=== PATIENT | female | born 1930 | race African-American/Black ===

== ENCOUNTER 2017-11-24 10:17 | Inpatient (IN) | payer MEDICARE, BC ==
[~2017-11-24] VITALS: Ht 152.4 cm; Wt 59.9 kg
[2017-11-24 10:20] VITALS: BP 150/75
[2017-11-24] MEDS ORDERED: HUMALOG 75/255 UNIT1 SUBQ (10:24)
[2017-11-24] MEDS ORDERED: AMLODIPINE BESY10 MG GT (10:24)
[2017-11-24] MEDS ORDERED: ELIQUIS2.5 MG PO (10:24)
[2017-11-24] MEDS ORDERED: ACETAMINOP160 MG/5 M GT (10:24)
[2017-11-24] MEDS ORDERED: METOPROLOL TART50 M1 ORAL (10:27)
[2017-11-24] MEDS ORDERED: POTASSIUM CHLO10 MEQ GT (10:27)
[2017-11-24] MEDS ORDERED: ISOSORBIDE DINI30 MG GT (10:27)
[2017-11-24] MEDS ORDERED: MULTIVITAMINS1 EAC8 GT (10:27)
[2017-11-24] MEDS ORDERED: A & D OINT1 APPLI1 (10:27)
[2017-11-24] MEDS ORDERED: VITAMIN C500 M1 GT (10:27)
[2017-11-24] MEDS ORDERED: VENELEX OINTMEN60 GM TP (10:28)
[2017-11-24] MEDS ORDERED: Ipratropium 0.02% Inh Soln 2.5ml UD HHN ONE (10:30)
[2017-11-24] MEDS ORDERED: Albuterol ud Inhalation HHN ONE (10:30)
[2017-11-24] MEDS ORDERED: Solu-MEDROL 125mg Inj IVP ONE (10:30)
--- NOTE | 2017-11-24 10:45 | Emergency Room Report ---
History of Present Illness General Chief Complaint: Dyspnea/Respdistress Source: Medical Record, EMS Present Illness HPI Patient sent in for dyspnea and hypoxia. Initial oxygen saturation was 75% for paramedics. They put her on mask and oxygen went up to 94%. They did not hear wheezing. They state the patient has a history of congestive heart failure. The patient is noncommunicative due to CVA. The patient has sustained a stroke in the past and has left-sided weakness. She does not communicate aside from grunting. According to records with the patient she has type 2 diabetes without complications, encephalopathy, gastrostomy tube, aphasia, heart failure, sepsis in the past, peripheral vascular disease, essential hypertension and she status post stroke. Review of labs presented with her on November 09 revealed hypernatremia (154) and hemoglobin of 8.4. POLST - full code Allergies: Coded Allergies: ATORVASTATIN (Verified Allergy, Unknown, 11/24/17) CLONIDINE (Verified Allergy, Unknown, 11/24/17) LABETALOL (Verified Allergy, Unknown, 11/24/17) NIFEDIPINE (Verified Allergy, Unknown, 11/24/17) ROSUVASTATIN (Verified Allergy, Unknown, 11/24/17) Uncoded Allergies: IVELISSE INHIBITOR (Allergy, Unknown, 11/24/17) Patient History Limited by: medical condition Past Medical History: see triage record, old chart reviewed Past Surgical History: other - PEG tube Social History Narrative [facility] Reviewed Nursing Documentation: PMH: Agreed; PSxH: Agreed Nursing Documentation-PMH Hx Cardiac Problems: Yes - heart failure, PVD Hx Hypertension: Yes Hx Diabetes: Yes Hx Cerebrovascular Accident: Yes Review of Systems All Other Systems: limited Physical Exam Vital Signs Date Time Temp Pulse Resp B/P (MAP) Pulse Ox O2 Delivery O2 Flow Rate FiO2 11/24/17 10:17 97.1 68 20 198/87 94 Non-Rebreather 12.0 97.2 Sp02 EP Interpretation: reviewed, abnormal - interpreted as low by me General Appearance: mild distress, Chronically Ill Head: normocephalic Eyes: bilateral eye normal inspection, bilateral eye PERRL ENT: moist mucus membranes Respiratory: respiratory distress - mild, wheezing, expiration Cardiovascular #1: normal peripheral pulses Cardiovascular #2: 2+ radial (R) Gastrointestinal: soft, other - PEG, decreased bowel sounds Genitourinary: no CVA tenderness Musculoskeletal: other - contractures L Neurologic: motor weakness - L sided Psychiatric: other - minimal responses Skin: other - bilateral heel decubiti - sallo Procedures Critical Care Time Critical Care Time Total Critical Care Time: 30 min bedside evaluation and treatment excludes procedures (EKG). Reason for critical care: resp distress, determination level of care, BIPAP Possible complications: hypotension, hypertension, NM, shock, arrhythmias, metabolic acidosis, end organ damage, respiratory failure. Interventions: beta agents, oxygen, BIPAP, lasix, repeat examinations Course: Patient with resp distress. Cardiac asthma treated with beta agents. No evidence of infection. Review of POLST. Focus on tx CHF. Still resp distress and hypoxia. BIPAP begun. Repeat eval with improvement and breathing more comfortably. Eval by admitting MD. Consultations: nursing staff, EMS, radiology, RT, admitting MD Performed by: Dr. Franklin Tolerated well condition = serious Medical Decision Making Diagnostic Impression: Primary Impression: Respiratory distress Additional Impressions: Hypoxia Pulmonary edema Qualified Codes: J81.0 - Acute pulmonary edema History of CVA (cerebrovascular accident) ER Course Patient with history of CHF presents with hypoxia and mild respiratory distress. Differential includes acute myocardial infarction, congestive heart failure, bronchospasm, pneumonia amongst others. Based on recent labs she's probably hyponatremic and anemic at this time also. Evaluation will be with EKG , chest x-ray and labs. Been and what the x-ray shows we may need to give her fluid hydration. Also antibiotics may be indicated. EKG without acute injury. CXR bilat infiltrates. Patient still with increased work of breathing and requiring 100% nonrebreather. Placed on BiPAP. Patient improved on BiPAP. White count is 8000, lactate is negative and BNP is extremely elevated. The clinical picture is against pneumonia. Dr. Perez and examine the patient here. We're electing not to start antibiotics at this time as the clinical picture is purely congestive heart failure. Patient admitted to the stepdown unit because of BiPAP. Laboratory Tests Test 11/24/17 10:30 11/24/17 10:40 White Blood Count 8.1 K/UL (4.8-10.8) Red Blood Count 3.44 M/UL (4.20-5.40) L Hemoglobin 9.8 G/DL (12.0-16.0) L Hematocrit 32.8 % (37.0-47.0) L Mean Corpuscular Volume 95 FL (80-99) Mean Corpuscular Hemoglobin 28.3 PG (27.0-31.0) Mean Corpuscular Hemoglobin Concent 29.8 G/DL (32.0-36.0) L Red Cell Distribution Width 17.9 % (11.6-14.8) H Platelet Count 329 K/UL (150-450) Mean Platelet Volume 9.4 FL (6.5-10.1) Neutrophils (%) (Auto) 84.3 % (45.0-75.0) H Lymphocytes (%) (Auto) 10.9 % (20.0-45.0) L Monocytes (%) (Auto) 3.2 % (1.0-10.0) Eosinophils (%) (Auto) 0.6 % (0.0-3.0) Basophils (%) (Auto) 1.1 % (0.0-2.0) Prothrombin Time 11.2 SEC (9.30-11.50) Prothrombin Time INR 1.1 (0.9-1.1) PTT 26 SEC (23-33) Sodium Level 146 MMOL/L (136-145) H Potassium Level 4.0 MMOL/L (3.5-5.1) Chloride Level 106 MMOL/L (98-107) Carbon Dioxide Level 35 MMOL/L (21-32) H Anion Gap 6 mmol/L (5-15) Blood Urea Nitrogen 36 mg/dL (7-18) H Creatinine 0.6 MG/DL (0.55-1.30) Estimate Glomerular Filtration Rate mL/min (>60) Glucose Level 187 MG/DL (74-106) H Lactic Acid Level 0.50 mmol/L (0.4-2.0) Calcium Level 10.0 MG/DL (8.5-10.1) Total Bilirubin 0.3 MG/DL (0.2-1.0) Aspartate Amino Transferase (AST) 58 U/L (15-37) H Alanine Aminotransferase (ALT) 93 U/L (12-78) H Alkaline Phosphatase 84 U/L (46-116) Total Creatine Kinase 53 U/L (26-308) Troponin I 0.026 ng/mL (0.000-0.056) Pro-B-Type Natriuretic Peptide 63611 pg/mL (0-125) H Total Protein 7.7 G/DL (6.4-8.2) Albumin 3.0 G/DL (3.4-5.0) L Globulin 4.7 g/dL Albumin/Globulin Ratio 0.6 (1.0-2.7) L Urine Color Pale yellow Urine Appearance Clear Urine pH 6 (4.5-8.0) Urine Specific [place] 1.010 (1.005-1.035) Urine Protein 3+ (NEGATIVE) H Urine Glucose (UA) Negative (NEGATIVE) Urine Ketones Negative (NEGATIVE) Urine Blood 1+ (NEGATIVE) H Urine Nitrite Negative (NEGATIVE) Urine Bilirubin Negative (NEGATIVE) Urine Urobilinogen Normal MG/DL (0.0-1.0) Urine Leukocyte Esterase Negative (NEGATIVE) Urine RBC 0-2 /HPF (0 - 2) Urine WBC 0-2 /HPF (0 - 2) Urine Squamous Epithelial Cells Occasional /LPF Urine Bacteria Occasional /HPF (NONE) EKG Diagnostic Results Rate: normal Rhythm: NSR ST Segments: no acute changes - LAE Rhythm Strip Diag. Results Rhythm: NSR, no PVC's, no ectopy Chest X-Ray Diagnostic Results Chest X-Ray Diagnostic Results : Chest X-Ray Ordered: Yes # of Views/Limited/Complete: 1 View Indication: Shortness of Breath EP Interpretation: Yes Interpretation: no effusion, no pneumothorax, other - bilat infiltrated c/w CHF or pneumonia Impression: Other Electronically Signed by: Jori Franklin MD Last Vital Signs Date Time Temp Pulse Resp B/P (MAP) Pulse Ox O2 Delivery O2 Flow Rate FiO2 11/24/17 11:54 92 25 96 Facial 70 11/24/17 11:14 15.0 11/24/17 10:20 98.0 150/75 98.0 Status: improved Disposition: ADMITTED INPATIENT Condition: Serious Jori Franklin M.D. Nov 24, 2017 10:45
[2017-11-24 10:55] LABS: BASOPHILS % (AUTO) 1.1 % (0.0-2.0); EOSINOPHILS % (AUTO) 0.6 % (0.0-3.0); HEMATOCRIT 32.8 % (37.0-47.0); HEMOGLOBIN 9.8 G/DL (12.0-16.0); LYMPHOCYTES % (AUTO) 10.9 % (20.0-45.0); MEAN CORPUSCULAR VOLUME 95 FL (80-99); MONOCYTES % (AUTO) 3.2 % (1.0-10.0); NEUTROPHILS % (AUTO) 84.3 % (45.0-75.0); PLATELET COUNT 329 K/UL (150-450); RED BLOOD COUNT 3.44 M/UL (4.20-5.40); RED CELL DISTRIBUTION WIDTH 17.9 % (11.6-14.8); WHITE BLOOD COUNT 8.1 K/UL (4.8-10.8)
[2017-11-24 10:58] LABS: INR 1.1 (0.9-1.1)
[2017-11-24 11:00] LABS: ANION GAP 6 mmol/L (5-15); BLOOD UREA NITROGEN 36 mg/dL (7-18); CARBON DIOXIDE 35 MMOL/L (21-32); CHLORIDE 106 MMOL/L (98-107); CREATININE 0.6 MG/DL (0.55-1.30); SODIUM 146 MMOL/L (136-145)
[2017-11-24 11:11] LABS: ALANINE AMINOTRANSFERASE 93 U/L (12-78); ALBUMIN/GLOBULIN RATIO 0.6 (1.0-2.7); ALKALINE PHOSPHATASE 84 U/L (46-116); ASPARTATE AMINO TRANSFERASE 58 U/L (15-37); BILIRUBIN,TOTAL 0.3 MG/DL (0.2-1.0); CREATINE KINASE 53 U/L (26-308)
[2017-11-24 11:13] LABS: APPEARANCE,URINE CLEAR; BILIRUBIN, URINE NEGATIVE (NEGATIVE); COLOR,URINE PALE YELLOW; GLUCOSE, URINE (UA) NEGATIVE (NEGATIVE); KETONES,URINE NEGATIVE (NEGATIVE); LEUKOCYTE ESTERASE ,URINE NEGATIVE (NEGATIVE); NITRITE,URINE NEGATIVE (NEGATIVE); PH,URINE 6 (4.5-8.0); PROTEIN,URINE 3+ (NEGATIVE); UROBILINOGEN,URINE NORMAL MG/DL (0.0-1.0)
[2017-11-24 12:00] VITALS: BP 156/72
--- NOTE | 2017-11-24 12:30 | History & Physical ---
History and Physical History & Physicial HPI Patient sent in for dyspnea and hypoxia. Initial oxygen saturation was 95% for paramedics. They put her on mask and oxygen went up to 94%. They did not hear wheezing. They state the patient has a history of congestive heart failure. The patient is noncommunicative Courtney. The patient has sustained a stroke in the past and has left-sided weakness. She does not communicate aside from grunting. According to records with the patient she has type 2 diabetes without complications, encephalopathy, gastrostomy tube, aphasia, heart failure, sepsis in the past, peripheral vascular disease, essential hypertension and she status post stroke. Review of labs presented with her on November 09 revealed hyper knee tree [place] (154 ) hemoglobin of 8.4. POLST - full code Allergies: Coded Allergies: ATORVASTATIN (Verified Allergy, Unknown, 11/24/17) CLONIDINE (Verified Allergy, Unknown, 11/24/17) LABETALOL (Verified Allergy, Unknown, 11/24/17) NIFEDIPINE (Verified Allergy, Unknown, 11/24/17) ROSUVASTATIN (Verified Allergy, Unknown, 11/24/17) Uncoded Allergies: IVELISSE INHIBITOR (Allergy, Unknown, 11/24/17) Limited by: medical condition Past Medical History: see triage record, old chart reviewed Past Surgical History: other - PEG tube Social History Narrative resident of [facility] Hx Cardiac Problems: Yes - heart failure, PVD Hx Hypertension: Yes Hx Diabetes: Yes Hx Cerebrovascular Accident: Yes seen in ER Examined On BIPAP Non Verbal Acute respiratory distress / Failure- CHF Decomp HTN 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
--- NOTE | 2017-11-24 12:42 | Diagnostic Imaging Report ---
Indication: Dyspnea Technique: One view of the chest Comparison: none Findings: There is bilateral pleural effusions. There is bilateral interstitial edema. The heart is probably enlarged. Impression: Cardiomegaly with evidence of congestive heart failure
[2017-11-24] MEDS ORDERED: LORazepam Inj 2mg/ml 1ml IV PRN (13:45)
[2017-11-24] MEDS ORDERED: Albuterol/Ipratropium 3ml neb HHN PRN (13:45)
--- NOTE | 2017-11-24 13:47 | Consultation ---
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 Pt was found in respiratory failure and was started on BIPAP. Her CXR showed cardiomegaly and bilateral edema and effusion. Allergies: Coded Allergies: ATORVASTATIN (Verified Allergy, Unknown, 11/24/17) CLONIDINE (Verified Allergy, Unknown, 11/24/17) LABETALOL (Verified Allergy, Unknown, 11/24/17) NIFEDIPINE (Verified Allergy, Unknown, 11/24/17) ROSUVASTATIN (Verified Allergy, Unknown, 11/24/17) Uncoded Allergies: IVELISSE INHIBITOR (Allergy, Unknown, 11/24/17) Medication History Scheduled Amlodipine Besylate* (Amlodipine Besylate*), 10 MG GT DAILY, (Reported) Apixaban (Eliquis), 2.5 MG PO BID, (Reported) Ascorbic Acid* (Vitamin C*), 500 MG GT TWICE A DAY, (Reported) Balsam [place] Oil (Venelex Ointment), 1 APPLIC TP DAILY, (Reported) Isosorbide Dinitrate* (Isordil*), 30 MG GT TWICE A DAY, (Reported) Metoprolol Tartrate* (Metoprolol Tartrate*), 50 MG ORAL EVERY 12 HOURS, ( Reported) Multivitamin With Minerals (Multivitamins With Minerals*), 1 TAB GT DAILY, ( Reported) Potassium Chloride* (K-Dur*), 20 MEQ GT DAILY, (Reported) Scheduled PRN Acetaminophen 160MG/5ML* (Acetaminophen*), 20 ML GT EVERY 6 HOURS PRN for Fever/ Headache/Mild Pain, (Reported) Miscellaneous Medications Insulin Human Lispro (Humalog), Unknown Dose SUBQ, (Reported) Vitamin A & D (Vitamin A & D Ointment), (Reported) Patient History Healthcare decision maker Resuscitation status Advanced Directive on File Past Medical/Surgical History Past Medical/Surgical History: (1) Pulmonary edema (2) Diabetes mellitus (3) History of CVA (cerebrovascular accident) Review of Systems All Other Systems: negative except mentioned in HPI Physical Exam General Appearance: WD/WN Lines, tubes and drains: peripheral HEENT: normocephalic, atraumatic Neck: non-tender, normal alignment Respiratory/Chest: chest wall non-tender, lungs clear, rhonchi - left, rhonchi - right Cardiovascular/Chest: normal peripheral pulses, normal rate Abdomen: non tender Genitourinary/Rectal: normal genital exam Extremities: normal range of motion, moderate edema Last 24 Hour Vital Signs Date Time Temp Pulse Resp B/P (MAP) Pulse Ox O2 Delivery O2 Flow Rate FiO2 11/24/17 12:00 98.1 90 23 156/72 98 Bi-pap 15.0 70 98.1 11/24/17 12:00 15.0 70 11/24/17 11:54 92 25 96 Facial 70 11/24/17 11:14 92 25 99 Non-Rebreather 15.0 100 11/24/17 10:35 75 24 Non-Rebreather 15.0 100 11/24/17 10:30 75 24 99 Non-Rebreather 15.0 100 11/24/17 10:20 98.0 75 23 150/75 98 Simple Mask 12.0 98.0 11/24/17 10:20 75 23 Simple Mask 12.0 11/24/17 10:17 97.1 68 20 198/87 94 Non-Rebreather 12.0 97.2 Laboratory Tests Test 11/24/17 10:30 11/24/17 10:40 White Blood Count 8.1 K/UL (4.8-10.8) Red Blood Count 3.44 M/UL (4.20-5.40) L Hemoglobin 9.8 G/DL (12.0-16.0) L Hematocrit 32.8 % (37.0-47.0) L Mean Corpuscular Volume 95 FL (80-99) Mean Corpuscular Hemoglobin 28.3 PG (27.0-31.0) Mean Corpuscular Hemoglobin Concent 29.8 G/DL (32.0-36.0) L Red Cell Distribution Width 17.9 % (11.6-14.8) H Platelet Count 329 K/UL (150-450) Mean Platelet Volume 9.4 FL (6.5-10.1) Neutrophils (%) (Auto) 84.3 % (45.0-75.0) H Lymphocytes (%) (Auto) 10.9 % (20.0-45.0) L Monocytes (%) (Auto) 3.2 % (1.0-10.0) Eosinophils (%) (Auto) 0.6 % (0.0-3.0) Basophils (%) (Auto) 1.1 % (0.0-2.0) Prothrombin Time 11.2 SEC (9.30-11.50) Prothromb Time International Ratio 1.1 (0.9-1.1) Activated Partial Thromboplast Time 26 SEC (23-33) Sodium Level 146 MMOL/L (136-145) H Potassium Level 4.0 MMOL/L (3.5-5.1) Chloride Level 106 MMOL/L (98-107) Carbon Dioxide Level 35 MMOL/L (21-32) H Anion Gap 6 mmol/L (5-15) Blood Urea Nitrogen 36 mg/dL (7-18) H Creatinine 0.6 MG/DL (0.55-1.30) Estimat Glomerular Filtration Rate mL/min (>60) Glucose Level 187 MG/DL (74-106) H Lactic Acid Level 0.50 mmol/L (0.4-2.0) Calcium Level 10.0 MG/DL (8.5-10.1) Total Bilirubin 0.3 MG/DL (0.2-1.0) Aspartate Amino Transf (AST/SGOT) 58 U/L (15-37) H Alanine Aminotransferase (ALT/SGPT) 93 U/L (12-78) H Alkaline Phosphatase 84 U/L (46-116) Total Creatine Kinase 53 U/L (26-308) Troponin I 0.026 ng/mL (0.000-0.056) Pro-B-Type Natriuretic Peptide 93653 pg/mL (0-125) H Total Protein 7.7 G/DL (6.4-8.2) Albumin 3.0 G/DL (3.4-5.0) L Globulin 4.7 g/dL Albumin/Globulin Ratio 0.6 (1.0-2.7) L Urine Color Pale yellow Urine Appearance Clear Urine pH 6 (4.5-8.0) Urine Specific [place] 1.010 (1.005-1.035) Urine Protein 3+ (NEGATIVE) H Urine Glucose (UA) Negative (NEGATIVE) Urine Ketones Negative (NEGATIVE) Urine Blood 1+ (NEGATIVE) H Urine Nitrite Negative (NEGATIVE) Urine Bilirubin Negative (NEGATIVE) Urine Urobilinogen Normal MG/DL (0.0-1.0) Urine Leukocyte Esterase Negative (NEGATIVE) Urine RBC 0-2 /HPF (0 - 2) Urine WBC 0-2 /HPF (0 - 2) Urine Squamous Epithelial Cells Occasional /LPF Urine Bacteria Occasional /HPF (NONE) Height (Feet): 5 Weight (Pounds): 140 Medications Current Medications Medications (Trade) Dose Ordered Sig/Cirilo Route PRN Reason Start Time Stop Time Status Last Admin Dose Admin Acetaminophen (Tylenol Peds) 650 mg EVERY 6 HOURS PRN ORAL Fever/Headache/Mild Pain 11/24/17 12:45 12/24/17 12:44 UNV Albuterol Sulfate (Proventil) 2.5 mg Q4HR HHN 11/24/17 13:00 11/29/17 12:59 UNV Amlodipine Besylate (Norvasc) 10 mg DAILY GT 11/24/17 12:45 12/24/17 12:44 UNV Apixaban (Eliquis) 2.5 mg BID GT 11/24/17 12:45 12/24/17 12:44 UNV Dextrose (Dextrose 50%) STAT PRN IV Hypoglycemia 11/24/17 13:45 12/24/17 13:44 UNV Docusate Sodium (Colace) 100 mg TID NG 11/24/17 13:00 12/24/17 12:59 UNV Famotidine (Pepcid) 20 mg BID GT 11/24/17 18:00 12/24/17 17:59 UNV Furosemide (Lasix) 20 mg Q12HR IV 11/24/17 21:00 12/24/17 20:59 UNV Hydralazine HCl (Apresoline) 10 mg Q6HR GT 11/24/17 18:00 12/24/17 17:59 UNV Insulin Aspart (NovoLOG) BEFORE MEALS AND HS SUBQ 11/24/17 16:30 12/24/17 16:29 UNV Nitroglycerin (Ntg) 1 patch Q24H TDERMAL 11/24/17 12:45 12/24/17 12:44 UNV Sodium Chloride 1,000 ml @ 50 mls/hr Q20H IV 11/24/17 12:45 12/24/17 12:44 UNV Assessment/Plan Problem List: (1) Acute respiratory failure ICD Codes: J96.00 - Acute respiratory failure, unspecified whether with hypoxia or hypercapnia SNOMED: 14212728 (2) Pulmonary edema ICD Codes: J81.1 - Chronic pulmonary edema SNOMED: 62992623 (3) History of CVA (cerebrovascular accident) ICD Codes: Z86.73 - Personal history of transient ischemic attack (TIA), and cerebral infarction without residual deficits SNOMED: 450269851 (4) Advanced dementia ICD Codes: F03.90 - Unspecified dementia without behavioral disturbance SNOMED: 21331357 (5) Diabetes mellitus ICD Codes: E11.9 - Type 2 diabetes mellitus without complications SNOMED: 20133327 Assessment/Plan titrate bipap f/u BNP and CXR in am on Laix 20 BID ( might need more lasix) f/u intake and output dvt prophylaxis stress ulcer prophylaxis Henry Gomez MD Nov 24, 2017 13:47
[2017-11-24] MEDS: Albuterol ud Inhalation HHN SCH ×3 (15:00→22:46)
--- NOTE | 2017-11-24 15:12 | Cardiology Report ---
APPROVED REPORT EXAM: Two-dimensional and M-mode echocardiogram with Doppler and color Doppler. INDICATION Congestive Heart Failure M-Mode DIMENSIONS IVSd1.0 (0.7-1.1cm)Left Atrium (MM)3.6 (1.6-4.0cm) LVDd3.9 (3.5-5.6cm)Aortic Root2.4 (2.0-3.7cm) PWd1.1 (0.7-1.1cm)Aortic Cusp Exc.1.5 (1.5-2.0cm) IVSs1.6 cm LVDs2.4 (2.5-4.0cm) PWs1.1 cm Technically difficult study due to pts position . Normal left ventricular chamber size, systolic function and wall motion as well visualized Left ventricular ejection fraction estimated to be 65-70%. Mild left ventricular hypertrophy by 2-D. Small posterior pericardial effusion. likely a larger pleural effusion All other cardiac chamber sizes are within normal limits. Focal aortic valve sclerosis with adequate cusp excursion. Moderately Thickened mitral valve leaflets with normal excursion. Significat Mitral annulus calcifiaction with likely reverberation artifact being seen in the left atrium , Aortic root calcification. Pulmonic valve not well visualized. Normal tricuspid valve structure. Echogentic material noted on posterior leaflet of mitral valve. IVC dilated at 2.6cm size with physiologic collapse . A color flow and spectral Doppler study was performed and revealed: Trace aortic regurgitation. Mild mitral regurgitation. Normal left ventricular diastolic function . Mild to moderate tricuspid regurgitation. Tricuspid systolic velocities suggests peak right ventricular systolic pressure of 66 mmHg,consistent with severe pulmonary hypertension .
[2017-11-24] MEDS: Nitroglycerin Patch 0.4mg TDERMAL SCH (15:39)
[2017-11-24] MEDS: Docusate 100mg/10ml Liq NG SCH ×2 (15:39→17:16)
[2017-11-24 16:00] VITALS: BP 152/75
[2017-11-24] MEDS: NovoLOG Insulin Flexpen SUBQ SCH ×2 (16:26→21:33)
[2017-11-24] MEDS: HydrALAZINE 10mg Tab GT SCH (17:16)
[2017-11-24 20:00] VITALS: BP 152/75
[2017-11-24] MEDS: Eliquis 2.5mg tablet GT SCH (21:30)
[2017-11-25] VITALS: BP 132/50
--- NOTE | 2017-11-25 00:15 | Consultation ---
DATE OF CONSULTATION: 11/24/2017 CARDIOLOGY CONSULTATION CONSULTING PHYSICIAN: Jori Andujar M.D. REQUESTING PHYSICIAN: Rafael Hurt M.D. REASON FOR CONSULTATION: Acute congestive heart failure. HISTORY OF PRESENT ILLNESS: This is an 87-year-old female, who resides at a group home facility and debilitated due to a prior stroke. She has had progressive shortness of breath and was transported to the emergency room where she was noted to be tachypneic and hypoxic. She was placed on BiPAP support and diagnostic workup undertaken prior to admission. I have been asked to assist with further cardiovascular care. The patient is unable to give any historical data and records are reviewed for the remainder of this dictation. PAST MEDICAL HISTORY: Includes hypertension, cerebrovascular disease, left hemiparesis, type 2 diabetes mellitus, hypertensive heart disease, paroxysmal atrial fibrillation, dysphagia with G-tube, hyperlipidemia, and peripheral artery disease. MEDICATIONS: Prior to admission, reviewed and reconciled. ALLERGIES: Include statin drugs, nifedipine, labetalol, clonidine, and IVELISSE inhibitors. FAMILY HISTORY: Noncontributory. SOCIAL HISTORY: No record of smoking or alcohol use in available records. REVIEW OF SYSTEMS: Otherwise, not obtainable. PHYSICAL EXAM: GENERAL: Nonverbal at this time, on BiPAP support, in mild respiratory distress. VITAL SIGNS: Blood pressure 154/71, pulse 89, respirations 20. On BiPAP support. HEENT: Temporal wasting. Moist mucous membranes. Jugular venous pressure difficult to assess. LUNGS: With bilateral rales. CARDIAC: Regular rhythm and rate. Normal S1, S2. There is no appreciable murmur, but exam is obscured by respiratory sounds. ABDOMEN: Soft and nontender. EXTREMITIES: Trace edema. LABORATORY AND DIAGNOSTIC DATA: Chest x-ray reveals cardiomegaly and pulmonary venous congestion. Echocardiogram reveals normal ejection fraction, mild mitral and tricuspid regurgitation, and elevated pulmonary artery systolic pressure of 66 mmHg. Sodium 146, potassium 4, bicarb 35, BUN 36, creatinine 0.6, and glucose 187. Pro-natriuretic peptide 10,000. Troponin negative. Albumin 3.0. EKG reveals sinus rhythm, left atrial enlargement, and nonspecific ST-T wave changes. Lactate level is normal. IMPRESSION: 1. Acute on chronic diastolic congestive heart failure. 2. Severe pulmonary hypertension. 3. Hypoxia. 4. Acute respiratory insufficiency. 5. Acute myocardial ischemia. 6. Hypernatremia. 7. Prerenal azotemia. 8. Paroxysmal atrial fibrillation in the setting of conduction system disease. 9. Multiple drug allergies. PLAN: 1. BiPAP support. 2. Oxygen support. 3. Diuresis. 4. Titrate current cardiovascular regimen that includes hydralazine, nitrates, and nifedipine. 5. Nutrition by feeding tube. 6. Agree with hypotonic IV fluids to correct free water deficit. 7. Continue full anticoagulation for cardioembolic prophylaxis. 8. Cardiac monitoring. Jori Andujar M.D. DR: MAE JOB#: [id number] CC: MARTIN
[2017-11-25] MEDS: Albuterol ud Inhalation HHN SCH ×6 (02:29→23:22)
[2017-11-25 04:00] VITALS: BP 134/84
[2017-11-25] MEDS: HydrALAZINE 10mg Tab GT SCH ×5 (06:00→23:13)
[2017-11-25] MEDS: NovoLOG Insulin Flexpen SUBQ SCH ×4 (06:30→23:13)
[2017-11-25 07:21] LABS: BASOPHILS % (AUTO) 0.3 % (0.0-2.0); HEMATOCRIT 28.6 % (37.0-47.0); HEMOGLOBIN 8.7 G/DL (12.0-16.0); MEAN CORPUSCULAR VOLUME 96 FL (80-99); MONOCYTES % (AUTO) 7.9 % (1.0-10.0); NEUTROPHILS % (AUTO) 82.8 % (45.0-75.0); PLATELET COUNT 288 K/UL (150-450); RED BLOOD COUNT 2.99 M/UL (4.20-5.40); RED CELL DISTRIBUTION WIDTH 18.5 % (11.6-14.8); WHITE BLOOD COUNT 6.8 K/UL (4.8-10.8)
[2017-11-25 07:37] LABS: ALANINE AMINOTRANSFERASE 81 U/L (12-78); ALBUMIN 2.8 G/DL (3.4-5.0); ALBUMIN/GLOBULIN RATIO 0.7 (1.0-2.7); ALKALINE PHOSPHATASE 70 U/L (46-116); ANION GAP 4 mmol/L (5-15); ASPARTATE AMINO TRANSFERASE 42 U/L (15-37); BILIRUBIN,TOTAL 0.3 MG/DL (0.2-1.0); BLOOD UREA NITROGEN 41 mg/dL (7-18); CALCIUM 9.5 MG/DL (8.5-10.1); CARBON DIOXIDE 33 MMOL/L (21-32); CHLORIDE 109 MMOL/L (98-107); CHOLESTEROL 141 MG/DL (< 200); CREATINE KINASE 31 U/L (26-308); CREATININE 0.7 MG/DL (0.55-1.30); FERRITIN 76 NG/ML (8-388); GAMMA GLUTAMYL TRANSPEPTIDASE 93 U/L (5-85); HDL CHOLESTEROL 45 MG/DL (40-60); PHOSPHORUS 3.6 MG/DL (2.5-4.9); POTASSIUM 3.9 MMOL/L (3.5-5.1); SODIUM 146 MMOL/L (136-145); TRIGLYCERIDES 57 MG/DL (30-150)
[2017-11-25 08:00] VITALS: BP 133/72
[2017-11-25 08:16] LABS: % IRON SATURATION 10 % (15-50); IRON 28 ug/dL (50-175); TOTAL IRON BINDING CAPACITY 292 ug/dL (250-450)
[2017-11-25] MEDS: Eliquis 2.5mg tablet GT SCH ×2 (08:24→20:56)
[2017-11-25] MEDS: Docusate 100mg/10ml Liq NG SCH ×3 (08:24→17:32)
--- NOTE | 2017-11-25 08:53 | General Progress Note ---
Assessment/Plan Problem List: (1) Acute respiratory failure ICD Codes: J96.00 - Acute respiratory failure, unspecified whether with hypoxia or hypercapnia SNOMED: 75996112 (2) History of CVA (cerebrovascular accident) ICD Codes: Z86.73 - Personal history of transient ischemic attack (TIA), and cerebral infarction without residual deficits SNOMED: 322632014 (3) Pulmonary edema ICD Codes: J81.1 - Chronic pulmonary edema SNOMED: 53312235 Qualifiers: Qualified Codes: J81.0 - Acute pulmonary edema (4) Diabetic nephropathy ICD Codes: E11.21 - Type 2 diabetes mellitus with diabetic nephropathy SNOMED: 40669036, 162748790 Status: unchanged Status Narrative Acute respiratory distress / Failure- CHF Decomp Acute on chronic diastolic congestive heart failure. Left ventricular ejection fraction estimated to be 65-70%. HTN systemic and Severe pulmonary hypertension. DM 4+ Proteinuria Prerenal azotemia. Dementia PEG PVD Hypernatremia. Multiple drug allergies. Assessment/Plan up dose lasix- GT feeding Keep BP and BS in check optimize cardiac and pulm status check ABG IV Iron Subjective ROS Limited/Unobtainable: Yes HEENT: Reports: other - on bipap Allergies: Coded Allergies: ATORVASTATIN (Verified Allergy, Unknown, 11/24/17) CLONIDINE (Verified Allergy, Unknown, 11/24/17) LABETALOL (Verified Allergy, Unknown, 11/24/17) NIFEDIPINE (Verified Allergy, Unknown, 11/24/17) ROSUVASTATIN (Verified Allergy, Unknown, 11/24/17) Uncoded Allergies: IVELISSE INHIBITOR (Allergy, Unknown, 11/24/17) Objective Last 24 Hour Vital Signs Date Time Temp Pulse Resp B/P (MAP) Pulse Ox O2 Delivery O2 Flow Rate FiO2 11/25/17 08:24 72 133/72 11/25/17 08:00 97.7 72 20 133/72 (92) 100 97.7 11/25/17 07:08 65 21 100 Bi-pap 70 11/25/17 06:58 61 20 100 Facial 70 11/25/17 06:57 74 20 100 Bi-pap 70 11/25/17 06:00 134/84 11/25/17 04:51 64 19 100 Facial 70 11/25/17 04:00 Bi-pap 15.0 11/25/17 04:00 90 11/25/17 04:00 97.3 70 19 134/84 (101) 99 97.3 11/25/17 04:00 15.0 70 11/25/17 03:00 71 24 100 Bi-pap 70 11/25/17 02:31 68 21 100 Facial 70 11/25/17 02:29 68 24 99 Bi-pap 70 11/25/17 01:12 68 24 100 Facial 70 11/25/17 00:00 97.7 35 26 132/50 (77) 100 97.7 11/25/17 00:00 79 11/25/17 00:00 132/50 11/25/17 00:00 Bi-pap 15.0 11/24/17 23:19 81 24 99 Bi-pap 70 11/24/17 22:48 64 24 100 Bi-pap 70 11/24/17 22:47 64 24 100 Facial 70 11/24/17 21:05 89 29 99 Facial 70 11/24/17 20:00 108 11/24/17 20:00 97.9 93 25 152/75 (100) 100 97.9 11/24/17 20:00 15.0 70 11/24/17 20:00 Bi-pap 15.0 11/24/17 19:33 81 24 100 Bi-pap 70 11/24/17 18:59 89 24 100 Bi-pap 70 11/24/17 18:59 88 24 99 Facial 70 11/24/17 17:16 152/75 11/24/17 17:03 63 28 96 Facial 70 11/24/17 16:00 97.8 91 18 152/75 (100) 94 97.8 11/24/17 16:00 15.0 70 11/24/17 16:00 Bi-pap 15.0 11/24/17 16:00 93 11/24/17 15:39 154/71 11/24/17 15:39 89 154/71 11/24/17 15:14 Bi-pap 15.0 Bi-pap 15.0 11/24/17 15:00 Bi-pap 11/24/17 15:00 Bi-pap 11/24/17 14:31 98.0 89 23 154/71 98 Bi-pap 15.0 70 98.1 11/24/17 14:30 88 22 99 Facial 70 11/24/17 13:25 90 24 95 Facial 70 11/24/17 12:00 98.1 90 23 156/72 98 Bi-pap 15.0 70 98.1 11/24/17 12:00 15.0 70 11/24/17 11:54 92 25 96 Facial 70 11/24/17 11:14 92 25 99 Non-Rebreather 15.0 100 11/24/17 10:35 75 24 Non-Rebreather 15.0 100 11/24/17 10:30 75 24 99 Non-Rebreather 15.0 100 11/24/17 10:20 98.0 75 23 150/75 98 Simple Mask 12.0 98.0 11/24/17 10:20 75 23 Simple Mask 12.0 11/24/17 10:17 97.1 68 20 198/87 94 Non-Rebreather 12.0 97.2 Intake and Output 11/24/17 11/25/17 19:00 07:00 Intake Total 425 ml 850 ml Output Total 1100 ml 300 ml Balance -675 ml 550 ml Intake Free Water 250 ml 200 ml IV Total 175 ml 650 ml Output Urine Total 1100 ml 300 ml # Bowel Movements 2 Laboratory Tests 11/24/17 10:30: White Blood Count 8.1, Red Blood Count 3.44L, Hemoglobin 9.8L, Hematocrit 32.8L , Mean Corpuscular Volume 95, Mean Corpuscular Hemoglobin 28.3, Mean Corpuscular Hemoglobin Concent 29.8L, Red Cell Distribution Width 17.9H, Platelet Count 329, Mean Platelet Volume 9.4, Neutrophils (%) (Auto) 84.3H, Lymphocytes (%) (Auto) 10.9L, Monocytes (%) (Auto) 3.2, Eosinophils (%) (Auto) 0.6, Basophils (%) (Auto) 1.1, Prothrombin Time 11.2, Prothromb Time International Ratio 1.1, Activated Partial Thromboplast Time 26, Sodium Level 146H, Potassium Level 4.0, Chloride Level 106, Carbon Dioxide Level 35H, Anion Gap 6, Blood Urea Nitrogen 36H, Creatinine 0.6, Estimat Glomerular Filtration Rate , Glucose Level 187H, Lactic Acid Level 0.50, Calcium Level 10.0, Total Bilirubin 0.3, Aspartate Amino Transf (AST/SGOT) 58H, Alanine Aminotransferase ( ALT/SGPT) 93H, Alkaline Phosphatase 84, Total Creatine Kinase 53, Troponin I 0.026, Pro-B-Type Natriuretic Peptide 20423O, Total Protein 7.7, Albumin 3.0L, Globulin 4.7, Albumin/Globulin Ratio 0.6L 11/24/17 10:40: Urine Color Pale yellow, Urine Appearance Clear, Urine pH 6, Urine Specific Josephine 1.010, Urine Protein 3+H, Urine Glucose (UA) Negative, Urine Ketones Negative, Urine Blood 1+H, Urine Nitrite Negative, Urine Bilirubin Negative, Urine Urobilinogen Normal, Urine Leukocyte Esterase Negative, Urine RBC 0-2, Urine WBC 0-2, Urine Squamous Epithelial Cells Occasional, Urine Bacteria Occasional 11/25/17 06:26: White Blood Count 6.8, Red Blood Count 2.99L, Hemoglobin 8.7L, Hematocrit 28.6L , Mean Corpuscular Volume 96, Mean Corpuscular Hemoglobin 29.2, Mean Corpuscular Hemoglobin Concent 30.6L, Red Cell Distribution Width 18.5H, Platelet Count 288, Mean Platelet Volume 9.6, Neutrophils (%) (Auto) 82.8H, Lymphocytes (%) (Auto) 9.0L, Monocytes (%) (Auto) 7.9, Eosinophils (%) (Auto) 0.0, Basophils (%) (Auto) 0.3, Sodium Level 146H, Potassium Level 3.9, Chloride Level 109H, Carbon Dioxide Level 33H, Anion Gap 4L, Blood Urea Nitrogen 41H, Creatinine 0.7, Estimat Glomerular Filtration Rate , Glucose Level 133H, Calcium Level 9.5, Total Bilirubin 0.3, Aspartate Amino Transf (AST/SGOT) 42H, Alanine Aminotransferase (ALT/SGPT) 81H, Alkaline Phosphatase 70, Total Creatine Kinase 31, Troponin I 0.035, Pro-B-Type Natriuretic Peptide 88074L, Total Protein 6.9, Albumin 2.8L, Globulin 4.1, Albumin/Globulin Ratio 0.7L, Hemoglobin A1c 7.5H, Uric Acid 8.1H, Phosphorus Level 3.6, Magnesium Level 2.6H , Iron Level 28L, Total Iron Binding Capacity 292, Percent Iron Saturation 10L, Unsaturated Iron Binding 264, Ferritin 76, Gamma Glutamyl Transpeptidase 93H, Triglycerides Level 57, Cholesterol Level 141, LDL Cholesterol 94, HDL Cholesterol 45, Cholesterol/HDL Ratio 3.1L, Vitamin B12 Level 1972H, Folate 26.1 , Thyroid Stimulating Hormone (TSH) 0.919 Height (Feet): 5 Height (Inches): 0.00 Weight (Pounds): 135 General Appearance: mild distress EENT: other - on bipap Cardiovascular: normal rate Respiratory/Chest: decreased breath sounds, rhonchi - bilaterally Abdomen: soft, other - GT Neurologic: other - non verbal Objective no change Rafael Hurt MD Nov 25, 2017 08:53
[2017-11-25] MEDS ORDERED: Iron Sucrose 200 MG in NS 110 ML IV ONE (11:00)
[2017-11-25] MEDS ORDERED: Iron Sucrose 100 MG in NS 55 ML IVPB ONE (11:00)
--- NOTE | 2017-11-25 11:01 | Pulmonology Progress Note ---
Assessment/Plan Problems: (1) Acute respiratory failure (2) Pulmonary edema (3) History of CVA (cerebrovascular accident) (4) Advanced dementia (5) Diabetes mellitus (6) Feeding by G-tube Assessment/Plan cxr is unchaged BNP higher Lasix was increased to 40 BID heart rate and BP controlled consider dc'ing metoprolol, because of negative inotropic effect anticoagulation. sliding scale f/u cxr and BNP in am iron deficiency, Venofer started. Subjective ROS Limited/Unobtainable: Yes Interval Events: still needs BIPAP Allergies: Coded Allergies: ATORVASTATIN (Verified Allergy, Unknown, 11/24/17) CLONIDINE (Verified Allergy, Unknown, 11/24/17) LABETALOL (Verified Allergy, Unknown, 11/24/17) NIFEDIPINE (Verified Allergy, Unknown, 11/24/17) ROSUVASTATIN (Verified Allergy, Unknown, 11/24/17) Uncoded Allergies: IVELISSE INHIBITOR (Allergy, Unknown, 11/24/17) Objective Last 24 Hour Vital Signs Date Time Temp Pulse Resp B/P (MAP) Pulse Ox O2 Delivery O2 Flow Rate FiO2 11/25/17 09:10 61 28 99 Facial 70 11/25/17 08:24 72 133/72 11/25/17 08:00 97.7 72 20 133/72 (92) 100 97.7 11/25/17 08:00 15.0 70 11/25/17 08:00 77 11/25/17 08:00 Bi-pap 15.0 11/25/17 07:08 65 21 100 Bi-pap 70 11/25/17 06:58 61 20 100 Facial 70 11/25/17 06:57 74 20 100 Bi-pap 70 11/25/17 06:00 134/84 11/25/17 04:51 64 19 100 Facial 70 11/25/17 04:00 Bi-pap 15.0 11/25/17 04:00 90 11/25/17 04:00 97.3 70 19 134/84 (101) 99 97.3 11/25/17 04:00 15.0 70 11/25/17 03:00 71 24 100 Bi-pap 70 11/25/17 02:31 68 21 100 Facial 70 11/25/17 02:29 68 24 99 Bi-pap 70 11/25/17 01:12 68 24 100 Facial 70 11/25/17 00:00 97.7 35 26 132/50 (77) 100 97.7 11/25/17 00:00 79 11/25/17 00:00 132/50 11/25/17 00:00 Bi-pap 15.0 11/24/17 23:19 81 24 99 Bi-pap 70 11/24/17 22:48 64 24 100 Bi-pap 70 11/24/17 22:47 64 24 100 Facial 70 11/24/17 21:05 89 29 99 Facial 70 11/24/17 20:00 108 11/24/17 20:00 97.9 93 25 152/75 (100) 100 97.9 11/24/17 20:00 15.0 70 11/24/17 20:00 Bi-pap 15.0 11/24/17 19:33 81 24 100 Bi-pap 70 11/24/17 18:59 89 24 100 Bi-pap 70 11/24/17 18:59 88 24 99 Facial 70 11/24/17 17:16 152/75 11/24/17 17:03 63 28 96 Facial 70 11/24/17 16:00 97.8 91 18 152/75 (100) 94 97.8 11/24/17 16:00 15.0 70 11/24/17 16:00 Bi-pap 15.0 11/24/17 16:00 93 11/24/17 15:39 154/71 11/24/17 15:39 89 154/71 11/24/17 15:14 Bi-pap 15.0 Bi-pap 15.0 11/24/17 15:00 Bi-pap 11/24/17 15:00 Bi-pap 11/24/17 14:31 98.0 89 23 154/71 98 Bi-pap 15.0 70 98.1 11/24/17 14:30 88 22 99 Facial 70 11/24/17 13:25 90 24 95 Facial 70 11/24/17 12:00 98.1 90 23 156/72 98 Bi-pap 15.0 70 98.1 11/24/17 12:00 15.0 70 11/24/17 11:54 92 25 96 Facial 70 11/24/17 11:14 92 25 99 Non-Rebreather 15.0 100 Intake and Output 11/24/17 11/25/17 19:00 07:00 Intake Total 425 ml 850 ml Output Total 1100 ml 300 ml Balance -675 ml 550 ml Intake Free Water 250 ml 200 ml IV Total 175 ml 650 ml Output Urine Total 1100 ml 300 ml # Bowel Movements 2 General Appearance: WD/WN HEENT: normocephalic Respiratory/Chest: chest wall non-tender, crackles/rales Cardiovascular: normal peripheral pulses, normal rate, regular rhythm Abdomen: normal bowel sounds, soft, non tender Genitourinary: normal external genitalia Skin: no lesions 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 Lymphatic: no neck adenopathy Microbiology Date/Time Source Procedure Growth Status 11/24/17 10:40 Indwelling Cath Urine Culture - Preliminary NO GROWTH Resulted 11/24/17 10:40 Rectum - Preliminary Resulted Laboratory Tests 11/25/17 06:26: White Blood Count 6.8, Red Blood Count 2.99L, Hemoglobin 8.7L, Hematocrit 28.6L , Mean Corpuscular Volume 96, Mean Corpuscular Hemoglobin 29.2, Mean Corpuscular Hemoglobin Concent 30.6L, Red Cell Distribution Width 18.5H, Platelet Count 288, Mean Platelet Volume 9.6, Neutrophils (%) (Auto) 82.8H, Lymphocytes (%) (Auto) 9.0L, Monocytes (%) (Auto) 7.9, Eosinophils (%) (Auto) 0.0, Basophils (%) (Auto) 0.3, Sodium Level 146H, Potassium Level 3.9, Chloride Level 109H, Carbon Dioxide Level 33H, Anion Gap 4L, Blood Urea Nitrogen 41H, Creatinine 0.7, Estimat Glomerular Filtration Rate , Glucose Level 133H, Hemoglobin A1c 7.5H, Uric Acid 8.1H, Calcium Level 9.5, Phosphorus Level 3.6, Magnesium Level 2.6H, Iron Level 28L, Total Iron Binding Capacity 292, Percent Iron Saturation 10L, Unsaturated Iron Binding 264, Ferritin 76, Total Bilirubin 0.3, Gamma Glutamyl Transpeptidase 93H, Aspartate Amino Transf (AST/SGOT) 42H, Alanine Aminotransferase (ALT/SGPT) 81H, Alkaline Phosphatase 70, Total Creatine Kinase 31, Troponin I 0.035, Pro-B-Type Natriuretic Peptide 91405K, Total Protein 6.9, Albumin 2.8L, Globulin 4.1, Albumin/Globulin Ratio 0.7L, Triglycerides Level 57, Cholesterol Level 141, LDL Cholesterol 94, HDL Cholesterol 45, Cholesterol/HDL Ratio 3.1L, Vitamin B12 Level 1972H, Folate 26.1 , Thyroid Stimulating Hormone (TSH) 0.919 11/25/17 08:47: Arterial Blood pH 7.380, Arterial Blood Partial Pressure CO2 52.4H, Arterial Blood Partial Pressure O2 88.4, Arterial Blood HCO3 30.7H, Arterial Blood Oxygen Saturation 96.0, Arterial Blood Base Excess 4.9, Mandeep Test Positive Current Medications Medications (Trade) Dose Ordered Sig/Cirilo Route PRN Reason Start Time Stop Time Status Last Admin Dose Admin Acetaminophen (Tylenol) 650 mg Q6H PRN ORAL Fever/Headache/Mild Pain 11/24/17 12:45 12/24/17 12:44 Albuterol Sulfate (Proventil) 2.5 mg Q4HRT HHN 11/24/17 15:00 11/29/17 14:59 11/25/17 06:57 Albuterol/ Ipratropium (Albuterol/ Ipratropium) 3 ml Q4H PRN HHN Shortness of Breath 11/24/17 13:45 11/29/17 13:44 Amlodipine Besylate (Norvasc) 10 mg DAILY GT 11/24/17 13:42 12/24/17 13:41 11/25/17 08:24 Apixaban (Eliquis) 2.5 mg Q12HR GT 11/24/17 21:00 12/24/17 20:59 11/25/17 08:24 Dextrose (Dextrose 50%) 25 ml PRN IV Hypoglycemia 11/24/17 14:00 12/24/17 13:59 Dextrose (Dextrose 50%) 50 ml PRN IV hypoglycemia 11/24/17 14:00 12/24/17 13:59 Docusate Sodium (Colace) 100 mg TID NG 11/24/17 13:43 12/24/17 13:42 11/25/17 08:24 Famotidine (Pepcid) 20 mg BID GT 11/24/17 18:00 12/24/17 17:59 11/25/17 08:24 Furosemide (Lasix) 40 mg Q12HR IV 11/25/17 21:00 12/25/17 20:59 Hydralazine HCl (Apresoline) 10 mg Q6HR GT 11/24/17 18:00 12/24/17 17:59 11/24/17 17:16 Insulin Aspart (NovoLOG) BEFORE MEALS AND HS SUBQ 11/24/17 16:30 12/24/17 16:29 11/24/17 21:33 Iron Sucrose 200 mg/Sodium Chloride 120 ml @ 240 mls/hr ONCE ONCE IV 11/25/17 11:00 11/25/17 11:29 Lorazepam (Ativan 2mg/ml 1ml) 0.5 mg Q6H PRN IV agitation 11/24/17 13:45 12/01/17 13:44 Metoclopramide HCl (Reglan) 5 mg EVERY 6 HOURS GT 11/25/17 12:00 12/25/17 11:59 Nitroglycerin (Ntg) 1 patch Q24H TDERMAL 11/24/17 14:00 12/24/17 13:59 11/24/17 15:39 Henry Gomez MD Nov 25, 2017 11:01
[2017-11-25] MEDS: Metoclopramide 10mg/10ml Liq GT SCH ×3 (11:55→23:12)
[2017-11-25 12:00] VITALS: BP 132/70
--- NOTE | 2017-11-25 12:20 | Diagnostic Imaging Report ---
Indication: Dyspnea Comparison: 11/24/2017 A single view chest radiograph was obtained. Findings: Interstitial edema demonstrated. Hazy basilar opacities likely representing pleural effusions. IMPRESSION: Pulmonary edema slightly improved since the last occasion
[2017-11-25] MEDS: Nitroglycerin Patch 0.4mg TDERMAL SCH (13:17)
[2017-11-25 16:00] VITALS: BP 116/62
--- NOTE | 2017-11-25 17:00 | Cardiology Report ---
APPROVED REPORT EKG Measurement Heart [id number] SC [id number] [id number] Normal sinus rhythm Possible Left atrial enlargement Left axis deviation Incomplete right bundle branch block Nonspecific T wave abnormality Abnormal ECG
[2017-11-25 20:00] VITALS: BP 142/71
[2017-11-26] VITALS: BP 128/65
--- NOTE | 2017-11-26 01:45 | Progress Note ---
DATE: 11/25/2017 CARDIOLOGY PROGRESS NOTE SUBJECTIVE: The patient converted to atrial fibrillation last evening. She had episodes of slow rate overnight. Her blood pressure remained stable. She is on anticoagulation for cardioembolic prophylaxis and has been prior to admission. The patient is on BiPAP and desaturates without it still. OBJECTIVE: VITAL SIGNS: Blood pressure 116/62, pulse 78, respirations 19, and afebrile. Lethargic. BiPAP mask in place. LUNGS: Diminished breath sounds. Scattered rales. HEART: Irregularly irregular rhythm. Normal S1, S2. No murmur appreciated. ABDOMEN: Soft. EXTREMITIES: With 1+ dependent edema. LABORATORY DATA: White count 8.8 and hemoglobin 8.7. Sodium 146, potassium 3.9, bicarbonate 33, BUN 41, and creatinine 0.7. Pro-natriuretic peptide 22,000. Magnesium is 2.6. B12, folate, and thyroid function are within normal limits. Troponin is 0.035. IMPRESSION: 1. Acute on chronic diastolic congestive heart failure. 2. Paroxysmal atrial fibrillation. 3. Underlying conduction system disease with slow ventricular rate. 4. Severe pulmonary hypertension. 5. Hypertensive heart disease. 6. Type 2 diabetes mellitus. 7. Dysphagia with G-tube. 8. Dehydration and hypernatremia. PLAN: 1. Continue diuresis. 2. Free water replacement. 3. Cardiac monitoring. 4. Cardioembolic prophylaxis. 5. Monitor ABG and acid base parameters. 6. Consider acetazolamide to help stimulate respiratory drive depending on results of ABG. Jori Andujar M.D. DR: MAE JOB#: [id number] CC:
[2017-11-26] MEDS: Albuterol ud Inhalation HHN SCH ×6 (03:37→23:08)
[2017-11-26 04:00] VITALS: BP 152/69
[2017-11-26] MEDS: NovoLOG Insulin Flexpen SUBQ SCH ×3 (05:01→17:48)
[2017-11-26] MEDS: Metoclopramide 10mg/10ml Liq GT SCH ×3 (05:02→17:46)
[2017-11-26] MEDS: HydrALAZINE 10mg Tab GT SCH ×3 (05:02→17:46)
[2017-11-26 06:52] LABS: BASOPHILS % (AUTO) 0.9 % (0.0-2.0); EOSINOPHILS % (AUTO) 0.2 % (0.0-3.0); HEMATOCRIT 28.9 % (37.0-47.0); HEMOGLOBIN 8.7 G/DL (12.0-16.0); LYMPHOCYTES % (AUTO) 15.4 % (20.0-45.0); MEAN CORPUSCULAR VOLUME 96 FL (80-99); MONOCYTES % (AUTO) 5.3 % (1.0-10.0); NEUTROPHILS % (AUTO) 78.2 % (45.0-75.0); PLATELET COUNT 283 K/UL (150-450); RED BLOOD COUNT 3.02 M/UL (4.20-5.40); RED CELL DISTRIBUTION WIDTH 18.5 % (11.6-14.8); WHITE BLOOD COUNT 9.3 K/UL (4.8-10.8)
[2017-11-26 07:30] LABS: ALANINE AMINOTRANSFERASE 77 U/L (12-78); ALBUMIN 2.8 G/DL (3.4-5.0); ALBUMIN/GLOBULIN RATIO 0.7 (1.0-2.7); ALKALINE PHOSPHATASE 70 U/L (46-116); ANION GAP 5 mmol/L (5-15); ASPARTATE AMINO TRANSFERASE 38 U/L (15-37); BILIRUBIN,TOTAL 0.3 MG/DL (0.2-1.0); BLOOD UREA NITROGEN 38 mg/dL (7-18); CALCIUM 9.4 MG/DL (8.5-10.1); CARBON DIOXIDE 35 MMOL/L (21-32); CHLORIDE 109 MMOL/L (98-107); CREATININE 0.8 MG/DL (0.55-1.30); POTASSIUM 3.6 MMOL/L (3.5-5.1); SODIUM 149 MMOL/L (136-145)
[2017-11-26 08:00] VITALS: BP 140/63
[2017-11-26] MEDS: Eliquis 2.5mg tablet GT SCH (08:40)
[2017-11-26] MEDS: Docusate 100mg/10ml Liq NG SCH ×3 (08:40→17:46)
--- NOTE | 2017-11-26 09:09 | Diagnostic Imaging Report ---
Indication: Dyspnea Technique: One view of the chest Comparison: 11/25/2017 Findings: Large bilateral pleural effusions and right basilar atelectatic changes are again demonstrated. Bilateral interstitial congestion persists, stable Impression: Unchanged, over one day, findings as above.
[2017-11-26 11:18] LABS: INR 1.2 (0.9-1.1)
[2017-11-26 12:00] VITALS: BP 117/58
[2017-11-26] MEDS: Nitroglycerin Patch 0.4mg TDERMAL SCH (13:37)
--- NOTE | 2017-11-26 13:58 | Diagnostic Imaging Report ---
APPROVED REPORT CPT Code: 32328 Present Symptoms Shortness of breath BILATERAL: Imaging reveals a patent deep venous system bilaterally. There is no evidence of thrombus within the femoral, popliteal or tibial segments. The greater saphenous veins are also within normal limits. Doppler indicates normal spontaneous flow within these segments.
[2017-11-26 16:00] VITALS: BP 142/63
--- NOTE | 2017-11-26 16:48 | General Progress Note ---
Assessment/Plan Problem List: (1) Acute respiratory failure ICD Codes: J96.00 - Acute respiratory failure, unspecified whether with hypoxia or hypercapnia SNOMED: 61152311 (2) History of CVA (cerebrovascular accident) ICD Codes: Z86.73 - Personal history of transient ischemic attack (TIA), and cerebral infarction without residual deficits SNOMED: 451572668 (3) Pulmonary edema ICD Codes: J81.1 - Chronic pulmonary edema SNOMED: 76196777 Qualifiers: Qualified Codes: J81.0 - Acute pulmonary edema (4) Diabetic nephropathy ICD Codes: E11.21 - Type 2 diabetes mellitus with diabetic nephropathy SNOMED: 04447126, 282799877 (5) Pleural effusion, bilateral ICD Codes: J90 - Pleural effusion, not elsewhere classified SNOMED: 295477956 Status: unchanged Assessment/Plan Stop Anticoag for thorecenthesis lasix- GT feeding Keep BP and BS in check optimize cardiac and pulm status check ABG IV Iron PER Cardio and pulm Subjective ROS Limited/Unobtainable: Yes Constitutional: Reports: malaise Allergies: Coded Allergies: ATORVASTATIN (Verified Allergy, Unknown, 11/24/17) CLONIDINE (Verified Allergy, Unknown, 11/24/17) LABETALOL (Verified Allergy, Unknown, 11/24/17) NIFEDIPINE (Verified Allergy, Unknown, 11/24/17) ROSUVASTATIN (Verified Allergy, Unknown, 11/24/17) Uncoded Allergies: IVELISSE INHIBITOR (Allergy, Unknown, 11/24/17) Objective Last 24 Hour Vital Signs Date Time Temp Pulse Resp B/P (MAP) Pulse Ox O2 Delivery O2 Flow Rate FiO2 11/26/17 16:44 83 24 98 Facial 40 11/26/17 16:00 98.2 67 26 142/63 (89) 98 98.2 11/26/17 16:00 50 11/26/17 16:00 82 11/26/17 16:00 Bi-pap 11/26/17 15:03 51 22 100 Bi-pap 50 11/26/17 14:53 50 21 100 Bi-pap 50 11/26/17 14:52 58 21 98 Full Face 50 11/26/17 13:37 130/61 11/26/17 12:58 54 31 98 Full Face 50 11/26/17 12:00 98.1 64 22 117/58 (77) 91 98.1 11/26/17 12:00 95 11/26/17 12:00 30 11/26/17 12:00 Bi-pap 11/26/17 11:59 56 26 100 Bi-pap 50 11/26/17 11:56 117/58 11/26/17 11:49 54 22 98 Bi-pap 50 11/26/17 10:52 55 20 100 Full Face 50 11/26/17 09:14 77 11/26/17 08:41 76 21 100 Full Face 70 11/26/17 08:40 87 140/63 11/26/17 08:00 Bi-pap 11/26/17 08:00 70 11/26/17 08:00 98.1 87 18 140/63 (88) 100 98.1 11/26/17 07:30 86 22 100 Bi-pap 70 11/26/17 07:20 56 24 100 Bi-pap 70 11/26/17 07:19 56 24 100 Full Face 70 11/26/17 05:25 58 24 98 Full Face 70 11/26/17 05:02 152/69 11/26/17 04:00 105 11/26/17 04:00 15.0 70 11/26/17 04:00 97.9 90 21 152/69 (96) 99 97.9 11/26/17 04:00 Bi-pap 15.0 11/26/17 03:39 70 24 98 Bi-pap 70 11/26/17 03:38 62 24 92 Bi-pap 70 11/26/17 03:30 73 24 92 Full Face 70 11/26/17 01:08 61 32 99 Facial 70 11/26/17 00:00 86 11/26/17 00:00 Bi-pap 15.0 11/26/17 00:00 97.3 60 18 128/65 (86) 100 97.3 11/26/17 00:00 15.0 70 11/25/17 23:27 64 27 96 Bi-pap 70 11/25/17 23:26 56 24 97 Bi-pap 70 11/25/17 23:22 52 34 97 Facial 70 11/25/17 23:13 107/64 11/25/17 21:13 62 27 95 Full Face 70 11/25/17 20:00 98.2 62 22 142/71 (94) 96 98.2 11/25/17 20:00 15.0 70 11/25/17 20:00 89 11/25/17 20:00 Bi-pap 15.0 11/25/17 19:37 68 28 95 Bi-pap 70 11/25/17 19:36 60 29 93 Bi-pap 70 11/25/17 19:30 60 29 93 Full Face 70 11/25/17 17:32 116/62 11/25/17 17:01 79 18 98 Full Face 70 Intake and Output 11/25/17 11/26/17 18:59 06:59 Intake Total 630 ml 550 ml Output Total 550 ml 900 ml Balance 80 ml -350 ml Intake Free Water 260 ml 100 ml IV Total 100 ml Tube Feeding 270 ml 390 ml Other 60 ml Output Urine Total 550 ml 900 ml Laboratory Tests 11/26/17 05:05: White Blood Count 9.3, Red Blood Count 3.02L, Hemoglobin 8.7L, Hematocrit 28.9L , Mean Corpuscular Volume 96, Mean Corpuscular Hemoglobin 29.0, Mean Corpuscular Hemoglobin Concent 30.3L, Red Cell Distribution Width 18.5H, Platelet Count 283, Mean Platelet Volume 9.1, Neutrophils (%) (Auto) 78.2H, Lymphocytes (%) (Auto) 15.4L, Monocytes (%) (Auto) 5.3, Eosinophils (%) (Auto) 0.2, Basophils (%) (Auto) 0.9, Sodium Level 149H, Potassium Level 3.6, Chloride Level 109H, Carbon Dioxide Level 35H, Anion Gap 5, Blood Urea Nitrogen 38H, Creatinine 0.8, Estimat Glomerular Filtration Rate , Glucose Level 93, Calcium Level 9.4, Total Bilirubin 0.3, Aspartate Amino Transf (AST/SGOT) 38H, Alanine Aminotransferase (ALT/SGPT) 77, Alkaline Phosphatase 70, Pro-B-Type Natriuretic Peptide 42791S, Total Protein 7.0, Albumin 2.8L, Globulin 4.2, Albumin/Globulin Ratio 0.7L 11/26/17 10:50: Prothrombin Time 12.7H, Prothromb Time International Ratio 1.2H, Activated Partial Thromboplast Time 34H Height (Feet): 5 Height (Inches): 0.00 Weight (Pounds): 132 General Appearance: mild distress EENT: other - BIPAP Respiratory/Chest: decreased breath sounds Abdomen: soft, other - GT Objective no change Rafael Hurt MD Nov 26, 2017 16:48
[2017-11-26 20:38] VITALS: BP 151/94
[2017-11-27] VITALS: BP 158/112
[2017-11-27] MEDS: HydrALAZINE 10mg Tab GT SCH ×4 (00:29→17:07)
[2017-11-27] MEDS: Metoclopramide 10mg/10ml Liq GT SCH ×4 (00:29→17:05)
[2017-11-27] MEDS: Acetaminophen 650mg/20.3ml ORAL PRN (00:29)
[2017-11-27] MEDS: NovoLOG Insulin Flexpen SUBQ SCH ×4 (00:42→17:06)
[2017-11-27] MEDS: Albuterol ud Inhalation HHN SCH ×3 (03:00→11:04)
[2017-11-27 04:00] VITALS: BP 162/93
--- NOTE | 2017-11-27 05:15 | Progress Note ---
DATE: 11/26/2017 CARDIOLOGY PROGRESS NOTE SUBJECTIVE: The patient remains with congestion, shortness of breath, and requiring BiPAP support. Respiratory parameters are . OBJECTIVE: VITAL SIGNS: She is afebrile, blood pressure 142/83, pulse 67, and respirations 26. Monitor atrial fibrillation with ventricular ectopics. LUNGS: Diminished breath sounds. Scattered rales. HEART: Irregularly irregular rhythm. Normal S1 and S2. ABDOMEN: Soft. EXTREMITIES: A 1+ dependent edema. LABORATORY AND DIAGNOSTIC DATA: Chest x-ray reveals pleural effusions bilaterally and pulmonary venous congestion. White count 9.3 and hemoglobin 8.7. Sodium 149, potassium 3.6, bicarbonate , BUN 38, and creatinine 0.8. Pro-natriuretic peptide down to 10,000. Albumin 2.8. IMPRESSION: 1. Acute respiratory insufficiency. 2. Hypoxia. 3. Pleural effusions. 4. Acute on chronic diastolic congestive heart failure. 5. Moderate protein-calorie malnutrition. 6. Dehydration. 7. Hypernatremia. 8. Prerenal azotemia. 9. Cerebrovascular disease with dementia. 10. Paroxysmal atrial fibrillation. 11. Conduction system disease. PLAN: 1. Consider thoracentesis. 2. BiPAP support as needed. 3. Diuresis with caution. 4. Free water replacement. 5. May need to hold diuresis until free water replacement is corrected. 6. Protein supplement. 7. DVT prophylaxis. 8. Cardioembolic prophylaxis without change. Jori Andujar M.D. DR: MAXX JOB#: [id number] CC:
[2017-11-27 08:00] VITALS: BP 148/75
[2017-11-27] MEDS: Docusate 100mg/10ml Liq NG SCH ×3 (09:26→17:05)
--- NOTE | 2017-11-27 10:10 | Pulmonolgy Critical Care Note ---
Critical Care - Asmt/Plan Problems: (1) Acute respiratory failure (2) Pulmonary edema (3) Pleural effusion, bilateral (4) Atrial fibrillation (5) Diabetes mellitus (6) Advanced dementia (7) History of CVA (cerebrovascular accident) (8) Feeding by G-tube Respiratory: monitor respiratory rate, adjust FIO2, CXR, other - thoracenteis today, if not weaining from BIPAP, needs oral intubation Cardiac: continue to monitor HR/BP Renal: F/U I&O, keep IV fluid Infectious Disease: check cultures Gastrointestinal: continue feedings/current rate Endocrine: monitor blood sugar Hematologic: transfuse if hgb<8.5 Neurologic: PRN Ativan, keep patient comfortable Affect: PRN ativan Prophylaxis: Protonix Notes Reviewed: cream cheese maker, cardio, renal Discussed with: nurses, consultants, manager of caseregional sales manager - Objective Last 24 Hour Vital Signs Date Time Temp Pulse Resp B/P (MAP) Pulse Ox O2 Delivery O2 Flow Rate FiO2 11/27/17 09:26 101 148/75 11/27/17 08:51 101 29 94 Facial 35 11/27/17 08:00 104 11/27/17 08:00 98.3 62 28 148/75 (99) 93 98.3 11/27/17 07:33 63 28 99 Bi-pap 35 11/27/17 07:30 64 29 96 Bi-pap 35 11/27/17 07:27 64 29 96 Facial 35 11/27/17 05:42 162/93 11/27/17 05:16 89 25 94 Facial 40 11/27/17 04:00 90 11/27/17 04:00 40 11/27/17 04:00 98.4 93 27 162/93 (116) 96 98.4 11/27/17 04:00 Bi-pap 11/27/17 03:10 110 28 99 Bi-pap 40 11/27/17 03:00 108 28 95 Bi-pap 40 11/27/17 03:00 108 28 95 Facial 40 11/27/17 01:16 98 26 94 Facial 40 11/27/17 00:59 99.8 11/27/17 00:29 158/112 11/27/17 00:29 100.5 11/27/17 00:00 Bi-pap 11/27/17 00:00 143 11/27/17 00:00 100.5 106 24 158/112 (127) 93 100.5 11/27/17 00:00 40 11/26/17 23:18 106 30 97 Bi-pap 40 11/26/17 23:08 101 30 94 Facial 40 11/26/17 23:08 101 30 94 Bi-pap 40 11/26/17 21:20 52 28 94 Facial 40 11/26/17 20:38 99.7 89 23 151/94 (113) 93 99.7 11/26/17 20:00 95 11/26/17 20:00 40 11/26/17 20:00 Bi-pap 11/26/17 19:02 56 26 98 Bi-pap 40 11/26/17 18:52 61 28 95 Bi-pap 40 11/26/17 18:51 61 28 95 Facial 40 11/26/17 17:46 151/79 11/26/17 16:44 83 24 98 Facial 40 11/26/17 16:00 98.2 67 26 142/63 (89) 98 98.2 11/26/17 16:00 50 11/26/17 16:00 82 11/26/17 16:00 Bi-pap 11/26/17 15:03 51 22 100 Bi-pap 50 11/26/17 14:53 50 21 100 Bi-pap 50 11/26/17 14:52 58 21 98 Full Face 50 11/26/17 13:37 130/61 11/26/17 12:58 54 31 98 Full Face 50 11/26/17 12:00 98.1 64 22 117/58 (77) 91 98.1 11/26/17 12:00 95 11/26/17 12:00 30 11/26/17 12:00 Bi-pap 11/26/17 11:59 56 26 100 Bi-pap 50 11/26/17 11:56 117/58 11/26/17 11:49 54 22 98 Bi-pap 50 11/26/17 10:52 55 20 100 Full Face 50 Status: sedated Condition: critical HEENT: atraumatic Neck: full ROM Heart: HR/BP stable Abdomen: soft, non-tender, feeding tube Extremities: edema Micro: Microbiology Date/Time Source Procedure Growth Status 11/24/17 10:40 Blood Blood Culture - Preliminary NO GROWTH AFTER 48 HOURS Resulted 11/24/17 10:30 Blood Blood Culture - Preliminary NO GROWTH AFTER 48 HOURS Resulted 11/24/17 10:40 Nasal Nares MRSA Culture - Final NO METHICILLIN RESISTANT STAPH AUREUS... Complete 11/24/17 10:40 Indwelling Cath Urine Culture - Final Mixed Gram Positive Organism Complete 11/24/17 10:40 Rectum VRE Culture - Final Enterococcus Faecalis - Vre Complete 11/24/17 10:40 Rectum - Final NO CARBAPENEM-RESISTANT ENTEROBACTERI... Complete Accucheck: 118 Critical Care - Subjective ROS Limited/Unobtainable: Yes Condition: critical EKG Rhythm: Sinus Rhythm FI02: 35 Vent Support Breath Rate: 14 Vent Support Mode: BiLevel Sputum Amount: None Tube Feeding Amount: 30 I&O: Intake and Output 11/26/17 11/27/17 19:00 07:00 Intake Total 560 ml 530 ml Output Total 1300 ml 1250 ml Balance -740 ml -720 ml Intake Free Water 150 ml Tube Feeding 360 ml 330 ml Other 200 ml 50 ml Output Urine Total 1300 ml 1250 ml # Voids 1 CXR: pulmonary edema Labs: Laboratory Tests Test 11/26/17 10:50 Prothrombin Time 12.7 SEC (9.30-11.50) H Prothromb Time International Ratio 1.2 (0.9-1.1) H Activated Partial Thromboplast Time 34 SEC (23-33) H Henry Gomez MD Nov 27, 2017 10:10
--- NOTE | 2017-11-27 11:48 | General Progress Note ---
Assessment/Plan Problem List: (1) Acute respiratory failure ICD Codes: J96.00 - Acute respiratory failure, unspecified whether with hypoxia or hypercapnia SNOMED: 16820466 (2) History of CVA (cerebrovascular accident) ICD Codes: Z86.73 - Personal history of transient ischemic attack (TIA), and cerebral infarction without residual deficits SNOMED: 519772068 (3) Pulmonary edema ICD Codes: J81.1 - Chronic pulmonary edema SNOMED: 10987880 Qualifiers: Qualified Codes: J81.0 - Acute pulmonary edema (4) Diabetic nephropathy ICD Codes: E11.21 - Type 2 diabetes mellitus with diabetic nephropathy SNOMED: 24672868, 260984864 (5) Pleural effusion, bilateral ICD Codes: J90 - Pleural effusion, not elsewhere classified SNOMED: 643389322 Status: unchanged Assessment/Plan Stop Anticoag for thorecenthesis lasix- GT feeding Keep BP and BS in check optimize cardiac and pulm status- BIPAP check ABG IV Iron PER Cardio and pulm . Subjective ROS Limited/Unobtainable: Yes Allergies: Coded Allergies: ATORVASTATIN (Verified Allergy, Unknown, 11/24/17) CLONIDINE (Verified Allergy, Unknown, 11/24/17) LABETALOL (Verified Allergy, Unknown, 11/24/17) NIFEDIPINE (Verified Allergy, Unknown, 11/24/17) ROSUVASTATIN (Verified Allergy, Unknown, 11/24/17) Uncoded Allergies: IVELISSE INHIBITOR (Allergy, Unknown, 11/24/17) Objective Last 24 Hour Vital Signs Date Time Temp Pulse Resp B/P (MAP) Pulse Ox O2 Delivery O2 Flow Rate FiO2 11/27/17 11:10 131 28 96 Non-Rebreather 8.0 40 11/27/17 11:05 114 26 97 Venturi Mask 8.0 40 11/27/17 10:57 28 97 11/27/17 09:26 101 148/75 11/27/17 08:51 101 29 94 Facial 35 11/27/17 08:00 Bi-pap 11/27/17 08:00 104 11/27/17 08:00 98.3 62 28 148/75 (99) 93 98.3 11/27/17 08:00 35 11/27/17 07:33 63 28 99 Bi-pap 35 11/27/17 07:30 64 29 96 Bi-pap 35 11/27/17 07:27 64 29 96 Facial 35 11/27/17 05:42 162/93 11/27/17 05:16 89 25 94 Facial 40 11/27/17 04:00 90 11/27/17 04:00 40 11/27/17 04:00 98.4 93 27 162/93 (116) 96 98.4 11/27/17 04:00 Bi-pap 11/27/17 03:10 110 28 99 Bi-pap 40 11/27/17 03:00 108 28 95 Bi-pap 40 11/27/17 03:00 108 28 95 Facial 40 11/27/17 01:16 98 26 94 Facial 40 11/27/17 00:59 99.8 11/27/17 00:29 158/112 11/27/17 00:29 100.5 11/27/17 00:00 Bi-pap 11/27/17 00:00 143 11/27/17 00:00 100.5 106 24 158/112 (127) 93 100.5 11/27/17 00:00 40 11/26/17 23:18 106 30 97 Bi-pap 40 11/26/17 23:08 101 30 94 Facial 40 11/26/17 23:08 101 30 94 Bi-pap 40 11/26/17 21:20 52 28 94 Facial 40 11/26/17 20:38 99.7 89 23 151/94 (113) 93 99.7 11/26/17 20:00 95 11/26/17 20:00 40 11/26/17 20:00 Bi-pap 11/26/17 19:02 56 26 98 Bi-pap 40 11/26/17 18:52 61 28 95 Bi-pap 40 11/26/17 18:51 61 28 95 Facial 40 11/26/17 17:46 151/79 11/26/17 16:44 83 24 98 Facial 40 11/26/17 16:00 98.2 67 26 142/63 (89) 98 98.2 11/26/17 16:00 50 11/26/17 16:00 82 11/26/17 16:00 Bi-pap 11/26/17 15:03 51 22 100 Bi-pap 50 11/26/17 14:53 50 21 100 Bi-pap 50 11/26/17 14:52 58 21 98 Full Face 50 11/26/17 13:37 130/61 11/26/17 12:58 54 31 98 Full Face 50 11/26/17 12:00 98.1 64 22 117/58 (77) 91 98.1 11/26/17 12:00 95 11/26/17 12:00 30 11/26/17 12:00 Bi-pap 11/26/17 11:59 56 26 100 Bi-pap 50 11/26/17 11:56 117/58 11/26/17 11:49 54 22 98 Bi-pap 50 Intake and Output 11/26/17 11/27/17 19:00 07:00 Intake Total 560 ml 530 ml Output Total 1300 ml 1250 ml Balance -740 ml -720 ml Intake Free Water 150 ml Tube Feeding 360 ml 330 ml Other 200 ml 50 ml Output Urine Total 1300 ml 1250 ml # Voids 1 Laboratory Tests 11/27/17 10:35: Body Fluid Glucose [Pending], Body Fluid Total Protein [Pending] Height (Feet): 5 Height (Inches): 0.00 Weight (Pounds): 127 General Appearance: no apparent distress, lethargic Cardiovascular: tachycardia Respiratory/Chest: decreased breath sounds Abdomen: distended Objective no change Rafael Hurt MD Nov 27, 2017 11:48
--- NOTE | 2017-11-27 11:58 | Diagnostic Imaging Report ---
Indication: Status post thoracentesis Comparison: 11/26/2017 A single view chest radiograph was obtained. Findings: Thoracentesis was performed on the right. There is no pneumothorax. The pleural effusion appears resolved. The right costophrenic angle is sharp. Left pleural effusion also noted. IMPRESSION: No pneumothorax
[2017-11-27 12:00] VITALS: BP 110/84
[2017-11-27] MEDS: HYDROmorphone 1mg/ml Carpuject IVP PRN (12:12)
--- NOTE | 2017-11-27 12:49 | Diagnostic Imaging Report ---
Indications: Pleural effusion Technique: Ultrasound used to localize optimal puncture site. Sterile prepping and draping of the right lower chest performed. Local anesthesia with 1% lidocaine. Dermatotomy made. Puncture of the pleural space using thoracentesis needle. Stylet removed. Catheter placed to vacuum bottle suction. Fluid was aspirated. Patient tolerated procedure well, without immediate complication. Findings: Followup sonography demonstrates complete resolution of pleural fluid. Followup chest x-ray is pending. Impression: Successful ultrasound-guided right thoracentesis, yielding 0.9 liters of fluid
[2017-11-27] MEDS: Levalbuterol Inh UD 1.25mg/0.5ml HHN SCH ×3 (15:05→23:35)
[2017-11-27] MEDS: Nitroglycerin Patch 0.4mg TDERMAL SCH (15:30)
[2017-11-27 16:00] VITALS: BP 130/66
[2017-11-27 20:00] VITALS: BP 142/57
[2017-11-28] VITALS: BP 136/71
[2017-11-28] MEDS: Metoclopramide 10mg/10ml Liq GT SCH ×4 (00:02→20:57)
[2017-11-28] MEDS: HydrALAZINE 10mg Tab GT SCH ×4 (00:03→17:13)
[2017-11-28] MEDS: NovoLOG Insulin Flexpen SUBQ SCH ×4 (00:06→17:17)
[2017-11-28] MEDS: Levalbuterol Inh UD 1.25mg/0.5ml HHN SCH ×6 (03:41→22:41)
[2017-11-28 04:00] VITALS: BP 137/80
--- NOTE | 2017-11-28 04:00 | Progress Note ---
DATE: 11/27/2017 Cardiology Progress Note SUBJECTIVE: The patient is status post thoracentesis on the right with 900 cubic centimeters of fluid removed. Her heart rate remains irregular. Monitor reveals atrial fibrillation now with increased ventricular response. OBJECTIVE: VITAL SIGNS: Blood pressure 148/75, pulse 101, respiratory rate 29, and afebrile. GENERAL: Remains on Venturi mask. LUNGS: Breath sounds are improved. HEART: Rhythm is Irregularly irregular. ABDOMEN: Soft. EXTREMITIES: With trace edema. LABORATORY DATA: . Chest x-ray reveals resolved pleural effusion on the right, persistent left pleural effusion. IMPRESSION: 1. Acute on chronic diastolic congestive heart failure. 2. Paroxysmal atrial fibrillation. 3. Conduction system disease of the heart with variable heart rate. 4. Pleural effusions bilaterally, now status post right thoracentesis. 5. Cerebrovascular disease with dementia. 6. Acute respiratory failure. PLAN: 1. Taper oxygen as able. 2. Continue respiratory hygiene. 3. Consider thoracentesis of the left side. 4. Repeat chemistry panel and reassess volume replacement by IV route. 5. Adjust diuretic dosing accordingly. 6. May need to add rate control agent if ventricular rate continues to remain elevated, although concern for secondary bradyarrhythmia is present. Jori Andujar M.D. DR: JILL JOB#: [id number] CC:
[2017-11-28 04:38] LABS: HEMATOCRIT 34.3 % (37.0-47.0); HEMOGLOBIN 10.4 G/DL (12.0-16.0); MEAN CORPUSCULAR VOLUME 96 FL (80-99); PLATELET COUNT 268 K/UL (150-450); RED BLOOD COUNT 3.58 M/UL (4.20-5.40); RED CELL DISTRIBUTION WIDTH 18.7 % (11.6-14.8); WHITE BLOOD COUNT 16.6 K/UL (4.8-10.8)
[2017-11-28 04:56] LABS: PHOSPHORUS 2.7 MG/DL (2.5-4.9)
[2017-11-28 05:02] LABS: ALANINE AMINOTRANSFERASE 50 U/L (12-78); ALBUMIN 2.7 G/DL (3.4-5.0); ALBUMIN/GLOBULIN RATIO 0.7 (1.0-2.7); ALKALINE PHOSPHATASE 71 U/L (46-116); ANION GAP 2 mmol/L (5-15); ASPARTATE AMINO TRANSFERASE 25 U/L (15-37); BILIRUBIN,TOTAL 0.5 MG/DL (0.2-1.0); BLOOD UREA NITROGEN 34 mg/dL (7-18); CALCIUM 9.8 MG/DL (8.5-10.1); CARBON DIOXIDE 42 MMOL/L (21-32); CHLORIDE 111 MMOL/L (98-107); CREATININE 0.8 MG/DL (0.55-1.30); POTASSIUM 3.8 MMOL/L (3.5-5.1); SODIUM 155 MMOL/L (136-145)
--- NOTE | 2017-11-28 07:20 | Pulmonology Progress Note ---
Assessment/Plan Assessment/Plan ASSESSMENT Acute respiratory failure requiring BiPAP Aspiration PNA Acute on chronic diastolic congestive heart failure Bilateral pleural effusion s/p thoracentesis Paroxysmal atrial fibrillation Dehydration Diabetic nephropathy Hypernatremia Diabetes mellitus Cerebrovascular disease with dementia Dysphagia ,G-tube Moderate protein calorie malnutrition Iron deficiency anemia Severe pulmonary hypertension PLAN OF CARE PAZ status on VM titrate to keep pusle ox above 90% pulmonary toilet CXR today worse s/p thoracentesis -0.9 L pleural fluid cx prel negative fup with CXR restart anticoagulation for cardio-embolic prophylaxis gentle diuresis , monitor cardio-renal parameters and volumes , creat at plateau correct lytes prn ECHO with pEF 65% and RVSP of 66 c/w severe pulmonary hypertension proBNP trending down lipid panel stable venous duplex BLE - no acute DVT BP management with hydralazine and CCB blood cx negative , urine culture mixed GPO strict aspiration precautions, G-tube feeding, monitor tolerance monitor HH with goal to keep Hgb above 7 anemia workup consistent with anemia of MARIPOSA continue IV iron BS management with SSI prn, HgA1c -7.5 bowel regimen pain management prn supportive care protein supplements DVT , GI prophylaxis case discussed and evaluated by supervising physician Subjective Allergies: Coded Allergies: ATORVASTATIN (Verified Allergy, Unknown, 11/24/17) CLONIDINE (Verified Allergy, Unknown, 11/24/17) LABETALOL (Verified Allergy, Unknown, 11/24/17) NIFEDIPINE (Verified Allergy, Unknown, 11/24/17) ROSUVASTATIN (Verified Allergy, Unknown, 11/24/17) Uncoded Allergies: IVELISSE INHIBITOR (Allergy, Unknown, 11/24/17) Subjective leukocytosis and fever today CXR worse Objective Last 24 Hour Vital Signs Date Time Temp Pulse Resp B/P (MAP) Pulse Ox O2 Delivery O2 Flow Rate FiO2 11/28/17 07:10 89 20 98 Venturi Mask 8.0 40 11/28/17 07:04 60 20 95 Venturi Mask 8.0 40 11/28/17 07:04 95 Venturi Mask 8.0 40 11/28/17 07:04 Venturi Mask 8.0 40 11/28/17 05:46 137/80 11/28/17 04:00 101 11/28/17 04:00 Venturi Mask 8.0 11/28/17 04:00 99.4 74 24 137/80 (99) 98 99.4 11/28/17 03:50 109 20 98 Venturi Mask 8.0 40 11/28/17 03:40 109 20 97 Venturi Mask 8.0 40 11/28/17 00:03 136/71 11/28/17 00:00 Venturi Mask 8.0 11/28/17 00:00 120 11/28/17 00:00 98.4 70 26 136/71 (92) 96 98.4 11/27/17 23:45 111 20 99 Venturi Mask 8.0 40 11/27/17 23:35 110 20 96 Venturi Mask 8.0 40 11/27/17 20:00 91 11/27/17 20:00 Venturi Mask 8.0 11/27/17 20:00 98.6 47 22 142/57 (85) 95 98.6 11/27/17 19:54 101 22 98 Venturi Mask 8.0 40 11/27/17 19:44 94 Venturi Mask 8.0 40 11/27/17 19:44 95 22 94 Venturi Mask 8.0 40 11/27/17 19:44 Venturi Mask 8.0 40 11/27/17 17:07 130/66 11/27/17 16:00 98.8 63 26 130/66 (87) 94 98.8 11/27/17 16:00 Venturi Mask 8.0 11/27/17 16:00 88 11/27/17 15:30 134/67 11/27/17 15:15 114 26 96 Venturi Mask 8.0 40 11/27/17 15:09 Venturi Mask 8.0 40 11/27/17 15:09 96 Venturi Mask 8.0 40 11/27/17 15:07 107 26 96 Venturi Mask 8.0 40 11/27/17 13:06 102 26 96 11/27/17 12:00 98.8 57 22 110/84 (93) 93 98.8 11/27/17 12:00 131 11/27/17 12:00 8.0 11/27/17 12:00 110/84 11/27/17 12:00 Venturi Mask 8.0 11/27/17 11:10 131 28 96 Venturi Mask 8.0 40 11/27/17 11:05 114 26 97 Venturi Mask 8.0 40 11/27/17 10:57 28 97 8/31/18 09:26 101 148/75 11/27/17 08:51 101 29 94 Facial 35 11/27/17 08:00 Bi-pap 11/27/17 08:00 104 11/27/17 08:00 98.3 62 28 148/75 (99) 93 98.3 11/27/17 08:00 35 11/27/17 07:33 63 28 99 Bi-pap 35 11/27/17 07:30 64 29 96 Bi-pap 35 11/27/17 07:27 64 29 96 Facial 35 Intake and Output 11/27/17 11/28/17 19:00 07:00 Intake Total 460 ml 290 ml Output Total 950 ml Balance -490 ml 290 ml Intake Free Water 100 ml Tube Feeding 360 ml 240 ml Other 50 ml Output Urine Total 950 ml # Bowel Movements 1 General Appearance: no acute distress, other - bedbound awake female HEENT: normocephalic, atraumatic, other - VM 40% Respiratory/Chest: rhonchi - few scattered Cardiovascular: irregularly irregular - HR 103 Abdomen: normal bowel sounds, soft, non tender Extremities: no edema Neurologic/Psychiatric: abnormal gait, alert Musculoskeletal: atrophy - BLE Microbiology Date/Time Source Procedure Growth Status 11/27/17 10:35 Ascities Fluid Gram Stain - Final Resulted 11/27/17 10:35 Ascities Fluid Body Fluid Culture Pending Resulted Laboratory Tests 11/27/17 10:35: Body Fluid Source Pleural fluid, Body Fluid Volume 24 ml, Body Fluid Appearance Yellow/sl cloudy, Body Fluid RBC 937, Body Fluid Total Nucleated Cells 237, Body Fluid Polynuclear WBCs (%) 7, Body Fluid Mononuclear WBCs (%) 84, Body Fluid Mesothelial Cells (%) 9, Body Fluid Glucose [Pending], Body Fluid Total Protein [Pending], Body Fluid Albumin [Pending] 11/28/17 04:20: White Blood Count 16.6H, Red Blood Count 3.58L, Hemoglobin 10.4L, Hematocrit 34.3L, Mean Corpuscular Volume 96, Mean Corpuscular Hemoglobin 29.1, Mean Corpuscular Hemoglobin Concent 30.4L, Red Cell Distribution Width 18.7H, Platelet Count 268, Mean Platelet Volume 8.7, Neutrophils (%) (Auto) , Lymphocytes (%) (Auto) , Monocytes (%) (Auto) , Eosinophils (%) (Auto) , Basophils (%) (Auto) , Neutrophils % (Manual) [Pending], Lymphocytes % (Manual) [Pending], Platelet Estimate [Pending], Platelet Morphology [Pending], Sodium Level 155H, Potassium Level 3.8, Chloride Level 111H, Carbon Dioxide Level 42*H , Anion Gap 2L, Blood Urea Nitrogen 34H, Creatinine 0.8, Estimat Glomerular Filtration Rate , Glucose Level 146H, Uric Acid 8.7H, Calcium Level 9.8, Phosphorus Level 2.7, Magnesium Level 2.3, Total Bilirubin 0.5, Aspartate Amino Transf (AST/SGOT) 25, Alanine Aminotransferase (ALT/SGPT) 50, Alkaline Phosphatase 71, Troponin I 0.049, C-Reactive Protein, Quantitative 10.1H, Pro-B- Type Natriuretic Peptide 7870H, Total Protein 6.6, Albumin 2.7L, Globulin 3.9, Albumin/Globulin Ratio 0.7L 11/28/17 05:21: Arterial Blood pH 7.470H, Arterial Blood Partial Pressure CO2 53.6H, Arterial Blood Partial Pressure O2 77.8, Arterial Blood HCO3 38.1H, Arterial Blood Oxygen Saturation 95.2, Arterial Blood Base Excess 12.7, Mandeep Test Positive Current Medications Medications (Trade) Dose Ordered Sig/Cirilo Route PRN Reason Start Time Stop Time Status Last Admin Dose Admin Acetaminophen (Tylenol) 650 mg Q6H PRN ORAL Fever/Headache/Mild Pain 11/24/17 12:45 12/24/17 12:44 11/27/17 00:29 Acetazolamide (Diamox 500mg Inj) 250 mg ONCE IVP 11/28/17 07:30 11/28/17 08:29 Albuterol/ Ipratropium (Albuterol/ Ipratropium) 3 ml Q4H PRN HHN Shortness of Breath 11/24/17 13:45 11/29/17 13:44 Amlodipine Besylate (Norvasc) 10 mg DAILY GT 11/24/17 13:42 12/24/17 13:41 11/27/17 09:26 Dextrose (Dextrose 50%) 25 ml PRN IV Hypoglycemia 11/24/17 14:00 12/24/17 13:59 Dextrose (Dextrose 50%) 50 ml PRN IV hypoglycemia 11/24/17 14:00 12/24/17 13:59 Docusate Sodium (Colace) 100 mg TID NG 11/24/17 13:43 12/24/17 13:42 11/27/17 17:05 Famotidine (Pepcid) 20 mg BID GT 11/24/17 18:00 12/24/17 17:59 11/27/17 17:07 Furosemide (Lasix) 40 mg Q12HR IV 11/25/17 21:00 12/25/17 20:59 11/27/17 20:02 Hydralazine HCl (Apresoline) 10 mg Q6HR GT 11/24/17 18:00 12/24/17 17:59 11/28/17 05:46 Hydromorphone HCl (Dilaudid) 1 mg Q6H PRN IVP Severe Pain (Pain Scale 7-10) 11/27/17 07:00 12/04/17 06:59 11/27/17 12:12 Insulin Aspart (NovoLOG) EVERY 6 HOURS SUBQ 11/25/17 18:00 12/25/17 17:59 11/28/17 05:40 Levalbuterol HCl (Xopenex) 1.25 mg Q4HRT HHN 11/27/17 15:00 12/02/17 14:59 11/28/17 07:04 Lorazepam (Ativan 2mg/ml 1ml) 0.5 mg Q6H PRN IV agitation 11/24/17 13:45 12/01/17 13:44 Metoclopramide HCl (Reglan) 5 mg EVERY 6 HOURS GT 11/25/17 12:00 12/25/17 11:59 11/28/17 05:45 Nitroglycerin (Ntg) 1 patch Q24H TDERMAL 11/24/17 14:00 12/24/17 13:59 11/27/17 15:30 Ignacia Macias NP Nov 28, 2017 07:20
[2017-11-28] MEDS ORDERED: acetaZOLAMIDE 500mg Inj IVP SCH (07:30)
[2017-11-28] MEDS: Acetaminophen 650mg/20.3ml ORAL PRN ×2 (07:57→20:56)
[2017-11-28 08:00] VITALS: BP 161/89
[2017-11-28] MEDS: Docusate 100mg/10ml Liq NG SCH ×3 (08:33→17:01)
--- NOTE | 2017-11-28 08:37 | Diagnostic Imaging Report ---
EXAM: XR Chest, 1 View CLINICAL HISTORY: DYSPNEA TECHNIQUE: Frontal view of the chest. COMPARISON: Chest x-ray dated 11/27/17 FINDINGS: Lungs: Mild pulmonary vascular congestion. Interval development of subtle patchy airspace opacities in the right lung base. Persistent subcentimeter atelectasis versus infiltrate in the left lung base. Pleural space: Persistent small layering left pleural effusion. No pneumothorax. Heart: Unremarkable. No cardiomegaly. Mediastinum: Unremarkable. Bones/joints: Unremarkable. Vasculature: Atherosclerotic calcifications are noted within the aortic arch. Tubes, lines and devices: EKG leads overlie the thorax. IMPRESSION: 1. Interval increased pulmonary vascular congestion. 2. Interval development of patchy airspace opacities in the right lung base, concerning for pneumonia versus pulmonary edema. 3. Persistent subcentimeter atelectasis versus infiltrate in the left lung base. 4. Persistent small layering left pleural effusion.
--- NOTE | 2017-11-28 08:55 | General Progress Note ---
Assessment/Plan Problem List: (1) Acute respiratory failure ICD Codes: J96.00 - Acute respiratory failure, unspecified whether with hypoxia or hypercapnia SNOMED: 38087572 (2) History of CVA (cerebrovascular accident) ICD Codes: Z86.73 - Personal history of transient ischemic attack (TIA), and cerebral infarction without residual deficits SNOMED: 916440245 (3) Pulmonary edema ICD Codes: J81.1 - Chronic pulmonary edema SNOMED: 44983230 Qualifiers: Qualified Codes: J81.0 - Acute pulmonary edema (4) Diabetic nephropathy ICD Codes: E11.21 - Type 2 diabetes mellitus with diabetic nephropathy SNOMED: 18099505, 634575321 (5) Pleural effusion, bilateral ICD Codes: J90 - Pleural effusion, not elsewhere classified SNOMED: 214849715 Status: stable, other - now has leukocytosis and fever Assessment/Plan [facility] eval Stop Anticoag for thorecenthesis DC lasix- GT feeding Keep BP and BS in check optimize cardiac and pulm status- BIPAP IV Iron PER Cardio and pulm . Subjective ROS Limited/Unobtainable: No Constitutional: Reports: weakness Allergies: Coded Allergies: ATORVASTATIN (Verified Allergy, Unknown, 11/24/17) CLONIDINE (Verified Allergy, Unknown, 11/24/17) LABETALOL (Verified Allergy, Unknown, 11/24/17) NIFEDIPINE (Verified Allergy, Unknown, 11/24/17) ROSUVASTATIN (Verified Allergy, Unknown, 11/24/17) Uncoded Allergies: IVELISSE INHIBITOR (Allergy, Unknown, 11/24/17) Objective Last 24 Hour Vital Signs Date Time Temp Pulse Resp B/P (MAP) Pulse Ox O2 Delivery O2 Flow Rate FiO2 11/28/17 08:32 108 161/89 11/28/17 08:00 100.8 108 23 161/89 (113) 96 100.8 11/28/17 07:57 100.8 11/28/17 07:10 89 20 98 Venturi Mask 8.0 40 11/28/17 07:04 60 20 95 Venturi Mask 8.0 40 11/28/17 07:04 95 Venturi Mask 8.0 40 11/28/17 07:04 Venturi Mask 8.0 40 11/28/17 05:46 137/80 11/28/17 04:00 101 11/28/17 04:00 Venturi Mask 8.0 11/28/17 04:00 99.4 74 24 137/80 (99) 98 99.4 11/28/17 03:50 109 20 98 Venturi Mask 8.0 40 11/28/17 03:40 109 20 97 Venturi Mask 8.0 40 11/28/17 00:03 136/71 11/28/17 00:00 Venturi Mask 8.0 11/28/17 00:00 120 11/28/17 00:00 98.4 70 26 136/71 (92) 96 98.4 11/27/17 23:45 111 20 99 Venturi Mask 8.0 40 11/27/17 23:35 110 20 96 Venturi Mask 8.0 40 11/27/17 20:00 91 11/27/17 20:00 Venturi Mask 8.0 11/27/17 20:00 98.6 47 22 142/57 (85) 95 98.6 11/27/17 19:54 101 22 98 Venturi Mask 8.0 40 11/27/17 19:44 94 Venturi Mask 8.0 40 11/27/17 19:44 95 22 94 Venturi Mask 8.0 40 11/27/17 19:44 Venturi Mask 8.0 40 11/27/17 17:07 130/66 11/27/17 16:00 98.8 63 26 130/66 (87) 94 98.8 11/27/17 16:00 Venturi Mask 8.0 11/27/17 16:00 88 11/27/17 15:30 134/67 11/27/17 15:15 114 26 96 Venturi Mask 8.0 40 11/27/17 15:09 Venturi Mask 8.0 40 11/27/17 15:09 96 Venturi Mask 8.0 40 11/27/17 15:07 107 26 96 Venturi Mask 8.0 40 11/27/17 13:06 102 26 96 11/27/17 12:00 98.8 57 22 110/84 (93) 93 98.8 11/27/17 12:00 131 11/27/17 12:00 8.0 11/27/17 12:00 110/84 11/27/17 12:00 Venturi Mask 8.0 11/27/17 11:10 131 28 96 Venturi Mask 8.0 40 11/27/17 11:05 114 26 97 Venturi Mask 8.0 40 11/27/17 10:57 28 97 11/27/17 09:26 101 148/75 Intake and Output 11/27/17 11/28/17 19:00 07:00 Intake Total 460 ml 290 ml Output Total 950 ml Balance -490 ml 290 ml Intake Free Water 100 ml Tube Feeding 360 ml 240 ml Other 50 ml Output Urine Total 950 ml # Bowel Movements 1 Laboratory Tests 11/27/17 10:35: Body Fluid Source Pleural fluid, Body Fluid Volume 24 ml, Body Fluid Appearance Yellow/sl cloudy, Body Fluid RBC 937, Body Fluid Total Nucleated Cells 237, Body Fluid Polynuclear WBCs (%) 7, Body Fluid Mononuclear WBCs (%) 84, Body Fluid Mesothelial Cells (%) 9, Body Fluid Glucose [Pending], Body Fluid Total Protein [Pending], Body Fluid Albumin [Pending] 11/28/17 04:20: White Blood Count 16.6H, Red Blood Count 3.58L, Hemoglobin 10.4L, Hematocrit 34.3L, Mean Corpuscular Volume 96, Mean Corpuscular Hemoglobin 29.1, Mean Corpuscular Hemoglobin Concent 30.4L, Red Cell Distribution Width 18.7H, Platelet Count 268, Mean Platelet Volume 8.7, Neutrophils (%) (Auto) , Lymphocytes (%) (Auto) , Monocytes (%) (Auto) , Eosinophils (%) (Auto) , Basophils (%) (Auto) , Differential Total Cells Counted 100, Neutrophils % ( Manual) 90H, Lymphocytes % (Manual) 4L, Monocytes % (Manual) 5, Eosinophils % ( Manual) 1, Basophils % (Manual) 0, Band Neutrophils 0, Nucleated Red Blood Cells 1, Platelet Estimate Adequate, Platelet Morphology Normal, Hypochromasia 1 +, Anisocytosis 2+, Sodium Level 155H, Potassium Level 3.8, Chloride Level 111H , Carbon Dioxide Level 42*H, Anion Gap 2L, Blood Urea Nitrogen 34H, Creatinine 0.8, Estimat Glomerular Filtration Rate , Glucose Level 146H, Uric Acid 8.7H, Calcium Level 9.8, Phosphorus Level 2.7, Magnesium Level 2.3, Total Bilirubin 0.5, Aspartate Amino Transf (AST/SGOT) 25, Alanine Aminotransferase (ALT/SGPT) 50, Alkaline Phosphatase 71, Troponin I 0.049, C-Reactive Protein, Quantitative 10.1H, Pro-B-Type Natriuretic Peptide 7870H, Total Protein 6.6, Albumin 2.7L, Globulin 3.9, Albumin/Globulin Ratio 0.7L 11/28/17 05:21: Arterial Blood pH 7.470H, Arterial Blood Partial Pressure CO2 53.6H, Arterial Blood Partial Pressure O2 77.8, Arterial Blood HCO3 38.1H, Arterial Blood Oxygen Saturation 95.2, Arterial Blood Base Excess 12.7, Mandeep Test Positive Height (Feet): 5 Height (Inches): 0.00 Weight (Pounds): 123 General Appearance: mild distress Cardiovascular: tachycardia Respiratory/Chest: decreased breath sounds Abdomen: distended Objective no change Rafael Hurt MD Nov 28, 2017 08:55
--- NOTE | 2017-11-28 09:17 | Infectious Diseases Prog Note ---
Assessment/Plan Problems: (1) Aspiration pneumonia Assessment & Plan: with new basal infiltrates, continue zosyn and vancomycin, will send sputum culture, monitor CXR , monitor vitals (2) Pleural effusion, bilateral Assessment & Plan: S/P thoracentesis , exudative most likely due to pneumonia, will order adenosine deaminase on pleural fluids, fungal and cytology. await bacterial culture (3) Acute respiratory failure Assessment & Plan: due to the above, on BIPAP, monitor ABG, and CXR , pulmonary is following (4) Pulmonary edema Assessment & Plan: continue diuresis monitor CXR (5) Sepsis Assessment & Plan: due to the above, will continue vancomycin and zosyn for now pending cultures results , will switch to meropenem if no improvement on zosyn (6) Pressure ulcer, heel, right, unstageable Assessment & Plan: with an eschar, continue off loading and local wound care as per hospital protocol Subjective Allergies: Coded Allergies: ATORVASTATIN (Verified Allergy, Unknown, 11/24/17) CLONIDINE (Verified Allergy, Unknown, 11/24/17) LABETALOL (Verified Allergy, Unknown, 11/24/17) NIFEDIPINE (Verified Allergy, Unknown, 11/24/17) ROSUVASTATIN (Verified Allergy, Unknown, 11/24/17) Uncoded Allergies: IVELISSE INHIBITOR (Allergy, Unknown, 11/24/17) Objective Vital Signs Last 24 Hour Vital Signs Date Time Temp Pulse Resp B/P (MAP) Pulse Ox O2 Delivery O2 Flow Rate FiO2 11/28/17 08:32 108 161/89 11/28/17 08:00 100.8 108 23 161/89 (113) 96 100.8 11/28/17 07:57 100.8 11/28/17 07:10 89 20 98 Venturi Mask 8.0 40 11/28/17 07:04 60 20 95 Venturi Mask 8.0 40 11/28/17 07:04 95 Venturi Mask 8.0 40 11/28/17 07:04 Venturi Mask 8.0 40 11/28/17 05:46 137/80 11/28/17 04:00 101 11/28/17 04:00 Venturi Mask 8.0 11/28/17 04:00 99.4 74 24 137/80 (99) 98 99.4 11/28/17 03:50 109 20 98 Venturi Mask 8.0 40 11/28/17 03:40 109 20 97 Venturi Mask 8.0 40 11/28/17 00:03 136/71 11/28/17 00:00 Venturi Mask 8.0 11/28/17 00:00 120 11/28/17 00:00 98.4 70 26 136/71 (92) 96 98.4 11/27/17 23:45 111 20 99 Venturi Mask 8.0 40 11/27/17 23:35 110 20 96 Venturi Mask 8.0 40 11/27/17 20:00 91 11/27/17 20:00 Venturi Mask 8.0 11/27/17 20:00 98.6 47 22 142/57 (85) 95 98.6 11/27/17 19:54 101 22 98 Venturi Mask 8.0 40 11/27/17 19:44 94 Venturi Mask 8.0 40 11/27/17 19:44 95 22 94 Venturi Mask 8.0 40 11/27/17 19:44 Venturi Mask 8.0 40 11/27/17 17:07 130/66 11/27/17 16:00 98.8 63 26 130/66 (87) 94 98.8 11/27/17 16:00 Venturi Mask 8.0 11/27/17 16:00 88 11/27/17 15:30 134/67 11/27/17 15:15 114 26 96 Venturi Mask 8.0 40 11/27/17 15:09 Venturi Mask 8.0 40 11/27/17 15:09 96 Venturi Mask 8.0 40 11/27/17 15:07 107 26 96 Venturi Mask 8.0 40 11/27/17 13:06 102 26 96 11/27/17 12:00 98.8 57 22 110/84 (93) 93 98.8 11/27/17 12:00 131 11/27/17 12:00 8.0 11/27/17 12:00 110/84 11/27/17 12:00 Venturi Mask 8.0 11/27/17 11:10 131 28 96 Venturi Mask 8.0 40 11/27/17 11:05 114 26 97 Venturi Mask 8.0 40 11/27/17 10:57 28 97 11/27/17 09:26 101 148/75 Height (Feet): 5 Height (Inches): 0.00 Weight (Pounds): 123 Microbiology Date/Time Source Procedure Growth Status 11/27/17 10:35 Ascities Fluid Gram Stain - Final Resulted 11/27/17 10:35 Ascities Fluid Body Fluid Culture Pending Resulted Laboratory Tests Test 11/27/17 10:35 11/28/17 04:20 11/28/17 05:21 Body Fluid Source Pleural fluid Body Fluid Volume 24 ml mL Body Fluid Appearance Yellow/sl cloudy (Clear) Body Fluid RBC 937 /CUMM Body Fluid Total Nucleated Cells 237 /CUMM Body Fluid Polynuclear WBCs (%) 7 % Body Fluid Mononuclear WBCs (%) 84 % Body Fluid Mesothelial Cells (%) 9 % Body Fluid Glucose Pending Body Fluid Total Protein Pending Body Fluid Albumin Pending White Blood Count 16.6 K/UL (4.8-10.8) H Red Blood Count 3.58 M/UL (4.20-5.40) L Hemoglobin 10.4 G/DL (12.0-16.0) L Hematocrit 34.3 % (37.0-47.0) L Mean Corpuscular Volume 96 FL (80-99) Mean Corpuscular Hemoglobin 29.1 PG (27.0-31.0) Mean Corpuscular Hemoglobin Concent 30.4 G/DL (32.0-36.0) L Red Cell Distribution Width 18.7 % (11.6-14.8) H Platelet Count 268 K/UL (150-450) Mean Platelet Volume 8.7 FL (6.5-10.1) Neutrophils (%) (Auto) % (45.0-75.0) Lymphocytes (%) (Auto) % (20.0-45.0) Monocytes (%) (Auto) % (1.0-10.0) Eosinophils (%) (Auto) % (0.0-3.0) Basophils (%) (Auto) % (0.0-2.0) Differential Total Cells Counted 100 Neutrophils % (Manual) 90 % (45-75) H Lymphocytes % (Manual) 4 % (20-45) L Monocytes % (Manual) 5 % (1-10) Eosinophils % (Manual) 1 % (0-3) Basophils % (Manual) 0 % (0-2) Band Neutrophils 0 % (0-8) Nucleated Red Blood Cells 1 /100 WBC Platelet Estimate Adequate Platelet Morphology Normal Hypochromasia 1+ Anisocytosis 2+ Sodium Level 155 MMOL/L (136-145) H Potassium Level 3.8 MMOL/L (3.5-5.1) Chloride Level 111 MMOL/L (98-107) H Carbon Dioxide Level 42 MMOL/L (21-32) *H Anion Gap 2 mmol/L (5-15) L Blood Urea Nitrogen 34 mg/dL (7-18) H Creatinine 0.8 MG/DL (0.55-1.30) Estimat Glomerular Filtration Rate mL/min (>60) Glucose Level 146 MG/DL (74-106) H Uric Acid 8.7 MG/DL (2.6-7.2) H Calcium Level 9.8 MG/DL (8.5-10.1) Phosphorus Level 2.7 MG/DL (2.5-4.9) Magnesium Level 2.3 MG/DL (1.8-2.4) Total Bilirubin 0.5 MG/DL (0.2-1.0) Aspartate Amino Transf (AST/SGOT) 25 U/L (15-37) Alanine Aminotransferase (ALT/SGPT) 50 U/L (12-78) Alkaline Phosphatase 71 U/L (46-116) Troponin I 0.049 ng/mL (0.000-0.056) C-Reactive Protein, Quantitative 10.1 mg/dL (0.00-0.90) H Pro-B-Type Natriuretic Peptide 7870 pg/mL (0-125) H Total Protein 6.6 G/DL (6.4-8.2) Albumin 2.7 G/DL (3.4-5.0) L Globulin 3.9 g/dL Albumin/Globulin Ratio 0.7 (1.0-2.7) L Arterial Blood pH 7.470 (7.350-7.450) Arterial Blood Partial Pressure CO2 53.6 mmHg (35.0-45.0) H Arterial Blood Partial Pressure O2 77.8 mmHg (75.0-100.0) Arterial Blood HCO3 38.1 mmol/L (22.0-26.0) H Arterial Blood Oxygen Saturation 95.2 % (92.0-98.0) Arterial Blood Base Excess 12.7 Mandeep Test Positive Current Medications Medications (Trade) Dose Ordered Sig/Cirilo Route PRN Reason Start Time Stop Time Status Last Admin Dose Admin Acetaminophen (Tylenol) 650 mg Q6H PRN ORAL Fever/Headache/Mild Pain 11/24/17 12:45 12/24/17 12:44 11/28/17 07:57 Albuterol/ Ipratropium (Albuterol/ Ipratropium) 3 ml Q4H PRN HHN Shortness of Breath 11/24/17 13:45 11/29/17 13:44 Amlodipine Besylate (Norvasc) 10 mg DAILY GT 11/24/17 13:42 12/24/17 13:41 11/28/17 08:32 Apixaban (Eliquis) 2.5 mg BID GT 11/28/17 09:00 12/28/17 08:59 Dextrose 500 ml @ 500 mls/hr ONCE ONCE IV 11/28/17 09:00 11/28/17 09:59 Dextrose (Dextrose 50%) 25 ml PRN IV Hypoglycemia 11/24/17 14:00 12/24/17 13:59 Dextrose (Dextrose 50%) 50 ml PRN IV hypoglycemia 11/24/17 14:00 12/24/17 13:59 Docusate Sodium (Colace) 100 mg TID NG 11/24/17 13:43 12/24/17 13:42 11/28/17 08:33 Famotidine (Pepcid) 20 mg BID GT 11/24/17 18:00 12/24/17 17:59 11/28/17 08:32 Hydralazine HCl (Apresoline) 10 mg Q6HR GT 11/24/17 18:00 12/24/17 17:59 11/28/17 05:46 Hydromorphone HCl (Dilaudid) 1 mg Q6H PRN IVP Severe Pain (Pain Scale 7-10) 11/27/17 07:00 12/04/17 06:59 11/27/17 12:12 Insulin Aspart (NovoLOG) EVERY 6 HOURS SUBQ 11/25/17 18:00 12/25/17 17:59 11/28/17 05:40 Levalbuterol HCl (Xopenex) 1.25 mg Q4HRT HHN 11/27/17 15:00 12/02/17 14:59 11/28/17 07:04 Lorazepam (Ativan 2mg/ml 1ml) 0.5 mg Q6H PRN IV agitation 11/24/17 13:45 12/01/17 13:44 Metoclopramide HCl (Reglan) 5 mg EVERY 8 HOURS GT 11/28/17 14:00 12/25/17 11:59 Metoprolol Tartrate (Lopressor) 12.5 mg Q12HR GT 11/28/17 09:00 12/28/17 08:59 Nitroglycerin (Ntg) 1 patch Q24H TDERMAL 11/24/17 14:00 12/24/17 13:59 11/27/17 15:30 Piperacillin Sod/ Tazobactam Sod 3.375 gm/Dextrose 110 ml @ 27.5 mls/hr EVERY 8 HOURS IVPB 11/28/17 10:30 12/03/17 10:29 Vancomycin HCl 1 gm/Dextrose 275 ml @ 183.708 mls/hr ONCE ONCE IVPB 11/28/17 09:30 11/28/17 10:59 Cole Rasmussen M.D. Nov 28, 2017 09:17
[2017-11-28] MEDS: Metoprolol Tartrate 12.5mg TAB GT SCH ×2 (09:24→20:56)
[2017-11-28] MEDS: Eliquis 2.5mg tablet GT SCH ×2 (09:25→17:13)
[2017-11-28] MEDS ORDERED: Vancomycin 1 GM in D5W 275 ML IVPB ONE (09:30)
[2017-11-28] MEDS: Piperacillin/Tazobactam 3.375 GM in D5W 110 ML IVPB SCH ×2 (10:28→20:57)
[2017-11-28] MEDS ORDERED: Albuterol/Ipratropium 3ml neb HHN PRN (11:15)
[2017-11-28 11:42] VITALS: BP 120/63
[2017-11-28] MEDS: Nitroglycerin Patch 0.4mg TDERMAL SCH (14:04)
[2017-11-28 16:00] VITALS: BP 156/58
[2017-11-28] MEDS ORDERED: 1/2 NS 1000ml IV ONE (16:36)
[2017-11-28] MEDS ORDERED: Tubing IV Secondary IV ONE (16:36)
[2017-11-28] MEDS ORDERED: NS 275ml ONE (16:36)
[2017-11-28] MEDS ORDERED: D5W 275ml ONE (16:36)
[2017-11-28 20:00] VITALS: BP 127/54
[2017-11-29] VITALS (7 sets, daily range): BP systolic 109–124; BP diastolic 42–68
[2017-11-29] MEDS: NovoLOG Insulin Flexpen SUBQ SCH ×4 (00:07→17:03)
--- NOTE | 2017-11-29 02:45 | Progress Note ---
DATE: 11/28/2017 CARDIOLOGY PROGRESS NOTE SUBJECTIVE: The patient remains with congestion, shortness of breath. Fevers up to 100.8. She is status post thoracentesis yesterday on the right side. OBJECTIVE: LUNGS: Diminished breath sounds, left greater than right. HEART: Irregularly irregular rhythm. Normal S1, S2. ABDOMEN: Soft. EXTREMITIES: Trace edema. LABORATORY AND DIAGNOSTIC DATA: Chest x-ray today reveals increasing congestive heart failure, patchy airspace disease on the right, atelectasis, and infiltrate on the left with small effusion. White count 16, hemoglobin 10.4. Sodium 155, BUN 34, creatinine 0.8. Pro-natriuretic peptide 7870. IMPRESSION: 1. Worsening dehydration, hypernatremia and free water deficit. 2. Acute on chronic diastolic congestive heart failure. 3. Pneumonia with aspiration, hypoxia. 4. Condition remains serious with guarded prognosis. 5. Paroxysmal atrial fibrillation. PLAN: 1. Cannot diurese at this time with significant free water deficit. 2. Continue anticoagulation for cardioembolic prophylaxis. 3. Hold diuresis for now. Jori Andujar M.D. DR: TOOTIE JOB#: [id number] CC:
[2017-11-29] MEDS: Levalbuterol Inh UD 1.25mg/0.5ml HHN SCH ×6 (03:02→22:42)
[2017-11-29] MEDS: HydrALAZINE 10mg Tab GT SCH ×5 (06:00→21:23)
[2017-11-29] MEDS: Metoclopramide 10mg/10ml Liq GT SCH ×3 (06:10→21:22)
[2017-11-29] MEDS: Piperacillin/Tazobactam 3.375 GM in D5W 110 ML IVPB SCH (06:10)
[2017-11-29 08:12] LABS: HEMATOCRIT 34.5 % (37.0-47.0); HEMOGLOBIN 10.6 G/DL (12.0-16.0); MEAN CORPUSCULAR VOLUME 96 FL (80-99); PLATELET COUNT 214 K/UL (150-450); RED BLOOD COUNT 3.59 M/UL (4.20-5.40); RED CELL DISTRIBUTION WIDTH 18.4 % (11.6-14.8); WHITE BLOOD COUNT 20.6 K/UL (4.8-10.8)
[2017-11-29] MEDS: Eliquis 2.5mg tablet GT SCH ×2 (08:18→17:02)
[2017-11-29] MEDS: Metoprolol Tartrate 12.5mg TAB GT SCH ×2 (08:18→21:23)
[2017-11-29] MEDS: Docusate 100mg/10ml Liq NG SCH ×3 (08:19→17:02)
[2017-11-29 08:24] LABS: ALANINE AMINOTRANSFERASE 33 U/L (12-78); ALBUMIN 2.4 G/DL (3.4-5.0); ALBUMIN/GLOBULIN RATIO 0.5 (1.0-2.7); ALKALINE PHOSPHATASE 69 U/L (46-116); ANION GAP 6 mmol/L (5-15); ASPARTATE AMINO TRANSFERASE 21 U/L (15-37); BILIRUBIN,TOTAL 0.8 MG/DL (0.2-1.0); BLOOD UREA NITROGEN 44 mg/dL (7-18); CALCIUM 9.6 MG/DL (8.5-10.1); CARBON DIOXIDE 36 MMOL/L (21-32); CHLORIDE 105 MMOL/L (98-107); CREATININE 1.2 MG/DL (0.55-1.30); PHOSPHORUS 2.7 MG/DL (2.5-4.9); SODIUM 147 MMOL/L (136-145)
--- NOTE | 2017-11-29 09:26 | Diagnostic Imaging Report ---
EXAM: XR Chest, 1 View CLINICAL HISTORY: Shortness of breath TECHNIQUE: Frontal view of the chest. COMPARISON: Chest x-ray dated 11/28/17 FINDINGS: Lungs: Mild improvement of the bilateral increased interstitial markings and of the patchy opacities in the right lower lung. Persistent bibasilar subsegmental atelectasis versus infiltrates. Linear marking at the periphery of the left upper lung most likely represents overlying skin fold, as lung markings are seen beyond this region. Pleural space: Unremarkable. The costophrenic angles are sharp. No visible pneumothorax. Heart: Unchanged mild cardiomegaly. Mediastinum: Unremarkable. Bones/joints: Unremarkable. Vasculature: Atherosclerotic calcifications are noted within the aortic arch. IMPRESSION: 1. Mild improvement of the bilateral increased interstitial markings and of the patchy opacities in the right lower lung. 2. Persistent bibasilar subsegmental atelectasis versus infiltrates.
--- NOTE | 2017-11-29 10:28 | Pulmonology Progress Note ---
Assessment/Plan Assessment/Plan ASSESSMENT Acute respiratory failure requiring BiPAP Aspiration PNA Acute on chronic diastolic congestive heart failure Bilateral pleural effusion s/p thoracentesis Paroxysmal atrial fibrillation Dehydration ZELDA/likely ATN with creat rise in 0.4 in 24 hrs Diabetic nephropathy Hypernatremia Hypokalemia Diabetes mellitus Cerebrovascular disease with dementia Dysphagia ,G-tube Moderate protein calorie malnutrition Iron deficiency anemia Severe pulmonary hypertension PLAN OF CARE PAZ status on VM titrate to keep pusle ox above 90% pulmonary toilet s/p thoracentesis -0.9 L pleural fluid cx prel negative fup CXR with mild improvement of the bilateral increased interstitial markings and of the patchy opacities in the right lower lung. Persistent bibasilar subsegmental atelectasis versus infiltrates. cardio follows continue anticoagulation for cardio-embolic prophylaxis hold diuresis due to ATN , monitor cardio-renal parameters and volumes , creat at plateau correct lytes prn ECHO with pEF 65% and RVSP of 66 c/w severe pulmonary hypertension proBNP trending down lipid panel stable venous duplex BLE - no acute DVT BP management with hydralazine and CCB blood cx negative , urine culture mixed GPO strict aspiration precautions, G-tube feeding, monitor tolerance monitor HH with goal to keep Hgb above 7 anemia workup consistent with anemia of MARIPOSA continue IV iron BS management with SSI prn, HgA1c -7.5 bowel regimen pain management prn supportive care protein supplements DVT , GI prophylaxis case discussed and evaluated by supervising physician Subjective Allergies: Coded Allergies: ATORVASTATIN (Verified Allergy, Unknown, 11/24/17) CLONIDINE (Verified Allergy, Unknown, 11/24/17) LABETALOL (Verified Allergy, Unknown, 11/24/17) NIFEDIPINE (Verified Allergy, Unknown, 11/24/17) ROSUVASTATIN (Verified Allergy, Unknown, 11/24/17) Uncoded Allergies: IVELISSE INHIBITOR (Allergy, Unknown, 11/24/17) Subjective leukocytosis trending uo febrile CXR without significant changes remains on VM , down titrated from 40 to 35% K-3.0 creat up to 1.2 Objective Last 24 Hour Vital Signs Date Time Temp Pulse Resp B/P (MAP) Pulse Ox O2 Delivery O2 Flow Rate FiO2 11/29/17 08:18 71 109/48 11/29/17 08:18 71 109/48 11/29/17 08:00 112 11/29/17 08:00 99.1 71 21 109/48 (68) 96 99.1 11/29/17 08:00 Venturi Mask 6.0 11/29/17 08:00 6.0 35 11/29/17 07:32 85 22 97 Venturi Mask 6.0 35 11/29/17 07:22 61 22 98 Venturi Mask 6.0 35 11/29/17 07:21 Venturi Mask 6.0 35 11/29/17 07:20 98 Venturi Mask 6.0 35 11/29/17 06:00 115/50 11/29/17 04:00 104 11/29/17 04:00 Venturi Mask 4.0 11/29/17 04:00 4.0 30 11/29/17 04:00 98.3 68 20 115/50 (71) 96 98.3 11/29/17 03:07 56 24 95 Venturi Mask 6.0 35 11/29/17 03:03 54 20 96 Venturi Mask 6.0 35 11/29/17 00:00 4.0 30 11/29/17 00:00 109/42 11/29/17 00:00 88 11/29/17 00:00 100.0 84 22 109/42 (64) 95 100.0 11/29/17 00:00 Venturi Mask 4.0 11/28/17 23:50 88 11/28/17 22:47 46 24 96 Venturi Mask 6.0 35 11/28/17 22:39 43 24 93 Venturi Mask 6.0 35 11/28/17 21:26 102.0 11/28/17 20:56 104 127/54 11/28/17 20:56 102.2 11/28/17 20:00 Venturi Mask 4.0 11/28/17 20:00 4.0 30 11/28/17 20:00 103.0 104 28 127/54 (78) 95 103.0 11/28/17 19:41 108 11/28/17 18:42 99 24 98 Venturi Mask 6.0 35 11/28/17 18:36 98 24 95 Venturi Mask 6.0 35 11/28/17 18:34 Venturi Mask 6.0 35 11/28/17 18:33 95 Venturi Mask 6.0 35 11/28/17 17:13 156/58 11/28/17 16:00 Venturi Mask 8.0 11/28/17 16:00 98.8 93 22 156/58 (90) 94 98.8 11/28/17 16:00 4.0 30 11/28/17 15:51 98 11/28/17 15:49 46 20 94 Venturi Mask 6.0 35 11/28/17 14:04 120/63 11/28/17 12:00 Venturi Mask 8.0 11/28/17 12:00 105 11/28/17 12:00 4.0 30 11/28/17 11:58 120/63 11/28/17 11:48 62 20 99 Venturi Mask 4.0 30 11/28/17 11:42 97.9 91 22 120/63 (82) 91 97.9 11/28/17 11:37 55 20 91 Venturi Mask 4.0 30 Intake and Output 11/28/17 11/29/17 19:00 07:00 Intake Total 1170.000 ml 1170.0 ml Output Total 600 ml 400 ml Balance 570.000 ml 770.0 ml Intake Free Water 260 ml 180 ml IV Total 385.000 ml 450.0 ml Tube Feeding 525 ml 540 ml Output Urine Total 600 ml 400 ml # Bowel Movements 3 2 Objective General Appearance: no acute distress, bedbound elderly female HEENT: normocephalic, atraumatic, VM 35% Respiratory/Chest: few scattered rhonchi Cardiovascular: irregularly irregular - HR 105 Abdomen: normal bowel sounds, soft, non tender Extremities: no edema Neurologic/Psychiatric: bedridden Musculoskeletal: atrophy - BLE Microbiology Date/Time Source Procedure Growth Status 11/27/17 10:35 Ascities Fluid Gram Stain - Final Resulted 11/27/17 10:35 Ascities Fluid Body Fluid Culture - Preliminary Resulted 11/28/17 10:29 Sputum Expectorated Gram Stain - Final Resulted 11/28/17 10:29 Sputum Culture - Preliminary Gram Negative Bacillus 1 Resulted 11/28/17 16:30 Stool Clostridium difficile Toxin Assay - Final Complete 11/28/17 10:29 Indwelling Cath Urine Culture - Preliminary Gram Negative [facility] Resulted Laboratory Tests 11/29/17 07:50: White Blood Count 20.6H, Red Blood Count 3.59L, Hemoglobin 10.6L, Hematocrit 34.5L, Mean Corpuscular Volume 96, Mean Corpuscular Hemoglobin 29.5, Mean Corpuscular Hemoglobin Concent 30.8L, Red Cell Distribution Width 18.4H, Platelet Count 214, Mean Platelet Volume 8.9, Neutrophils (%) (Auto) , Lymphocytes (%) (Auto) , Monocytes (%) (Auto) , Eosinophils (%) (Auto) , Basophils (%) (Auto) , Differential Total Cells Counted 100, Neutrophils % ( Manual) 79H, Lymphocytes % (Manual) 8L, Monocytes % (Manual) 6, Eosinophils % ( Manual) 0, Basophils % (Manual) 0, Band Neutrophils 7, Platelet Estimate Adequate, Platelet Morphology Normal, Hypochromasia 1+, Anisocytosis 1+, Sodium Level 147H, Potassium Level 3.0L, Chloride Level 105, Carbon Dioxide Level 36H, Anion Gap 6, Blood Urea Nitrogen 44H, Creatinine 1.2, Estimat Glomerular Filtration Rate , Glucose Level 233H, Uric Acid 7.7H, Calcium Level 9.6, Phosphorus Level 2.7, Magnesium Level 2.7H, Total Bilirubin 0.8, Aspartate Amino Transf (AST/SGOT) 21, Alanine Aminotransferase (ALT/SGPT) 33, Alkaline Phosphatase 69, Total Protein 7.2, Albumin 2.4L, Globulin 4.8, Albumin/Globulin Ratio 0.5L, Adenosine Deaminase [Pending] Current Medications Medications (Trade) Dose Ordered Sig/Cirilo Route PRN Reason Start Time Stop Time Status Last Admin Dose Admin Acetaminophen (Tylenol) 650 mg Q6H PRN ORAL Fever/Headache/Mild Pain 11/24/17 12:45 12/24/17 12:44 11/28/17 20:56 Albuterol/ Ipratropium (Albuterol/ Ipratropium) 3 ml Q4H PRN HHN Shortness of Breath 11/28/17 11:15 12/03/17 11:14 Amlodipine Besylate (Norvasc) 10 mg DAILY GT 11/24/17 13:42 12/24/17 13:41 11/29/17 08:18 Apixaban (Eliquis) 2.5 mg BID GT 11/28/17 09:00 12/28/17 08:59 11/29/17 08:18 Dextrose 1,000 ml @ 100 mls/hr Q10H IV 11/29/17 02:00 12/29/17 01:59 11/29/17 02:36 Dextrose (Dextrose 50%) 25 ml PRN IV Hypoglycemia 11/24/17 14:00 12/24/17 13:59 Dextrose (Dextrose 50%) 50 ml PRN IV hypoglycemia 11/24/17 14:00 12/24/17 13:59 Docusate Sodium (Colace) 100 mg TID NG 11/24/17 13:43 12/24/17 13:42 11/28/17 08:33 Famotidine (Pepcid) 20 mg BID GT 11/24/17 18:00 12/24/17 17:59 11/29/17 08:18 Hydralazine HCl (Apresoline) 10 mg Q6HR GT 11/24/17 18:00 12/24/17 17:59 11/28/17 17:13 Hydromorphone HCl (Dilaudid) 1 mg Q6H PRN IVP Severe Pain (Pain Scale 7-10) 11/27/17 07:00 12/04/17 06:59 11/27/17 12:12 Insulin Aspart (NovoLOG) EVERY 6 HOURS SUBQ 11/25/17 18:00 12/25/17 17:59 11/29/17 06:11 Levalbuterol HCl (Xopenex) 1.25 mg Q4HRT HHN 11/27/17 15:00 12/02/17 14:59 11/29/17 07:22 Lorazepam (Ativan 2mg/ml 1ml) 0.5 mg Q6H PRN IV agitation 11/24/17 13:45 12/01/17 13:44 Meropenem 1 gm/ Sodium Chloride 55 ml @ 110 mls/hr Q8HR IVPB 11/29/17 10:30 12/04/17 10:29 Metoclopramide HCl (Reglan) 5 mg EVERY 8 HOURS GT 11/28/17 14:00 12/25/17 11:59 11/29/17 06:10 Metoprolol Tartrate (Lopressor) 12.5 mg Q12HR GT 11/28/17 09:00 12/28/17 08:59 11/29/17 08:18 Nitroglycerin (Ntg) 1 patch Q24H TDERMAL 11/24/17 14:00 12/24/17 13:59 11/28/17 14:04 Ignacia Macias NP Nov 29, 2017 10:28
[2017-11-29] MEDS: Meropenem 1 GM in NS 55 ML IVPB SCH ×2 (10:43→22:00)
--- NOTE | 2017-11-29 12:50 | General Progress Note ---
Assessment/Plan Problem List: (1) Acute respiratory failure ICD Codes: J96.00 - Acute respiratory failure, unspecified whether with hypoxia or hypercapnia SNOMED: 73950817 (2) History of CVA (cerebrovascular accident) ICD Codes: Z86.73 - Personal history of transient ischemic attack (TIA), and cerebral infarction without residual deficits SNOMED: 148532906 (3) Pulmonary edema ICD Codes: J81.1 - Chronic pulmonary edema SNOMED: 39953430 Qualifiers: Qualified Codes: J81.0 - Acute pulmonary edema (4) Diabetic nephropathy ICD Codes: E11.21 - Type 2 diabetes mellitus with diabetic nephropathy SNOMED: 23914920, 898045558 (5) Pleural effusion, bilateral ICD Codes: J90 - Pleural effusion, not elsewhere classified SNOMED: 855992360 Status: stable Assessment/Plan one dose vanco Zosyn ordered 11/28 ID eval, Now on meropenem resume eliquis DC lasix- GT feeding Keep BP and BS in check optimize cardiac and pulm status- IV Iron PER Cardio and pulm . Subjective ROS Limited/Unobtainable: No Constitutional: Reports: other - non verbal Allergies: Coded Allergies: ATORVASTATIN (Verified Allergy, Unknown, 11/24/17) CLONIDINE (Verified Allergy, Unknown, 11/24/17) LABETALOL (Verified Allergy, Unknown, 11/24/17) NIFEDIPINE (Verified Allergy, Unknown, 11/24/17) ROSUVASTATIN (Verified Allergy, Unknown, 11/24/17) Uncoded Allergies: IVELISSE INHIBITOR (Allergy, Unknown, 11/24/17) Objective Last 24 Hour Vital Signs Date Time Temp Pulse Resp B/P (MAP) Pulse Ox O2 Delivery O2 Flow Rate FiO2 11/29/17 12:00 Venturi Mask 6.0 11/29/17 12:00 2.0 11/29/17 11:57 111/51 11/29/17 11:47 99.2 67 21 111/51 (71) 97 99.2 11/29/17 11:04 64 20 96 Nasal Cannula 2.0 11/29/17 10:54 65 20 97 Venturi Mask 6.0 35 11/29/17 10:43 65 20 Venturi Mask 6.0 35 11/29/17 08:18 71 109/48 11/29/17 08:18 71 109/48 11/29/17 08:00 112 11/29/17 08:00 99.1 71 21 109/48 (68) 96 99.1 11/29/17 08:00 Venturi Mask 6.0 11/29/17 08:00 6.0 35 11/29/17 07:32 85 22 97 Venturi Mask 6.0 35 11/29/17 07:22 61 22 98 Venturi Mask 6.0 35 11/29/17 07:21 Venturi Mask 6.0 35 11/29/17 07:20 98 Venturi Mask 6.0 35 11/29/17 06:00 115/50 11/29/17 04:00 104 11/29/17 04:00 Venturi Mask 4.0 11/29/17 04:00 4.0 30 11/29/17 04:00 98.3 68 20 115/50 (71) 96 98.3 11/29/17 03:07 56 24 95 Venturi Mask 6.0 35 11/29/17 03:03 54 20 96 Venturi Mask 6.0 35 11/29/17 00:00 4.0 30 11/29/17 00:00 109/42 11/29/17 00:00 88 11/29/17 00:00 100.0 84 22 109/42 (64) 95 100.0 11/29/17 00:00 Venturi Mask 4.0 11/28/17 23:50 88 11/28/17 22:47 46 24 96 Venturi Mask 6.0 35 11/28/17 22:39 43 24 93 Venturi Mask 6.0 35 11/28/17 21:26 102.0 11/28/17 20:56 104 127/54 11/28/17 20:56 102.2 11/28/17 20:00 Venturi Mask 4.0 11/28/17 20:00 4.0 30 11/28/17 20:00 103.0 104 28 127/54 (78) 95 103.0 11/28/17 19:41 108 11/28/17 18:42 99 24 98 Venturi Mask 6.0 35 11/28/17 18:36 98 24 95 Venturi Mask 6.0 35 11/28/17 18:34 Venturi Mask 6.0 35 11/28/17 18:33 95 Venturi Mask 6.0 35 11/28/17 17:13 156/58 11/28/17 16:00 Venturi Mask 8.0 11/28/17 16:00 98.8 93 22 156/58 (90) 94 98.8 11/28/17 16:00 4.0 30 11/28/17 15:51 98 11/28/17 15:49 46 20 94 Venturi Mask 6.0 35 11/28/17 14:04 120/63 Intake and Output 11/28/17 11/29/17 19:00 07:00 Intake Total 1170.000 ml 1170.0 ml Output Total 600 ml 400 ml Balance 570.000 ml 770.0 ml Intake Free Water 260 ml 180 ml IV Total 385.000 ml 450.0 ml Tube Feeding 525 ml 540 ml Output Urine Total 600 ml 400 ml # Bowel Movements 3 2 Laboratory Tests 11/29/17 07:50: White Blood Count 20.6H, Red Blood Count 3.59L, Hemoglobin 10.6L, Hematocrit 34.5L, Mean Corpuscular Volume 96, Mean Corpuscular Hemoglobin 29.5, Mean Corpuscular Hemoglobin Concent 30.8L, Red Cell Distribution Width 18.4H, Platelet Count 214, Mean Platelet Volume 8.9, Neutrophils (%) (Auto) , Lymphocytes (%) (Auto) , Monocytes (%) (Auto) , Eosinophils (%) (Auto) , Basophils (%) (Auto) , Differential Total Cells Counted 100, Neutrophils % ( Manual) 79H, Lymphocytes % (Manual) 8L, Monocytes % (Manual) 6, Eosinophils % ( Manual) 0, Basophils % (Manual) 0, Band Neutrophils 7, Platelet Estimate Adequate, Platelet Morphology Normal, Hypochromasia 1+, Anisocytosis 1+, Sodium Level 147H, Potassium Level 3.0L, Chloride Level 105, Carbon Dioxide Level 36H, Anion Gap 6, Blood Urea Nitrogen 44H, Creatinine 1.2, Estimat Glomerular Filtration Rate , Glucose Level 233H, Uric Acid 7.7H, Calcium Level 9.6, Phosphorus Level 2.7, Magnesium Level 2.7H, Total Bilirubin 0.8, Aspartate Amino Transf (AST/SGOT) 21, Alanine Aminotransferase (ALT/SGPT) 33, Alkaline Phosphatase 69, Total Protein 7.2, Albumin 2.4L, Globulin 4.8, Albumin/Globulin Ratio 0.5L, Adenosine Deaminase [Pending] Height (Feet): 5 Height (Inches): 0.00 Weight (Pounds): 119 General Appearance: no apparent distress, lethargic EENT: other - on cannula Cardiovascular: normal rate Respiratory/Chest: decreased breath sounds Abdomen: soft, other - PEG Objective no change Rafael Hurt MD Nov 29, 2017 12:49
[2017-11-29] MEDS: Nitroglycerin Patch 0.4mg TDERMAL SCH (13:47)
--- NOTE | 2017-11-29 14:56 | Infectious Diseases Prog Note ---
Assessment/Plan Problems: (1) Aspiration pneumonia Assessment & Plan: with new right basal infiltrates, due to gram negative rods , switched to meropenem pending final sputum culture, monitor CXR , monitor vitals. aspiration precaution , keep HOB > 30 degree (2) Pleural effusion, bilateral Assessment & Plan: S/P thoracentesis , exudative most likely due to pneumonia, adenosine deaminase on pleural fluids, fungal and cytology are pending . await bacterial culture (3) Acute respiratory failure Assessment & Plan: due to the above, off BIPAP, now on nasal canula , monitor ABG, and CXR , pulmonary is following (4) Sepsis Assessment & Plan: due to the above, will continue meropenem for now pending cultures results , keep off vancomycin for now (5) Pressure ulcer, heel, right, unstageable Assessment & Plan: with an eschar, continue off loading and local wound care as per hospital protocol Subjective ROS Limited/Unobtainable: Yes Allergies: Coded Allergies: ATORVASTATIN (Verified Allergy, Unknown, 11/24/17) CLONIDINE (Verified Allergy, Unknown, 11/24/17) LABETALOL (Verified Allergy, Unknown, 11/24/17) NIFEDIPINE (Verified Allergy, Unknown, 11/24/17) ROSUVASTATIN (Verified Allergy, Unknown, 11/24/17) Uncoded Allergies: IVELISSE INHIBITOR (Allergy, Unknown, 11/24/17) Subjective she was lying in bed, afebrile, not responsive, on nasal canula Objective Vital Signs Last 24 Hour Vital Signs Date Time Temp Pulse Resp B/P (MAP) Pulse Ox O2 Delivery O2 Flow Rate FiO2 11/29/17 13:47 109/71 11/29/17 13:43 109/71 11/29/17 12:00 Venturi Mask 6.0 11/29/17 12:00 2.0 11/29/17 11:57 111/51 11/29/17 11:47 99.2 67 21 111/51 (71) 97 99.2 11/29/17 11:04 64 20 96 Nasal Cannula 2.0 11/29/17 10:54 65 20 97 Venturi Mask 6.0 35 11/29/17 10:43 65 20 Venturi Mask 6.0 35 11/29/17 08:18 71 109/48 11/29/17 08:18 71 109/48 11/29/17 08:00 112 11/29/17 08:00 99.1 71 21 109/48 (68) 96 99.1 11/29/17 08:00 Venturi Mask 6.0 11/29/17 08:00 6.0 35 11/29/17 07:32 85 22 97 Venturi Mask 6.0 35 11/29/17 07:22 61 22 98 Venturi Mask 6.0 35 11/29/17 07:21 Venturi Mask 6.0 35 11/29/17 07:20 98 Venturi Mask 6.0 35 11/29/17 06:00 115/50 11/29/17 04:00 104 11/29/17 04:00 Venturi Mask 4.0 11/29/17 04:00 4.0 30 11/29/17 04:00 98.3 68 20 115/50 (71) 96 98.3 11/29/17 03:07 56 24 95 Venturi Mask 6.0 35 11/29/17 03:03 54 20 96 Venturi Mask 6.0 35 11/29/17 00:00 4.0 30 11/29/17 00:00 109/42 11/29/17 00:00 88 11/29/17 00:00 100.0 84 22 109/42 (64) 95 100.0 11/29/17 00:00 Venturi Mask 4.0 11/28/17 23:50 88 11/28/17 22:47 46 24 96 Venturi Mask 6.0 35 11/28/17 22:39 43 24 93 Venturi Mask 6.0 35 11/28/17 21:26 102.0 11/28/17 20:56 104 127/54 11/28/17 20:56 102.2 11/28/17 20:00 Venturi Mask 4.0 11/28/17 20:00 4.0 30 11/28/17 20:00 103.0 104 28 127/54 (78) 95 103.0 11/28/17 19:41 108 11/28/17 18:42 99 24 98 Venturi Mask 6.0 35 11/28/17 18:36 98 24 95 Venturi Mask 6.0 35 11/28/17 18:34 Venturi Mask 6.0 35 11/28/17 18:33 95 Venturi Mask 6.0 35 11/28/17 17:13 156/58 11/28/17 16:00 Venturi Mask 8.0 11/28/17 16:00 98.8 93 22 156/58 (90) 94 98.8 11/28/17 16:00 4.0 30 11/28/17 15:51 98 11/28/17 15:49 46 20 94 Venturi Mask 6.0 35 Height (Feet): 5 Height (Inches): 0.00 Weight (Pounds): 119 General Appearance: WD/WN, no acute distress, other - altered , unresponsive HEENT: normocephalic, atraumatic, anicteric, supple, no JVD, other - pupils are pinpoint Respiratory/Chest: chest wall non-tender, no respiratory distress, no accessory muscle use, decreased breath sounds Cardiovascular: normal peripheral pulses, normal rate, regular rhythm, no gallop/murmur, no JVD Abdomen: normal bowel sounds, soft, non tender, no organomegaly, no mass, no scars, distended, other - PEG tube site is ok, no drainage Extremities: no cyanosis, no clubbing, other - right heel pressure wound with an eschar Skin: no rash, no lesions, ulcers - of the right heel Neurologic/Psychiatric: unresponsiveness Microbiology Date/Time Source Procedure Growth Status 11/28/17 10:25 Blood Blood Culture - Preliminary NO GROWTH AFTER 24 HOURS Resulted 11/28/17 10:15 Blood Blood Culture - Preliminary NO GROWTH AFTER 24 HOURS Resulted 11/27/17 10:35 Ascities Fluid Gram Stain - Final Resulted 11/27/17 10:35 Ascities Fluid Body Fluid Culture - Preliminary NO GROWTH AFTER 24 HOURS Resulted 11/28/17 10:29 Sputum Expectorated Gram Stain - Final Resulted 11/28/17 10:29 Sputum Culture - Preliminary Gram Negative Bacillus 1 Resulted 11/28/17 16:30 Stool Clostridium difficile Toxin Assay - Final Complete 11/28/17 10:29 Indwelling Cath Urine Culture - Preliminary Gram Negative [facility] Resulted Laboratory Tests Test 11/29/17 07:50 White Blood Count 20.6 K/UL (4.8-10.8) H Red Blood Count 3.59 M/UL (4.20-5.40) L Hemoglobin 10.6 G/DL (12.0-16.0) L Hematocrit 34.5 % (37.0-47.0) L Mean Corpuscular Volume 96 FL (80-99) Mean Corpuscular Hemoglobin 29.5 PG (27.0-31.0) Mean Corpuscular Hemoglobin Concent 30.8 G/DL (32.0-36.0) L Red Cell Distribution Width 18.4 % (11.6-14.8) H Platelet Count 214 K/UL (150-450) Mean Platelet Volume 8.9 FL (6.5-10.1) Neutrophils (%) (Auto) % (45.0-75.0) Lymphocytes (%) (Auto) % (20.0-45.0) Monocytes (%) (Auto) % (1.0-10.0) Eosinophils (%) (Auto) % (0.0-3.0) Basophils (%) (Auto) % (0.0-2.0) Differential Total Cells Counted 100 Neutrophils % (Manual) 79 % (45-75) H Lymphocytes % (Manual) 8 % (20-45) L Monocytes % (Manual) 6 % (1-10) Eosinophils % (Manual) 0 % (0-3) Basophils % (Manual) 0 % (0-2) Band Neutrophils 7 % (0-8) Platelet Estimate Adequate Platelet Morphology Normal Hypochromasia 1+ Anisocytosis 1+ Sodium Level 147 MMOL/L (136-145) H Potassium Level 3.0 MMOL/L (3.5-5.1) L Chloride Level 105 MMOL/L (98-107) Carbon Dioxide Level 36 MMOL/L (21-32) H Anion Gap 6 mmol/L (5-15) Blood Urea Nitrogen 44 mg/dL (7-18) H Creatinine 1.2 MG/DL (0.55-1.30) Estimat Glomerular Filtration Rate mL/min (>60) Glucose Level 233 MG/DL (74-106) H Uric Acid 7.7 MG/DL (2.6-7.2) H Calcium Level 9.6 MG/DL (8.5-10.1) Phosphorus Level 2.7 MG/DL (2.5-4.9) Magnesium Level 2.7 MG/DL (1.8-2.4) H Total Bilirubin 0.8 MG/DL (0.2-1.0) Aspartate Amino Transf (AST/SGOT) 21 U/L (15-37) Alanine Aminotransferase (ALT/SGPT) 33 U/L (12-78) Alkaline Phosphatase 69 U/L (46-116) Total Protein 7.2 G/DL (6.4-8.2) Albumin 2.4 G/DL (3.4-5.0) L Globulin 4.8 g/dL Albumin/Globulin Ratio 0.5 (1.0-2.7) L Adenosine Deaminase Pending Current Medications Medications (Trade) Dose Ordered Sig/Cirilo Route PRN Reason Start Time Stop Time Status Last Admin Dose Admin Acetaminophen (Tylenol) 650 mg Q6H PRN ORAL Fever/Headache/Mild Pain 11/24/17 12:45 12/24/17 12:44 11/28/17 20:56 Albuterol/ Ipratropium (Albuterol/ Ipratropium) 3 ml Q4H PRN HHN Shortness of Breath 11/28/17 11:15 12/03/17 11:14 Amlodipine Besylate (Norvasc) 5 mg DAILY GT 11/30/17 09:00 12/24/17 13:41 Apixaban (Eliquis) 2.5 mg BID GT 11/28/17 09:00 12/28/17 08:59 11/29/17 08:18 Dextrose (Dextrose 50%) 25 ml PRN IV Hypoglycemia 11/24/17 14:00 12/24/17 13:59 Dextrose (Dextrose 50%) 50 ml PRN IV hypoglycemia 11/24/17 14:00 12/24/17 13:59 Docusate Sodium (Colace) 100 mg TID NG 11/24/17 13:43 12/24/17 13:42 11/28/17 08:33 Famotidine (Pepcid) 20 mg BID GT 11/24/17 18:00 12/24/17 17:59 11/29/17 08:18 Hydralazine HCl (Apresoline) 10 mg Q8HR GT 11/29/17 14:00 12/24/17 17:59 Hydromorphone HCl (Dilaudid) 1 mg Q6H PRN IVP Severe Pain (Pain Scale 7-10) 11/27/17 07:00 12/04/17 06:59 11/27/17 12:12 Insulin Aspart (NovoLOG) EVERY 6 HOURS SUBQ 11/25/17 18:00 12/25/17 17:59 11/29/17 11:58 Levalbuterol HCl (Xopenex) 1.25 mg Q4HRT HHN 11/27/17 15:00 12/02/17 14:59 11/29/17 10:54 Lorazepam (Ativan 2mg/ml 1ml) 0.5 mg Q6H PRN IV agitation 11/24/17 13:45 12/01/17 13:44 Meropenem 1 gm/ Sodium Chloride 55 ml @ 110 mls/hr Q8HR IVPB 11/29/17 10:30 12/04/17 10:29 11/29/17 10:43 Metoclopramide HCl (Reglan) 5 mg EVERY 8 HOURS GT 11/28/17 14:00 12/25/17 11:59 11/29/17 13:46 Metoprolol Tartrate (Lopressor) 12.5 mg Q12HR GT 11/28/17 09:00 12/28/17 08:59 11/29/17 08:18 Nitroglycerin (Ntg) 1 patch Q24H TDERMAL 11/24/17 14:00 12/24/17 13:59 11/29/17 13:47 Cole Rasmussen M.D. Nov 29, 2017 14:56
--- NOTE | 2017-11-29 18:15 | Consultation ---
DATE OF CONSULTATION: 11/28/2017 INFECTIOUS DISEASES CONSULTATION CONSULTING PHYSICIAN: Cole Rasmussen M.D. REQUESTING PHYSICIAN: Rafael Hurt M.D. REASON FOR CONSULTATION: Aspiration pneumonia, sepsis with leukocytosis. Recommendation for antibiotics treatment. HISTORY OF PRESENT ILLNESS: The patient is an 87-year-old female with past medical history of congestive heart failure, peripheral vascular disease, hypertension, diabetes, CVA, was sent to [facility] emergency room for dyspnea and hypoxemia. The patient was found to be hypoxemic at 75% via paramedics. Her oxygenation improved to 94% when she was placed on oxygen. The patient is well known to have congestive heart failure history but she is a poor historian, could not provide good history at the time when the paramedics arrived. The patient was admitted to the hospital for further workup and evaluation. She was found to have bilateral pleural effusion, so she underwent right thoracentesis, fluid was sent for analysis and bacteria culture. The patient spiked temperature after she underwent thoracentesis. Her WBC went up to 16,000 so she was started on vancomycin and Zosyn. Empiric coverage by the primary physician. An Infectious Diseases consultation was requested for further evaluation and management. As of note, the patient is poor historian, cannot provide good history. History was mainly obtained from the medical record. REVIEW OF SYSTEMS: Unable to obtain. The patient is obtunded, cannot provide any history. PAST MEDICAL HISTORY: Significant for congestive heart failure, peripheral vascular disease, hypertension, diabetes, CVA. PAST SURGICAL HISTORY: She had PEG tube placement due to dysphagia. ALLERGIES: She is allergic to atorvastatin, clonidine, labetalol, nifedipine, rosuvastatin. MEDICATIONS: Currently she is on vancomycin and Zosyn. For the rest of her medications, please refer to MAR. FAMILY HISTORY: Unable to obtain. SOCIAL HISTORY: The patient lives at [facility]. No recent drugs, tobacco, or alcohol. PHYSICAL EXAMINATION: VITAL SIGNS: Temperature 100.8, pulse 84, respirations 22, blood pressure 109/42, saturation 95% on Venturi mask with FiO2 of 30%. GENERAL: Elderly female, obtunded, lying in bed, on a Venturi mask, not in acute distress, not responsive. HEENT: Normocephalic and atraumatic. Pupils both pinpoint not reactive to light. Unable to assess oral mucosa due to Venturi mask. NECK: Supple. No lymphadenopathy. CARDIOVASCULAR: Regular rate and rhythm. No murmur or gallop. LUNGS: She had diminished breathing sounds at the bases with crackles. No wheezing or rhonchi. Normal breathing effort. ABDOMEN: Soft, nontender, distended. PEG tube site looks intact. Hypoactive bowel sounds. EXTREMITIES: No edema or cyanosis. She has right heel pressure wounds, unstageable with black eschar. LABORATORY DATA: Labs showed white count of 16.6, hemoglobin of 10.4, hematocrit of 34.3, platelet count of 268. BUN of 34 and creatinine of 0.8. BNP of 7870. Urinalysis did not show any evidence of infection. Pleural fluid showed yellow cloudy appearance with red blood cell of 937 and total nucleated cells of 237. Monos 84. Glucose of 167 and total protein of 2.4 with fluid albumin of 1.4. Microbiology, the patient had blood culture x2 on November 24, 2017 both were negative. Her urine culture showed mixed gram-positive organism most likely contaminant. Her screening for MRSA and VRE were negative but she screened positive for VRE in the rectum. IMAGING: Chest x-ray showed increased pulmonary vascular congestion, interval development of patchy airspace opacity in the right lung base concerning for pneumonia versus pulmonary edema, persistent subcentimeter atelectasis versus infiltrate in the left lung base. Venous Doppler on November 24, 2017 showed patent deep venous system bilaterally with no evidence of thrombus within the femoral, popliteal, or tibial segments. ASSESSMENT AND RECOMMENDATION: 1. Aspiration pneumonia with new right basal infiltrates. We will continue Zosyn and vancomycin for now. Empiric coverage. We will send sputum culture. Monitor chest x-ray. Monitor vitals with aspiration precaution and keep head of bed more than 30 degrees. 2. Pleural effusion, bilateral status post thoracentesis, most likely exudative due to pneumonia. We will order adenosine deaminase on the pleural fluid, fungal and cytology workup, and we will await bacterial culture which was already ordered in the fluid. 3. Acute respiratory failure due to the above on a Venturi mask. Monitor ABG and chest x-ray. Pulmonary team is following. 4. Pulmonary edema. Continue diuresis. Monitor chest x-ray. 5. Sepsis due to the above. We will continue vancomycin and Zosyn for now, pending culture. We will switch to meropenem if no improvement on Zosyn within the next 24 hours, pending culture. 6. Pressure ulcer of the right heel unstageable with an eschar. Continue offloading and local wound care as per hospital protocol. Thank you for the consult. ID will continue to follow. Cole Rasmussen M.D. DR: Elza JOB#: [id number] CC: MARTIN
[2017-11-29] MEDS ORDERED: Tubing IV Secondary IV ONE (19:40)
[2017-11-29] MEDS: Acetaminophen 650mg/20.3ml ORAL PRN (21:22)
--- NOTE | 2017-11-29 23:15 | Progress Note ---
DATE: 11/29/2017 CARDIOLOGY PROGRESS NOTE SUBJECTIVE: The patient is doing poorly. She has remained dehydrated and is on hypotonic IV fluids. She is status post thoracentesis and anticoagulation has been resumed. Diuretics on hold. She is pancultured and started on new antibiotics. OBJECTIVE: VITAL SIGNS: T-max temperature 99.2, blood pressure 111/51, heart rate 67, and respiratory rate 21. Monitor paroxysmal atrial fibrillation. LUNGS: Diminished breath sounds with scattered rales. HEART: Irregularly irregular rhythm. Normal S1 and S2. ABDOMEN: Soft. EXTREMITIES: Trace edema. LABORATORY DATA: White count up to 20 and hemoglobin 10.6. Sodium 147, potassium 3, bicarbonate 36, BUN 44, and creatinine 1.2. Albumin 2.4. IMPRESSION: 1. Dehydration. 2. Hypernatremia. 3. Hypokalemia. 4. Prerenal azotemia. 5. Sepsis. 6. Leukocytosis. 7. Diabetes mellitus with uncontrolled glucose. 8. Severe protein-calorie malnutrition. 9. Acute on chronic diastolic congestive heart failure, clinically compensated. 10. Anemia with macrocytosis. 11. Aspiration pneumonia. PLAN: 1. Respiratory hygiene. 2. Antimicrobial. 3. Hypotonic IV fluids. 4. Potassium replacement. 5. Hold diuretics for now. 6. Full anticoagulation for cardioembolic prophylaxis. 7. Follow up fluid studies from thoracentesis. 8. Oxygen supplementation. 9. Remains at high risk with serious condition and guarded prognosis. Jori Adnujar M.D. DR: RUFINA JOB#: [id number] CC:
[2017-11-30] VITALS: BP 108/55
[2017-11-30] MEDS: NovoLOG Insulin Flexpen SUBQ SCH ×4 (00:34→17:35)
[2017-11-30] MEDS: Levalbuterol Inh UD 1.25mg/0.5ml HHN SCH ×6 (02:36→23:41)
[2017-11-30 04:00] VITALS: BP 119/55
[2017-11-30 05:21] LABS: HEMATOCRIT 28.9 % (37.0-47.0); HEMOGLOBIN 9.1 G/DL (12.0-16.0); MEAN CORPUSCULAR VOLUME 95 FL (80-99); PLATELET COUNT 190 K/UL (150-450); RED BLOOD COUNT 3.05 M/UL (4.20-5.40); RED CELL DISTRIBUTION WIDTH 17.9 % (11.6-14.8); WHITE BLOOD COUNT 16.3 K/UL (4.8-10.8)
[2017-11-30 05:24] LABS: ANION GAP 4 mmol/L (5-15); BLOOD UREA NITROGEN 60 mg/dL (7-18); CALCIUM 9.4 MG/DL (8.5-10.1); CARBON DIOXIDE 37 MMOL/L (21-32); CHLORIDE 107 MMOL/L (98-107); CREATININE 1.6 MG/DL (0.55-1.30); POTASSIUM 2.8 MMOL/L (3.5-5.1); SODIUM 148 MMOL/L (136-145)
[2017-11-30 05:29] LABS: ALANINE AMINOTRANSFERASE 27 U/L (12-78); ALBUMIN 2.1 G/DL (3.4-5.0); ALKALINE PHOSPHATASE 74 U/L (46-116); ASPARTATE AMINO TRANSFERASE 15 U/L (15-37); BILIRUBIN,DIRECT 0.2 MG/DL (0.0-0.3); BILIRUBIN,TOTAL 0.6 MG/DL (0.2-1.0); PHOSPHORUS 3.1 MG/DL (2.5-4.9)
[2017-11-30] MEDS: Meropenem 1 GM in NS 55 ML IVPB SCH (06:51)
[2017-11-30] MEDS: Metoclopramide 10mg/10ml Liq GT SCH ×3 (06:51→21:58)
[2017-11-30] MEDS: HydrALAZINE 10mg Tab GT SCH ×2 (06:52→13:33)
[2017-11-30 08:00] VITALS: BP 105/57
--- NOTE | 2017-11-30 08:37 | Pulmonology Progress Note ---
Assessment/Plan Assessment/Plan ASSESSMENT Acute respiratory failure requiring BiPAP-resolving Aspiration PNA Acute on chronic diastolic congestive heart failure Bilateral pleural effusion s/p thoracentesis Paroxysmal atrial fibrillation Dehydration ZELDA/likely ATN with another creat rise in 0.4 in 24 hrs Diabetic nephropathy Hypernatremia Hypokalemia Diabetes mellitus Cerebrovascular disease with dementia Dysphagia ,G-tube Moderate protein calorie malnutrition Iron deficiency anemia Severe pulmonary hypertension PLAN OF CARE PAZ status on O2 via NC<, pulse ox stable pulmonary toilet CXR for today pending s/p thoracentesis -0.9 L pleural fluid cx negative cardio follows continue anticoagulation for cardio-embolic prophylaxis hold diuresis due to ATN , monitor cardio-renal parameters and volumes , creat rising nephro follows correct lytes ( today correct K) ECHO with pEF 65% and RVSP of 66 c/w severe pulmonary hypertension proBNP trending down lipid panel stable venous duplex BLE - no acute DVT BP management with hydralazine and CCB blood cx negative , urine culture mixed GPO strict aspiration precautions, G-tube feeding, monitor tolerance monitor HH with goal to keep Hgb above 7 anemia workup consistent with anemia of MARIPOSA continue IV iron BS management with SSI prn, HgA1c -7.5 bowel regimen pain management prn supportive care protein supplements DVT , GI prophylaxis case discussed and evaluated by supervising physician Subjective Allergies: Coded Allergies: ATORVASTATIN (Verified Allergy, Unknown, 11/24/17) CLONIDINE (Verified Allergy, Unknown, 11/24/17) LABETALOL (Verified Allergy, Unknown, 11/24/17) NIFEDIPINE (Verified Allergy, Unknown, 11/24/17) ROSUVASTATIN (Verified Allergy, Unknown, 11/24/17) Uncoded Allergies: IVELISSE INHIBITOR (Allergy, Unknown, 11/24/17) Subjective leukocytosis trending down, fever last night, this am afebrile so far CXR without significant changes weaned to o2 via NC, sat stable K-2.8 creat up to 1.6 Objective Last 24 Hour Vital Signs Date Time Temp Pulse Resp B/P (MAP) Pulse Ox O2 Delivery O2 Flow Rate FiO2 11/30/17 08:00 98.2 91 24 105/57 (73) 99 98.2 11/30/17 08:00 2.0 11/30/17 06:52 135/82 11/30/17 04:00 Venturi Mask 6.0 11/30/17 04:00 105 11/30/17 04:00 98.8 91 20 119/55 (76) 99 98.8 11/30/17 04:00 2.0 11/30/17 02:37 55 18 91 Nasal Cannula 2.0 28 11/30/17 02:30 54 16 88 Nasal Cannula 2.0 28 11/30/17 00:30 Venturi Mask 6.0 11/30/17 00:00 98.4 88 20 108/55 (72) 99 98.4 11/30/17 00:00 2.0 11/30/17 00:00 112 11/30/17 00:00 Venturi Mask 6.0 11/29/17 22:41 61 20 92 Nasal Cannula 2.0 28 11/29/17 22:36 55 18 89 Nasal Cannula 2.0 28 11/29/17 21:52 99.7 11/29/17 21:23 124/68 11/29/17 21:23 92 124/68 11/29/17 21:22 101.0 11/29/17 21:21 101.0 92 20 124/68 (86) 99 101.0 11/29/17 20:00 100.0 95 20 122/68 (86) 98 100.0 11/29/17 20:00 Venturi Mask 6.0 11/29/17 20:00 95 11/29/17 20:00 2.0 11/29/17 18:50 98 Nasal Cannula 2.0 28 11/29/17 18:50 Nasal Cannula 2.0 28 11/29/17 18:49 46 18 100 Nasal Cannula 2.0 28 11/29/17 18:43 46 16 97 Nasal Cannula 2.0 28 11/29/17 16:00 88 11/29/17 16:00 2.0 11/29/17 16:00 98.3 98 20 116/55 (75) 99 98.3 11/29/17 16:00 Venturi Mask 6.0 11/29/17 15:23 45 20 100 Nasal Cannula 2.0 11/29/17 15:13 44 18 98 Nasal Cannula 2.0 11/29/17 13:47 109/71 11/29/17 13:43 109/71 11/29/17 12:00 Venturi Mask 6.0 9/2/18 12:00 2.0 11/29/17 12:00 100 11/29/17 11:57 111/51 11/29/17 11:47 99.2 67 21 111/51 (71) 97 99.2 11/29/17 11:04 64 20 96 Nasal Cannula 2.0 11/29/17 10:54 65 20 97 Venturi Mask 6.0 35 11/29/17 10:43 65 20 Venturi Mask 6.0 35 Intake and Output 11/29/17 11/30/17 19:00 07:00 Intake Total 1430.0 ml 970 ml Output Total 350 ml 300 ml Balance 1080.0 ml 670 ml Intake Free Water 220 ml 250 ml IV Total 565.0 ml Tube Feeding 645 ml 660 ml Other 60 ml Output Urine Total 350 ml 300 ml # Bowel Movements 3 Objective General Appearance: no acute distress, bedbound elderly female HEENT: normocephalic, atraumatic, VM 35% Respiratory/Chest: few scattered rhonchi Cardiovascular: irregularly irregular - HR 105 Abdomen: normal bowel sounds, soft, non tender, G tube Extremities: no edema Neurologic/Psychiatric: bedridden Musculoskeletal: atrophy - BLE Microbiology Date/Time Source Procedure Growth Status 11/28/17 10:25 Blood Blood Culture - Preliminary NO GROWTH AFTER 24 HOURS Resulted 11/28/17 10:15 Blood Blood Culture - Preliminary NO GROWTH AFTER 24 HOURS Resulted 11/27/17 10:35 Ascities Fluid Gram Stain - Final Resulted 11/27/17 10:35 Ascities Fluid Body Fluid Culture - Preliminary NO GROWTH AFTER 24 HOURS Resulted 11/28/17 10:29 Sputum Expectorated Gram Stain - Final Complete 11/28/17 10:29 Sputum Culture - Final Pseudomonas Aeruginosa Usual Respiratory Stephenie Complete 11/28/17 16:30 Stool Clostridium difficile Toxin Assay - Final Complete 11/28/17 10:29 Indwelling Cath Urine Culture - Final Proteus Mirabilis Complete Laboratory Tests 11/30/17 04:15: White Blood Count 16.3H, Red Blood Count 3.05L, Hemoglobin 9.1L, Hematocrit 28.9L, Mean Corpuscular Volume 95, Mean Corpuscular Hemoglobin 29.9, Mean Corpuscular Hemoglobin Concent 31.5L, Red Cell Distribution Width 17.9H, Platelet Count 190, Mean Platelet Volume 10.0, Neutrophils (%) (Auto) , Lymphocytes (%) (Auto) , Monocytes (%) (Auto) , Eosinophils (%) (Auto) , Basophils (%) (Auto) , Differential Total Cells Counted 100, Neutrophils % ( Manual) 82H, Lymphocytes % (Manual) 7L, Monocytes % (Manual) 11H, Eosinophils % (Manual) 0, Basophils % (Manual) 0, Band Neutrophils 0, Platelet Estimate Adequate, Platelet Morphology Normal, Hypochromasia 2+, Anisocytosis 1+, Sodium Level 148H, Potassium Level 2.8L, Chloride Level 107, Carbon Dioxide Level 37H, Anion Gap 4L, Blood Urea Nitrogen 60H, Creatinine 1.6H, Estimat Glomerular Filtration Rate , Glucose Level 176H, Uric Acid 8.3H, Calcium Level 9.4, Phosphorus Level 3.1, Magnesium Level 3.1H, Total Bilirubin 0.6, Direct Bilirubin 0.2, Aspartate Amino Transf (AST/SGOT) 15, Alanine Aminotransferase ( ALT/SGPT) 27, Alkaline Phosphatase 74, Total Protein 6.9, Albumin 2.1L Current Medications Medications (Trade) Dose Ordered Sig/Cirilo Route PRN Reason Start Time Stop Time Status Last Admin Dose Admin Acetaminophen (Tylenol) 650 mg Q6H PRN ORAL Fever/Headache/Mild Pain 11/24/17 12:45 12/24/17 12:44 11/29/17 21:22 Albuterol/ Ipratropium (Albuterol/ Ipratropium) 3 ml Q4H PRN HHN Shortness of Breath 11/28/17 11:15 12/03/17 11:14 Amlodipine Besylate (Norvasc) 5 mg DAILY GT 11/30/17 09:00 12/24/17 13:41 Apixaban (Eliquis) 2.5 mg BID GT 11/28/17 09:00 12/28/17 08:59 11/29/17 17:02 Dextrose (Dextrose 50%) 25 ml PRN IV Hypoglycemia 11/24/17 14:00 12/24/17 13:59 Dextrose (Dextrose 50%) 50 ml PRN IV hypoglycemia 11/24/17 14:00 12/24/17 13:59 Docusate Sodium (Colace) 100 mg TID NG 11/24/17 13:43 12/24/17 13:42 11/28/17 08:33 Famotidine (Pepcid) 20 mg BID GT 11/24/17 18:00 12/24/17 17:59 11/29/17 17:02 Hydralazine HCl (Apresoline) 10 mg Q8HR GT 11/29/17 14:00 12/24/17 17:59 11/30/17 06:52 Hydromorphone HCl (Dilaudid) 1 mg Q6H PRN IVP Severe Pain (Pain Scale 7-10) 11/27/17 07:00 12/04/17 06:59 11/27/17 12:12 Insulin Aspart (NovoLOG) EVERY 6 HOURS SUBQ 11/25/17 18:00 12/25/17 17:59 11/30/17 06:53 Levalbuterol HCl (Xopenex) 1.25 mg Q4HRT HHN 11/27/17 15:00 12/02/17 14:59 11/30/17 08:24 Lorazepam (Ativan 2mg/ml 1ml) 0.5 mg Q6H PRN IV agitation 11/24/17 13:45 12/01/17 13:44 Meropenem 1 gm/ Sodium Chloride 55 ml @ 110 mls/hr Q8HR IVPB 11/29/17 10:30 12/04/17 10:29 11/30/17 06:51 Metoclopramide HCl (Reglan) 5 mg EVERY 8 HOURS GT 11/28/17 14:00 12/25/17 11:59 11/30/17 06:51 Metoprolol Tartrate (Lopressor) 12.5 mg Q12HR GT 11/28/17 09:00 12/28/17 08:59 11/29/17 21:23 Nitroglycerin (Ntg) 1 patch Q24H TDERMAL 11/24/17 14:00 12/24/17 13:59 11/29/17 13:47 Ignacia Macias SENIOR COMMUNICATIONS SPECIALIST Nov 30, 2017 08:37
[2017-11-30] MEDS ORDERED: LORazepam Inj 2mg/ml 1ml IV PRN (08:41)
[2017-11-30] MEDS: Docusate 100mg/10ml Liq NG SCH (09:00)
[2017-11-30] MEDS: Eliquis 2.5mg tablet GT SCH ×2 (09:09→17:33)
--- NOTE | 2017-11-30 10:45 | General Progress Note ---
Assessment/Plan Problem List: (1) Acute respiratory failure ICD Codes: J96.00 - Acute respiratory failure, unspecified whether with hypoxia or hypercapnia SNOMED: 12793441 (2) History of CVA (cerebrovascular accident) ICD Codes: Z86.73 - Personal history of transient ischemic attack (TIA), and cerebral infarction without residual deficits SNOMED: 104397543 (3) Pulmonary edema ICD Codes: J81.1 - Chronic pulmonary edema SNOMED: 55837234 Qualifiers: Qualified Codes: J81.0 - Acute pulmonary edema (4) Diabetic nephropathy ICD Codes: E11.21 - Type 2 diabetes mellitus with diabetic nephropathy SNOMED: 30884155, 212954368 (5) Pleural effusion, bilateral ICD Codes: J90 - Pleural effusion, not elsewhere classified SNOMED: 302908681 Status: doing well Assessment/Plan one dose vanco Zosyn ordered 11/28 ID eval, Now on meropenem stop colace- loose BM resume eliquis DC lasix- GT feeding Keep BP and BS in check optimize cardiac and pulm status- IV Iron PER Cardio and pulm . Subjective ROS Limited/Unobtainable: Yes Gastrointestinal/Abdominal: Reports: diarrhea Allergies: Coded Allergies: ATORVASTATIN (Verified Allergy, Unknown, 11/24/17) CLONIDINE (Verified Allergy, Unknown, 11/24/17) LABETALOL (Verified Allergy, Unknown, 11/24/17) NIFEDIPINE (Verified Allergy, Unknown, 11/24/17) ROSUVASTATIN (Verified Allergy, Unknown, 11/24/17) Uncoded Allergies: IVELISSE INHIBITOR (Allergy, Unknown, 11/24/17) Objective Last 24 Hour Vital Signs Date Time Temp Pulse Resp B/P (MAP) Pulse Ox O2 Delivery O2 Flow Rate FiO2 11/30/17 10:42 65 20 95 Nasal Cannula 3.0 32 11/30/17 09:00 108 105/57 11/30/17 08:25 57 20 99 Nasal Cannula 3.0 28 11/30/17 08:15 Nasal Cannula 2.0 28 11/30/17 08:15 97 Nasal Cannula 2.0 28 11/30/17 08:15 54 20 97 Nasal Cannula 3.0 32 11/30/17 08:00 98.2 91 24 105/57 (73) 99 98.2 11/30/17 08:00 Venturi Mask 6.0 11/30/17 08:00 94 11/30/17 08:00 2.0 11/30/17 06:52 135/82 11/30/17 04:00 Venturi Mask 6.0 11/30/17 04:00 105 11/30/17 04:00 98.8 91 20 119/55 (76) 99 98.8 11/30/17 04:00 2.0 11/30/17 02:37 55 18 91 Nasal Cannula 2.0 28 11/30/17 02:30 54 16 88 Nasal Cannula 2.0 28 11/30/17 00:30 Venturi Mask 6.0 11/30/17 00:00 98.4 88 20 108/55 (72) 99 98.4 11/30/17 00:00 2.0 11/30/17 00:00 112 11/30/17 00:00 Venturi Mask 6.0 11/29/17 22:41 61 20 92 Nasal Cannula 2.0 28 11/29/17 22:36 55 18 89 Nasal Cannula 2.0 28 11/29/17 21:52 99.7 11/29/17 21:23 124/68 11/29/17 21:23 92 124/68 11/29/17 21:22 101.0 11/29/17 21:21 101.0 92 20 124/68 (86) 99 101.0 11/29/17 20:00 100.0 95 20 122/68 (86) 98 100.0 11/29/17 20:00 Venturi Mask 6.0 11/29/17 20:00 95 11/29/17 20:00 2.0 11/29/17 18:50 98 Nasal Cannula 2.0 28 11/29/17 18:50 Nasal Cannula 2.0 28 11/29/17 18:49 46 18 100 Nasal Cannula 2.0 28 11/29/17 18:43 46 16 97 Nasal Cannula 2.0 28 11/29/17 16:00 88 11/29/17 16:00 2.0 11/29/17 16:00 98.3 98 20 116/55 (75) 99 98.3 11/29/17 16:00 Venturi Mask 6.0 11/29/17 15:23 45 20 100 Nasal Cannula 2.0 11/29/17 15:13 44 18 98 Nasal Cannula 2.0 11/29/17 13:47 109/71 11/29/17 13:43 109/71 11/29/17 12:00 Venturi Mask 6.0 11/29/17 12:00 2.0 11/29/17 12:00 100 11/29/17 11:57 111/51 11/29/17 11:47 99.2 67 21 111/51 (71) 97 99.2 11/29/17 11:04 64 20 96 Nasal Cannula 2.0 11/29/17 10:54 65 20 97 Venturi Mask 6.0 35 Intake and Output 11/29/17 11/30/17 19:00 07:00 Intake Total 1430.0 ml 970 ml Output Total 350 ml 300 ml Balance 1080.0 ml 670 ml Intake Free Water 220 ml 250 ml IV Total 565.0 ml Tube Feeding 645 ml 660 ml Other 60 ml Output Urine Total 350 ml 300 ml # Bowel Movements 3 Laboratory Tests 11/30/17 04:15: White Blood Count 16.3H, Red Blood Count 3.05L, Hemoglobin 9.1L, Hematocrit 28.9L, Mean Corpuscular Volume 95, Mean Corpuscular Hemoglobin 29.9, Mean Corpuscular Hemoglobin Concent 31.5L, Red Cell Distribution Width 17.9H, Platelet Count 190, Mean Platelet Volume 10.0, Neutrophils (%) (Auto) , Lymphocytes (%) (Auto) , Monocytes (%) (Auto) , Eosinophils (%) (Auto) , Basophils (%) (Auto) , Differential Total Cells Counted 100, Neutrophils % ( Manual) 82H, Lymphocytes % (Manual) 7L, Monocytes % (Manual) 11H, Eosinophils % (Manual) 0, Basophils % (Manual) 0, Band Neutrophils 0, Platelet Estimate Adequate, Platelet Morphology Normal, Hypochromasia 2+, Anisocytosis 1+, Sodium Level 148H, Potassium Level 2.8L, Chloride Level 107, Carbon Dioxide Level 37H, Anion Gap 4L, Blood Urea Nitrogen 60H, Creatinine 1.6H, Estimat Glomerular Filtration Rate , Glucose Level 176H, Uric Acid 8.3H, Calcium Level 9.4, Phosphorus Level 3.1, Magnesium Level 3.1H, Total Bilirubin 0.6, Direct Bilirubin 0.2, Aspartate Amino Transf (AST/SGOT) 15, Alanine Aminotransferase ( ALT/SGPT) 27, Alkaline Phosphatase 74, Total Protein 6.9, Albumin 2.1L Height (Feet): 5 Height (Inches): 0.00 Weight (Pounds): 130 Cardiovascular: bradycardia Respiratory/Chest: decreased breath sounds Abdomen: distended Objective no change Rafael Hurt MD Nov 30, 2017 10:45
[2017-11-30 12:00] VITALS: BP 123/56
[2017-11-30] MEDS: Acetaminophen 650mg/20.3ml ORAL PRN (12:10)
[2017-11-30] MEDS: Nitroglycerin Patch 0.4mg TDERMAL SCH (13:35)
[2017-11-30] MEDS ORDERED: NS 275ml ONE (15:23)
[2017-11-30] MEDS ORDERED: Tubing Ominiflow Primary IV ONE (15:23)
[2017-11-30 16:00] VITALS: BP 124/89
[2017-11-30] MEDS ORDERED: HydrALAZINE 10mg Tab GT PRN (16:45)
[2017-11-30] MEDS ORDERED: Meropenem 1gm in NS 55ml IVPB SCH (18:00)
--- NOTE | 2017-11-30 18:45 | Progress Note ---
DATE: 11/30/2017 CARDIOLOGY PROGRESS NOTE SUBJECTIVE: The patient remains with diarrhea. Laboratory values are notably abnormal. Feeding via G-tube. Monitor remains with atrial fibrillation. OBJECTIVE: VITAL SIGNS: Blood pressure range 105/57 to 135/82, heart rate 54 to 108, respiratory rate 20 to 24, and afebrile. LUNGS: Diminished breath sounds. HEART: Irregularly irregular rhythm. ABDOMEN: Soft. G-tube intact. EXTREMITIES: No edema. LABORATORY DATA: Sodium 148, potassium 2.8, bicarb 37, BUN 60, and creatinine 1.6. Magnesium 3.1. Albumin 2.1. White count is 16.3 and hemoglobin 9.1. IMPRESSION: 1. Paroxysmal atrial fibrillation with labile ventricular response. 2. Hypertensive heart disease, now with low range blood pressure. 3. Urinary tract infection. 4. Sepsis. 5. Pseudomonas pneumonia. 6. Hypokalemia. 7. Dehydration. 8. Hypernatremia. 9. Acute on chronic kidney injury. PLAN: 1. Maintain adequate free water replacement. 2. IV potassium replacement. 3. Antimicrobials with amlodipine. 4. Give hydralazine p.r.n. only at this time. 5. Reassess for beta-blockade if additional rate control is needed. 6. Remains tenuous and high risk and requires multidisciplinary acute care. Jori Andujar M.D. DR: MAE JOB#: [id number] CC:
[2017-11-30 20:00] VITALS: BP 127/51
--- NOTE | 2017-11-30 21:09 | Infectious Diseases Prog Note ---
Assessment/Plan Problems: (1) Aspiration pneumonia Assessment & Plan: with B/L basal infiltrates, due to pseudomonas pneumonia , on meropenem , will switch to cefepime and treat for three weeks . monitor CXR . aspiration precaution , keep HOB > 30 degree (2) Pleural effusion, bilateral Assessment & Plan: S/P thoracentesis , exudative most likely due to pneumonia, adenosine deaminase on pleural fluids, fungal and cytology are pending . bacterial culture is negative so far (3) Acute respiratory failure Assessment & Plan: due to the above, off BIPAP, now sating well on nasal canula , monitor CXR , pulmonary is following (4) Sepsis Assessment & Plan: due to the above, already on meropenem with negative blood culture results so far , will switch to cefepime to treat her pneumonia and UTI for total of three week (5) Pressure ulcer, heel, right, unstageable Assessment & Plan: with an eschar, continue off loading and local wound care as per hospital protocol (6) Fever Assessment & Plan: due to the above, improving, will continue to monitor clinically and may scan her chest if continues to spike fever Subjective ROS Limited/Unobtainable: Yes Allergies: Coded Allergies: ATORVASTATIN (Verified Allergy, Unknown, 11/24/17) CLONIDINE (Verified Allergy, Unknown, 11/24/17) LABETALOL (Verified Allergy, Unknown, 11/24/17) NIFEDIPINE (Verified Allergy, Unknown, 11/24/17) ROSUVASTATIN (Verified Allergy, Unknown, 11/24/17) Uncoded Allergies: IVELISSE INHIBITOR (Allergy, Unknown, 11/24/17) Subjective she was lying in bed, spiked fever earlier , not responsive, on nasal canula sating well, has diarrhea Objective Vital Signs Last 24 Hour Vital Signs Date Time Temp Pulse Resp B/P (MAP) Pulse Ox O2 Delivery O2 Flow Rate FiO2 11/30/17 20:32 95 Nasal Cannula 3.0 32 11/30/17 20:32 Nasal Cannula 3.0 32 11/30/17 20:32 82 20 95 Nasal Cannula 3.0 32 11/30/17 20:00 87 11/30/17 20:00 98.1 88 20 127/51 (76) 98 98.1 11/30/17 16:22 64 20 100 Nasal Cannula 3.0 28 11/30/17 16:13 59 20 95 Nasal Cannula 3.0 32 11/30/17 16:00 108 11/30/17 16:00 Nasal Cannula 2.0 11/30/17 16:00 2.0 11/30/17 16:00 97.1 102 20 124/89 (101) 95 97.1 11/30/17 13:35 107/59 11/30/17 13:33 107/59 11/30/17 12:40 98.8 11/30/17 12:10 101.7 11/30/17 12:00 101.7 83 20 123/56 (78) 91 101.7 11/30/17 12:00 2.0 11/30/17 12:00 Nasal Cannula 2.0 11/30/17 12:00 107 11/30/17 10:59 74 20 95 Nasal Cannula 3.0 28 11/30/17 10:42 65 20 95 Nasal Cannula 3.0 32 11/30/17 09:00 108 105/57 11/30/17 08:25 57 20 99 Nasal Cannula 3.0 28 11/30/17 08:15 Nasal Cannula 2.0 28 11/30/17 08:15 97 Nasal Cannula 2.0 28 11/30/17 08:15 54 20 97 Nasal Cannula 3.0 32 11/30/17 08:00 98.2 91 24 105/57 (73) 99 98.2 11/30/17 08:00 Nasal Cannula 2.0 11/30/17 08:00 94 11/30/17 08:00 2.0 11/30/17 06:52 135/82 11/30/17 04:00 Venturi Mask 6.0 11/30/17 04:00 105 11/30/17 04:00 98.8 91 20 119/55 (76) 99 98.8 11/30/17 04:00 2.0 11/30/17 02:37 55 18 91 Nasal Cannula 2.0 28 11/30/17 02:30 54 16 88 Nasal Cannula 2.0 28 11/30/17 00:30 Venturi Mask 6.0 11/30/17 00:00 98.4 88 20 108/55 (72) 99 98.4 11/30/17 00:00 2.0 11/30/17 00:00 112 11/30/17 00:00 Venturi Mask 6.0 11/29/17 22:41 61 20 92 Nasal Cannula 2.0 28 11/29/17 22:36 55 18 89 Nasal Cannula 2.0 28 11/29/17 21:23 124/68 11/29/17 21:23 92 124/68 11/29/17 21:22 101.0 11/29/17 21:21 101.0 92 20 124/68 (86) 99 101.0 Height (Feet): 5 Height (Inches): 0.00 Weight (Pounds): 130 General Appearance: WD/WN, no acute distress HEENT: normocephalic, atraumatic, anicteric, mucous membranes moist, supple, no JVD Respiratory/Chest: chest wall non-tender, no respiratory distress, no accessory muscle use, decreased breath sounds Cardiovascular: normal peripheral pulses, normal rate, regularly irregular, no gallop/murmur, no JVD Abdomen: normal bowel sounds, soft, non tender, no organomegaly, no mass, no scars, distended, other - Gtube site looks ok Extremities: no cyanosis, no clubbing Skin: no rash, ulcers - right heel pressure wound with an eschar Neurologic/Psychiatric: unresponsiveness Lymphatic: no neck adenopathy Musculoskeletal: normal muscle bulk, no effusion Microbiology Date/Time Source Procedure Growth Status 11/28/17 10:25 Blood Blood Culture - Preliminary NO GROWTH AFTER 24 HOURS Resulted 11/28/17 10:15 Blood Blood Culture - Preliminary NO GROWTH AFTER 24 HOURS Resulted 11/28/17 10:29 Sputum Expectorated Gram Stain - Final Complete 11/28/17 10:29 Sputum Culture - Final Pseudomonas Aeruginosa Usual Respiratory Stephenie Complete 11/28/17 16:30 Stool Clostridium difficile Toxin Assay - Final Complete 11/28/17 10:29 Indwelling Cath Urine Culture - Final Proteus Mirabilis Complete Laboratory Tests Test 11/30/17 04:15 White Blood Count 16.3 K/UL (4.8-10.8) H Red Blood Count 3.05 M/UL (4.20-5.40) L Hemoglobin 9.1 G/DL (12.0-16.0) L Hematocrit 28.9 % (37.0-47.0) L Mean Corpuscular Volume 95 FL (80-99) Mean Corpuscular Hemoglobin 29.9 PG (27.0-31.0) Mean Corpuscular Hemoglobin Concent 31.5 G/DL (32.0-36.0) L Red Cell Distribution Width 17.9 % (11.6-14.8) H Platelet Count 190 K/UL (150-450) Mean Platelet Volume 10.0 FL (6.5-10.1) Neutrophils (%) (Auto) % (45.0-75.0) Lymphocytes (%) (Auto) % (20.0-45.0) Monocytes (%) (Auto) % (1.0-10.0) Eosinophils (%) (Auto) % (0.0-3.0) Basophils (%) (Auto) % (0.0-2.0) Differential Total Cells Counted 100 Neutrophils % (Manual) 82 % (45-75) H Lymphocytes % (Manual) 7 % (20-45) L Monocytes % (Manual) 11 % (1-10) H Eosinophils % (Manual) 0 % (0-3) Basophils % (Manual) 0 % (0-2) Band Neutrophils 0 % (0-8) Platelet Estimate Adequate Platelet Morphology Normal Hypochromasia 2+ Anisocytosis 1+ Sodium Level 148 MMOL/L (136-145) H Potassium Level 2.8 MMOL/L (3.5-5.1) L Chloride Level 107 MMOL/L (98-107) Carbon Dioxide Level 37 MMOL/L (21-32) H Anion Gap 4 mmol/L (5-15) L Blood Urea Nitrogen 60 mg/dL (7-18) H Creatinine 1.6 MG/DL (0.55-1.30) H Estimat Glomerular Filtration Rate mL/min (>60) Glucose Level 176 MG/DL (74-106) H Uric Acid 8.3 MG/DL (2.6-7.2) H Calcium Level 9.4 MG/DL (8.5-10.1) Phosphorus Level 3.1 MG/DL (2.5-4.9) Magnesium Level 3.1 MG/DL (1.8-2.4) H Total Bilirubin 0.6 MG/DL (0.2-1.0) Direct Bilirubin 0.2 MG/DL (0.0-0.3) Aspartate Amino Transf (AST/SGOT) 15 U/L (15-37) Alanine Aminotransferase (ALT/SGPT) 27 U/L (12-78) Alkaline Phosphatase 74 U/L (46-116) C-Reactive Protein, Quantitative > 12.0 mg/dL (0.00-0.90) H Total Protein 6.9 G/DL (6.4-8.2) Albumin 2.1 G/DL (3.4-5.0) L Current Medications Medications (Trade) Dose Ordered Sig/Cirilo Route PRN Reason Start Time Stop Time Status Last Admin Dose Admin Acetaminophen (Tylenol) 650 mg Q6H PRN ORAL Fever/Headache/Mild Pain 11/24/17 12:45 12/24/17 12:44 11/30/17 12:10 Albuterol/ Ipratropium (Albuterol/ Ipratropium) 3 ml Q4H PRN HHN Shortness of Breath 11/28/17 11:15 12/03/17 11:14 Apixaban (Eliquis) 2.5 mg BID GT 11/28/17 09:00 12/28/17 08:59 11/30/17 17:33 Dextrose (Dextrose 50%) 25 ml PRN IV Hypoglycemia 11/24/17 14:00 12/24/17 13:59 Dextrose (Dextrose 50%) 50 ml PRN IV hypoglycemia 11/24/17 14:00 12/24/17 13:59 Famotidine (Pepcid) 20 mg BID GT 11/24/17 18:00 12/24/17 17:59 11/30/17 17:32 Hydralazine HCl (Apresoline) 10 mg Q6H PRN GT SBP above 140mmHg 11/30/17 16:45 12/30/17 16:44 Hydromorphone HCl (Dilaudid) 1 mg Q6H PRN IVP Severe Pain (Pain Scale 7-10) 11/27/17 07:00 12/04/17 06:59 11/27/17 12:12 Insulin Aspart (NovoLOG) EVERY 6 HOURS SUBQ 11/25/17 18:00 12/25/17 17:59 11/30/17 17:35 Levalbuterol HCl (Xopenex) 1.25 mg Q4HRT HHN 11/30/17 11:00 12/05/17 10:59 11/30/17 20:32 Lorazepam (Ativan 2mg/ml 1ml) 0.5 mg Q6H PRN IV agitation 11/30/17 08:41 12/07/17 08:40 Meropenem 1 gm/ Sodium Chloride 55 ml @ 110 mls/hr Q12HR@0600,1800 IVPB 11/30/17 18:00 12/05/17 17:59 11/30/17 17:33 Metoclopramide HCl (Reglan) 5 mg EVERY 8 HOURS GT 11/28/17 14:00 12/25/17 11:59 11/30/17 13:33 Nitroglycerin (Ntg) 1 patch Q24H TDERMAL 11/24/17 14:00 12/24/17 13:59 11/29/17 13:47 Cole Rasmussen M.D. Nov 30, 2017 21:09
[2017-12-01] VITALS: BP 101/55
[2017-12-01] MEDS: NovoLOG Insulin Flexpen SUBQ SCH ×4 (00:10→17:03)
[2017-12-01] MEDS: Levalbuterol Inh UD 1.25mg/0.5ml HHN SCH ×6 (03:27→22:35)
[2017-12-01 04:00] VITALS: BP 120/54
[2017-12-01 06:03] LABS: ALANINE AMINOTRANSFERASE 44 U/L (12-78); ALBUMIN 2.2 G/DL (3.4-5.0); ALBUMIN/GLOBULIN RATIO 0.5 (1.0-2.7); ALKALINE PHOSPHATASE 96 U/L (46-116); ANION GAP 5 mmol/L (5-15); ASPARTATE AMINO TRANSFERASE 40 U/L (15-37); BILIRUBIN,TOTAL 0.4 MG/DL (0.2-1.0); BLOOD UREA NITROGEN 66 mg/dL (7-18); CALCIUM 9.4 MG/DL (8.5-10.1); CARBON DIOXIDE 34 MMOL/L (21-32); CHLORIDE 109 MMOL/L (98-107); CREATININE 1.4 MG/DL (0.55-1.30); POTASSIUM 3.2 MMOL/L (3.5-5.1); SODIUM 148 MMOL/L (136-145)
[2017-12-01 06:05] LABS: BASOPHILS % (AUTO) 0.3 % (0.0-2.0); EOSINOPHILS % (AUTO) 4.3 % (0.0-3.0); HEMATOCRIT 28.6 % (37.0-47.0); HEMOGLOBIN 8.7 G/DL (12.0-16.0); LYMPHOCYTES % (AUTO) 7.7 % (20.0-45.0); MEAN CORPUSCULAR VOLUME 96 FL (80-99); MONOCYTES % (AUTO) 4.6 % (1.0-10.0); NEUTROPHILS % (AUTO) 83.2 % (45.0-75.0); PLATELET COUNT 179 K/UL (150-450); RED CELL DISTRIBUTION WIDTH 17.7 % (11.6-14.8); WHITE BLOOD COUNT 10.9 K/UL (4.8-10.8)
[2017-12-01 06:14] LABS: PHOSPHORUS 2.7 MG/DL (2.5-4.9)
[2017-12-01] MEDS: Metoclopramide 10mg/10ml Liq GT SCH ×3 (06:15→21:50)
[2017-12-01 08:00] VITALS: BP 138/61
[2017-12-01] MEDS: Cefepime HCl 2 GM in D5W 55 ML IVPB SCH (09:09)
[2017-12-01] MEDS: Eliquis 2.5mg tablet GT SCH ×2 (09:10→16:57)
--- NOTE | 2017-12-01 09:52 | Diagnostic Imaging Report ---
Indication: Shortness of breath Technique: One view of the chest Comparison: 11/29/2017 Findings: Bilateral basilar atelectatic changes and left-sided pleural effusion are again demonstrated. Diffuse bilateral interstitial edema is unchanged. The heart remains borderline enlarged. Impression: Unchanged, over one day, findings as above.
--- NOTE | 2017-12-01 10:04 | Pulmonology Progress Note ---
Assessment/Plan Problems: (1) Acute respiratory failure (2) Pulmonary edema (3) History of CVA (cerebrovascular accident) (4) Advanced dementia (5) Diabetes mellitus (6) Feeding by G-tube Assessment/Plan cxr is unchaged on Cefepime now, afebrile for one day, wbc decreasing heart rate and BP controlled off Iv fluids and Laxis anticoagulation. sliding scale overall improving slowly, still very tenuous. Subjective Interval Events: on Nasal cannula, comfortable Allergies: Coded Allergies: ATORVASTATIN (Verified Allergy, Unknown, 11/24/17) CLONIDINE (Verified Allergy, Unknown, 11/24/17) LABETALOL (Verified Allergy, Unknown, 11/24/17) NIFEDIPINE (Verified Allergy, Unknown, 11/24/17) ROSUVASTATIN (Verified Allergy, Unknown, 11/24/17) Uncoded Allergies: IVELISSE INHIBITOR (Allergy, Unknown, 11/24/17) Objective Last 24 Hour Vital Signs Date Time Temp Pulse Resp B/P (MAP) Pulse Ox O2 Delivery O2 Flow Rate FiO2 12/01/17 08:00 97.9 68 19 138/61 (86) 99 97.9 12/01/17 07:23 61 20 99 Nasal Cannula 3.0 32 12/01/17 07:15 98 Nasal Cannula 3.0 32 12/01/17 07:15 59 18 98 Nasal Cannula 3.0 32 12/01/17 07:15 Nasal Cannula 3.0 32 12/01/17 04:00 100 12/01/17 04:00 Nasal Cannula 2.0 12/01/17 04:00 98.4 110 20 120/54 (76) 97 98.4 12/01/17 03:40 76 20 100 Nasal Cannula 2.0 12/01/17 03:34 82 16 97 Nasal Cannula 2.0 28 12/01/17 00:00 Nasal Cannula 2.0 12/01/17 00:00 98.4 106 20 101/55 (70) 98 98.4 11/30/17 23:59 58 20 100 Nasal Cannula 2.0 28 11/30/17 23:44 88 20 100 Nasal Cannula 2.0 28 11/30/17 23:26 100 11/30/17 21:00 2.0 11/30/17 20:42 66 20 100 Nasal Cannula 3.0 28 11/30/17 20:32 95 Nasal Cannula 3.0 32 11/30/17 20:32 Nasal Cannula 3.0 32 11/30/17 20:32 82 20 95 Nasal Cannula 3.0 32 11/30/17 20:00 Nasal Cannula 2.0 11/30/17 20:00 87 11/30/17 20:00 98.1 88 20 127/51 (76) 98 98.1 11/30/17 16:22 64 20 100 Nasal Cannula 3.0 28 11/30/17 16:13 59 20 95 Nasal Cannula 3.0 32 11/30/17 16:00 108 11/30/17 16:00 Nasal Cannula 2.0 11/30/17 16:00 2.0 11/30/17 16:00 97.1 102 20 124/89 (101) 95 97.1 11/30/17 13:35 107/59 11/30/17 13:33 107/59 11/30/17 12:40 98.8 11/30/17 12:10 101.7 11/30/17 12:00 101.7 83 20 123/56 (78) 91 101.7 11/30/17 12:00 2.0 11/30/17 12:00 Nasal Cannula 2.0 11/30/17 12:00 107 11/30/17 10:59 74 20 95 Nasal Cannula 3.0 28 11/30/17 10:42 65 20 95 Nasal Cannula 3.0 32 Intake and Output 11/30/17 12/01/17 19:00 07:00 Intake Total 1830 ml 660 ml Output Total 300 ml 450 ml Balance 1530 ml 210 ml IV Total 960 ml Tube Feeding 720 ml 660 ml Other 150 ml Output Urine Total 300 ml 450 ml # Bowel Movements 5 50 Objective BM 6 times yesterday, Cdiff negative General Appearance: WD/WN HEENT: normocephalic, atraumatic Respiratory/Chest: crackles/rales Cardiovascular: normal peripheral pulses, normal rate Abdomen: normal bowel sounds, no organomegaly Genitourinary: normal external genitalia Extremities: no cyanosis Neurologic/Psychiatric: engagement specialist II-XII grossly normal, no motor/sensory deficits Lymphatic: no neck adenopathy Musculoskeletal: normal muscle bulk Microbiology Date/Time Source Procedure Growth Status 11/28/17 10:25 Blood Blood Culture - Preliminary NO GROWTH AFTER 48 HOURS Resulted 11/28/17 10:15 Blood Blood Culture - Preliminary NO GROWTH AFTER 48 HOURS Resulted 11/28/17 10:29 Sputum Expectorated Gram Stain - Final Complete 11/28/17 10:29 Sputum Culture - Final Pseudomonas Aeruginosa Usual Respiratory Stephenie Complete 11/28/17 16:30 Stool Clostridium difficile Toxin Assay - Final Complete 11/28/17 10:29 Indwelling Cath Urine Culture - Final Proteus Mirabilis Complete Laboratory Tests 12/01/17 05:07: White Blood Count 10.9H, Red Blood Count 3.00L, Hemoglobin 8.7L, Hematocrit 28.6L, Mean Corpuscular Volume 96, Mean Corpuscular Hemoglobin 29.1, Mean Corpuscular Hemoglobin Concent 30.5L, Red Cell Distribution Width 17.7H, Platelet Count 179, Mean Platelet Volume 10.5H, Neutrophils (%) (Auto) 83.2H, Lymphocytes (%) (Auto) 7.7L, Monocytes (%) (Auto) 4.6, Eosinophils (%) (Auto) 4.3H, Basophils (%) (Auto) 0.3, Sodium Level 148H, Potassium Level 3.2L, Chloride Level 109H, Carbon Dioxide Level 34H, Anion Gap 5, Blood Urea Nitrogen 66H, Creatinine 1.4H, Estimat Glomerular Filtration Rate , Glucose Level 257H, Uric Acid 8.2H, Calcium Level 9.4, Phosphorus Level 2.7, Magnesium Level 3.3H, Total Bilirubin 0.4, Aspartate Amino Transf (AST/SGOT) 40H, Alanine Aminotransferase (ALT/SGPT) 44, Alkaline Phosphatase 96, Pro-B-Type Natriuretic Peptide 41116A, Total Protein 6.9, Albumin 2.2L, Globulin 4.7, Albumin/Globulin Ratio 0.5L Current Medications Medications (Trade) Dose Ordered Sig/Cirilo Route PRN Reason Start Time Stop Time Status Last Admin Dose Admin Acetaminophen (Tylenol) 650 mg Q6H PRN ORAL Fever/Headache/Mild Pain 11/24/17 12:45 12/24/17 12:44 11/30/17 12:10 Albuterol/ Ipratropium (Albuterol/ Ipratropium) 3 ml Q4H PRN HHN Shortness of Breath 11/28/17 11:15 12/03/17 11:14 Apixaban (Eliquis) 2.5 mg BID GT 11/28/17 09:00 12/28/17 08:59 12/01/17 09:10 Cefepime HCl 2 gm/ Dextrose 55 ml @ 110 mls/hr Q24H IVPB 12/01/17 09:00 12/08/17 08:59 12/01/17 09:09 Dextrose (Dextrose 50%) 25 ml PRN IV Hypoglycemia 11/24/17 14:00 12/24/17 13:59 Dextrose (Dextrose 50%) 50 ml PRN IV hypoglycemia 11/24/17 14:00 12/24/17 13:59 Famotidine (Pepcid) 20 mg BID GT 11/24/17 18:00 12/24/17 17:59 12/01/17 09:10 Hydralazine HCl (Apresoline) 10 mg Q6H PRN GT SBP above 140mmHg 11/30/17 16:45 12/30/17 16:44 Hydromorphone HCl (Dilaudid) 1 mg Q6H PRN IVP Severe Pain (Pain Scale 7-10) 11/27/17 07:00 12/04/17 06:59 11/27/17 12:12 Insulin Aspart (NovoLOG) EVERY 6 HOURS SUBQ 11/25/17 18:00 12/25/17 17:59 12/01/17 06:16 Levalbuterol HCl (Xopenex) 1.25 mg Q4HRT HHN 11/30/17 11:00 12/05/17 10:59 12/01/17 07:15 Lorazepam (Ativan 2mg/ml 1ml) 0.5 mg Q6H PRN IV agitation 11/30/17 08:41 12/07/17 08:40 Metoclopramide HCl (Reglan) 5 mg EVERY 8 HOURS GT 11/28/17 14:00 12/25/17 11:59 12/01/17 06:15 Nitroglycerin (Ntg) 1 patch Q24H TDERMAL 11/24/17 14:00 12/24/17 13:59 11/29/17 13:47 Potassium Chloride (K-Dur) 40 meq ONCE ONCE GT 12/01/17 10:00 12/01/17 10:01 Henry Sarabia MD Dec 01, 2017 10:04
[2017-12-01 12:03] VITALS: BP 141/56
--- NOTE | 2017-12-01 13:43 | General Progress Note ---
Assessment/Plan Problem List: (1) Acute respiratory failure ICD Codes: J96.00 - Acute respiratory failure, unspecified whether with hypoxia or hypercapnia SNOMED: 69255170 (2) History of CVA (cerebrovascular accident) ICD Codes: Z86.73 - Personal history of transient ischemic attack (TIA), and cerebral infarction without residual deficits SNOMED: 117576932 (3) Pulmonary edema ICD Codes: J81.1 - Chronic pulmonary edema SNOMED: 46618693 Qualifiers: Qualified Codes: J81.0 - Acute pulmonary edema (4) Diabetic nephropathy ICD Codes: E11.21 - Type 2 diabetes mellitus with diabetic nephropathy SNOMED: 23474320, 095919505 (5) Pleural effusion, bilateral ICD Codes: J90 - Pleural effusion, not elsewhere classified SNOMED: 144637631 Status: stable Status Narrative Proteus UTI Pseudomonas sputum Assessment/Plan Currently on Cefepime stop colace- loose BM resume eliquis DC lasix- GT feeding Keep BP and BS in check optimize cardiac and pulm status- IV Iron PER Cardio and pulm Will discuss DC on PO /GT antibiotics . Subjective ROS Limited/Unobtainable: No Constitutional: Reports: other Allergies: Coded Allergies: ATORVASTATIN (Verified Allergy, Unknown, 11/24/17) CLONIDINE (Verified Allergy, Unknown, 11/24/17) LABETALOL (Verified Allergy, Unknown, 11/24/17) NIFEDIPINE (Verified Allergy, Unknown, 11/24/17) ROSUVASTATIN (Verified Allergy, Unknown, 11/24/17) Uncoded Allergies: IVELISSE INHIBITOR (Allergy, Unknown, 11/24/17) Objective Last 24 Hour Vital Signs Date Time Temp Pulse Resp B/P (MAP) Pulse Ox O2 Delivery O2 Flow Rate FiO2 12/01/17 12:03 97.3 68 18 141/56 (84) 91 97.3 12/01/17 11:23 64 20 99 Nasal Cannula 2.0 28 12/01/17 11:15 66 18 99 Nasal Cannula 2.0 28 12/01/17 08:00 113 12/01/17 08:00 97.9 68 19 138/61 (86) 99 97.9 12/01/17 08:00 Nasal Cannula 2.0 12/01/17 07:23 61 20 99 Nasal Cannula 3.0 32 12/01/17 07:15 98 Nasal Cannula 3.0 32 12/01/17 07:15 59 18 98 Nasal Cannula 3.0 32 12/01/17 07:15 Nasal Cannula 3.0 32 12/01/17 04:00 100 12/01/17 04:00 Nasal Cannula 2.0 12/01/17 04:00 98.4 110 20 120/54 (76) 97 98.4 12/01/17 03:40 76 20 100 Nasal Cannula 2.0 28 12/01/17 03:34 82 16 97 Nasal Cannula 2.0 28 12/01/17 00:00 Nasal Cannula 2.0 12/01/17 00:00 98.4 106 20 101/55 (70) 98 98.4 11/30/17 23:59 58 20 100 Nasal Cannula 2.0 28 11/30/17 23:44 88 20 100 Nasal Cannula 2.0 28 11/30/17 23:26 100 11/30/17 21:00 2.0 11/30/17 20:42 66 20 100 Nasal Cannula 3.0 28 11/30/17 20:32 95 Nasal Cannula 3.0 32 11/30/17 20:32 Nasal Cannula 3.0 32 11/30/17 20:32 82 20 95 Nasal Cannula 3.0 32 11/30/17 20:00 Nasal Cannula 2.0 11/30/17 20:00 87 11/30/17 20:00 98.1 88 20 127/51 (76) 98 98.1 11/30/17 16:22 64 20 100 Nasal Cannula 3.0 28 11/30/17 16:13 59 20 95 Nasal Cannula 3.0 32 11/30/17 16:00 108 11/30/17 16:00 Nasal Cannula 2.0 11/30/17 16:00 2.0 11/30/17 16:00 97.1 102 20 124/89 (101) 95 97.1 Intake and Output 11/30/17 12/01/17 19:00 07:00 Intake Total 1830 ml 660 ml Output Total 300 ml 450 ml Balance 1530 ml 210 ml IV Total 960 ml Tube Feeding 720 ml 660 ml Other 150 ml Output Urine Total 300 ml 450 ml # Bowel Movements 5 50 Current Medications Medications (Trade) Dose Ordered Sig/Cirilo Route PRN Reason Start Time Stop Time Status Last Admin Dose Admin Acetaminophen (Tylenol) 650 mg Q6H PRN ORAL Fever/Headache/Mild Pain 11/24/17 12:45 12/24/17 12:44 11/30/17 12:10 Albuterol/ Ipratropium (Albuterol/ Ipratropium) 3 ml Q4H PRN HHN Shortness of Breath 11/28/17 11:15 12/03/17 11:14 Apixaban (Eliquis) 2.5 mg BID GT 11/28/17 09:00 12/28/17 08:59 12/01/17 09:10 Cefepime HCl 2 gm/ Dextrose 55 ml @ 110 mls/hr Q24H IVPB 12/01/17 09:00 12/08/17 08:59 12/01/17 09:09 Dextrose (Dextrose 50%) 25 ml PRN IV Hypoglycemia 11/24/17 14:00 12/24/17 13:59 Dextrose (Dextrose 50%) 50 ml PRN IV hypoglycemia 11/24/17 14:00 12/24/17 13:59 Famotidine (Pepcid) 20 mg BID GT 11/24/17 18:00 12/24/17 17:59 12/01/17 09:10 Hydralazine HCl (Apresoline) 10 mg Q6H PRN GT SBP above 140mmHg 11/30/17 16:45 12/30/17 16:44 Hydromorphone HCl (Dilaudid) 1 mg Q6H PRN IVP Severe Pain (Pain Scale 7-10) 11/27/17 07:00 12/04/17 06:59 11/27/17 12:12 Insulin Aspart (NovoLOG) EVERY 6 HOURS SUBQ 11/25/17 18:00 12/25/17 17:59 12/01/17 12:07 Levalbuterol HCl (Xopenex) 1.25 mg Q4HRT HHN 11/30/17 11:00 12/05/17 10:59 12/01/17 11:15 Lorazepam (Ativan 2mg/ml 1ml) 0.5 mg Q6H PRN IV agitation 11/30/17 08:41 12/07/17 08:40 Metoclopramide HCl (Reglan) 5 mg EVERY 8 HOURS GT 11/28/17 14:00 12/25/17 11:59 12/01/17 06:15 Nitroglycerin (Ntg) 1 patch Q24H TDERMAL 11/24/17 14:00 12/24/17 13:59 11/29/17 13:47 Potassium Chloride 100 ml @ 100 mls/hr Q1H IVPB 12/01/17 12:00 12/01/17 14:59 12/01/17 12:14 Laboratory Tests 12/01/17 05:07: White Blood Count 10.9H, Red Blood Count 3.00L, Hemoglobin 8.7L, Hematocrit 28.6L, Mean Corpuscular Volume 96, Mean Corpuscular Hemoglobin 29.1, Mean Corpuscular Hemoglobin Concent 30.5L, Red Cell Distribution Width 17.7H, Platelet Count 179, Mean Platelet Volume 10.5H, Neutrophils (%) (Auto) 83.2H, Lymphocytes (%) (Auto) 7.7L, Monocytes (%) (Auto) 4.6, Eosinophils (%) (Auto) 4.3H, Basophils (%) (Auto) 0.3, Sodium Level 148H, Potassium Level 3.2L, Chloride Level 109H, Carbon Dioxide Level 34H, Anion Gap 5, Blood Urea Nitrogen 66H, Creatinine 1.4H, Estimat Glomerular Filtration Rate , Glucose Level 257H, Uric Acid 8.2H, Calcium Level 9.4, Phosphorus Level 2.7, Magnesium Level 3.3H, Total Bilirubin 0.4, Aspartate Amino Transf (AST/SGOT) 40H, Alanine Aminotransferase (ALT/SGPT) 44, Alkaline Phosphatase 96, Pro-B-Type Natriuretic Peptide 25303S, Total Protein 6.9, Albumin 2.2L, Globulin 4.7, Albumin/Globulin Ratio 0.5L Height (Feet): 5 Height (Inches): 0.00 Weight (Pounds): 127 General Appearance: no apparent distress, lethargic, other - more responsive EENT: other - on O2 cannula Cardiovascular: normal rate Respiratory/Chest: decreased breath sounds Abdomen: distended Objective no change Rafael Hurt MD Dec 01, 2017 13:43
[2017-12-01] MEDS: Nitroglycerin Patch 0.4mg TDERMAL SCH (14:36)
--- NOTE | 2017-12-01 14:41 | Infectious Diseases Prog Note ---
Assessment/Plan Problems: (1) Aspiration pneumonia Assessment & Plan: with B/L basal infiltrates, due to pseudomonas pneumonia , on cefepime to finish total of three weeks course of treatment . monitor CXR . aspiration precaution , keep HOB > 30 degree . EOT 12/18/17 (2) Pleural effusion, bilateral Assessment & Plan: S/P thoracentesis , exudative most likely due to pneumonia, adenosine deaminase on pleural fluids, fungal and cytology are pending . bacterial culture is negative so far (3) Acute respiratory failure Assessment & Plan: due to the above, off BIPAP, now improving on nasal canula , monitor CXR , pulmonary is following (4) Sepsis Assessment & Plan: due to the above, with negative blood culture results so far , on cefepime to treat her pneumonia and UTI for total of three weeks. EOT 12/18/17 (5) Pressure ulcer, heel, right, unstageable Assessment & Plan: with an eschar, continue off loading and local wound care as per hospital protocol (6) Fever Assessment & Plan: due to the above, improving, will continue to monitor clinically Subjective ROS Limited/Unobtainable: Yes Allergies: Coded Allergies: ATORVASTATIN (Verified Allergy, Unknown, 11/24/17) CLONIDINE (Verified Allergy, Unknown, 11/24/17) LABETALOL (Verified Allergy, Unknown, 11/24/17) NIFEDIPINE (Verified Allergy, Unknown, 11/24/17) ROSUVASTATIN (Verified Allergy, Unknown, 11/24/17) Uncoded Allergies: IVELISSE INHIBITOR (Allergy, Unknown, 11/24/17) Subjective she was lying in bed, more awake and open eyes spontaneously, not responsive to verbal commands , no fever today , on nasal canula sating well, still has diarrhea Objective Vital Signs Last 24 Hour Vital Signs Date Time Temp Pulse Resp B/P (MAP) Pulse Ox O2 Delivery O2 Flow Rate FiO2 12/01/17 12:03 97.3 68 18 141/56 (84) 91 97.3 12/01/17 12:00 Nasal Cannula 2.0 12/01/17 11:23 64 20 99 Nasal Cannula 2.0 28 12/01/17 11:15 66 18 99 Nasal Cannula 2.0 28 12/01/17 08:00 113 12/01/17 08:00 97.9 68 19 138/61 (86) 99 97.9 12/01/17 08:00 Nasal Cannula 2.0 12/01/17 07:23 61 20 99 Nasal Cannula 3.0 32 12/01/17 07:15 98 Nasal Cannula 3.0 32 12/01/17 07:15 59 18 98 Nasal Cannula 3.0 32 12/01/17 07:15 Nasal Cannula 3.0 32 12/01/17 04:00 100 12/01/17 04:00 Nasal Cannula 2.0 12/01/17 04:00 98.4 110 20 120/54 (76) 97 98.4 12/01/17 03:40 76 20 100 Nasal Cannula 2.0 28 12/01/17 03:34 82 16 97 Nasal Cannula 2.0 28 12/01/17 00:00 Nasal Cannula 2.0 12/01/17 00:00 98.4 106 20 101/55 (70) 98 98.4 11/30/17 23:59 58 20 100 Nasal Cannula 2.0 28 11/30/17 23:44 88 20 100 Nasal Cannula 2.0 28 11/30/17 23:26 100 11/30/17 21:00 2.0 11/30/17 20:42 66 20 100 Nasal Cannula 3.0 28 11/30/17 20:32 95 Nasal Cannula 3.0 32 11/30/17 20:32 Nasal Cannula 3.0 32 11/30/17 20:32 82 20 95 Nasal Cannula 3.0 32 11/30/17 20:00 Nasal Cannula 2.0 11/30/17 20:00 87 11/30/17 20:00 98.1 88 20 127/51 (76) 98 98.1 11/30/17 16:22 64 20 100 Nasal Cannula 3.0 28 11/30/17 16:13 59 20 95 Nasal Cannula 3.0 32 11/30/17 16:00 108 11/30/17 16:00 Nasal Cannula 2.0 11/30/17 16:00 2.0 11/30/17 16:00 97.1 102 20 124/89 (101) 95 97.1 Height (Feet): 5 Height (Inches): 0.00 Weight (Pounds): 127 General Appearance: WD/WN, no acute distress HEENT: normocephalic, atraumatic, anicteric, mucous membranes moist Respiratory/Chest: chest wall non-tender, lungs clear, normal breath sounds, no respiratory distress, no accessory muscle use Cardiovascular: normal peripheral pulses, normal rate, regular rhythm, no gallop/murmur, no JVD Abdomen: normal bowel sounds, soft, non tender, no organomegaly, non distended , no mass, no scars Extremities: no cyanosis, no clubbing Skin: no rash, no lesions, ulcers - right heel pressure wound un stagable Neurologic/Psychiatric: alert, unresponsiveness Lymphatic: no neck adenopathy, no groin adenopathy Microbiology Date/Time Source Procedure Growth Status 11/28/17 16:30 Stool Clostridium difficile Toxin Assay - Final Complete Laboratory Tests Test 12/01/17 05:07 White Blood Count 10.9 K/UL (4.8-10.8) H Red Blood Count 3.00 M/UL (4.20-5.40) L Hemoglobin 8.7 G/DL (12.0-16.0) L Hematocrit 28.6 % (37.0-47.0) L Mean Corpuscular Volume 96 FL (80-99) Mean Corpuscular Hemoglobin 29.1 PG (27.0-31.0) Mean Corpuscular Hemoglobin Concent 30.5 G/DL (32.0-36.0) L Red Cell Distribution Width 17.7 % (11.6-14.8) H Platelet Count 179 K/UL (150-450) Mean Platelet Volume 10.5 FL (6.5-10.1) H Neutrophils (%) (Auto) 83.2 % (45.0-75.0) H Lymphocytes (%) (Auto) 7.7 % (20.0-45.0) L Monocytes (%) (Auto) 4.6 % (1.0-10.0) Eosinophils (%) (Auto) 4.3 % (0.0-3.0) H Basophils (%) (Auto) 0.3 % (0.0-2.0) Sodium Level 148 MMOL/L (136-145) H Potassium Level 3.2 MMOL/L (3.5-5.1) L Chloride Level 109 MMOL/L (98-107) H Carbon Dioxide Level 34 MMOL/L (21-32) H Anion Gap 5 mmol/L (5-15) Blood Urea Nitrogen 66 mg/dL (7-18) H Creatinine 1.4 MG/DL (0.55-1.30) H Estimat Glomerular Filtration Rate mL/min (>60) Glucose Level 257 MG/DL (74-106) H Uric Acid 8.2 MG/DL (2.6-7.2) H Calcium Level 9.4 MG/DL (8.5-10.1) Phosphorus Level 2.7 MG/DL (2.5-4.9) Magnesium Level 3.3 MG/DL (1.8-2.4) H Total Bilirubin 0.4 MG/DL (0.2-1.0) Aspartate Amino Transf (AST/SGOT) 40 U/L (15-37) H Alanine Aminotransferase (ALT/SGPT) 44 U/L (12-78) Alkaline Phosphatase 96 U/L (46-116) Pro-B-Type Natriuretic Peptide 21709 pg/mL (0-125) H Total Protein 6.9 G/DL (6.4-8.2) Albumin 2.2 G/DL (3.4-5.0) L Globulin 4.7 g/dL Albumin/Globulin Ratio 0.5 (1.0-2.7) L Current Medications Medications (Trade) Dose Ordered Sig/Cirilo Route PRN Reason Start Time Stop Time Status Last Admin Dose Admin Acetaminophen (Tylenol) 650 mg Q6H PRN ORAL Fever/Headache/Mild Pain 11/24/17 12:45 12/24/17 12:44 11/30/17 12:10 Albuterol/ Ipratropium (Albuterol/ Ipratropium) 3 ml Q4H PRN HHN Shortness of Breath 11/28/17 11:15 12/03/17 11:14 Apixaban (Eliquis) 2.5 mg BID GT 11/28/17 09:00 12/28/17 08:59 12/01/17 09:10 Cefepime HCl 2 gm/ Dextrose 55 ml @ 110 mls/hr Q24H IVPB 12/01/17 09:00 12/20/17 12:00 12/01/17 09:09 Dextrose (Dextrose 50%) 25 ml PRN IV Hypoglycemia 11/24/17 14:00 12/24/17 13:59 Dextrose (Dextrose 50%) 50 ml PRN IV hypoglycemia 11/24/17 14:00 12/24/17 13:59 Famotidine (Pepcid) 20 mg BID GT 11/24/17 18:00 12/24/17 17:59 12/01/17 09:10 Hydralazine HCl (Apresoline) 10 mg Q6H PRN GT SBP above 140mmHg 11/30/17 16:45 12/30/17 16:44 Hydromorphone HCl (Dilaudid) 1 mg Q6H PRN IVP Severe Pain (Pain Scale 7-10) 11/27/17 07:00 12/04/17 06:59 11/27/17 12:12 Insulin Aspart (NovoLOG) EVERY 6 HOURS SUBQ 11/25/17 18:00 12/25/17 17:59 12/01/17 12:07 Levalbuterol HCl (Xopenex) 1.25 mg Q4HRT HHN 11/30/17 11:00 12/05/17 10:59 12/01/17 11:15 Lorazepam (Ativan 2mg/ml 1ml) 0.5 mg Q6H PRN IV agitation 11/30/17 08:41 12/07/17 08:40 Metoclopramide HCl (Reglan) 5 mg EVERY 8 HOURS GT 11/28/17 14:00 12/25/17 11:59 12/01/17 06:15 Nitroglycerin (Ntg) 1 patch Q24H TDERMAL 11/24/17 14:00 12/24/17 13:59 11/29/17 13:47 Potassium Chloride 100 ml @ 100 mls/hr Q1H IVPB 12/01/17 12:00 12/01/17 14:59 12/01/17 13:41 Cole Rasmussen M.D. Dec 01, 2017 14:41
[2017-12-01] MEDS: HYDROmorphone 1mg/ml Carpuject IVP PRN (15:45)
[2017-12-01 16:00] VITALS: BP 110/52
[2017-12-01 20:00] VITALS: BP 125/74
[2017-12-02] VITALS (13 sets, daily range): BP systolic 111–156; BP diastolic 39–85
[2017-12-02] MEDS: Acetaminophen 650mg/20.3ml ORAL PRN (00:37)
[2017-12-02] MEDS: NovoLOG Insulin Flexpen SUBQ SCH ×4 (00:37→18:52)
--- NOTE | 2017-12-02 02:00 | Progress Note ---
DATE: 12/01/2017 CARDIOLOGY PROGRESS NOTE SUBJECTIVE: The patient's condition remains tenuous and fragile. She continued to have congestion and respiratory distress. Vitals, blood pressure 141/56, pulse 68, and respiratory rate 18. She is having loose stools. She remains on anticoagulation for DVT and paroxysmal atrial fibrillation. OBJECTIVE: VITAL SIGNS: Blood pressure 141/56, pulse 68, and respiratory rate 18. LUNGS: Coarse breath sounds. Scattered rhonchi. HEART: Irregularly irregular rhythm. Normal S1 and S2. ABDOMEN: Soft. EXTREMITIES: Trace edema. G-tube intact. LABORATORY AND DIAGNOSTIC DATA: White count 10.9 and hemoglobin 8.7. Sodium 148, potassium 3.3, bicarbonate 34, BUN 66, and creatinine 1.4. Magnesium 3.3. Pro-natriuretic peptide is increased to 16,000. X-ray of the chest today reveals atelectasis, left pleural effusion, and interstitial edema. IMPRESSION: 1. Respiratory failure. 2. Pneumonia. 3. Sepsis. 4. Acute and chronic diastolic congestive heart failure. 5. Hypokalemia. 6. Dehydration. 7. Hyponatremia. 8. Acute kidney injury. 9. Severe protein-calorie malnutrition. 10. Anemia. 11. Paroxysmal atrial fibrillation. PLAN: 1. Replace potassium. 2. Free water replacement. 3. Antimicrobials per Infectious Disease actuarial consultant. 4. Hold diuresis for now. 5. Full anticoagulation with apixaban. 6. Iron replacement. 7. Not stable for discharge to a lower level of care at this time. 8. Reassess for diuresis once metabolic parameters are stabilized. 9. Consider thoracentesis of left pleural effusion. Jori Andujar M.D. DR: MARCO JOB#: [id number] CC:
[2017-12-02] MEDS: Levalbuterol Inh UD 1.25mg/0.5ml HHN SCH ×6 (03:37→23:15)
[2017-12-02 05:11] LABS: HEMATOCRIT 25.9 % (37.0-47.0); HEMOGLOBIN 7.7 G/DL (12.0-16.0); MEAN CORPUSCULAR VOLUME 96 FL (80-99); PLATELET COUNT 160 K/UL (150-450); RED CELL DISTRIBUTION WIDTH 17.7 % (11.6-14.8); WHITE BLOOD COUNT 10.4 K/UL (4.8-10.8)
[2017-12-02 05:37] LABS: ALANINE AMINOTRANSFERASE 39 U/L (12-78); ALBUMIN 2.1 G/DL (3.4-5.0); ALBUMIN/GLOBULIN RATIO 0.5 (1.0-2.7); ALKALINE PHOSPHATASE 91 U/L (46-116); ANION GAP 3 mmol/L (5-15); ASPARTATE AMINO TRANSFERASE 27 U/L (15-37); BILIRUBIN,TOTAL 0.3 MG/DL (0.2-1.0); BLOOD UREA NITROGEN 67 mg/dL (7-18); CALCIUM 9.2 MG/DL (8.5-10.1); CARBON DIOXIDE 34 MMOL/L (21-32); CHLORIDE 114 MMOL/L (98-107); CREATININE 1.2 MG/DL (0.55-1.30); POTASSIUM 4.8 MMOL/L (3.5-5.1); SODIUM 151 MMOL/L (136-145)
[2017-12-02] MEDS: Metoclopramide 10mg/10ml Liq GT SCH ×3 (06:05→21:44)
[2017-12-02] MEDS: Cefepime HCl 2 GM in D5W 55 ML IVPB SCH (08:31)
[2017-12-02] MEDS: Eliquis 2.5mg tablet GT SCH (08:31)
[2017-12-02] MEDS ORDERED: NS 275ml ONE (10:18)
[2017-12-02] MEDS ORDERED: Sterile Water Irrig 1000ml IRRIG ONE (10:18)
--- NOTE | 2017-12-02 10:42 | Pulmonolgy Critical Care Note ---
Critical Care - Asmt/Plan Problems: (1) Acute respiratory failure (2) Pulmonary edema (3) Pleural effusion, bilateral Assessment & Plan: s/p thoracentesis (4) Atrial fibrillation (5) Diabetes mellitus (6) Advanced dementia (7) History of CVA (cerebrovascular accident) (8) Feeding by G-tube Respiratory: monitor respiratory rate, adjust FIO2, CXR Cardiac: continue to monitor HR/BP Renal: F/U I&O, keep IV fluid Infectious Disease: check cultures, continue antibiotics Gastrointestinal: continue feedings/current rate Endocrine: monitor blood sugar Hematologic: monitor H/H Neurologic: PRN Ativan Affect: PRN ativan Prophylaxis: Protonix Discussed with: nurses, consultants, outpatient case managersecurity shift manager - Objective Last 24 Hour Vital Signs Date Time Temp Pulse Resp B/P (MAP) Pulse Ox O2 Delivery O2 Flow Rate FiO2 12/02/17 08:00 Bi-pap 12/02/17 08:00 83 12/02/17 08:00 98.1 82 20 128/68 (88) 96 98.1 12/02/17 07:25 100 36 99 Bi-pap 35 12/02/17 07:25 Bi-pap 12/02/17 07:16 55 26 99 Facial 35 12/02/17 07:10 55 26 99 Bi-pap 35 12/02/17 07:10 98 Bi-pap 35 12/02/17 05:18 81 27 96 Facial 35 12/02/17 04:00 97.9 78 20 128/55 (79) 96 97.9 12/02/17 04:00 Bi-pap 12/02/17 03:54 77 12/02/17 03:49 75 20 99 Nasal Cannula 2.0 28 12/02/17 03:39 75 29 97 Facial 35 12/02/17 03:37 61 18 97 Nasal Cannula 3.0 32 12/02/17 01:57 60 28 95 Facial 35 12/02/17 01:07 99.9 12/02/17 00:37 102.2 12/02/17 00:00 Bi-pap 12/02/17 00:00 102.2 102 22 156/85 (108) 94 102.2 12/01/17 23:32 125 12/01/17 22:44 59 30 99 Facial 35 12/01/17 22:43 52 20 99 Nasal Cannula 2.0 28 12/01/17 22:35 49 18 95 Nasal Cannula 3.0 32 12/01/17 21:07 103 26 96 Facial 35 12/01/17 20:00 97.7 103 18 125/74 (91) 96 97.7 12/01/17 20:00 Nasal Cannula 3.0 12/01/17 20:00 106 12/01/17 19:39 48 20 99 Nasal Cannula 2.0 28 12/01/17 19:13 61 18 97 Nasal Cannula 3.0 32 12/01/17 19:13 97 Nasal Cannula 3.0 32 12/01/17 19:13 Nasal Cannula 3.0 32 12/01/17 16:00 106 12/01/17 16:00 Nasal Cannula 2.0 12/01/17 16:00 98.4 68 18 110/52 (71) 96 98.4 12/01/17 14:46 59 20 99 Nasal Cannula 2.0 28 12/01/17 14:39 52 18 98 Nasal Cannula 2.0 28 12/01/17 14:36 153/47 12/01/17 12:03 97.3 68 18 141/56 (84) 91 97.3 12/01/17 12:00 Nasal Cannula 2.0 12/01/17 12:00 93 12/01/17 11:23 64 20 99 Nasal Cannula 2.0 28 12/01/17 11:15 66 18 99 Nasal Cannula 2.0 28 Status: awake Condition: critical HEENT: atraumatic Lungs: rales, rhonchi Abdomen: soft, non-tender Extremities: no C/C/E, edema Accucheck: 259 Critical Care - Subjective ROS Limited/Unobtainable: No Condition: critical EKG Rhythm: Sinus Rhythm FI02: 35 Vent Support Breath Rate: 14 Vent Support Mode: BiLevel Sputum Amount: Moderate Tube Feeding Amount: 50 I&O: Intake and Output 12/01/17 12/02/17 19:00 07:00 Intake Total 1105 ml 750 ml Output Total 400 ml 700 ml Balance 705 ml 50 ml Intake Free Water 100 ml 150 ml IV Total 355 ml Tube Feeding 650 ml 600 ml Output Urine Total 350 ml 600 ml Stool Total 50 ml 100 ml CXR: no major changes Labs: Laboratory Tests Test 12/02/17 04:00 White Blood Count 10.4 K/UL (4.8-10.8) Red Blood Count 2.70 M/UL (4.20-5.40) L Hemoglobin 7.7 G/DL (12.0-16.0) L Hematocrit 25.9 % (37.0-47.0) L Mean Corpuscular Volume 96 FL (80-99) Mean Corpuscular Hemoglobin 28.6 PG (27.0-31.0) Mean Corpuscular Hemoglobin Concent 29.8 G/DL (32.0-36.0) L Red Cell Distribution Width 17.7 % (11.6-14.8) H Platelet Count 160 K/UL (150-450) Mean Platelet Volume 10.7 FL (6.5-10.1) H Neutrophils (%) (Auto) % (45.0-75.0) Lymphocytes (%) (Auto) % (20.0-45.0) Monocytes (%) (Auto) % (1.0-10.0) Eosinophils (%) (Auto) % (0.0-3.0) Basophils (%) (Auto) % (0.0-2.0) Differential Total Cells Counted 100 Neutrophils % (Manual) 79 % (45-75) H Lymphocytes % (Manual) 11 % (20-45) L Monocytes % (Manual) 8 % (1-10) Eosinophils % (Manual) 2 % (0-3) Basophils % (Manual) 0 % (0-2) Band Neutrophils 0 % (0-8) Platelet Estimate Adequate Platelet Morphology Normal Hypochromasia 3+ Anisocytosis 1+ Sodium Level 151 MMOL/L (136-145) H Potassium Level 4.8 MMOL/L (3.5-5.1) Chloride Level 114 MMOL/L (98-107) H Carbon Dioxide Level 34 MMOL/L (21-32) H Anion Gap 3 mmol/L (5-15) L Blood Urea Nitrogen 67 mg/dL (7-18) H Creatinine 1.2 MG/DL (0.55-1.30) Estimat Glomerular Filtration Rate mL/min (>60) Glucose Level 261 MG/DL (74-106) H Calcium Level 9.2 MG/DL (8.5-10.1) Total Bilirubin 0.3 MG/DL (0.2-1.0) Aspartate Amino Transf (AST/SGOT) 27 U/L (15-37) Alanine Aminotransferase (ALT/SGPT) 39 U/L (12-78) Alkaline Phosphatase 91 U/L (46-116) Pro-B-Type Natriuretic Peptide 31274 pg/mL (0-125) H Total Protein 6.5 G/DL (6.4-8.2) Albumin 2.1 G/DL (3.4-5.0) L Globulin 4.4 g/dL Albumin/Globulin Ratio 0.5 (1.0-2.7) L Henry Gomez MD Dec 02, 2017 10:42
--- NOTE | 2017-12-02 10:46 | General Progress Note ---
Assessment/Plan Problem List: (1) Acute respiratory failure ICD Codes: J96.00 - Acute respiratory failure, unspecified whether with hypoxia or hypercapnia SNOMED: 65895095 Qualifiers: Qualified Codes: J96.01 - Acute respiratory failure with hypoxia (2) History of CVA (cerebrovascular accident) ICD Codes: Z86.73 - Personal history of transient ischemic attack (TIA), and cerebral infarction without residual deficits SNOMED: 168539223 (3) Pulmonary edema ICD Codes: J81.1 - Chronic pulmonary edema SNOMED: 76319244 Qualifiers: Qualified Codes: J81.0 - Acute pulmonary edema (4) Diabetic nephropathy ICD Codes: E11.21 - Type 2 diabetes mellitus with diabetic nephropathy SNOMED: 70736678, 774738641 (5) Pleural effusion, bilateral ICD Codes: J90 - Pleural effusion, not elsewhere classified SNOMED: 270508071 Status: stable Assessment/Plan Currently on Cefepime will change to cipro and DC after transfusion stop colace- loose BM resume eliquis DC lasix- GT feeding Keep BP and BS in check optimize cardiac and pulm status- IV Iron PER Cardio and pulm Will discuss DC on PO /GT antibiotics addendum: On discussion with Dr james, based on boarderline pulmonary status and the need for bipap, and patient being full code, tracheostomy will be entertained after discussion with DPOA . Subjective ROS Limited/Unobtainable: No Constitutional: Reports: malaise Allergies: Coded Allergies: ATORVASTATIN (Verified Allergy, Unknown, 11/24/17) CLONIDINE (Verified Allergy, Unknown, 11/24/17) LABETALOL (Verified Allergy, Unknown, 11/24/17) NIFEDIPINE (Verified Allergy, Unknown, 11/24/17) ROSUVASTATIN (Verified Allergy, Unknown, 11/24/17) Uncoded Allergies: IVELISSE INHIBITOR (Allergy, Unknown, 11/24/17) Objective Last 24 Hour Vital Signs Date Time Temp Pulse Resp B/P (MAP) Pulse Ox O2 Delivery O2 Flow Rate FiO2 12/02/17 08:00 Bi-pap 12/02/17 08:00 83 12/02/17 08:00 98.1 82 20 128/68 (88) 96 98.1 12/02/17 07:25 100 36 99 Bi-pap 35 12/02/17 07:25 Bi-pap 12/02/17 07:16 55 26 99 Facial 35 12/02/17 07:10 55 26 99 Bi-pap 35 12/02/17 07:10 98 Bi-pap 35 12/02/17 05:18 81 27 96 Facial 35 12/02/17 04:00 97.9 78 20 128/55 (79) 96 97.9 12/02/17 04:00 Bi-pap 12/02/17 03:54 77 12/02/17 03:49 75 20 99 Nasal Cannula 2.0 28 12/02/17 03:39 75 29 97 Facial 35 12/02/17 03:37 61 18 97 Nasal Cannula 3.0 32 12/02/17 01:57 60 28 95 Facial 35 12/02/17 01:07 99.9 12/02/17 00:37 102.2 12/02/17 00:00 Bi-pap 12/02/17 00:00 102.2 102 22 156/85 (108) 94 102.2 12/01/17 23:32 125 12/01/17 22:44 59 30 99 Facial 35 12/01/17 22:43 52 20 99 Nasal Cannula 2.0 28 12/01/17 22:35 49 18 95 Nasal Cannula 3.0 32 12/01/17 21:07 103 26 96 Facial 35 12/01/17 20:00 97.7 103 18 125/74 (91) 96 97.7 12/01/17 20:00 Nasal Cannula 3.0 12/01/17 20:00 106 12/01/17 19:39 48 20 99 Nasal Cannula 2.0 28 12/01/17 19:13 61 18 97 Nasal Cannula 3.0 32 12/01/17 19:13 97 Nasal Cannula 3.0 32 12/01/17 19:13 Nasal Cannula 3.0 32 12/01/17 16:00 106 12/01/17 16:00 Nasal Cannula 2.0 12/01/17 16:00 98.4 68 18 110/52 (71) 96 98.4 12/01/17 14:46 59 20 99 Nasal Cannula 2.0 28 12/01/17 14:39 52 18 98 Nasal Cannula 2.0 28 12/01/17 14:36 153/47 12/01/17 12:03 97.3 68 18 141/56 (84) 91 97.3 12/01/17 12:00 Nasal Cannula 2.0 12/01/17 12:00 93 12/01/17 11:23 64 20 99 Nasal Cannula 2.0 28 12/01/17 11:15 66 18 99 Nasal Cannula 2.0 28 Current Medications Medications (Trade) Dose Ordered Sig/Cirilo Route PRN Reason Start Time Stop Time Status Last Admin Dose Admin Acetaminophen (Tylenol) 650 mg Q6H PRN ORAL Fever/Headache/Mild Pain 11/24/17 12:45 12/24/17 12:44 12/02/17 00:37 Albuterol/ Ipratropium (Albuterol/ Ipratropium) 3 ml Q4H PRN HHN Shortness of Breath 11/28/17 11:15 12/03/17 11:14 Apixaban (Eliquis) 2.5 mg BID GT 11/28/17 09:00 12/28/17 08:59 12/02/17 08:31 Cefepime HCl 2 gm/ Dextrose 55 ml @ 110 mls/hr Q24H IVPB 12/01/17 09:00 12/20/17 12:00 12/02/17 08:31 Dextrose (Dextrose 50%) 25 ml PRN IV Hypoglycemia 11/24/17 14:00 12/24/17 13:59 Dextrose (Dextrose 50%) 50 ml PRN IV hypoglycemia 11/24/17 14:00 12/24/17 13:59 Famotidine (Pepcid) 20 mg BID GT 11/24/17 18:00 12/24/17 17:59 12/02/17 08:31 Hydralazine HCl (Apresoline) 10 mg Q6H PRN GT SBP above 140mmHg 11/30/17 16:45 12/30/17 16:44 Hydromorphone HCl (Dilaudid) 1 mg Q6H PRN IVP Severe Pain (Pain Scale 7-10) 11/27/17 07:00 12/04/17 06:59 12/01/17 15:45 Insulin Aspart (NovoLOG) EVERY 6 HOURS SUBQ 11/25/17 18:00 12/25/17 17:59 12/02/17 06:07 Levalbuterol HCl (Xopenex) 1.25 mg Q4HRT HHN 11/30/17 11:00 12/05/17 10:59 12/02/17 07:10 Lorazepam (Ativan 2mg/ml 1ml) 0.5 mg Q6H PRN IV agitation 11/30/17 08:41 12/07/17 08:40 Metoclopramide HCl (Reglan) 5 mg EVERY 8 HOURS GT 11/28/17 14:00 12/25/17 11:59 12/02/17 06:05 Nitroglycerin (Ntg) 1 patch Q24H TDERMAL 11/24/17 14:00 12/24/17 13:59 12/01/17 14:36 Intake and Output 12/01/17 12/02/17 19:00 07:00 Intake Total 1105 ml 750 ml Output Total 400 ml 700 ml Balance 705 ml 50 ml Intake Free Water 100 ml 150 ml IV Total 355 ml Tube Feeding 650 ml 600 ml Output Urine Total 350 ml 600 ml Stool Total 50 ml 100 ml Laboratory Tests 12/02/17 04:00: White Blood Count 10.4, Red Blood Count 2.70L, Hemoglobin 7.7L, Hematocrit 25.9L , Mean Corpuscular Volume 96, Mean Corpuscular Hemoglobin 28.6, Mean Corpuscular Hemoglobin Concent 29.8L, Red Cell Distribution Width 17.7H, Platelet Count 160, Mean Platelet Volume 10.7H, Neutrophils (%) (Auto) , Lymphocytes (%) (Auto) , Monocytes (%) (Auto) , Eosinophils (%) (Auto) , Basophils (%) (Auto) , Differential Total Cells Counted 100, Neutrophils % ( Manual) 79H, Lymphocytes % (Manual) 11L, Monocytes % (Manual) 8, Eosinophils % ( Manual) 2, Basophils % (Manual) 0, Band Neutrophils 0, Platelet Estimate Adequate, Platelet Morphology Normal, Hypochromasia 3+, Anisocytosis 1+, Sodium Level 151H, Potassium Level 4.8, Chloride Level 114H, Carbon Dioxide Level 34H, Anion Gap 3L, Blood Urea Nitrogen 67H, Creatinine 1.2, Estimat Glomerular Filtration Rate , Glucose Level 261H, Calcium Level 9.2, Total Bilirubin 0.3, Aspartate Amino Transf (AST/SGOT) 27, Alanine Aminotransferase (ALT/SGPT) 39, Alkaline Phosphatase 91, Pro-B-Type Natriuretic Peptide [id number], Total Protein 6.5, Albumin 2.1L, Globulin 4.4, Albumin/Globulin Ratio 0.5L Height (Feet): 5 Height (Inches): 0.00 Weight (Pounds): 128 General Appearance: no apparent distress Cardiovascular: regular rhythm Respiratory/Chest: decreased breath sounds Abdomen: soft Objective no change Rafael Hurt MD Dec 02, 2017 10:46
[2017-12-02] MEDS ORDERED: DUONEB 0.5-3(2.53 ML HHN (10:50)
[2017-12-02] MEDS ORDERED: ELIQUIS2.5 MG GT (10:50)
[2017-12-02] MEDS ORDERED: FAMOTIDINE20 MG GT (10:50)
[2017-12-02] MEDS ORDERED: METOCLOPRAM5 MG/5 M1 GT (10:50)
[2017-12-02] MEDS ORDERED: CIPROFLOXACIN500 M2 ORAL (10:50)
--- NOTE | 2017-12-02 10:51 | Discharge Instructions ---
Discharge Instructions Discharge Instructions Follow up with: with PMD at [facility] Diet: other - GT feeding Glucerna Special Instructions continue Cipro til Dec 18 Breathing treatment Aspiration Percautions Routin skin care For Congestive Heart Failure Reminder Report to your physician any weight gain of 5 pounds or more in one week. Rafael Hurt MD Dec 02, 2017 10:51
[2017-12-02] MEDS ORDERED: Albuterol/Ipratropium 3ml neb HHN PRN ×2 (13:47→18:15)
[2017-12-02] MEDS ORDERED: HydrALAZINE 10mg Tab GT PRN (13:48)
[2017-12-02] MEDS ORDERED: HYDROmorphone 1mg/ml Carpuject IVP PRN (13:50)
[2017-12-02] MEDS ORDERED: LORazepam Inj 2mg/ml 1ml IV PRN (14:45)
[2017-12-02] MEDS: Nitroglycerin Patch 0.4mg TDERMAL SCH (16:35)
--- NOTE | 2017-12-02 16:55 | Infectious Diseases Prog Note ---
Assessment/Plan Problems: (1) Aspiration pneumonia Assessment & Plan: with B/L basal infiltrates, due to pseudomonas pneumonia , continue cefepime to finish total of three weeks course of treatment . monitor CXR . aspiration precaution , keep HOB > 30 degree . EOT 12/18/17 (2) Pleural effusion, bilateral Assessment & Plan: S/P thoracentesis , exudative most likely due to pneumonia, adenosine deaminase on pleural fluids, fungal and cytology are pending . bacterial culture is negative so far (3) Acute respiratory failure Assessment & Plan: due to the above, off BIPAP, now sating ok on nasal canula , monitor CXR , pulmonary is following (4) Sepsis Assessment & Plan: due to the above, with negative blood culture results so far , on cefepime to treat her pneumonia and UTI for total of three weeks. EOT 12/18/17 (5) Pressure ulcer, heel, right, unstageable Assessment & Plan: with an eschar, continue off loading and local wound care as per hospital protocol (6) Fever Assessment & Plan: due to the above, resolved . continue to monitor clinically Subjective ROS Limited/Unobtainable: Yes Allergies: Coded Allergies: ATORVASTATIN (Verified Allergy, Unknown, 11/24/17) CLONIDINE (Verified Allergy, Unknown, 11/24/17) LABETALOL (Verified Allergy, Unknown, 11/24/17) NIFEDIPINE (Verified Allergy, Unknown, 11/24/17) ROSUVASTATIN (Verified Allergy, Unknown, 11/24/17) Uncoded Allergies: IVELISSE INHIBITOR (Allergy, Unknown, 11/24/17) Subjective she was transfered to ICU due to respiratory distress and hypoxemia , she was up in bed, awake and open eyes spontaneously, not responsive to verbal commands , no fever today , on nasal canula sating 94%, still has diarrhea Objective Vital Signs Last 24 Hour Vital Signs Date Time Temp Pulse Resp B/P (MAP) Pulse Ox O2 Delivery O2 Flow Rate FiO2 12/02/17 16:35 128/52 12/02/17 15:55 87 25 100 Nasal Cannula 3.0 32 12/02/17 15:40 79 28 98 Nasal Cannula 3.0 32 12/02/17 15:00 78 24 121/48 (72) 98 12/02/17 14:10 99.0 77 16 134/39 (70) 99 99.0 9/5/18 12:00 87 12/02/17 12:00 Bi-pap 12/02/17 12:00 98.2 83 20 137/64 (88) 99 98.2 12/02/17 11:46 83 23 100 Nasal Cannula 3.0 32 12/02/17 11:41 Nasal Cannula 3.0 32 12/02/17 11:30 80 24 97 Nasal Cannula 3.0 32 12/02/17 08:00 Bi-pap 12/02/17 08:00 83 12/02/17 08:00 98.1 82 20 128/68 (88) 96 98.1 12/02/17 07:25 100 36 99 Bi-pap 35 12/02/17 07:25 Bi-pap 12/02/17 07:16 55 26 99 Facial 35 12/02/17 07:10 55 26 99 Bi-pap 35 12/02/17 07:10 98 Bi-pap 35 12/02/17 05:18 81 27 96 Facial 35 12/02/17 04:00 97.9 78 20 128/55 (79) 96 97.9 12/02/17 04:00 Bi-pap 12/02/17 03:54 77 12/02/17 03:49 75 20 99 Nasal Cannula 2.0 28 12/02/17 03:39 75 29 97 Facial 35 12/02/17 03:37 61 18 97 Nasal Cannula 3.0 32 12/02/17 01:57 60 28 95 Facial 35 12/02/17 01:07 99.9 12/02/17 00:37 102.2 12/02/17 00:00 Bi-pap 12/02/17 00:00 102.2 102 22 156/85 (108) 94 102.2 12/01/17 23:32 125 12/01/17 22:44 59 30 99 Facial 35 12/01/17 22:43 52 20 99 Nasal Cannula 2.0 28 12/01/17 22:35 49 18 95 Nasal Cannula 3.0 32 12/01/17 21:07 103 26 96 Facial 35 12/01/17 20:00 97.7 103 18 125/74 (91) 96 97.7 12/01/17 20:00 Nasal Cannula 3.0 12/01/17 20:00 106 12/01/17 19:39 48 20 99 Nasal Cannula 2.0 28 12/01/17 19:13 61 18 97 Nasal Cannula 3.0 32 12/01/17 19:13 97 Nasal Cannula 3.0 32 12/01/17 19:13 Nasal Cannula 3.0 32 Height (Feet): 5 Height (Inches): 0.00 Weight (Pounds): 128 General Appearance: WD/WN, no acute distress HEENT: normocephalic, atraumatic, anicteric, mucous membranes moist, PERRL, EOMI, pharynx normal, supple, no JVD Respiratory/Chest: chest wall non-tender, no respiratory distress, no accessory muscle use, decreased breath sounds, crackles/rales Cardiovascular: normal peripheral pulses, normal rate, regular rhythm, no gallop/murmur, no JVD Abdomen: normal bowel sounds, soft, non tender, no organomegaly, non distended , no mass, no scars Extremities: no cyanosis, no clubbing Skin: no rash, no lesions Neurologic/Psychiatric: alert, unresponsiveness Lymphatic: no neck adenopathy, no groin adenopathy Musculoskeletal: normal muscle bulk Laboratory Tests Test 12/02/17 04:00 White Blood Count 10.4 K/UL (4.8-10.8) Red Blood Count 2.70 M/UL (4.20-5.40) L Hemoglobin 7.7 G/DL (12.0-16.0) L Hematocrit 25.9 % (37.0-47.0) L Mean Corpuscular Volume 96 FL (80-99) Mean Corpuscular Hemoglobin 28.6 PG (27.0-31.0) Mean Corpuscular Hemoglobin Concent 29.8 G/DL (32.0-36.0) L Red Cell Distribution Width 17.7 % (11.6-14.8) H Platelet Count 160 K/UL (150-450) Mean Platelet Volume 10.7 FL (6.5-10.1) H Neutrophils (%) (Auto) % (45.0-75.0) Lymphocytes (%) (Auto) % (20.0-45.0) Monocytes (%) (Auto) % (1.0-10.0) Eosinophils (%) (Auto) % (0.0-3.0) Basophils (%) (Auto) % (0.0-2.0) Differential Total Cells Counted 100 Neutrophils % (Manual) 79 % (45-75) H Lymphocytes % (Manual) 11 % (20-45) L Monocytes % (Manual) 8 % (1-10) Eosinophils % (Manual) 2 % (0-3) Basophils % (Manual) 0 % (0-2) Band Neutrophils 0 % (0-8) Platelet Estimate Adequate Platelet Morphology Normal Hypochromasia 3+ Anisocytosis 1+ Sodium Level 151 MMOL/L (136-145) H Potassium Level 4.8 MMOL/L (3.5-5.1) Chloride Level 114 MMOL/L (98-107) H Carbon Dioxide Level 34 MMOL/L (21-32) H Anion Gap 3 mmol/L (5-15) L Blood Urea Nitrogen 67 mg/dL (7-18) H Creatinine 1.2 MG/DL (0.55-1.30) Estimat Glomerular Filtration Rate mL/min (>60) Glucose Level 261 MG/DL (74-106) H Calcium Level 9.2 MG/DL (8.5-10.1) Total Bilirubin 0.3 MG/DL (0.2-1.0) Aspartate Amino Transf (AST/SGOT) 27 U/L (15-37) Alanine Aminotransferase (ALT/SGPT) 39 U/L (12-78) Alkaline Phosphatase 91 U/L (46-116) Pro-B-Type Natriuretic Peptide 00890 pg/mL (0-125) H Total Protein 6.5 G/DL (6.4-8.2) Albumin 2.1 G/DL (3.4-5.0) L Globulin 4.4 g/dL Albumin/Globulin Ratio 0.5 (1.0-2.7) L Current Medications Medications (Trade) Dose Ordered Sig/Cirilo Route PRN Reason Start Time Stop Time Status Last Admin Dose Admin Acetaminophen (Tylenol) 650 mg Q6H PRN ORAL Fever/Headache/Mild Pain 12/02/17 13:47 12/24/17 13:46 Albuterol/ Ipratropium (Albuterol/ Ipratropium) 3 ml Q4H PRN HHN Shortness of Breath 12/02/17 13:47 12/03/17 13:46 Apixaban (Eliquis) 2.5 mg Q12HR GT 12/02/17 21:00 01/01/18 20:59 Cefepime HCl 2 gm/ Dextrose 55 ml @ 110 mls/hr Q24H IVPB 12/03/17 09:00 12/20/17 12:00 Ciprofloxacin (Cipro 500mg tab) 500 mg EVERY 12 HOURS ORAL 12/02/17 21:00 12/09/17 20:59 Dextrose (Dextrose 50%) 25 ml PRN IV Hypoglycemia 12/02/17 13:45 12/24/17 13:59 Dextrose (Dextrose 50%) 50 ml PRN IV hypoglycemia 12/02/17 13:45 12/24/17 13:59 Famotidine (Pepcid) 20 mg BID GT 12/02/17 18:00 12/24/17 17:59 Hydralazine HCl (Apresoline) 10 mg Q6H PRN GT SBP above 140mmHg 12/02/17 13:48 12/30/17 13:47 Hydromorphone HCl (Dilaudid) 1 mg Q6H PRN IVP Severe Pain (Pain Scale 7-10) 12/02/17 13:50 12/04/17 13:49 Insulin Aspart (NovoLOG) EVERY 6 HOURS SUBQ 12/02/17 18:00 12/25/17 17:59 Levalbuterol HCl (Xopenex) 1.25 mg Q4HRT HHN 12/02/17 15:00 12/05/17 10:59 12/02/17 15:47 Lorazepam (Ativan 2mg/ml 1ml) 0.5 mg Q6H PRN IV agitation 12/02/17 14:45 12/07/17 08:40 Metoclopramide HCl (Reglan) 5 mg EVERY 8 HOURS GT 12/02/17 14:00 12/25/17 11:59 12/02/17 16:35 Nitroglycerin (Ntg) 1 patch Q24H TDERMAL 12/02/17 14:00 12/24/17 13:59 12/02/17 16:35 Coel Rasmussen M.D. Dec 02, 2017 16:55
[2017-12-02] MEDS ORDERED: fentaNYL 100 mcg/2 mL IV SCH (17:09)
--- NOTE | 2017-12-02 17:53 | Consultation ---
History of Present Illness General Date patient seen: Dec 02, 2017 Chief Complaint: Dyspnea/Respdistress Reason for Consultation: trach / intubation Present Illness HPI 87 year old female with past medical history of HTN, DM, dementia, stroke with left-sided weakness from halfway presented to ER with worsening dyspnea and hypoxia. Patient was found in respiratory failure and was started on BIPAP which she could only minimally tolerate. G tube with feeds and with BIPAP would get abdominal distention/gastric distention with high risk for aspiration. Given history and current status will require intubation and likely tracheostomy. surgery called to evaluate. patient seen, chart reviewed , patient examined. Allergies: Coded Allergies: ATORVASTATIN (Verified Allergy, Unknown, 11/24/17) CLONIDINE (Verified Allergy, Unknown, 11/24/17) LABETALOL (Verified Allergy, Unknown, 11/24/17) NIFEDIPINE (Verified Allergy, Unknown, 11/24/17) ROSUVASTATIN (Verified Allergy, Unknown, 11/24/17) Uncoded Allergies: IVELISSE INHIBITOR (Allergy, Unknown, 11/24/17) Medication History Scheduled Amlodipine Besylate* (Amlodipine Besylate*), 10 MG GT DAILY, (Reported) Apixaban (Eliquis), 2.5 MG PO BID, (Reported) Apixaban (Eliquis), 2.5 MG GT BID Ascorbic Acid* (Vitamin C*), 500 MG GT TWICE A DAY, (Reported) Balsam Casey/Clyde Oil (Venelex Ointment), 1 APPLIC TP DAILY, (Reported) Ciprofloxacin Hcl* (Ciprofloxacin Hcl*), 500 MG ORAL EVERY 12 HOURS Famotidine (Famotidine), 20 MG GT BID Isosorbide Dinitrate* (Isordil*), 30 MG GT TWICE A DAY, (Reported) Metoclopramide HCl (Metoclopramide HCl), 5 MG GT EVERY 8 HOURS Metoprolol Tartrate* (Metoprolol Tartrate*), 50 MG ORAL EVERY 12 HOURS, ( Reported) Multivitamin With Minerals (Multivitamins With Minerals*), 1 TAB GT DAILY, ( Reported) Potassium Chloride* (K-Dur*), 20 MEQ GT DAILY, (Reported) Scheduled PRN Acetaminophen 160MG/5ML* (Acetaminophen*), 20 ML GT EVERY 6 HOURS PRN for Fever/ Headache/Mild Pain, (Reported) Ipratropium/Albuterol Sulfate (DuoNeb 0.5-3(2.5)mg/3ml), 3 ML HHN Q4H PRN Miscellaneous Medications Insulin Human Lispro (Humalog), Unknown Dose SUBQ, (Reported) Vitamin A & D (Vitamin A & D Ointment), (Reported) Patient History Limited by: medical condition History Provided By: Significant Other, Caregiver, PMD Healthcare decision maker Resuscitation status Full Code Advanced Directive on File Past Medical/Surgical History Past Medical/Surgical History: (1) Acute respiratory failure (2) Diabetes mellitus (3) Advanced dementia (4) Respiratory distress (5) Pulmonary edema (6) Hypoxia (7) History of CVA (cerebrovascular accident) (8) Diabetic nephropathy (9) Feeding by G-tube (10) Atrial fibrillation (11) Pleural effusion, bilateral (12) Aspiration pneumonia (13) Sepsis (14) Pressure ulcer, heel, right, unstageable (15) Fever Review of Systems ROS Narrative cannot obtain given medical history Physical Exam General Appearance: mild distress Lines, tubes and drains: peripheral, gtube HEENT: normocephalic, atraumatic Neck: normal inspection Respiratory/Chest: respiratory distress, decreased breath sounds, accessory muscle use Cardiovascular/Chest: tachycardia Abdomen: normal bowel sounds, soft, distended, feeding tube Extremities: other Skin Exam: other Neurologic: unresponsiveness Last 24 Hour Vital Signs Date Time Temp Pulse Resp B/P (MAP) Pulse Ox O2 Delivery O2 Flow Rate FiO2 12/02/17 17:38 100 16 50 12/02/17 17:21 25 128/52 Nasal Cannula 3.0 32 12/02/17 16:35 128/52 12/02/17 15:55 87 25 100 Nasal Cannula 3.0 32 12/02/17 15:40 79 28 98 Nasal Cannula 3.0 32 12/02/17 15:00 78 24 121/48 (72) 98 12/02/17 14:10 99.0 77 16 134/39 (70) 99 99.0 12/02/17 12:00 87 12/02/17 12:00 Bi-pap 12/02/17 12:00 98.2 83 20 137/64 (88) 99 98.2 12/02/17 11:46 83 23 100 Nasal Cannula 3.0 32 12/02/17 11:41 Nasal Cannula 3.0 32 12/02/17 11:30 80 24 97 Nasal Cannula 3.0 32 12/02/17 08:00 Bi-pap 12/02/17 08:00 83 12/02/17 08:00 98.1 82 20 128/68 (88) 96 98.1 12/02/17 07:25 100 36 99 Bi-pap 35 12/02/17 07:25 Bi-pap 12/02/17 07:16 55 26 99 Facial 35 12/02/17 07:10 55 26 99 Bi-pap 35 12/02/17 07:10 98 Bi-pap 35 12/02/17 05:18 81 27 96 Facial 35 12/02/17 04:00 97.9 78 20 128/55 (79) 96 97.9 12/02/17 04:00 Bi-pap 12/02/17 03:54 77 12/02/17 03:49 75 20 99 Nasal Cannula 2.0 28 12/02/17 03:39 75 29 97 Facial 35 12/02/17 03:37 61 18 97 Nasal Cannula 3.0 32 12/02/17 01:57 60 28 95 Facial 35 12/02/17 01:07 99.9 12/02/17 00:37 102.2 12/02/17 00:00 Bi-pap 12/02/17 00:00 102.2 102 22 156/85 (108) 94 102.2 12/01/17 23:32 125 12/01/17 22:44 59 30 99 Facial 35 12/01/17 22:43 52 20 99 Nasal Cannula 2.0 28 12/01/17 22:35 49 18 95 Nasal Cannula 3.0 32 12/01/17 21:07 103 26 96 Facial 35 12/01/17 20:00 97.7 103 18 125/74 (91) 96 97.7 12/01/17 20:00 Nasal Cannula 3.0 12/01/17 20:00 106 12/01/17 19:39 48 20 99 Nasal Cannula 2.0 28 12/01/17 19:13 61 18 97 Nasal Cannula 3.0 32 12/01/17 19:13 97 Nasal Cannula 3.0 32 12/01/17 19:13 Nasal Cannula 3.0 32 Intake and Output 12/01/17 12/02/17 19:00 07:00 Intake Total 1105 ml 750 ml Output Total 400 ml 700 ml Balance 705 ml 50 ml Intake Free Water 100 ml 150 ml IV Total 355 ml Tube Feeding 650 ml 600 ml Output Urine Total 350 ml 600 ml Stool Total 50 ml 100 ml Laboratory Tests Test 12/02/17 04:00 White Blood Count 10.4 K/UL (4.8-10.8) Red Blood Count 2.70 M/UL (4.20-5.40) L Hemoglobin 7.7 G/DL (12.0-16.0) L Hematocrit 25.9 % (37.0-47.0) L Mean Corpuscular Volume 96 FL (80-99) Mean Corpuscular Hemoglobin 28.6 PG (27.0-31.0) Mean Corpuscular Hemoglobin Concent 29.8 G/DL (32.0-36.0) L Red Cell Distribution Width 17.7 % (11.6-14.8) H Platelet Count 160 K/UL (150-450) Mean Platelet Volume 10.7 FL (6.5-10.1) H Neutrophils (%) (Auto) % (45.0-75.0) Lymphocytes (%) (Auto) % (20.0-45.0) Monocytes (%) (Auto) % (1.0-10.0) Eosinophils (%) (Auto) % (0.0-3.0) Basophils (%) (Auto) % (0.0-2.0) Differential Total Cells Counted 100 Neutrophils % (Manual) 79 % (45-75) H Lymphocytes % (Manual) 11 % (20-45) L Monocytes % (Manual) 8 % (1-10) Eosinophils % (Manual) 2 % (0-3) Basophils % (Manual) 0 % (0-2) Band Neutrophils 0 % (0-8) Platelet Estimate Adequate Platelet Morphology Normal Hypochromasia 3+ Anisocytosis 1+ Sodium Level 151 MMOL/L (136-145) H Potassium Level 4.8 MMOL/L (3.5-5.1) Chloride Level 114 MMOL/L (98-107) H Carbon Dioxide Level 34 MMOL/L (21-32) H Anion Gap 3 mmol/L (5-15) L Blood Urea Nitrogen 67 mg/dL (7-18) H Creatinine 1.2 MG/DL (0.55-1.30) Estimat Glomerular Filtration Rate mL/min (>60) Glucose Level 261 MG/DL (74-106) H Calcium Level 9.2 MG/DL (8.5-10.1) Total Bilirubin 0.3 MG/DL (0.2-1.0) Aspartate Amino Transf (AST/SGOT) 27 U/L (15-37) Alanine Aminotransferase (ALT/SGPT) 39 U/L (12-78) Alkaline Phosphatase 91 U/L (46-116) Pro-B-Type Natriuretic Peptide 08418 pg/mL (0-125) H Total Protein 6.5 G/DL (6.4-8.2) Albumin 2.1 G/DL (3.4-5.0) L Globulin 4.4 g/dL Albumin/Globulin Ratio 0.5 (1.0-2.7) L Triglycerides Level 97 MG/DL (30-150) Height (Feet): 5 Height (Inches): 0.00 Weight (Pounds): 128 Medications Current Medications Medications (Trade) Dose Ordered Sig/Cirilo Route PRN Reason Start Time Stop Time Status Last Admin Dose Admin Acetaminophen (Tylenol) 650 mg Q6H PRN ORAL Fever/Headache/Mild Pain 12/02/17 13:47 12/24/17 13:46 Albuterol/ Ipratropium (Albuterol/ Ipratropium) 3 ml Q4H PRN HHN Shortness of Breath 12/02/17 13:47 12/03/17 13:46 Apixaban (Eliquis) 2.5 mg Q12HR GT 12/02/17 21:00 01/01/18 20:59 Cefepime HCl 2 gm/ Dextrose 55 ml @ 110 mls/hr Q24H IVPB 12/03/17 09:00 12/20/17 12:00 Ciprofloxacin (Cipro 500mg tab) 500 mg EVERY 12 HOURS ORAL 12/02/17 21:00 12/09/17 20:59 Dextrose (Dextrose 50%) 25 ml PRN IV Hypoglycemia 12/02/17 13:45 12/24/17 13:59 Dextrose (Dextrose 50%) 50 ml PRN IV hypoglycemia 12/02/17 13:45 12/24/17 13:59 Famotidine (Pepcid) 20 mg BID GT 12/02/17 18:00 12/24/17 17:59 Fentanyl Citrate (Sublimaze 100 mcg/2 mL) 100 mcg ONCE IV 12/02/17 17:09 12/02/17 18:09 12/02/17 17:16 Hydralazine HCl (Apresoline) 10 mg Q6H PRN GT SBP above 140mmHg 12/02/17 13:48 12/30/17 13:47 Hydromorphone HCl (Dilaudid) 1 mg Q6H PRN IVP Severe Pain (Pain Scale 7-10) 12/02/17 13:50 12/04/17 13:49 Insulin Aspart (NovoLOG) EVERY 6 HOURS SUBQ 12/02/17 18:00 12/25/17 17:59 Levalbuterol HCl (Xopenex) 1.25 mg Q4HRT HHN 12/02/17 15:00 12/05/17 10:59 12/02/17 15:47 Lorazepam (Ativan 2mg/ml 1ml) 0.5 mg Q6H PRN IV agitation 12/02/17 14:45 12/07/17 08:40 Metoclopramide HCl (Reglan) 5 mg EVERY 8 HOURS GT 12/02/17 14:00 12/25/17 11:59 12/02/17 16:35 Midazolam HCl (Versed 5mg/5ml vial) 2 mg ONCE IVP 12/02/17 17:09 12/02/17 18:09 12/02/17 17:16 Nitroglycerin (Ntg) 1 patch Q24H TDERMAL 12/02/17 14:00 12/24/17 13:59 12/02/17 16:35 Propofol 100 ml @ 0 mls/hr Q24H IV 12/02/17 17:08 12/04/17 17:07 12/02/17 17:21 Assessment/Plan Problem List: (1) Respiratory distress Assessment & Plan: given history and current status recommend intubation. patient unable to tolerate BIPAP. will need trach which is not indicated emergently. -see procedure report patient transferred to ICU and intubated cont vent plan for trach ICD Codes: R06.03 - Acute respiratory distress SNOMED: 712949072 (2) Acute respiratory failure Assessment & Plan: acute on chronic respiratory insufficiency currently required intubation will likely require residential vent support trach indicated and recommended consent obtained plan for trach tomorrow after intubation today npo p mn iv fluids ICD Codes: J96.00 - Acute respiratory failure, unspecified whether with hypoxia or hypercapnia SNOMED: 00496486 Qualifiers: Qualified Codes: J96.01 - Acute respiratory failure with hypoxia Status: not improved Luke Cuevas Dec 02, 2017 17:53
--- NOTE | 2017-12-02 18:01 | Operative Note - PDOC ---
Operative Note Operative Note Date of Operation/Procedure: Dec 02, 2017 Pre-op Diagnosis: respiratory distress requiring intubation Procedure: endotracheal intubation Post-op Diagnosis: same as pre-op Surgeon: ruthy Anesthesia: general Specimen: none Complications: none Condition: stable Fluids: n/a Estimated Blood Loss: none Drains: none Implant(s) used?: No Indications for Procedure 87F respiratory insufficiency requiring intubation at this time. cannot tolerate BIPAP and significant hypoxia. trach planned but not indicated emergently. currently needs intubation until tracheostomy for protected airway and vent support. Description of Procedure The patient was lying in the supine position in the ICU. Preoxygenation via facemask was provided for a minimum of 3 minutes. The patient had continuous cardiac as well as pulse oximetry monitoring during the procedure. Given history and current medical state muscle relaxation not recommended and planned for intubation with sedation. Patient made comfortable with 10cc propofol, 25mcg fentanyl, and 1 versed. After comfortable a number 3 Barrientos laryngoscope was used to directly visualize the vocal cords. A 7.5 mm endotracheal tube was visualized advancing between the cords to a level of 23 cm at the teeth. The stylette was then removed and discarded. Tube placement was also noted by fogging in the tube, equal and bilateral breath sounds, no sounds over the epigastrium, and end-tidal colorimetric monitoring. The cuff was then inflated with 10ccs of air and the tube secured using a commercially available device. A good pulse oximetry wave form was seen on the monitor throughout the procedure. The patient was then connected to the ventilator at a tidal volume of 550 ; rate of 16; FiO2 of 50%; and PEEP of 5. A portable chest x-ray has been ordered for placement. The patient tolerated the procedure well. Luke Cuevas Dec 02, 2017 18:01
--- NOTE | 2017-12-02 18:04 | Pre-Procedure Note/Attestation ---
Pre-Procedure Note/Attestation Complete Prior to Procedure Planned Procedure: not applicable Procedure Narrative: tracheostomy Indications for Procedure Pre-Operative Diagnosis: respiratory insufficiency requiring prolonged ventilatory support Attestation I attest that I discussed the nature of the procedure; its benefits; risks and complications; and alternatives (and the risks and benefits of such alternatives ), prior to the procedure, with the patient (or the patient's legal technical support representative). I attest that, if there was a reasonable possibility of needing a blood transfusion, the patient (or the patient's legal technical support representative) was given the [facility] standardized written summary, pursuant to the Javier Ephraim Blood Safety Act ([place] Health and Safety Code # 1645, as amended). I attest that I re-evaluated the patient just prior to the surgery and that there has been no change in the patient's H&P, except as documented below: Luke Cuevas Dec 02, 2017 18:04
[2017-12-02] MEDS ORDERED: Albuterol ud Inhalation HHN PRN (18:15)
[2017-12-02] MEDS ORDERED: Ipratropium 0.02% Inh Soln 2.5ml UD HHN PRN (18:15)
[2017-12-02] MEDS ORDERED: Eliquis 2.5mg tablet GT SCH (21:00)
[2017-12-02] MEDS ORDERED: Ciprofloxacin 500mg tab ORAL SCH ×2 (21:00)
[2017-12-03] VITALS (25 sets, daily range): BP systolic 90–155; BP diastolic 42–103
[2017-12-03] MEDS: NovoLOG Insulin Flexpen SUBQ SCH ×4 (00:08→17:49)
--- NOTE | 2017-12-03 01:45 | Progress Note ---
DATE: 12/02/2017 CARDIOLOGY PROGRESS NOTE SUBJECTIVE: The patient's condition is poor. Respiratory distress, on BiPAP with worsening hypoxia and acid-base parameters. The patient has required intubation now with mechanical ventilation. OBJECTIVE: VITAL SIGNS: Blood pressure 129/52, pulse 91, and respirations 16. Afebrile. Monitor, atrial fibrillation. HEENT: Orally intubated. Mechanically ventilated. LUNGS: Bilateral breath sounds. Scattered rhonchi. HEART: Irregularly irregular rhythm. Normal S1, S2. No new murmur. ABDOMEN: Soft. No guarding or rebound. EXTREMITIES: With 1+ dependent edema. LABORATORY DATA: White count 10 and hemoglobin 7.7. Sodium 151, potassium 4.8, bicarb 34, chloride 114, BUN 67, and creatinine 1.2. Pro-natriuretic peptide 26,000. Albumin 2.1. ABG, pH 7.47, pCO2 46, and pO2 159 post intubation. IMPRESSION: 1. Respiratory failure. 2. Hypoxia. 3. Healthcare-acquired and aspiration pneumonia with Pseudomonas aeruginosa. 4. Acute on chronic diastolic congestive heart failure. 5. Acute on chronic renal failure. 6. Dehydration. 7. Hypernatremia. 8. Hypovolemia. 9. Severe protein-calorie malnutrition. 10. Paroxysmal atrial fibrillation. 11. Conduction system disease of the heart. 12. Remains with critical condition and guarded prognosis. PLAN: 1. Ventilator support. 2. Re-culture. 3. Antibiotics per Infectious Disease field technical support consultant. 4. Monitor acid-base parameters. 5. Hold diuresis. 6. Free water replacement. 7. Feeding tube for nutritional support. 8. DVT and stress ulcer prophylaxis. 9. Hold antihypertensives. Jori Andujar M.D. DR: MAE JOB#: [id number] CC:
[2017-12-03] MEDS: Levalbuterol Inh UD 1.25mg/0.5ml HHN SCH ×6 (03:32→22:49)
[2017-12-03] MEDS: Metoclopramide 10mg/10ml Liq GT SCH ×3 (06:13→21:50)
[2017-12-03 06:56] LABS: HEMATOCRIT 30.1 % (37.0-47.0); HEMOGLOBIN 9.4 G/DL (12.0-16.0); MEAN CORPUSCULAR VOLUME 93 FL (80-99); PLATELET COUNT 143 K/UL (150-450); RED BLOOD COUNT 3.23 M/UL (4.20-5.40); RED CELL DISTRIBUTION WIDTH 17.1 % (11.6-14.8); WHITE BLOOD COUNT 10.6 K/UL (4.8-10.8)
[2017-12-03 06:57] LABS: INR 1.1 (0.9-1.1)
[2017-12-03 07:06] LABS: % IRON SATURATION 7 % (15-50); IRON 13 ug/dL (50-175); TOTAL IRON BINDING CAPACITY 200 ug/dL (250-450)
[2017-12-03 07:23] LABS: ALANINE AMINOTRANSFERASE 55 U/L (12-78); ALBUMIN 2.1 G/DL (3.4-5.0); ALBUMIN/GLOBULIN RATIO 0.4 (1.0-2.7); ALKALINE PHOSPHATASE 121 U/L (46-116); ANION GAP 7 mmol/L (5-15); ASPARTATE AMINO TRANSFERASE 49 U/L (15-37); BILIRUBIN,TOTAL 0.5 MG/DL (0.2-1.0); BLOOD UREA NITROGEN 56 mg/dL (7-18); CALCIUM 9.5 MG/DL (8.5-10.1); CARBON DIOXIDE 31 MMOL/L (21-32); CHLORIDE 118 MMOL/L (98-107); POTASSIUM 4.5 MMOL/L (3.5-5.1); SODIUM 156 MMOL/L (136-145)
[2017-12-03 08:23] LABS: LACTATE DEHYDROGENASE 327 U/L (81-234)
[2017-12-03] MEDS: Cefepime HCl 2 GM in D5W 55 ML IVPB SCH ×2 (08:34→21:04)
--- NOTE | 2017-12-03 08:50 | General Progress Note ---
Assessment/Plan Problem List: (1) Acute respiratory failure ICD Codes: J96.00 - Acute respiratory failure, unspecified whether with hypoxia or hypercapnia SNOMED: 65679502 Qualifiers: Qualified Codes: J96.01 - Acute respiratory failure with hypoxia (2) History of CVA (cerebrovascular accident) ICD Codes: Z86.73 - Personal history of transient ischemic attack (TIA), and cerebral infarction without residual deficits SNOMED: 539941797 (3) Pulmonary edema ICD Codes: J81.1 - Chronic pulmonary edema SNOMED: 68081162 Qualifiers: Qualified Codes: J81.0 - Acute pulmonary edema (4) Diabetic nephropathy ICD Codes: E11.21 - Type 2 diabetes mellitus with diabetic nephropathy SNOMED: 87804346, 704816689 (5) Pleural effusion, bilateral ICD Codes: J90 - Pleural effusion, not elsewhere classified SNOMED: 752884547 Status: unchanged Assessment/Plan Due trach today Currently on Cefepime will change to cipro and DC after transfusion stop colace- loose BM resume eliquis DC lasix- GT feeding Keep BP and BS in check optimize cardiac and pulm status- IV Iron PER Cardio and pulm Will discuss DC on PO /GT antibiotics addendum: 12/02/[address] james, based on boarderline pulmonary status and the need for bipap, and patient being full code, tracheostomy will be entertained after discussion with DPOA . Subjective ROS Limited/Unobtainable: Yes Allergies: Coded Allergies: ATORVASTATIN (Verified Allergy, Unknown, 11/24/17) CLONIDINE (Verified Allergy, Unknown, 11/24/17) LABETALOL (Verified Allergy, Unknown, 11/24/17) NIFEDIPINE (Verified Allergy, Unknown, 11/24/17) ROSUVASTATIN (Verified Allergy, Unknown, 11/24/17) Uncoded Allergies: IVELISSE INHIBITOR (Allergy, Unknown, 11/24/17) Objective Last 24 Hour Vital Signs Date Time Temp Pulse Resp B/P (MAP) Pulse Ox O2 Delivery O2 Flow Rate FiO2 12/03/17 08:00 30.0 12/03/17 07:26 97 16 100 Mechanical Ventilator 30 12/03/17 07:14 96 16 99 Mechanical Ventilator 30 12/03/17 07:14 96 16 30 12/03/17 07:00 116 28 134/77 (96) 98 9/6/18 06:10 102 28 135/64 (87) 98 918 06:00 116 28 118/64 (82) 98 18 05:18 88 16 30 12/03/17 05:00 102 28 135/64 (87) 98 18 04:00 Mechanical Ventilator 12/03/17 04:00 97 28 136/83 (100) 98 12/03/17 04:00 95 12/03/17 03:41 94 16 100 Mechanical Ventilator 30 12/03/17 03:31 117 16 98 Mechanical Ventilator 30 12/03/17 03:29 116 16 30 12/03/17 03:00 97.9 95 19 137/103 (114) 97 97.9 12/03/17 02:00 95 28 117/42 (67) 98 12/03/17 01:27 94 16 30 12/03/17 01:00 113 16 135/69 (91) 97 12/03/17 00:00 Mechanical Ventilator 12/03/17 00:00 85 12/03/17 00:00 88 16 126/44 (71) 97 12/02/17 23:22 90 17 100 Mechanical Ventilator 30 12/02/17 23:14 94 16 98 Mechanical Ventilator 30 12/02/17 23:13 94 16 30 12/02/17 23:00 98.3 92 20 143/62 (89) 100 98.3 12/02/17 22:00 96 16 146/48 (80) 96 12/02/17 21:29 80 16 30 12/02/17 21:00 91 16 129/52 (77) 96 12/02/17 20:00 97.8 83 16 124/58 (80) 100 97.8 12/02/17 20:00 91 12/02/17 20:00 Mechanical Ventilator 12/02/17 19:23 98 16 100 Mechanical Ventilator 50 12/02/17 19:09 100 16 100 Mechanical Ventilator 50 12/02/17 19:08 100 16 50 12/02/17 18:00 98.4 99 16 111/61 (78) 96 98.4 18 17:38 100 16 50 18 17:21 25 128/52 Nasal Cannula 3.0 32 12/02/17 17:00 110 29 142/45 (77) 96 12/02/17 16:35 128/52 12/02/17 16:00 76 12/02/17 16:00 98.6 84 24 137/71 (93) 100 98.6 12/02/17 16:00 Nasal Cannula 3.0 12/02/17 15:55 87 25 100 Nasal Cannula 3.0 32 12/02/17 15:40 79 28 98 Nasal Cannula 3.0 32 12/02/17 15:00 78 24 121/48 (72) 98 12/02/17 14:10 99.0 77 16 134/39 (70) 99 99.0 12/02/17 12:00 87 12/02/17 12:00 Bi-pap 12/02/17 12:00 98.2 83 20 137/64 (88) 99 98.2 12/02/17 11:46 83 23 100 Nasal Cannula 3.0 32 12/02/17 11:41 Nasal Cannula 3.0 32 12/02/17 11:30 80 24 97 Nasal Cannula 3.0 32 Intake and Output 12/02/17 12/03/17 19:00 07:00 Intake Total 765 ml 250 ml Output Total 975 ml 1090 ml Balance -210 ml -840 ml Intake Free Water 160 ml IV Total 55 ml Tube Feeding 550 ml 250 ml Output Urine Total 975 ml 1090 ml Laboratory Tests 12/02/17 19:05: Arterial Blood pH 7.471H, Arterial Blood Partial Pressure CO2 46.1H, Arterial Blood Partial Pressure O2 159.7H, Arterial Blood HCO3 32.9H, Arterial Blood Oxygen Saturation 98.9H, Arterial Blood Base Excess 8.4, Mandeep Test Positive 12/03/17 03:30: Stool Occult Blood [Pending] 12/03/17 06:18: White Blood Count 10.6, Red Blood Count 3.23L, Hemoglobin 9.4L, Hematocrit 30.1L , Mean Corpuscular Volume 93, Mean Corpuscular Hemoglobin 29.2, Mean Corpuscular Hemoglobin Concent 31.3L, Red Cell Distribution Width 17.1H, Platelet Count 143L, Mean Platelet Volume 11.1H, Neutrophils (%) (Auto) , Lymphocytes (%) (Auto) , Monocytes (%) (Auto) , Eosinophils (%) (Auto) , Basophils (%) (Auto) , Neutrophils % (Manual) [Pending], Lymphocytes % (Manual) [Pending], Platelet Estimate [Pending], Platelet Morphology [Pending], Erythrocyte Sedimentation Rate [Pending], Reticulocyte Count [Pending], Prothrombin Time 11.2, Prothromb Time International Ratio 1.1, Activated Partial Thromboplast Time 25, Sodium Level 156H, Potassium Level 4.5, Chloride Level 118H, Carbon Dioxide Level 31, Anion Gap 7, Blood Urea Nitrogen 56H, Creatinine 1.0, Estimat Glomerular Filtration Rate , Glucose Level 141#H, Calcium Level 9.5, Iron Level 13L, Total Iron Binding Capacity 200L, Percent Iron Saturation 7L, Unsaturated Iron Binding 187, Total Bilirubin 0.5, Aspartate Amino Transf (AST/SGOT) 49H, Alanine Aminotransferase (ALT/SGPT) 55, Alkaline Phosphatase 121H, Lactate Dehydrogenase 327H, Pro-B-Type Natriuretic Peptide 18577C, Total Protein 7.0, Albumin 2.1L, Globulin 4.9, Albumin/Globulin Ratio 0.4L, Carcinoembryonic Antigen [Pending], Vitamin B12 Level 1268H, Folate 33.0 Height (Feet): 5 Height (Inches): 0.00 Weight (Pounds): 129 General Appearance: no apparent distress EENT: other - intubated on vent Cardiovascular: tachycardia Respiratory/Chest: decreased breath sounds Abdomen: distended Objective no change Rafael Hurt MD Dec 03, 2017 08:50
--- NOTE | 2017-12-03 08:52 | Diagnostic Imaging Report ---
Indication: Endotracheal tube adjustment Comparison: Earlier the same day A single view chest radiograph was obtained. Findings: Endotracheal tube was pulled up slightly and is now about 2 cm above the chandni in good position. No change otherwise. IMPRESSION: Endotracheal tube in good position
[2017-12-03] MEDS ORDERED: Cefepime HCl 2 GM in D5W 55 ML IVPB SCH (09:00)
[2017-12-03] MEDS: Acetaminophen 650mg/20.3ml ORAL PRN (09:02)
--- NOTE | 2017-12-03 09:06 | Diagnostic Imaging Report ---
Indication: Dyspnea Comparison: 12/02/2017 A single view chest radiograph was obtained. Findings: There is no change appreciated. Endotracheal tube is stable. Heart size is stable. Bilateral pleural effusion suspected. Basilar atelectasis suspected. IMPRESSION: No significant change from one day earlier
--- NOTE | 2017-12-03 10:45 | Pulmonolgy Critical Care Note ---
Critical Care - Asmt/Plan Problems: (1) Acute respiratory failure (2) Pulmonary edema (3) Pleural effusion, bilateral Assessment & Plan: s/p thoracentesis (4) Atrial fibrillation (5) Diabetes mellitus (6) Advanced dementia (7) History of CVA (cerebrovascular accident) (8) Feeding by G-tube Respiratory: monitor respiratory rate, adjust FIO2, CXR Cardiac: continue to monitor HR/BP Renal: F/U I&O, keep IV fluid Infectious Disease: check cultures Gastrointestinal: continue feedings/current rate, hold feedings Endocrine: monitor blood sugar, check HgA1C, continue sliding scale insulin Hematologic: monitor H/H, transfuse if hgb<8.5 Neurologic: PRN Ativan, keep patient comfortable Affect: PRN ativan Prophylaxis: Protonix Notes 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, 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 Discussed with: nurses, consultants, 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 - Objective Last 24 Hour Vital Signs Date Time Temp Pulse Resp B/P (MAP) Pulse Ox O2 Delivery O2 Flow Rate FiO2 12/03/17 09:02 101.2 12/03/17 09:00 76 21 118/68 (85) 97 12/03/17 08:00 71 12/03/17 08:00 30.0 12/03/17 08:00 71 21 112/74 (87) 97 12/03/17 07:26 97 16 100 Mechanical Ventilator 30 12/03/17 07:14 96 16 99 Mechanical Ventilator 30 12/03/17 07:14 96 16 30 12/03/17 07:00 116 28 134/77 (96) 98 12/03/17 06:10 102 28 135/64 (87) 98 12/03/17 06:00 116 28 118/64 (82) 98 12/03/17 05:18 88 16 30 12/03/17 05:00 102 28 135/64 (87) 98 12/03/17 04:00 Mechanical Ventilator 12/03/17 04:00 97 28 136/83 (100) 98 12/03/17 04:00 95 12/03/17 03:41 94 16 100 Mechanical Ventilator 30 12/03/17 03:31 117 16 98 Mechanical Ventilator 30 12/03/17 03:29 116 16 30 12/03/17 03:00 97.9 95 19 137/103 (114) 97 97.9 9/6/18 02:00 95 28 117/42 (67) 98 18 01:27 94 16 30 18 01:00 113 16 135/69 (91) 97 /18 00:00 Mechanical Ventilator 12/03/17 00:00 85 18 00:00 88 16 126/44 (71) 97 18 23:22 90 17 100 Mechanical Ventilator 30 12/02/17 23:14 94 16 98 Mechanical Ventilator 30 12/02/17 23:13 94 16 30 12/02/17 23:00 98.3 92 20 143/62 (89) 100 98.3 12/02/17 22:00 96 16 146/48 (80) 96 18 21:29 80 16 30 12/02/17 21:00 91 16 129/52 (77) 96 12/02/17 20:00 97.8 83 16 124/58 (80) 100 97.8 12/02/17 20:00 91 12/02/17 20:00 Mechanical Ventilator 12/02/17 19:23 98 16 100 Mechanical Ventilator 50 12/02/17 19:09 100 16 100 Mechanical Ventilator 50 18 19:08 100 16 50 12/02/18 18:00 98.4 99 16 111/61 (78) 96 98.4 18 17:38 100 16 50 18 17:21 25 128/52 Nasal Cannula 3.0 32 12/02/17 17:00 110 29 142/45 (77) 96 18 16:35 128/52 18 16:00 76 12/02/17 16:00 98.6 84 24 137/71 (93) 100 98.6 12/02/17 16:00 Nasal Cannula 3.0 18 15:55 87 25 100 Nasal Cannula 3.0 32 12/02/18 15:40 79 28 98 Nasal Cannula 3.0 32 18 15:00 78 24 121/48 (72) 98 12/02/18 14:10 99.0 77 16 134/39 (70) 99 99.0 12/02/17 12:00 87 12/02/17 12:00 Bi-pap 12/02/17 12:00 98.2 83 20 137/64 (88) 99 98.2 12/02/17 11:46 83 23 100 Nasal Cannula 3.0 32 12/02/17 11:41 Nasal Cannula 3.0 32 12/02/17 11:30 80 24 97 Nasal Cannula 3.0 32 Status: awake Condition: critical HEENT: atraumatic Neck: full ROM Lungs: clear Heart: HR/BP stable, HR/BP unstable Abdomen: soft, non-tender Extremities: no C/C/E Accucheck: 163 Critical Care - Subjective ROS Limited/Unobtainable: No Condition: critical EKG Rhythm: Sinus Rhythm FI02: 30 Vent Support Breath Rate: 16 Vent Support Mode: AC Vent Tidal Volume: 550 Sputum Amount: Moderate PEEP: 5.0 PIP: 31 I&O: Intake and Output 12/02/17 12/03/17 19:00 07:00 Intake Total 765 ml 250 ml Output Total 975 ml 1090 ml Balance -210 ml -840 ml Intake Free Water 160 ml IV Total 55 ml Tube Feeding 550 ml 250 ml Output Urine Total 975 ml 1090 ml CXR: et in good position, bilateral effusion ET-Tube: 7.5 ET Position: 19 Labs: Laboratory Tests Test 12/02/17 19:05 12/03/17 03:30 12/03/17 06:18 Arterial Blood pH 7.471 (7.350-7.450) Arterial Blood Partial Pressure CO2 46.1 mmHg (35.0-45.0) H Arterial Blood Partial Pressure O2 159.7 mmHg (75.0-100.0) H Arterial Blood HCO3 32.9 mmol/L (22.0-26.0) H Arterial Blood Oxygen Saturation 98.9 % (92.0-98.0) H Arterial Blood Base Excess 8.4 Mandeep Test Positive Stool Occult Blood Pending White Blood Count 10.6 K/UL (4.8-10.8) Red Blood Count 3.23 M/UL (4.20-5.40) L Hemoglobin 9.4 G/DL (12.0-16.0) L Hematocrit 30.1 % (37.0-47.0) L Mean Corpuscular Volume 93 FL (80-99) Mean Corpuscular Hemoglobin 29.2 PG (27.0-31.0) Mean Corpuscular Hemoglobin Concent 31.3 G/DL (32.0-36.0) L Red Cell Distribution Width 17.1 % (11.6-14.8) H Platelet Count 143 K/UL (150-450) L Mean Platelet Volume 11.1 FL (6.5-10.1) H Neutrophils (%) (Auto) % (45.0-75.0) Lymphocytes (%) (Auto) % (20.0-45.0) Monocytes (%) (Auto) % (1.0-10.0) Eosinophils (%) (Auto) % (0.0-3.0) Basophils (%) (Auto) % (0.0-2.0) Differential Total Cells Counted 100 Neutrophils % (Manual) 85 % (45-75) H Lymphocytes % (Manual) 8 % (20-45) L Monocytes % (Manual) 7 % (1-10) Eosinophils % (Manual) 0 % (0-3) Basophils % (Manual) 0 % (0-2) Band Neutrophils 0 % (0-8) Platelet Estimate Decreased L Platelet Morphology Normal Hypochromasia 1+ Anisocytosis 1+ Erythrocyte Sedimentation Rate 112 MM/HR (0-30) H Reticulocyte Count 0.3 % (0.0-2.0) Prothrombin Time 11.2 SEC (9.30-11.50) Prothromb Time International Ratio 1.1 (0.9-1.1) Activated Partial Thromboplast Time 25 SEC (23-33) Sodium Level 156 MMOL/L (136-145) H Potassium Level 4.5 MMOL/L (3.5-5.1) Chloride Level 118 MMOL/L (98-107) H Carbon Dioxide Level 31 MMOL/L (21-32) Anion Gap 7 mmol/L (5-15) Blood Urea Nitrogen 56 mg/dL (7-18) H Creatinine 1.0 MG/DL (0.55-1.30) Estimat Glomerular Filtration Rate mL/min (>60) Glucose Level 141 MG/DL (74-106) #H Calcium Level 9.5 MG/DL (8.5-10.1) Iron Level 13 ug/dL (50-175) L Total Iron Binding Capacity 200 ug/dL (250-450) L Percent Iron Saturation 7 % (15-50) L Unsaturated Iron Binding 187 ug/dL (112-346) Total Bilirubin 0.5 MG/DL (0.2-1.0) Aspartate Amino Transf (AST/SGOT) 49 U/L (15-37) H Alanine Aminotransferase (ALT/SGPT) 55 U/L (12-78) Alkaline Phosphatase 121 U/L (46-116) H Lactate Dehydrogenase 327 U/L (81-234) H Pro-B-Type Natriuretic Peptide 75539 pg/mL (0-125) H Total Protein 7.0 G/DL (6.4-8.2) Albumin 2.1 G/DL (3.4-5.0) L Globulin 4.9 g/dL Albumin/Globulin Ratio 0.4 (1.0-2.7) L Carcinoembryonic Antigen Pending Vitamin B12 Level 1268 PG/ML (193-986) H Folate 33.0 NG/ML (8.6-58.9) Henry Gomez MD Dec 03, 2017 10:45
[2017-12-03] MEDS ORDERED: Iron Sucrose 200 MG in NS 110 ML IV ONE (11:00)
[2017-12-03] MEDS ORDERED: Propofol 200mg/20ml IV ONE (12:34)
[2017-12-03] MEDS ORDERED: fentaNYL 100 mcg/2 mL IV ONE (12:36)
[2017-12-03] MEDS ORDERED: Zemuron 50mg/5ml Inj IV ONE (12:37)
--- NOTE | 2017-12-03 12:52 | Anethesia Preoperative Eval ---
Anesthesia Pre-op PMH/ROS General Date of Evaluation: Dec 03, 2017 Time of Evaluation: 12:42 Anesthesiologist: Tali Troncoso ASA Score: ASA 3 Mallampati Score Class I : Soft palate, uvula, fauces, pillars visible Class II: Soft palate, uvula, fauces visible Class III: Soft palate, base of uvula visible Class IV: Only hard plate visible Mallampati Classification: Class III Surgeon: Mason Diagnosis: Respiratory failure Surgical Procedure: Tracheostomy Anesthesia History: none Family History: no anesthesia problems Allergies: Coded Allergies: ATORVASTATIN (Verified Allergy, Unknown, 11/24/17) CLONIDINE (Verified Allergy, Unknown, 11/24/17) LABETALOL (Verified Allergy, Unknown, 11/24/17) NIFEDIPINE (Verified Allergy, Unknown, 11/24/17) ROSUVASTATIN (Verified Allergy, Unknown, 11/24/17) Uncoded Allergies: IVELISSE INHIBITOR (Allergy, Unknown, 11/24/17) Medications: see eMAR Past Medical History Cardiovascular: Reports: HTN, arrhythmia, other - CHF; PHTN; Denies: CAD, [place], valve dz Pulmonary: Reports: other - Respirtory faiure; Denies: asthma, COPD, MIRI Gastrointestinal/Genitourinary: Denies: GERD, CRI, ESRD, other Neurologic/Psychiatric: Reports: dementia, CVA, other - nonverbal; Denies: depression/anxiety, TIA Endocrine: Reports: DM; Denies: hypothyroidism, steroids, other HEENT: Denies: cataract (L), cataract (R), glaucoma, UPPER [place] (L), UPPER [place]IT (R), other Musculoskeletal/Integumentary: Reports: OA; Denies: RA, DJD, DDD, edema, other PMH Narrative: as above PSxH Narrative: PEG Anesthesia Pre-op Phys. Exam Physician Exam Last Vital Signs Date Time Temp Pulse Resp B/P (MAP) Pulse Ox O2 Delivery O2 Flow Rate FiO2 12/03/17 11:30 108 16 100 Mechanical Ventilator 30 12/03/17 09:32 101.2 12/03/17 09:00 118/68 (85) 12/03/17 08:00 30.0 Constitutional: other - contracted, cachexic Neurologic: other - encephalopathic Cardiovascular: other - atrial fibrillation Respiratory: CTA, other - (B) rales, ETT in situ 7.0 cuffed Gastrointestinal: other - PEG Airway Exam Mallampati Score: Class III MO: full Neck: no limitation TMD: > 3 FB ROM: full Teeth: missing, broken Dentures: no upper, no lower Anesthesia Pre-op A/P Labs Hematology Test 12/03/17 06:18 White Blood Count 10.6 K/UL (4.8-10.8) Red Blood Count 3.23 M/UL (4.20-5.40) L Hemoglobin 9.4 G/DL (12.0-16.0) L Hematocrit 30.1 % (37.0-47.0) L Mean Corpuscular Volume 93 FL (80-99) Mean Corpuscular Hemoglobin 29.2 PG (27.0-31.0) Mean Corpuscular Hemoglobin Concent 31.3 G/DL (32.0-36.0) L Red Cell Distribution Width 17.1 % (11.6-14.8) H Platelet Count 143 K/UL (150-450) L Mean Platelet Volume 11.1 FL (6.5-10.1) H Neutrophils (%) (Auto) % (45.0-75.0) Lymphocytes (%) (Auto) % (20.0-45.0) Monocytes (%) (Auto) % (1.0-10.0) Eosinophils (%) (Auto) % (0.0-3.0) Basophils (%) (Auto) % (0.0-2.0) Differential Total Cells Counted 100 Neutrophils % (Manual) 85 % (45-75) H Lymphocytes % (Manual) 8 % (20-45) L Monocytes % (Manual) 7 % (1-10) Eosinophils % (Manual) 0 % (0-3) Basophils % (Manual) 0 % (0-2) Band Neutrophils 0 % (0-8) Other Cell Type Pathologist comment Platelet Estimate Decreased L Platelet Morphology Normal Hypochromasia 1+ Anisocytosis 1+ Erythrocyte Sedimentation Rate 112 MM/HR (0-30) H Reticulocyte Count 0.3 % (0.0-2.0) Coagulation Test 12/03/17 06:18 Prothrombin Time 11.2 SEC (9.30-11.50) Prothromb Time International Ratio 1.1 (0.9-1.1) Activated Partial Thromboplast Time 25 SEC (23-33) Chemistry Test 12/03/17 06:18 Sodium Level 156 MMOL/L (136-145) H Potassium Level 4.5 MMOL/L (3.5-5.1) Chloride Level 118 MMOL/L (98-107) H Carbon Dioxide Level 31 MMOL/L (21-32) Anion Gap 7 mmol/L (5-15) Blood Urea Nitrogen 56 mg/dL (7-18) H Creatinine 1.0 MG/DL (0.55-1.30) Estimat Glomerular Filtration Rate mL/min (>60) Glucose Level 141 MG/DL (74-106) #H Calcium Level 9.5 MG/DL (8.5-10.1) Iron Level 13 ug/dL (50-175) L Total Iron Binding Capacity 200 ug/dL (250-450) L Percent Iron Saturation 7 % (15-50) L Unsaturated Iron Binding 187 ug/dL (112-346) Total Bilirubin 0.5 MG/DL (0.2-1.0) Aspartate Amino Transf (AST/SGOT) 49 U/L (15-37) H Alanine Aminotransferase (ALT/SGPT) 55 U/L (12-78) Alkaline Phosphatase 121 U/L (46-116) H Lactate Dehydrogenase 327 U/L (81-234) H Pro-B-Type Natriuretic Peptide 33702 pg/mL (0-125) H Total Protein 7.0 G/DL (6.4-8.2) Albumin 2.1 G/DL (3.4-5.0) L Globulin 4.9 g/dL Albumin/Globulin Ratio 0.4 (1.0-2.7) L Carcinoembryonic Antigen Pending Vitamin B12 Level 1268 PG/ML (193-986) H Folate 33.0 NG/ML (8.6-58.9) Studies Pre-op Studies: EKG, CXR, echo Risk Assessment & Plan Assessment: critically ill, respiratory failure patient in need of trach, currently mechanically ventilated by ETT in situ Plan: GA Status Change Before Surgery: No Pre-Antibiotics Given Within 1 Hr of Incision: Tali Simental CRNA Dec 03, 2017 12:52
[2017-12-03] MEDS ORDERED: Lidocaine 1% 10mg/ml/Epi 0.005mg/ml 30ml vial INJ ONE (12:53)
[2017-12-03] MEDS ORDERED: Sterile Water Irrig 1000ml IRRIG ONE (13:00)
[2017-12-03] MEDS ORDERED: LR 1000ml ONE (13:00)
[2017-12-03] MEDS ORDERED: Lidocaine 1% MPF 10mg/ml 5ml ONE (13:00)
[2017-12-03] MEDS ORDERED: NS Irrig 1000ml ONE (13:00)
--- NOTE | 2017-12-03 13:52 | Brief Operative Note ---
Immediate Post Operative Note Operative Note Pre-op Diagnosis: respiratory insufficiency requiring prolonged ventilatory support Procedure: Tracheostomy Post-op Diagnosis: same as pre-op Surgeon: ruthy Anesthesiologist: Radha JAMES Anesthesia: general, local Specimen: none Complications: none Condition: stable Fluids: see records Estimated Blood Loss: minimal Drains: none Implant(s) used?: No Luke Cuevas Dec 03, 2017 13:52
--- NOTE | 2017-12-03 14:12 | Immediate Post-Op Evaluation ---
Immediate Post-Op Evalulation Immediate Post-Op Evalulation Procedure: Tracheostomy Date of Evaluation: Dec 03, 2017 Time of Evaluation: 13:53 IV Fluids: LR 50 ml Estimated Blood Loss: minimal Blood Pressure Systolic: 103 Blood Pressure Diastolic: 47 Pulse Rate: 108 Respiratory Rate: 16 O2 Sat by Pulse Oximetry: 96 Temperature (Fahrenheit): 98.4 Pain Score (1-10): 0 Nausea: No Vomiting: No Complications none Patient Status: reacts, patent, ventilated, none - mechanical vent via trach Hydration Status: adequate Given Within 1 Hr of Incision: Tali Simental CRNA Dec 03, 2017 14:12
[2017-12-03] MEDS: Nitroglycerin Patch 0.4mg TDERMAL SCH (15:29)
--- NOTE | 2017-12-03 20:33 | Infectious Diseases Prog Note ---
Assessment/Plan Problems: (1) Aspiration pneumonia Assessment & Plan: with B/L basal infiltrates, due to pseudomonas pneumonia , continue cefepime to finish total of three weeks course of treatment . monitor CXR . aspiration precaution , keep HOB > 30 degree . EOT 12/18/17 (2) Pleural effusion, bilateral Assessment & Plan: S/P thoracentesis , exudative most likely due to pneumonia, adenosine deaminase on pleural fluids, fungal and cytology are pending . bacterial culture is negative so far (3) Acute respiratory failure Assessment & Plan: due to the above, S/P tracheostomy , monitor CXR , continue local trach care , pulmonary is following (4) Sepsis Assessment & Plan: due to the above, with negative blood culture results so far , on cefepime to treat her pneumonia and UTI for total of three weeks. EOT 12/18/17 (5) Pressure ulcer, heel, right, unstageable Assessment & Plan: with an eschar, continue off loading and local wound care as per hospital protocol (6) Fever Assessment & Plan: suspect post OP, due to the above, continue tylenol and monitor clinically Subjective ROS Limited/Unobtainable: Yes Allergies: Coded Allergies: ATORVASTATIN (Verified Allergy, Unknown, 11/24/17) CLONIDINE (Verified Allergy, Unknown, 11/24/17) LABETALOL (Verified Allergy, Unknown, 11/24/17) NIFEDIPINE (Verified Allergy, Unknown, 11/24/17) ROSUVASTATIN (Verified Allergy, Unknown, 11/24/17) Uncoded Allergies: IVELISSE INHIBITOR (Allergy, Unknown, 11/24/17) Subjective she had tracheostomy today , due to persistent respiratory distress and hypoxemia , she was comfortable, not responsive to verbal commands , no fever today , on nasal canula sating 94%, still has diarrhea Objective Vital Signs Last 24 Hour Vital Signs Date Time Temp Pulse Resp B/P (MAP) Pulse Ox O2 Delivery O2 Flow Rate FiO2 12/03/17 19:05 95 16 100 Mechanical Ventilator 30 12/03/17 19:00 98.7 100 20 102/42 (62) 99 98.7 12/03/17 18:55 92 16 100 Mechanical Ventilator 30 12/03/17 18:54 92 16 30 12/03/17 18:00 98.7 99 20 150/52 (84) 99 98.7 12/03/17 17:12 95 16 30 9/6/18 17:00 96 17 124/57 (79) 98 918 16:00 30.0 18 16:00 97.6 104 16 124/44 (70) 99 97.6 12/03/17 16:00 104 /09/14 16:00 Mechanical Ventilator 12/03/17 15:45 99 16 100 Mechanical Ventilator 30 12/03/17 15:30 100 16 30 18 15:30 100 16 98 Mechanical Ventilator 30 12/03/17 15:29 127/64 12/03/17 15:00 101 21 123/73 (90) 98 12/03/17 14:12 209.1 108 16 96 12/03/17 14:00 107 18 90/48 (62) 96 12/03/17 14:00 105 21 147/51 (83) 98 12/03/17 13:00 98.4 105 19 103/47 (65) 97 98.4 12/03/17 12:58 113 20 30 12/03/17 12:00 90 12/03/17 12:00 99.3 88 16 114/50 (71) 97 99.3 12/03/17 12:00 30.0 12/03/17 12:00 Mechanical Ventilator 12/03/17 11:30 108 16 100 Mechanical Ventilator 30 12/03/17 11:30 106 16 30 12/03/17 11:30 116 16 97 Mechanical Ventilator 30 12/03/17 11:00 99 19 119/50 (73) 97 18 10:00 101.2 92 21 131/57 (81) 97 101.2 12/03/17 09:32 101.2 12/03/17 09:02 101.2 12/03/17 09:00 76 21 118/68 (85) 97 12/03/17 08:00 71 12/03/17 08:00 Mechanical Ventilator 12/03/17 08:00 30.0 12/03/17 08:00 71 21 112/74 (87) 97 12/03/17 07:26 97 16 100 Mechanical Ventilator 30 12/03/17 07:14 96 16 99 Mechanical Ventilator 30 12/03/17 07:14 96 16 30 12/03/17 07:00 116 28 134/77 (96) 98 12/03/17 06:10 102 28 135/64 (87) 98 12/03/17 06:00 116 28 118/64 (82) 98 12/03/17 05:18 88 16 30 12/03/17 05:00 102 28 135/64 (87) 98 12/03/17 04:00 Mechanical Ventilator 12/03/17 04:00 97 28 136/83 (100) 98 12/03/17 04:00 95 12/03/17 03:41 94 16 100 Mechanical Ventilator 30 12/03/17 03:31 117 16 98 Mechanical Ventilator 30 12/03/17 03:29 116 16 30 12/03/17 03:00 97.9 95 19 137/103 (114) 97 97.9 12/03/17 02:00 95 28 117/42 (67) 98 12/03/17 01:27 94 16 30 12/03/17 01:00 113 16 135/69 (91) 97 12/03/17 00:00 Mechanical Ventilator 12/03/17 00:00 85 12/03/17 00:00 88 16 126/44 (71) 97 12/02/17 23:22 90 17 100 Mechanical Ventilator 30 12/02/17 23:14 94 16 98 Mechanical Ventilator 30 12/02/17 23:13 94 16 30 12/02/17 23:00 98.3 92 20 143/62 (89) 100 98.3 12/02/17 22:00 96 16 146/48 (80) 96 12/02/17 21:29 80 16 30 12/02/17 21:00 91 16 129/52 (77) 96 Height (Feet): 5 Height (Inches): 0.00 Weight (Pounds): 129 General Appearance: WD/WN, no acute distress HEENT: normocephalic, atraumatic, anicteric, mucous membranes moist, supple, no JVD, status post trach Respiratory/Chest: chest wall non-tender, normal breath sounds, no respiratory distress, no accessory muscle use, decreased breath sounds, crackles/rales Cardiovascular: normal peripheral pulses, regular rhythm, no gallop/murmur, no JVD Abdomen: normal bowel sounds, soft, non tender, no organomegaly, non distended , no mass, no scars Genitourinary: normal external genitalia Extremities: no cyanosis, no clubbing Skin: no rash, no lesions, ulcers - right heel pressure wound Neurologic/Psychiatric: alert, unresponsiveness Lymphatic: no neck adenopathy, no groin adenopathy Musculoskeletal: normal muscle bulk Laboratory Tests Test 12/03/17 03:30 12/03/17 06:18 Stool Occult Blood Positive (NEGATIVE) White Blood Count 10.6 K/UL (4.8-10.8) Red Blood Count 3.23 M/UL (4.20-5.40) L Hemoglobin 9.4 G/DL (12.0-16.0) L Hematocrit 30.1 % (37.0-47.0) L Mean Corpuscular Volume 93 FL (80-99) Mean Corpuscular Hemoglobin 29.2 PG (27.0-31.0) Mean Corpuscular Hemoglobin Concent 31.3 G/DL (32.0-36.0) L Red Cell Distribution Width 17.1 % (11.6-14.8) H Platelet Count 143 K/UL (150-450) L Mean Platelet Volume 11.1 FL (6.5-10.1) H Neutrophils (%) (Auto) % (45.0-75.0) Lymphocytes (%) (Auto) % (20.0-45.0) Monocytes (%) (Auto) % (1.0-10.0) Eosinophils (%) (Auto) % (0.0-3.0) Basophils (%) (Auto) % (0.0-2.0) Differential Total Cells Counted 100 Neutrophils % (Manual) 85 % (45-75) H Lymphocytes % (Manual) 8 % (20-45) L Monocytes % (Manual) 7 % (1-10) Eosinophils % (Manual) 0 % (0-3) Basophils % (Manual) 0 % (0-2) Band Neutrophils 0 % (0-8) Other Cell Type Pathologist comment Platelet Estimate Decreased L Platelet Morphology Normal Hypochromasia 1+ Anisocytosis 1+ Erythrocyte Sedimentation Rate 112 MM/HR (0-30) H Reticulocyte Count 0.3 % (0.0-2.0) Prothrombin Time 11.2 SEC (9.30-11.50) Prothromb Time International Ratio 1.1 (0.9-1.1) Activated Partial Thromboplast Time 25 SEC (23-33) Sodium Level 156 MMOL/L (136-145) H Potassium Level 4.5 MMOL/L (3.5-5.1) Chloride Level 118 MMOL/L (98-107) H Carbon Dioxide Level 31 MMOL/L (21-32) Anion Gap 7 mmol/L (5-15) Blood Urea Nitrogen 56 mg/dL (7-18) H Creatinine 1.0 MG/DL (0.55-1.30) Estimat Glomerular Filtration Rate mL/min (>60) Glucose Level 141 MG/DL (74-106) #H Calcium Level 9.5 MG/DL (8.5-10.1) Iron Level 13 ug/dL (50-175) L Total Iron Binding Capacity 200 ug/dL (250-450) L Percent Iron Saturation 7 % (15-50) L Unsaturated Iron Binding 187 ug/dL (112-346) Total Bilirubin 0.5 MG/DL (0.2-1.0) Aspartate Amino Transf (AST/SGOT) 49 U/L (15-37) H Alanine Aminotransferase (ALT/SGPT) 55 U/L (12-78) Alkaline Phosphatase 121 U/L (46-116) H Lactate Dehydrogenase 327 U/L (81-234) H Pro-B-Type Natriuretic Peptide 23477 pg/mL (0-125) H Total Protein 7.0 G/DL (6.4-8.2) Albumin 2.1 G/DL (3.4-5.0) L Globulin 4.9 g/dL Albumin/Globulin Ratio 0.4 (1.0-2.7) L Carcinoembryonic Antigen Pending Vitamin B12 Level 1268 PG/ML (193-986) H Folate 33.0 NG/ML (8.6-58.9) Current Medications Medications (Trade) Dose Ordered Sig/Cirilo Route PRN Reason Start Time Stop Time Status Last Admin Dose Admin Acetaminophen (Tylenol) 650 mg Q6H PRN ORAL Fever/Headache/Mild Pain 12/02/17 13:47 12/24/17 13:46 12/03/17 09:02 Albuterol Sulfate (Proventil) 2.5 mg Q6H PRN HHN Shortness of Breath 12/02/17 18:15 12/07/17 18:14 Albuterol/ Ipratropium (Albuterol/ Ipratropium) 3 ml Q6H PRN HHN Shortness of Breath 12/02/17 18:15 12/07/17 18:14 Cefepime HCl 2 gm/ Dextrose 55 ml @ 110 mls/hr Q12H IVPB 12/03/17 09:00 12/10/17 08:59 12/03/17 08:34 Dextrose 1,000 ml @ 100 mls/hr Q10H IV 12/03/17 11:00 01/02/18 10:59 12/03/17 12:52 Dextrose (Dextrose 50%) 25 ml PRN IV Hypoglycemia 12/02/17 13:45 12/24/17 13:59 Dextrose (Dextrose 50%) 50 ml PRN IV hypoglycemia 12/02/17 13:45 12/24/17 13:59 Famotidine (Pepcid) 20 mg BID GT 12/02/17 18:00 12/24/17 17:59 12/03/17 17:42 Hydralazine HCl (Apresoline) 10 mg Q6H PRN GT SBP above 140mmHg 12/02/17 13:48 12/30/17 13:47 Hydromorphone HCl (Dilaudid) 1 mg Q6H PRN IVP Severe Pain (Pain Scale 7-10) 12/02/17 13:50 12/04/17 13:49 Insulin Aspart (NovoLOG) EVERY 6 HOURS SUBQ 12/02/17 18:00 12/25/17 17:59 12/03/17 17:49 Ipratropium [place] (Atrovent) 0.5 mcg Q6H PRN HHN Shortness of Breath 12/02/17 18:15 12/07/17 18:14 Levalbuterol HCl (Xopenex) 1.25 mg Q4HRT HHN 12/02/17 15:00 12/05/17 10:59 12/03/17 18:56 Lorazepam (Ativan 2mg/ml 1ml) 0.5 mg Q6H PRN IV agitation 12/02/17 14:45 12/07/17 08:40 Metoclopramide HCl (Reglan) 5 mg EVERY 8 HOURS GT 12/02/17 14:00 12/25/17 11:59 12/03/17 15:32 Nitroglycerin (Ntg) 1 patch Q24H TDERMAL 12/02/17 14:00 12/24/17 13:59 12/03/17 15:29 Cole Rasmussen M.D. Dec 03, 2017 20:33
--- NOTE | 2017-12-03 22:30 | Operative Note - Dictated ---
DATE OF OPERATION: 12/03/2017 PREOPERATIVE DIAGNOSIS: Respiratory insufficiency requiring intubation and prolonged ventilatory support. PREOPERATIVE DIAGNOSIS: Respiratory insufficiency requiring intubation and prolonged ventilatory support. OPERATION PERFORMED: Tracheostomy. ATTENDING SURGEON: Luke Cuevas M.D. FLOW MACHINE OPERATOR: None. ANESTHESIOLOGIST: Tali JAMES. ANESTHESIA: General. ESTIMATED BLOOD LOSS: Minimal. IV FLUIDS: Please see anesthesia records. COMPLICATIONS: None. SPECIMENS: None. WOUND CLASSIFICATION: Class I. COUNTS: Sponge and needle count correct x2. ANTIBIOTICS: The patient on scheduled antibiotics for acute active inflammatory process. INDICATIONS FOR PROCEDURE: This is an 87-year-old female with multiple medical comorbidities who had respiratory insufficiency on multiple occasions and was recently admitted again for hypoxic respiratory insufficiency. The patient has not been able to tolerate BiPAP well. The patient unfortunately requires ventilatory support and was recently intubated and placed on ventilatory support. In evaluating the patient, she is noted to likely require vent support for a prolonged period of time. Therefore, tracheostomy was indicated and recommended. Risks, benefits, and alternatives were discussed with conservative who expressed understanding, consented to surgery. OPERATIVE NOTE: The patient was taken to the operating room and placed on the bed in the supine position with the neck being protected. A shoulder roll was placed. The neck and anterior chest were then prepped and draped in standard surgical fashion. Preoperative time-out was taken identifying the patient, procedure, operative staff, and surgical staff. The patient was already on preoperative antibiotics and given as scheduled. The patient had a Rosado catheter placed prior to entering the operating room. General anesthesia was induced and the patient had already been intubated and is on a ventilator support. The thyroid and cricoid cartilage were palpated in the skin and subcutaneous tissue and this area was anesthetized 1% lidocaine with epinephrine. This incision was made approximately 1 to 2 fingerbreadths above the sternal notch. Using blunt dissection and electrocautery, we dissected down to the cricoid membrane. Electrocautery was used where necessary to obtain hemostasis. Strap muscles were retracted laterally and the thyroid isthmus was retracted superiorly. The first, second and third tracheal rings were clearly visualized and cleared off. A Constantine flap was made and with the assistance of the anesthesiologist, the endotracheal tube was evaluated and slowly withdrawn to the level of the cords. During this time, a tracheostomy hook was placed and retracted superiorly holding superiorly. A 8-Hungarian Shiley tracheostomy tube was then inserted and advanced through the Constantine flap without complication. The ET tube was removed and the balloon of the tracheostomy was insufflated and the patient was placed onto the ventilator through the tracheostomy and good tidal volumes and end-tidal CO2 were identified. At this time, retractors were removed and good hemostasis was noted. A two-layer closure was performed beginning with a reapproximation of the platysma using 3-0 Vicryl sutures followed by closure of the skin incision using 3-0 Monocryl interrupted sutures. Neck collar and dressings were applied. The patient tolerated the procedure well and was taken directly to the intensive care unit in stable condition. Luke Cuevas M.D. DR: TRINA JOB#: [id number] CC: MARTIN
[2017-12-04] VITALS (15 sets, daily range): BP systolic 104–164; BP diastolic 49–91
[2017-12-04] MEDS: NovoLOG Insulin Flexpen SUBQ SCH ×3 (00:53→17:43)
[2017-12-04] MEDS: Levalbuterol Inh UD 1.25mg/0.5ml HHN SCH ×6 (03:21→23:33)
[2017-12-04] MEDS: Acetaminophen 650mg/20.3ml ORAL PRN ×2 (04:56→20:17)
[2017-12-04] MEDS: Metoclopramide 10mg/10ml Liq GT SCH ×3 (05:58→22:00)
[2017-12-04 07:36] LABS: BASOPHILS % (AUTO) 0.6 % (0.0-2.0); EOSINOPHILS % (AUTO) 2.9 % (0.0-3.0); HEMATOCRIT 29.7 % (37.0-47.0); HEMOGLOBIN 9.1 G/DL (12.0-16.0); LYMPHOCYTES % (AUTO) 13.2 % (20.0-45.0); MEAN CORPUSCULAR VOLUME 93 FL (80-99); MONOCYTES % (AUTO) 5.1 % (1.0-10.0); NEUTROPHILS % (AUTO) 78.1 % (45.0-75.0); PLATELET COUNT 148 K/UL (150-450); RED BLOOD COUNT 3.18 M/UL (4.20-5.40); RED CELL DISTRIBUTION WIDTH 16.7 % (11.6-14.8); WHITE BLOOD COUNT 10.8 K/UL (4.8-10.8)
[2017-12-04 08:10] LABS: ALANINE AMINOTRANSFERASE 45 U/L (12-78); ALBUMIN 1.9 G/DL (3.4-5.0); ALBUMIN/GLOBULIN RATIO 0.4 (1.0-2.7); ALKALINE PHOSPHATASE 104 U/L (46-116); ANION GAP 10 mmol/L (5-15); ASPARTATE AMINO TRANSFERASE 31 U/L (15-37); BILIRUBIN,TOTAL 0.6 MG/DL (0.2-1.0); BLOOD UREA NITROGEN 44 mg/dL (7-18); CALCIUM 8.9 MG/DL (8.5-10.1); CARBON DIOXIDE 28 MMOL/L (21-32); CHLORIDE 114 MMOL/L (98-107); PHOSPHORUS 2.5 MG/DL (2.5-4.9); POTASSIUM 3.5 MMOL/L (3.5-5.1); SODIUM 152 MMOL/L (136-145)
[2017-12-04] MEDS: Cefepime HCl 2 GM in D5W 55 ML IVPB SCH ×2 (09:00→20:17)
--- NOTE | 2017-12-04 09:17 | Pulmonolgy Critical Care Note ---
Critical Care - Asmt/Plan Problems: (1) Acute respiratory failure Assessment & Plan: s/p trach (2) Pulmonary edema (3) Pleural effusion, bilateral Assessment & Plan: s/p thoracentesis (4) Atrial fibrillation (5) Diabetes mellitus (6) Advanced dementia (7) History of CVA (cerebrovascular accident) (8) Feeding by G-tube Respiratory: monitor respiratory rate, adjust FIO2, CXR Cardiac: continue to monitor HR/BP Renal: F/U I&O, check electrolytes Infectious Disease: check cultures Gastrointestinal: continue feedings/current rate Endocrine: monitor blood sugar, check TSH, check HgA1C Hematologic: transfuse if hgb<8.5 Neurologic: PRN Ativan, PRN Morphine, keep patient comfortable Affect: PRN ativan Time Spent (Minutes): 40 Notes Reviewed: secondary teacher Discussed with: nurses, consultants, rehabilitation caseworkermarketing production manager - Objective Last 24 Hour Vital Signs Date Time Temp Pulse Resp B/P (MAP) Pulse Ox O2 Delivery O2 Flow Rate FiO2 12/04/17 08:48 93 24 30 12/04/17 07:00 86 16 114/91 (99) 98 12/04/17 07:00 82 19 100 Mechanical Ventilator 30 12/04/17 06:57 79 25 30 12/04/17 06:53 75 22 98 Mechanical Ventilator 30 12/04/17 06:00 72 16 134/58 (83) 98 12/04/17 05:26 99.6 12/04/17 05:22 102 16 30 12/04/17 05:00 101 16 104/49 (67) 98 12/04/17 04:56 100.0 12/04/17 04:00 99.6 94 19 139/50 (79) 98 99.6 12/04/17 04:00 30.0 12/04/17 04:00 Mechanical Ventilator 12/04/17 04:00 87 12/04/17 03:30 93 17 99 Mechanical Ventilator 30 12/04/17 03:20 78 19 30 12/04/17 03:20 78 19 98 Mechanical Ventilator 30 12/04/17 03:00 94 19 139/50 (79) 98 12/04/17 02:00 97 20 141/75 (97) 98 12/04/17 01:00 102 20 148/84 (105) 98 12/04/17 00:57 107 16 30 9/7/18 00:00 30.0 918 00:00 Mechanical Ventilator 18 00:00 99.8 105 19 135/53 (80) 99 99.8 18 23:00 92 19 155/78 (103) 96 18 22:59 110 16 100 Mechanical Ventilator 30 12/03/17 22:49 82 16 99 Mechanical Ventilator 30 12/03/17 22:49 82 16 30 12/03/17 22:00 92 27 135/56 (82) 98 18 21:00 90 27 134/88 (103) 98 18 20:45 101 18 30 12/03/17 20:00 90 12/03/17 20:00 98.8 90 18 135/58 (83) 98 98.8 12/03/17 20:00 30.0 12/03/17 20:00 Mechanical Ventilator 12/03/17 19:05 95 16 100 Mechanical Ventilator 30 12/03/17 19:00 98.7 100 20 102/42 (62) 99 98.7 12/03/17 18:55 92 16 100 Mechanical Ventilator 30 12/03/17 18:54 92 16 30 18 18:00 98.7 99 20 150/52 (84) 99 98.7 12/03/17 17:12 95 16 30 12/03/17 17:00 96 17 124/57 (79) 98 12/03/17 16:00 30.0 12/03/17 16:00 97.6 104 16 124/44 (70) 99 97.6 12/03/17 16:00 104 12/03/17 16:00 Mechanical Ventilator 12/03/17 15:45 99 16 100 Mechanical Ventilator 30 18 15:30 100 16 30 18 15:30 100 16 98 Mechanical Ventilator 30 18 15:29 127/64 18 15:00 101 21 123/73 (90) 98 18 14:12 209.1 108 16 96 18 14:00 107 18 90/48 (62) 96 18 14:00 105 21 147/51 (83) 98 18 13:00 98.4 105 19 103/47 (65) 97 98.4 12/03/17 12:58 113 20 30 12/03/17 12:00 90 12/03/17 12:00 99.3 88 16 114/50 (71) 97 99.3 12/03/17 12:00 30.0 12/03/17 12:00 Mechanical Ventilator 12/03/17 11:30 108 16 100 Mechanical Ventilator 30 12/03/17 11:30 106 16 30 12/03/17 11:30 116 16 97 Mechanical Ventilator 30 12/03/17 11:00 99 19 119/50 (73) 97 12/03/17 10:00 101.2 92 21 131/57 (81) 97 101.2 Status: awake Condition: grave Neck: full ROM Lungs: clear Heart: HR/BP stable Abdomen: soft, active bowel sounds Extremities: no C/C/E, edema Accucheck: 198 Critical Care - Subjective ROS Limited/Unobtainable: Yes Condition: critical EKG Rhythm: Sinus Rhythm FI02: 30 Vent Support Breath Rate: 16 Vent Support Mode: AC Vent Tidal Volume: 500 Sputum Amount: Moderate PEEP: 5.0 PIP: 27 Tube Feeding Amount: 10 I&O: Intake and Output 12/03/17 12/04/17 19:00 07:00 Intake Total 10 ml 1055 ml Output Total 755 ml 780 ml Balance -745 ml 275 ml IV Total 1055 ml Tube Feeding 10 ml Output Urine Total 755 ml 580 ml Stool Total 200 ml ET-Tube: 8.0 ET Position: 20 Labs: Laboratory Tests Test 12/04/17 05:51 12/04/17 06:58 White Blood Count 10.8 K/UL (4.8-10.8) Red Blood Count 3.18 M/UL (4.20-5.40) L Hemoglobin 9.1 G/DL (12.0-16.0) L Hematocrit 29.7 % (37.0-47.0) L Mean Corpuscular Volume 93 FL (80-99) Mean Corpuscular Hemoglobin 28.5 PG (27.0-31.0) Mean Corpuscular Hemoglobin Concent 30.6 G/DL (32.0-36.0) L Red Cell Distribution Width 16.7 % (11.6-14.8) H Platelet Count 148 K/UL (150-450) L Mean Platelet Volume 10.0 FL (6.5-10.1) Neutrophils (%) (Auto) 78.1 % (45.0-75.0) H Lymphocytes (%) (Auto) 13.2 % (20.0-45.0) L Monocytes (%) (Auto) 5.1 % (1.0-10.0) Eosinophils (%) (Auto) 2.9 % (0.0-3.0) Basophils (%) (Auto) 0.6 % (0.0-2.0) Sodium Level 152 MMOL/L (136-145) H Potassium Level 3.5 MMOL/L (3.5-5.1) Chloride Level 114 MMOL/L (98-107) H Carbon Dioxide Level 28 MMOL/L (21-32) Anion Gap 10 mmol/L (5-15) Blood Urea Nitrogen 44 mg/dL (7-18) H Creatinine 1.0 MG/DL (0.55-1.30) Estimat Glomerular Filtration Rate mL/min (>60) Glucose Level 198 MG/DL (74-106) H Uric Acid 7.5 MG/DL (2.6-7.2) H Calcium Level 8.9 MG/DL (8.5-10.1) Phosphorus Level 2.5 MG/DL (2.5-4.9) Magnesium Level 3.0 MG/DL (1.8-2.4) H Total Bilirubin 0.6 MG/DL (0.2-1.0) Aspartate Amino Transf (AST/SGOT) 31 U/L (15-37) Alanine Aminotransferase (ALT/SGPT) 45 U/L (12-78) Alkaline Phosphatase 104 U/L (46-116) Troponin I 0.040 ng/mL (0.000-0.056) Total Protein 6.7 G/DL (6.4-8.2) Albumin 1.9 G/DL (3.4-5.0) L Globulin 4.8 g/dL Albumin/Globulin Ratio 0.4 (1.0-2.7) L Arterial Blood pH 7.500 (7.350-7.450) Arterial Blood Partial Pressure CO2 32.5 mmHg (35.0-45.0) L Arterial Blood Partial Pressure O2 80.7 mmHg (75.0-100.0) Arterial Blood HCO3 25.1 mmol/L (22.0-26.0) Arterial Blood Oxygen Saturation 95.7 % (92.0-98.0) Arterial Blood Base Excess 2.2 Mandeep Test Positive Henry Gomez MD Dec 04, 2017 09:17
--- NOTE | 2017-12-04 10:44 | Diagnostic Imaging Report ---
Indication: Dyspnea Comparison: 12/03/2017 A single view chest radiograph was obtained. Findings: Interstitial edema suspected mild in degree with cardiomegaly and evidence of bilateral pleural effusions. Lung volumes remain low. Tracheostomy has been placed and appears to be in good position. There is no pneumothorax identified. IMPRESSION: Status post tracheostomy. No pneumothorax. Mild CHF suspected. No change
--- NOTE | 2017-12-04 11:13 | 48 Hour Post Anesthesia Eval ---
Post Anesthesia Evaluation Procedure: Tracheostomy Date of Evaluation: Dec 04, 2017 Time of Evaluation: 08:30 Blood Pressure Systolic: 142 0: 78 Pulse Rate: 97 Respiratory Rate: 16 Temperature (Fahrenheit): 99.5 O2 Sat by Pulse Oximetry: 98 Airway: other - Tracheostomy, mechanically ventilated Nausea: No Vomiting: No Pain Intensity: 0 Hydration Status: adequate Cardiopulmonary Status: remains in A-fib, VSS otherwise Mental Status/LOC: patient returned to baseline Follow-up Care/Observations: none Post-Anesthesia Complications: none Follow-up care needed: N/A Tali Wilson CRNA Dec 04, 2017 11:13
--- NOTE | 2017-12-04 12:44 | General Progress Note ---
Progress Note Progress Note Surgery: doing well. no acute events. more comfortable on vent now. improving. trach clean and functional. vent settings good s/p trach -dressings daily and prn Luke Cuevas Dec 04, 2017 12:44
--- NOTE | 2017-12-04 13:18 | General Progress Note ---
Assessment/Plan Problem List: (1) Acute respiratory failure ICD Codes: J96.00 - Acute respiratory failure, unspecified whether with hypoxia or hypercapnia SNOMED: 64633877 Qualifiers: Qualified Codes: J96.01 - Acute respiratory failure with hypoxia (2) History of CVA (cerebrovascular accident) ICD Codes: Z86.73 - Personal history of transient ischemic attack (TIA), and cerebral infarction without residual deficits SNOMED: 747039446 (3) Pulmonary edema ICD Codes: J81.1 - Chronic pulmonary edema SNOMED: 16098410 Qualifiers: Qualified Codes: J81.0 - Acute pulmonary edema (4) Diabetic nephropathy ICD Codes: E11.21 - Type 2 diabetes mellitus with diabetic nephropathy SNOMED: 07906165, 337634315 (5) Pleural effusion, bilateral ICD Codes: J90 - Pleural effusion, not elsewhere classified SNOMED: 317831526 Status: stable - post Trach Assessment/Plan trach 12/03 post trach care Currently on Cefepime til Dec 18 resume eliquis GT feeding Keep BP and BS in check optimize cardiac and pulm status- IV Iron PER Cardio and pulm addendum: 12/02/[address] james, based on boarderline pulmonary status and the need for bipap, and patient being full code, tracheostomy will be entertained after discussion with DPOA . Subjective ROS Limited/Unobtainable: Yes Allergies: Coded Allergies: ATORVASTATIN (Verified Allergy, Unknown, 11/24/17) CLONIDINE (Verified Allergy, Unknown, 11/24/17) LABETALOL (Verified Allergy, Unknown, 11/24/17) NIFEDIPINE (Verified Allergy, Unknown, 11/24/17) ROSUVASTATIN (Verified Allergy, Unknown, 11/24/17) Uncoded Allergies: IVELISSE INHIBITOR (Allergy, Unknown, 11/24/17) Objective Last 24 Hour Vital Signs Date Time Temp Pulse Resp B/P (MAP) Pulse Ox O2 Delivery O2 Flow Rate FiO2 12/04/17 12:00 99.4 98 16 140/77 (98) 99 99.4 12/04/17 12:00 Mechanical Ventilator 12/04/17 12:00 101 12/04/17 12:00 30.0 12/04/17 11:13 211.1 97 16 98 12/04/17 11:03 88 16 100 Mechanical Ventilator 30 12/04/17 11:00 102 16 135/75 (95) 98 12/04/17 10:58 87 20 30 12/04/17 10:54 94 24 98 Mechanical Ventilator 30 12/04/17 10:54 97 12/04/17 10:54 94 24 Mechanical Ventilator 30 12/04/17 10:00 101 16 122/74 (90) 98 12/04/17 09:00 106 16 164/57 (92) 98 12/04/17 08:48 93 24 30 12/04/17 08:00 Mechanical Ventilator 12/04/17 08:00 30.0 12/04/17 08:00 99.5 97 16 142/78 (99) 98 99.5 12/04/17 08:00 97 12/04/17 07:00 86 16 114/91 (99) 98 12/04/17 07:00 82 19 100 Mechanical Ventilator 30 12/04/17 06:57 79 25 30 12/04/17 06:53 75 22 98 Mechanical Ventilator 30 12/04/17 06:00 72 16 134/58 (83) 98 12/04/17 05:26 99.6 12/04/17 05:22 102 16 30 12/04/17 05:00 101 16 104/49 (67) 98 12/04/17 04:56 100.0 12/04/17 04:00 99.6 94 19 139/50 (79) 98 99.6 12/04/17 04:00 30.0 12/04/17 04:00 Mechanical Ventilator 12/04/17 04:00 87 12/04/17 03:30 93 17 99 Mechanical Ventilator 30 12/04/17 03:20 78 19 30 12/04/17 03:20 78 19 98 Mechanical Ventilator 30 12/04/17 03:00 94 19 139/50 (79) 98 12/04/17 02:00 97 20 141/75 (97) 98 12/04/17 01:00 102 20 148/84 (105) 98 12/04/17 00:57 107 16 30 12/04/17 00:00 30.0 12/04/17 00:00 Mechanical Ventilator 12/04/17 00:00 99.8 105 19 135/53 (80) 99 99.8 12/03/17 23:00 92 19 155/78 (103) 96 12/03/17 22:59 110 16 100 Mechanical Ventilator 30 12/03/17 22:49 82 16 99 Mechanical Ventilator 30 12/03/17 22:49 82 16 30 12/03/17 22:00 92 27 135/56 (82) 98 12/03/17 21:00 90 27 134/88 (103) 98 12/03/17 20:45 101 18 30 12/03/17 20:00 90 12/03/17 20:00 98.8 90 18 135/58 (83) 98 98.8 12/03/17 20:00 30.0 12/03/17 20:00 Mechanical Ventilator 12/03/17 19:05 95 16 100 Mechanical Ventilator 30 12/03/17 19:00 98.7 100 20 102/42 (62) 99 98.7 12/03/17 18:55 92 16 100 Mechanical Ventilator 30 12/03/17 18:54 92 16 30 12/03/17 18:00 98.7 99 20 150/52 (84) 99 98.7 12/03/17 17:12 95 16 30 12/03/17 17:00 96 17 124/57 (79) 98 12/03/17 16:00 30.0 12/03/17 16:00 97.6 104 16 124/44 (70) 99 97.6 12/03/17 16:00 104 12/03/17 16:00 Mechanical Ventilator 12/03/17 15:45 99 16 100 Mechanical Ventilator 30 12/03/17 15:30 100 16 30 12/03/17 15:30 100 16 98 Mechanical Ventilator 30 12/03/17 15:29 127/64 12/03/17 15:00 101 21 123/73 (90) 98 12/03/17 14:12 209.1 108 16 96 12/03/17 14:00 107 18 90/48 (62) 96 12/03/17 14:00 105 21 147/51 (83) 98 Intake and Output 12/03/17 12/04/17 19:00 07:00 Intake Total 10 ml 1055 ml Output Total 755 ml 780 ml Balance -745 ml 275 ml IV Total 1055 ml Tube Feeding 10 ml Output Urine Total 755 ml 580 ml Stool Total 200 ml Laboratory Tests 12/04/17 05:51: White Blood Count 10.8, Red Blood Count 3.18L, Hemoglobin 9.1L, Hematocrit 29.7L , Mean Corpuscular Volume 93, Mean Corpuscular Hemoglobin 28.5, Mean Corpuscular Hemoglobin Concent 30.6L, Red Cell Distribution Width 16.7H, Platelet Count 148L, Mean Platelet Volume 10.0, Neutrophils (%) (Auto) 78.1H, Lymphocytes (%) (Auto) 13.2L, Monocytes (%) (Auto) 5.1, Eosinophils (%) (Auto) 2.9, Basophils (%) (Auto) 0.6, Sodium Level 152H, Potassium Level 3.5, Chloride Level 114H, Carbon Dioxide Level 28, Anion Gap 10, Blood Urea Nitrogen 44H, Creatinine 1.0, Estimat Glomerular Filtration Rate , Glucose Level 198H, Uric Acid 7.5H, Calcium Level 8.9, Phosphorus Level 2.5, Magnesium Level 3.0H, Total Bilirubin 0.6, Aspartate Amino Transf (AST/SGOT) 31, Alanine Aminotransferase ( ALT/SGPT) 45, Alkaline Phosphatase 104, Troponin I 0.040, Total Protein 6.7, Albumin 1.9L, Globulin 4.8, Albumin/Globulin Ratio 0.4L 12/04/17 06:58: Arterial Blood pH 7.500H, Arterial Blood Partial Pressure CO2 32.5L, Arterial Blood Partial Pressure O2 80.7, Arterial Blood HCO3 25.1, Arterial Blood Oxygen Saturation 95.7, Arterial Blood Base Excess 2.2, Mandeep Test Positive Height (Feet): 5 Height (Inches): 0.00 Weight (Pounds): 125 EENT: other - has trach Cardiovascular: normal rate Respiratory/Chest: decreased breath sounds Abdomen: distended Objective no change Rafael Hurt MD Dec 04, 2017 13:18
[2017-12-04] MEDS ORDERED: Metoprolol Tartrate 12.5mg TAB GT SCH (13:30)
[2017-12-04] MEDS ORDERED: HYDROmorphone 1mg/ml Carpuject IVP PRN (14:00)
[2017-12-04] MEDS ORDERED: HydrALAZINE 10mg Tab GT PRN (14:00)
--- NOTE | 2017-12-04 14:44 | Infectious Diseases Prog Note ---
Assessment/Plan Problems: (1) Aspiration pneumonia Assessment & Plan: with B/L basal infiltrates, due to pseudomonas pneumonia , continue cefepime to finish total of three weeks course of treatment . monitor CXR . aspiration precaution , keep HOB > 30 degree . EOT 12/18/17 (2) Pleural effusion, bilateral Assessment & Plan: S/P thoracentesis , exudative most likely due to pneumonia, adenosine deaminase on pleural fluids, fungal and cytology are pending . bacterial culture is negative which rule out empyema (3) Acute respiratory failure Assessment & Plan: due to the above, S/P tracheostomy , monitor CXR , continue local trach care , pulmonary is following (4) Sepsis Assessment & Plan: due to the above, with negative blood culture results so far , on cefepime to treat her pneumonia and UTI for total of three weeks. EOT 12/18/17 (5) Pressure ulcer, heel, right, unstageable Assessment & Plan: with an eschar, continue off loading and local wound care as per hospital protocol (6) Fever Assessment & Plan: suspect post OP, due to the above, continue tylenol and monitor clinically Subjective ROS Limited/Unobtainable: Yes Allergies: Coded Allergies: ATORVASTATIN (Verified Allergy, Unknown, 11/24/17) CLONIDINE (Verified Allergy, Unknown, 11/24/17) LABETALOL (Verified Allergy, Unknown, 11/24/17) NIFEDIPINE (Verified Allergy, Unknown, 11/24/17) ROSUVASTATIN (Verified Allergy, Unknown, 11/24/17) Uncoded Allergies: IVELISSE INHIBITOR (Allergy, Unknown, 11/24/17) Subjective she was up in bed , awake, and comfortable, not responsive to verbal commands , no fever today . no cough Objective Vital Signs Last 24 Hour Vital Signs Date Time Temp Pulse Resp B/P (MAP) Pulse Ox O2 Delivery O2 Flow Rate FiO2 12/04/17 12:33 87 17 30 12/04/17 12:00 99.4 98 16 140/77 (98) 99 99.4 12/04/17 12:00 Mechanical Ventilator 12/04/17 12:00 101 12/04/17 12:00 30.0 12/04/17 11:13 211.1 97 16 98 12/04/17 11:03 88 16 100 Mechanical Ventilator 30 12/04/17 11:00 102 16 135/75 (95) 98 12/04/17 10:58 87 20 30 12/04/17 10:54 94 24 98 Mechanical Ventilator 30 12/04/17 10:54 97 12/04/17 10:54 94 24 Mechanical Ventilator 30 12/04/17 10:00 101 16 122/74 (90) 98 12/04/17 09:00 106 16 164/57 (92) 98 12/04/17 08:48 93 24 30 12/04/17 08:00 Mechanical Ventilator 12/04/17 08:00 30.0 12/04/17 08:00 99.5 97 16 142/78 (99) 98 99.5 12/04/17 08:00 97 12/04/17 07:00 86 16 114/91 (99) 98 12/04/17 07:00 82 19 100 Mechanical Ventilator 30 12/04/17 06:57 79 25 30 12/04/17 06:53 75 22 98 Mechanical Ventilator 30 12/04/17 06:00 72 16 134/58 (83) 98 12/04/17 05:26 99.6 12/04/17 05:22 102 16 30 12/04/17 05:00 101 16 104/49 (67) 98 12/04/17 04:56 100.0 12/04/17 04:00 99.6 94 19 139/50 (79) 98 99.6 12/04/17 04:00 30.0 12/04/17 04:00 Mechanical Ventilator 12/04/17 04:00 87 12/04/17 03:30 93 17 99 Mechanical Ventilator 30 12/04/17 03:20 78 19 30 12/04/17 03:20 78 19 98 Mechanical Ventilator 30 12/04/17 03:00 94 19 139/50 (79) 98 12/04/17 02:00 97 20 141/75 (97) 98 12/04/17 01:00 102 20 148/84 (105) 98 12/04/17 00:57 107 16 30 12/04/17 00:00 30.0 12/04/17 00:00 Mechanical Ventilator 12/04/17 00:00 99.8 105 19 135/53 (80) 99 99.8 12/03/17 23:00 92 19 155/78 (103) 96 12/03/17 22:59 110 16 100 Mechanical Ventilator 30 12/03/17 22:49 82 16 99 Mechanical Ventilator 30 12/03/17 22:49 82 16 30 12/03/17 22:00 92 27 135/56 (82) 98 12/03/17 21:00 90 27 134/88 (103) 98 12/03/17 20:45 101 18 30 12/03/17 20:00 90 12/03/17 20:00 98.8 90 18 135/58 (83) 98 98.8 12/03/17 20:00 30.0 12/03/17 20:00 Mechanical Ventilator 12/03/17 19:05 95 16 100 Mechanical Ventilator 30 12/03/17 19:00 98.7 100 20 102/42 (62) 99 98.7 12/03/17 18:55 92 16 100 Mechanical Ventilator 30 12/03/17 18:54 92 16 30 12/03/17 18:00 98.7 99 20 150/52 (84) 99 98.7 12/03/17 17:12 95 16 30 12/03/17 17:00 96 17 124/57 (79) 98 12/03/17 16:00 30.0 12/03/17 16:00 97.6 104 16 124/44 (70) 99 97.6 12/03/17 16:00 104 12/03/17 16:00 Mechanical Ventilator 12/03/17 15:45 99 16 100 Mechanical Ventilator 30 12/03/17 15:30 100 16 30 12/03/17 15:30 100 16 98 Mechanical Ventilator 30 12/03/17 15:29 127/64 12/03/17 15:00 101 21 123/73 (90) 98 Height (Feet): 5 Height (Inches): 0.00 Weight (Pounds): 125 General Appearance: WD/WN, no acute distress HEENT: normocephalic, atraumatic, anicteric, mucous membranes moist, supple, no JVD, status post trach Respiratory/Chest: chest wall non-tender, no respiratory distress, no accessory muscle use, decreased breath sounds, crackles/rales Cardiovascular: normal peripheral pulses, normal rate, regular rhythm, no gallop/murmur, no JVD Abdomen: normal bowel sounds, soft, non tender, no organomegaly, non distended , no mass, no scars Extremities: no cyanosis, no clubbing Skin: no rash, no lesions Neurologic/Psychiatric: alert Lymphatic: no neck adenopathy, no groin adenopathy Laboratory Tests Test 12/04/17 05:51 12/04/17 06:58 White Blood Count 10.8 K/UL (4.8-10.8) Red Blood Count 3.18 M/UL (4.20-5.40) L Hemoglobin 9.1 G/DL (12.0-16.0) L Hematocrit 29.7 % (37.0-47.0) L Mean Corpuscular Volume 93 FL (80-99) Mean Corpuscular Hemoglobin 28.5 PG (27.0-31.0) Mean Corpuscular Hemoglobin Concent 30.6 G/DL (32.0-36.0) L Red Cell Distribution Width 16.7 % (11.6-14.8) H Platelet Count 148 K/UL (150-450) L Mean Platelet Volume 10.0 FL (6.5-10.1) Neutrophils (%) (Auto) 78.1 % (45.0-75.0) H Lymphocytes (%) (Auto) 13.2 % (20.0-45.0) L Monocytes (%) (Auto) 5.1 % (1.0-10.0) Eosinophils (%) (Auto) 2.9 % (0.0-3.0) Basophils (%) (Auto) 0.6 % (0.0-2.0) Sodium Level 152 MMOL/L (136-145) H Potassium Level 3.5 MMOL/L (3.5-5.1) Chloride Level 114 MMOL/L (98-107) H Carbon Dioxide Level 28 MMOL/L (21-32) Anion Gap 10 mmol/L (5-15) Blood Urea Nitrogen 44 mg/dL (7-18) H Creatinine 1.0 MG/DL (0.55-1.30) Estimat Glomerular Filtration Rate mL/min (>60) Glucose Level 198 MG/DL (74-106) H Uric Acid 7.5 MG/DL (2.6-7.2) H Calcium Level 8.9 MG/DL (8.5-10.1) Phosphorus Level 2.5 MG/DL (2.5-4.9) Magnesium Level 3.0 MG/DL (1.8-2.4) H Total Bilirubin 0.6 MG/DL (0.2-1.0) Aspartate Amino Transf (AST/SGOT) 31 U/L (15-37) Alanine Aminotransferase (ALT/SGPT) 45 U/L (12-78) Alkaline Phosphatase 104 U/L (46-116) Troponin I 0.040 ng/mL (0.000-0.056) Total Protein 6.7 G/DL (6.4-8.2) Albumin 1.9 G/DL (3.4-5.0) L Globulin 4.8 g/dL Albumin/Globulin Ratio 0.4 (1.0-2.7) L Arterial Blood pH 7.500 (7.350-7.450) Arterial Blood Partial Pressure CO2 32.5 mmHg (35.0-45.0) L Arterial Blood Partial Pressure O2 80.7 mmHg (75.0-100.0) Arterial Blood HCO3 25.1 mmol/L (22.0-26.0) Arterial Blood Oxygen Saturation 95.7 % (92.0-98.0) Arterial Blood Base Excess 2.2 Mandeep Test Positive Current Medications Medications (Trade) Dose Ordered Sig/Cirilo Route PRN Reason Start Time Stop Time Status Last Admin Dose Admin Acetaminophen (Tylenol) 650 mg Q6H PRN ORAL Fever/Headache/Mild Pain 12/04/17 14:00 12/24/17 13:46 Albuterol Sulfate (Proventil) 2.5 mg Q6H PRN HHN Shortness of Breath 12/04/17 18:15 12/07/17 18:14 Albuterol/ Ipratropium (Albuterol/ Ipratropium) 3 ml Q6H PRN HHN Shortness of Breath 12/04/17 18:15 12/07/17 18:14 Apixaban (Eliquis) 2.5 mg Q12HR GT 12/05/17 09:00 01/04/18 08:59 Cefepime HCl 2 gm/ Dextrose 55 ml @ 110 mls/hr Q24H IVPB 12/04/17 21:00 12/10/17 22:00 Dextrose 1,000 ml @ 50 mls/hr Q20H IV 12/05/17 14:00 01/02/18 13:59 Dextrose (Dextrose 50%) 25 ml PRN IV Hypoglycemia 12/04/17 12:45 12/24/17 13:59 Dextrose (Dextrose 50%) 50 ml PRN IV hypoglycemia 12/04/17 12:45 12/24/17 13:59 Famotidine (Pepcid) 20 mg BID GT 12/04/17 18:00 12/24/17 17:59 Hydralazine HCl (Apresoline) 10 mg Q6H PRN GT SBP above 140mmHg 12/04/17 14:00 12/30/17 13:47 Hydromorphone HCl (Dilaudid) 1 mg Q6H PRN IVP Severe Pain (Pain Scale 7-10) 12/04/17 14:00 12/04/17 15:00 Insulin Aspart (NovoLOG) EVERY 6 HOURS SUBQ 12/04/17 18:00 12/25/17 17:59 Ipratropium [place] (Atrovent) 0.5 mcg Q6H PRN HHN Shortness of Breath 12/04/17 18:15 12/07/17 18:14 Iron Sucrose 100 mg/Sodium Chloride 60 ml @ 240 mls/hr BEDTIME IV 12/04/17 21:00 12/08/17 21:14 Levalbuterol HCl (Xopenex) 1.25 mg Q4HRT HHN 12/04/17 15:00 12/05/17 10:59 Lorazepam (Ativan 2mg/ml 1ml) 0.5 mg Q6H PRN IV agitation 12/04/17 14:45 12/07/17 08:40 Metoclopramide HCl (Reglan) 5 mg EVERY 8 HOURS GT 12/04/17 14:00 12/25/17 11:59 Metoprolol Tartrate (Lopressor) 12.5 mg Q12HR GT 12/04/17 21:00 01/03/18 20:59 Nitroglycerin (Ntg) 1 patch Q24H TDERMAL 12/04/17 14:00 12/24/17 13:59 Cole Rasmussen M.D. Dec 04, 2017 14:44
[2017-12-04] MEDS ORDERED: LORazepam Inj 2mg/ml 1ml IV PRN (14:45)
[2017-12-04] MEDS: Nitroglycerin Patch 0.4mg TDERMAL SCH (15:09)
[2017-12-04] MEDS ORDERED: Albuterol ud Inhalation HHN PRN (18:15)
[2017-12-04] MEDS ORDERED: Albuterol/Ipratropium 3ml neb HHN PRN (18:15)
[2017-12-04] MEDS ORDERED: Ipratropium 0.02% Inh Soln 2.5ml UD HHN PRN (18:15)
[2017-12-04] MEDS: Metoprolol Tartrate 12.5mg TAB GT SCH (20:16)
[2017-12-04] MEDS: Iron Sucrose 100 MG in NS 55 ML IV SCH (20:17)
[2017-12-04] MEDS ORDERED: Cefepime HCl 2 GM in D5W 55 ML IVPB SCH (21:00)
[2017-12-05] VITALS: BP 139/60
[2017-12-05] MEDS: NovoLOG Insulin Flexpen SUBQ SCH ×4 (00:12→18:02)
[2017-12-05] MEDS: Levalbuterol Inh UD 1.25mg/0.5ml HHN SCH ×6 (02:43→23:23)
[2017-12-05 04:00] VITALS: BP 109/57
[2017-12-05 05:07] LABS: BASOPHILS % (AUTO) 0.6 % (0.0-2.0); EOSINOPHILS % (AUTO) 5.6 % (0.0-3.0); HEMATOCRIT 28.4 % (37.0-47.0); HEMOGLOBIN 8.9 G/DL (12.0-16.0); MEAN CORPUSCULAR VOLUME 93 FL (80-99); MONOCYTES % (AUTO) 5.4 % (1.0-10.0); NEUTROPHILS % (AUTO) 73.4 % (45.0-75.0); PLATELET COUNT 154 K/UL (150-450); RED BLOOD COUNT 3.05 M/UL (4.20-5.40); RED CELL DISTRIBUTION WIDTH 16.5 % (11.6-14.8)
[2017-12-05 05:46] LABS: PHOSPHORUS 2.6 MG/DL (2.5-4.9)
[2017-12-05 05:54] LABS: ALANINE AMINOTRANSFERASE 55 U/L (12-78); ALBUMIN 1.8 G/DL (3.4-5.0); ALBUMIN/GLOBULIN RATIO 0.4 (1.0-2.7); ALKALINE PHOSPHATASE 119 U/L (46-116); ANION GAP 8 mmol/L (5-15); ASPARTATE AMINO TRANSFERASE 45 U/L (15-37); BILIRUBIN,TOTAL 0.4 MG/DL (0.2-1.0); BLOOD UREA NITROGEN 38 mg/dL (7-18); CALCIUM 8.5 MG/DL (8.5-10.1); CARBON DIOXIDE 27 MMOL/L (21-32); CHLORIDE 110 MMOL/L (98-107); POTASSIUM 3.5 MMOL/L (3.5-5.1); SODIUM 145 MMOL/L (136-145)
[2017-12-05] MEDS: Metoclopramide 10mg/10ml Liq GT SCH ×3 (06:02→21:40)
--- NOTE | 2017-12-05 07:37 | Pulmonology Progress Note ---
Assessment/Plan Assessment/Plan ASSESSMENT Acute hypoxemic respiratory failure ( requiring BiPAP and then intubation) Failure to wean Status post tracheostomy 12/03 UTI with Proteus Aspiration pneumonia with Pseudomonas Right heel pressure ulcer un-stageable Acute on chronic diastolic congestive heart failure Bilateral pleural effusion s/p thoracentesis Paroxysmal atrial fibrillation Dehydration Diabetic nephropathy Hypernatremia Diabetes mellitus Cerebrovascular disease with dementia Dysphagia ,G-tube Moderate protein calorie malnutrition Iron deficiency anemia Severe pulmonary hypertension malfunctioning G tube, s/p change at the bedside 12/05 PLAN OF CARE PAZ Vent support, trach care pulmonary toilet ABG stable this am , keep AC 16 optimize settings as needed antibiotics ID follows urine cx + Proteus, sputum cx +Pseudomonas, stool C dif negative, blood cx prior - negative surgeon follows trach stable ( CXR post trach - trach in good position, no PNT) s/p thoracentesis earlier -0.9 L pleural fluid cx negative CXR today 12/05 - Increasing opacity in bilateral lower lung zones. fup with CXR continue abx Right heel wound care anticoagulation for cardio-embolic prophylaxis s/p gentle diuresis , monitor cardio-renal parameters and volumes , creat stable correct lytes prn ECHO with pEF 65% and RVSP of 66 c/w severe pulmonary hypertension trend proBNP , trending down lipid panel stable venous duplex BLE - no acute DVT BP management with hydralazine and BB, GT burst this am, s/p change at the bedside by GI specialist strict aspiration precautions, G-tube feeding, monitor tolerance monitor HH with goal to keep Hgb above 7 anemia workup consistent with anemia of MARIPOSA IV Venofer BS management with SSI prn, HgA1c -7.5 bowel regimen pain management prn supportive care protein supplements DVT , GI prophylaxis case discussed and evaluated by supervising physician Subjective Allergies: Coded Allergies: ATORVASTATIN (Verified Allergy, Unknown, 11/24/17) CLONIDINE (Verified Allergy, Unknown, 11/24/17) LABETALOL (Verified Allergy, Unknown, 11/24/17) NIFEDIPINE (Verified Allergy, Unknown, 11/24/17) ROSUVASTATIN (Verified Allergy, Unknown, 11/24/17) Uncoded Allergies: IVELISSE INHIBITOR (Allergy, Unknown, 11/24/17) Subjective transferred to [facility] s/p trach no resp distress ABG on current setting noted no leucocytosis, low grade fever this am , CXR Increasing opacity in bilateral lower lung zones. Objective Last 24 Hour Vital Signs Date Time Temp Pulse Resp B/P (MAP) Pulse Ox O2 Delivery O2 Flow Rate FiO2 12/05/17 07:24 60 16 100 Mechanical Ventilator 30 12/05/17 05:15 55 16 30 12/05/17 04:00 100.1 60 17 109/57 (74) 100 100.1 12/05/17 04:00 30.0 12/05/17 04:00 Mechanical Ventilator 12/05/17 03:53 70 12/05/17 02:59 61 20 100 Mechanical Ventilator 30 12/05/17 02:59 61 23 30 12/05/17 02:46 66 19 99 Mechanical Ventilator 30 12/05/17 00:59 64 18 30 12/05/17 00:00 30.0 12/05/17 00:00 99.2 71 21 139/60 (86) 99 99.2 12/05/17 00:00 Mechanical Ventilator 12/05/17 00:00 67 12/04/17 23:43 70 20 100 Mechanical Ventilator 30 12/04/17 23:20 69 19 99 Mechanical Ventilator 30 12/04/17 23:20 69 18 30 12/04/17 20:47 98.8 12/04/17 20:42 74 18 30 12/04/17 20:17 100.0 12/04/17 20:16 73 135/76 12/04/17 20:00 83 12/04/17 20:00 100.0 74 20 135/76 (95) 99 100.0 12/04/17 20:00 30.0 12/04/17 20:00 Mechanical Ventilator 12/04/17 19:35 85 20 100 Mechanical Ventilator 30 12/04/17 19:11 72 19 99 Mechanical Ventilator 30 12/04/17 19:09 72 18 30 12/04/17 16:46 73 18 30 12/04/17 16:00 99.0 119 18 145/71 (95) 99 99.0 12/04/17 16:00 Mechanical Ventilator 12/04/17 16:00 96 12/04/17 16:00 30.0 12/04/17 15:36 84 20 100 Mechanical Ventilator 30 12/04/17 15:28 88 19 99 Mechanical Ventilator 30 12/04/17 15:27 85 19 30 12/04/17 15:09 140/77 12/04/17 15:08 87 140/77 12/04/17 12:33 87 17 30 12/04/17 12:00 99.4 98 16 140/77 (98) 99 99.4 12/04/17 12:00 Mechanical Ventilator 12/04/17 12:00 101 12/04/17 12:00 30.0 12/04/17 11:13 211.1 97 16 98 12/04/17 11:03 88 16 100 Mechanical Ventilator 30 12/04/17 11:00 102 16 135/75 (95) 98 12/04/17 10:58 87 20 30 12/04/17 10:54 94 24 98 Mechanical Ventilator 30 12/04/17 10:54 97 12/04/17 10:54 94 24 Mechanical Ventilator 30 12/04/17 10:00 101 16 122/74 (90) 98 12/04/17 09:00 106 16 164/57 (92) 98 12/04/17 08:48 93 24 30 12/04/17 08:00 Mechanical Ventilator 12/04/17 08:00 30.0 12/04/17 08:00 99.5 97 16 142/78 (99) 98 99.5 12/04/17 08:00 97 Intake and Output 12/04/17 12/05/17 19:00 07:00 Intake Total 630 ml 1340 ml Output Total 440 ml 450 ml Balance 190 ml 890 ml IV Total 100 ml 670 ml Tube Feeding 350 ml 550 ml Other 180 ml 120 ml Output Urine Total 440 ml 450 ml # Bowel Movements 50 Objective General Appearance: no acute distress, bedbound angel AC AC 500-16-30% HEENT: normocephalic, atraumatic, VM 35% n Neck: trach Shiley #6, secretions scant amount, white color, thick consistency Respiratory/Chest: few isolated rhonchi , more audible on the right Cardiovascular: SR Abdomen: normal bowel sounds, soft, non tender, G tube Extremities: no edema Neurologic/Psychiatric: bedridden Musculoskeletal: atrophy - BLE Laboratory Tests 12/05/17 03:55: White Blood Count 10.0, Red Blood Count 3.05L, Hemoglobin 8.9L, Hematocrit 28.4L , Mean Corpuscular Volume 93, Mean Corpuscular Hemoglobin 29.3, Mean Corpuscular Hemoglobin Concent 31.5L, Red Cell Distribution Width 16.5H, Platelet Count 154, Mean Platelet Volume 11.4H, Neutrophils (%) (Auto) 73.4, Lymphocytes (%) (Auto) 15.0L, Monocytes (%) (Auto) 5.4, Eosinophils (%) (Auto) 5.6H, Basophils (%) (Auto) 0.6, Sodium Level 145, Potassium Level 3.5, Chloride Level 110H, Carbon Dioxide Level 27, Anion Gap 8, Blood Urea Nitrogen 38H, Creatinine 1.0, Estimat Glomerular Filtration Rate , Glucose Level 128H, Uric Acid 6.4, Calcium Level 8.5, Phosphorus Level 2.6, Magnesium Level 2.8H, Total Bilirubin 0.4, Aspartate Amino Transf (AST/SGOT) 45H, Alanine Aminotransferase ( ALT/SGPT) 55, Alkaline Phosphatase 119H, C-Reactive Protein, Quantitative > 70.0H, Pro-B-Type Natriuretic Peptide [id number], Total Protein 6.5, Albumin 1.8L, Globulin 4.7, Albumin/Globulin Ratio 0.4L Current Medications Medications (Trade) Dose Ordered Sig/Cirilo Route PRN Reason Start Time Stop Time Status Last Admin Dose Admin Acetaminophen (Tylenol) 650 mg Q6H PRN ORAL Fever/Headache/Mild Pain 12/04/17 14:00 12/24/17 13:46 12/04/17 20:17 Albuterol Sulfate (Proventil) 2.5 mg Q6H PRN HHN Shortness of Breath 12/04/17 18:15 12/07/17 18:14 Albuterol/ Ipratropium (Albuterol/ Ipratropium) 3 ml Q6H PRN HHN Shortness of Breath 12/04/17 18:15 12/07/17 18:14 Apixaban (Eliquis) 2.5 mg Q12HR GT 12/05/17 09:00 01/04/18 08:59 Cefepime HCl 2 gm/ Dextrose 55 ml @ 110 mls/hr Q24H IVPB 12/04/17 21:00 12/10/17 22:00 12/04/17 20:17 Dextrose 1,000 ml @ 50 mls/hr Q20H IV 12/05/17 14:00 01/02/18 13:59 12/04/17 19:14 Dextrose (Dextrose 50%) 25 ml PRN IV Hypoglycemia 12/04/17 12:45 12/24/17 13:59 Dextrose (Dextrose 50%) 50 ml PRN IV hypoglycemia 12/04/17 12:45 12/24/17 13:59 Famotidine (Pepcid) 20 mg BID GT 12/04/17 18:00 12/24/17 17:59 12/04/17 17:40 Hydralazine HCl (Apresoline) 10 mg Q6H PRN GT SBP above 140mmHg 12/04/17 14:00 12/30/17 13:47 Insulin Aspart (NovoLOG) EVERY 6 HOURS SUBQ 12/04/17 18:00 12/25/17 17:59 12/05/17 06:03 Ipratropium [place] (Atrovent) 0.5 mcg Q6H PRN HHN Shortness of Breath 12/04/17 18:15 12/07/17 18:14 Iron Sucrose 100 mg/Sodium Chloride 60 ml @ 240 mls/hr BEDTIME IV 12/04/17 21:00 12/08/17 21:14 12/04/17 20:17 Levalbuterol HCl (Xopenex) 1.25 mg Q4HRT HHN 12/04/17 15:00 12/05/17 10:59 12/05/17 07:24 Lorazepam (Ativan 2mg/ml 1ml) 0.5 mg Q6H PRN IV agitation 12/04/17 14:45 12/07/17 08:40 Metoclopramide HCl (Reglan) 5 mg EVERY 8 HOURS GT 12/04/17 14:00 12/25/17 11:59 12/05/17 06:02 Metoprolol Tartrate (Lopressor) 12.5 mg Q12HR GT 12/04/17 21:00 01/03/18 20:59 12/04/17 20:16 Nitroglycerin (Ntg) 1 patch Q24H TDERMAL 12/04/17 14:00 12/24/17 13:59 12/04/17 15:09 Ignacia Macias NP Dec 05, 2017 07:37
[2017-12-05 08:00] VITALS: BP 110/60
[2017-12-05] MEDS ORDERED: Albuterol/Ipratropium 3ml neb HHN PRN (08:00)
[2017-12-05] MEDS: Eliquis 2.5mg tablet GT SCH ×2 (08:56→21:09)
[2017-12-05] MEDS: Metoprolol Tartrate 12.5mg TAB GT SCH (08:58)
--- NOTE | 2017-12-05 10:05 | General Progress Note ---
Assessment/Plan Assessment/Plan GI CONSULT Assessment - GT torn -- replaced - Heme (+) stools - Anemia, Iron deficiency - Resp failure - s/p PEG and Trach - HTN - DM - Pulmonary HTN Recommendations - Resume TF - monitor CBC - Agree with IV Iron - Will d/w family Thank you Doreen Jackson MD Subjective Allergies: Coded Allergies: ATORVASTATIN (Verified Allergy, Unknown, 11/24/17) CLONIDINE (Verified Allergy, Unknown, 11/24/17) LABETALOL (Verified Allergy, Unknown, 11/24/17) NIFEDIPINE (Verified Allergy, Unknown, 11/24/17) ROSUVASTATIN (Verified Allergy, Unknown, 11/24/17) Uncoded Allergies: IVELISSE INHIBITOR (Allergy, Unknown, 11/24/17) Objective Last 24 Hour Vital Signs Date Time Temp Pulse Resp B/P (MAP) Pulse Ox O2 Delivery O2 Flow Rate FiO2 12/05/17 09:00 71 12/05/17 08:58 57 110/60 12/05/17 08:42 60 18 30 12/05/17 08:00 99.8 60 21 110/60 (77) 97 99.8 12/05/17 08:00 30.0 12/05/17 08:00 Mechanical Ventilator 12/05/17 07:30 68 17 99 Mechanical Ventilator 30 12/05/17 07:25 67 16 30 12/05/17 07:24 60 16 100 Mechanical Ventilator 30 12/05/17 05:15 55 16 30 12/05/17 04:00 100.1 60 17 109/57 (74) 100 100.1 12/05/17 04:00 30.0 12/05/17 04:00 Mechanical Ventilator 12/05/17 03:53 70 12/05/17 02:59 61 20 100 Mechanical Ventilator 30 12/05/17 02:59 61 23 30 12/05/17 02:46 66 19 99 Mechanical Ventilator 30 12/05/17 00:59 64 18 30 12/05/17 00:00 30.0 12/05/17 00:00 99.2 71 21 139/60 (86) 99 99.2 12/05/17 00:00 Mechanical Ventilator 12/05/17 00:00 67 12/04/17 23:43 70 20 100 Mechanical Ventilator 30 12/04/17 23:20 69 19 99 Mechanical Ventilator 30 12/04/17 23:20 69 18 30 12/04/17 20:47 98.8 12/04/17 20:42 74 18 30 12/04/17 20:17 100.0 12/04/17 20:16 73 135/76 12/04/17 20:00 83 12/04/17 20:00 100.0 74 20 135/76 (95) 99 100.0 12/04/17 20:00 30.0 12/04/17 20:00 Mechanical Ventilator 12/04/17 19:35 85 20 100 Mechanical Ventilator 30 12/04/17 19:11 72 19 99 Mechanical Ventilator 30 12/04/17 19:09 72 18 30 12/04/17 16:46 73 18 30 12/04/17 16:00 99.0 119 18 145/71 (95) 99 99.0 12/04/17 16:00 Mechanical Ventilator 12/04/17 16:00 96 12/04/17 16:00 30.0 12/04/17 15:36 84 20 100 Mechanical Ventilator 30 12/04/17 15:28 88 19 99 Mechanical Ventilator 30 12/04/17 15:27 85 19 30 12/04/17 15:09 140/77 12/04/17 15:08 87 140/77 12/04/17 12:33 87 17 30 12/04/17 12:00 99.4 98 16 140/77 (98) 99 99.4 12/04/17 12:00 Mechanical Ventilator 12/04/17 12:00 101 12/04/17 12:00 30.0 12/04/17 11:13 211.1 97 16 98 12/04/17 11:03 88 16 100 Mechanical Ventilator 30 12/04/17 11:00 102 16 135/75 (95) 98 12/04/17 10:58 87 20 30 12/04/17 10:54 94 24 98 Mechanical Ventilator 30 12/04/17 10:54 97 12/04/17 10:54 94 24 Mechanical Ventilator 30 12/04/17 10:00 101 16 122/74 (90) 98 Intake and Output 12/04/17 12/05/17 19:00 07:00 Intake Total 630 ml 1340 ml Output Total 440 ml 450 ml Balance 190 ml 890 ml IV Total 100 ml 670 ml Tube Feeding 350 ml 550 ml Other 180 ml 120 ml Output Urine Total 440 ml 450 ml # Bowel Movements 50 Laboratory Tests 12/05/17 03:55: White Blood Count 10.0, Red Blood Count 3.05L, Hemoglobin 8.9L, Hematocrit 28.4L , Mean Corpuscular Volume 93, Mean Corpuscular Hemoglobin 29.3, Mean Corpuscular Hemoglobin Concent 31.5L, Red Cell Distribution Width 16.5H, Platelet Count 154, Mean Platelet Volume 11.4H, Neutrophils (%) (Auto) 73.4, Lymphocytes (%) (Auto) 15.0L, Monocytes (%) (Auto) 5.4, Eosinophils (%) (Auto) 5.6H, Basophils (%) (Auto) 0.6, Sodium Level 145, Potassium Level 3.5, Chloride Level 110H, Carbon Dioxide Level 27, Anion Gap 8, Blood Urea Nitrogen 38H, Creatinine 1.0, Estimat Glomerular Filtration Rate , Glucose Level 128H, Uric Acid 6.4, Calcium Level 8.5, Phosphorus Level 2.6, Magnesium Level 2.8H, Total Bilirubin 0.4, Aspartate Amino Transf (AST/SGOT) 45H, Alanine Aminotransferase ( ALT/SGPT) 55, Alkaline Phosphatase 119H, C-Reactive Protein, Quantitative > 70.0H, Pro-B-Type Natriuretic Peptide 14661K, Total Protein 6.5, Albumin 1.8L, Globulin 4.7, Albumin/Globulin Ratio 0.4L 12/05/17 08:12: Arterial Blood pH 7.462H, Arterial Blood Partial Pressure CO2 35.3, Arterial Blood Partial Pressure O2 81.2, Arterial Blood HCO3 24.7, Arterial Blood Oxygen Saturation 95.3, Arterial Blood Base Excess 1.0, Mandeep Test Positive Height (Feet): 5 Height (Inches): 0.00 Weight (Pounds): 128 Mack Jackson MD Dec 05, 2017 10:05
--- NOTE | 2017-12-05 10:20 | General Progress Note ---
Progress Note Progress Note Surgery: doing well. no acute events. comfortable on vent. improving. trach clean and functional. vent settings good s/p trach -dressings daily and prn Luke Cuevas Dec 05, 2017 10:20
--- NOTE | 2017-12-05 10:23 | Diagnostic Imaging Report ---
INDICATION: Dyspnea COMPARISON: Chest x-ray dated 12/04/17 FINDINGS: Single frontal view demonstrates a tracheostomy tube. Increasing opacity in bilateral lower lung zones. The visualized osseous structures are within normal limits. IMPRESSION: Tracheostomy. Increasing opacity in bilateral lower lung zones.
--- NOTE | 2017-12-05 11:06 | General Progress Note ---
Assessment/Plan Problem List: (1) Acute respiratory failure ICD Codes: J96.00 - Acute respiratory failure, unspecified whether with hypoxia or hypercapnia SNOMED: 82025174 Qualifiers: Qualified Codes: J96.01 - Acute respiratory failure with hypoxia (2) History of CVA (cerebrovascular accident) ICD Codes: Z86.73 - Personal history of transient ischemic attack (TIA), and cerebral infarction without residual deficits SNOMED: 484576854 (3) Pulmonary edema ICD Codes: J81.1 - Chronic pulmonary edema SNOMED: 17068947 Qualifiers: Qualified Codes: J81.0 - Acute pulmonary edema (4) Diabetic nephropathy ICD Codes: E11.21 - Type 2 diabetes mellitus with diabetic nephropathy SNOMED: 40137839, 536053287 (5) Pleural effusion, bilateral ICD Codes: J90 - Pleural effusion, not elsewhere classified SNOMED: 294939715 Status: stable Assessment/Plan one dose Lasix K supplement trach 12/03 post trach care Currently on Cefepime til Dec 18 resume eliquis GT feeding Keep BP and BS in check optimize cardiac and pulm status- IV Iron PER Cardio and pulm addendum: 12/02/[address] james, based on boarderline pulmonary status and the need for bipap, and patient being full code, tracheostomy will be entertained after discussion with DPOA . Subjective ROS Limited/Unobtainable: Yes Allergies: Coded Allergies: ATORVASTATIN (Verified Allergy, Unknown, 11/24/17) CLONIDINE (Verified Allergy, Unknown, 11/24/17) LABETALOL (Verified Allergy, Unknown, 11/24/17) NIFEDIPINE (Verified Allergy, Unknown, 11/24/17) ROSUVASTATIN (Verified Allergy, Unknown, 11/24/17) Uncoded Allergies: IVELISSE INHIBITOR (Allergy, Unknown, 11/24/17) Objective Last 24 Hour Vital Signs Date Time Temp Pulse Resp B/P (MAP) Pulse Ox O2 Delivery O2 Flow Rate FiO2 12/05/17 11:03 54 16 100 Mechanical Ventilator 30 12/05/17 11:03 55 22 30 12/05/17 09:00 71 12/05/17 08:58 57 110/60 12/05/17 08:42 60 18 30 12/05/17 08:00 99.8 60 21 110/60 (77) 97 99.8 12/05/17 08:00 30.0 12/05/17 08:00 Mechanical Ventilator 12/05/17 07:30 68 17 99 Mechanical Ventilator 30 12/05/17 07:25 67 16 30 12/05/17 07:24 60 16 100 Mechanical Ventilator 30 12/05/17 05:15 55 16 30 12/05/17 04:00 100.1 60 17 109/57 (74) 100 100.1 12/05/17 04:00 30.0 12/05/17 04:00 Mechanical Ventilator 12/05/17 03:53 70 12/05/17 02:59 61 20 100 Mechanical Ventilator 30 12/05/17 02:59 61 23 30 12/05/17 02:46 66 19 99 Mechanical Ventilator 30 12/05/17 00:59 64 18 30 12/05/17 00:00 30.0 12/05/17 00:00 99.2 71 21 139/60 (86) 99 99.2 12/05/17 00:00 Mechanical Ventilator 12/05/17 00:00 67 12/04/17 23:43 70 20 100 Mechanical Ventilator 30 12/04/17 23:20 69 19 99 Mechanical Ventilator 30 12/04/17 23:20 69 18 30 12/04/17 20:47 98.8 12/04/17 20:42 74 18 30 12/04/17 20:17 100.0 12/04/17 20:16 73 135/76 12/04/17 20:00 83 12/04/17 20:00 100.0 74 20 135/76 (95) 99 100.0 12/04/17 20:00 30.0 12/04/17 20:00 Mechanical Ventilator 12/04/17 19:35 85 20 100 Mechanical Ventilator 30 12/04/17 19:11 72 19 99 Mechanical Ventilator 30 12/04/17 19:09 72 18 30 12/04/17 16:46 73 18 30 12/04/17 16:00 99.0 119 18 145/71 (95) 99 99.0 12/04/17 16:00 Mechanical Ventilator 12/04/17 16:00 96 12/04/17 16:00 30.0 12/04/17 15:36 84 20 100 Mechanical Ventilator 30 12/04/17 15:28 88 19 99 Mechanical Ventilator 30 12/04/17 15:27 85 19 30 12/04/17 15:09 140/77 12/04/17 15:08 87 140/77 12/04/17 12:33 87 17 30 12/04/17 12:00 99.4 98 16 140/77 (98) 99 99.4 12/04/17 12:00 Mechanical Ventilator 12/04/17 12:00 101 12/04/17 12:00 30.0 12/04/17 11:13 211.1 97 16 98 Intake and Output 12/04/17 12/05/17 19:00 07:00 Intake Total 630 ml 1440 ml Output Total 440 ml 450 ml Balance 190 ml 990 ml IV Total 100 ml 720 ml Tube Feeding 350 ml 600 ml Other 180 ml 120 ml Output Urine Total 440 ml 450 ml # Bowel Movements 50 Laboratory Tests 12/05/17 03:55: White Blood Count 10.0, Red Blood Count 3.05L, Hemoglobin 8.9L, Hematocrit 28.4L , Mean Corpuscular Volume 93, Mean Corpuscular Hemoglobin 29.3, Mean Corpuscular Hemoglobin Concent 31.5L, Red Cell Distribution Width 16.5H, Platelet Count 154, Mean Platelet Volume 11.4H, Neutrophils (%) (Auto) 73.4, Lymphocytes (%) (Auto) 15.0L, Monocytes (%) (Auto) 5.4, Eosinophils (%) (Auto) 5.6H, Basophils (%) (Auto) 0.6, Sodium Level 145, Potassium Level 3.5, Chloride Level 110H, Carbon Dioxide Level 27, Anion Gap 8, Blood Urea Nitrogen 38H, Creatinine 1.0, Estimat Glomerular Filtration Rate , Glucose Level 128H, Uric Acid 6.4, Calcium Level 8.5, Phosphorus Level 2.6, Magnesium Level 2.8H, Total Bilirubin 0.4, Aspartate Amino Transf (AST/SGOT) 45H, Alanine Aminotransferase ( ALT/SGPT) 55, Alkaline Phosphatase 119H, C-Reactive Protein, Quantitative > 70.0H, Pro-B-Type Natriuretic Peptide 74402J, Total Protein 6.5, Albumin 1.8L, Globulin 4.7, Albumin/Globulin Ratio 0.4L 12/05/17 08:12: Arterial Blood pH 7.462H, Arterial Blood Partial Pressure CO2 35.3, Arterial Blood Partial Pressure O2 81.2, Arterial Blood HCO3 24.7, Arterial Blood Oxygen Saturation 95.3, Arterial Blood Base Excess 1.0, Mandeep Test Positive Height (Feet): 5 Height (Inches): 0.00 Weight (Pounds): 128 General Appearance: no apparent distress EENT: other - trach Cardiovascular: normal rate Respiratory/Chest: decreased breath sounds Abdomen: soft Objective no change Rafael Hurt MD Dec 05, 2017 11:06
[2017-12-05 12:00] VITALS: BP 118/63
[2017-12-05] MEDS: Nitroglycerin Patch 0.4mg TDERMAL SCH (13:49)
--- NOTE | 2017-12-05 13:53 | Infectious Diseases Prog Note ---
Assessment/Plan Problems: (1) Aspiration pneumonia Assessment & Plan: with B/L basal infiltrates, due to pseudomonas pneumonia , continue cefepime to finish total of three weeks course of treatment . monitor CXR . aspiration precaution , keep HOB > 30 degree . EOT 12/18/17 (2) Pleural effusion, bilateral Assessment & Plan: S/P thoracentesis , exudative most likely due to pneumonia, adenosine deaminase on pleural fluids, fungal and cytology are pending . bacterial culture is negative which rule out empyema (3) Acute respiratory failure Assessment & Plan: due to the above, S/P tracheostomy , monitor CXR , continue local trach care , pulmonary is following (4) Sepsis Assessment & Plan: due to the above, with negative blood culture results so far , on cefepime to treat her pneumonia and UTI for total of three weeks. EOT 12/18/17 (5) Pressure ulcer, heel, right, unstageable Assessment & Plan: with an eschar, continue off loading and local wound care as per hospital protocol (6) Fever Assessment & Plan: suspect post OP, continue tylenol and monitor clinically Subjective ROS Limited/Unobtainable: Yes Allergies: Coded Allergies: ATORVASTATIN (Verified Allergy, Unknown, 11/24/17) CLONIDINE (Verified Allergy, Unknown, 11/24/17) LABETALOL (Verified Allergy, Unknown, 11/24/17) NIFEDIPINE (Verified Allergy, Unknown, 11/24/17) ROSUVASTATIN (Verified Allergy, Unknown, 11/24/17) Uncoded Allergies: IVELISSE INHIBITOR (Allergy, Unknown, 11/24/17) Subjective she was up in bed , comfortable, not responsive to verbal commands , had fever earlier today . no cough , no significant secretions Objective Vital Signs Last 24 Hour Vital Signs Date Time Temp Pulse Resp B/P (MAP) Pulse Ox O2 Delivery O2 Flow Rate FiO2 12/05/17 13:49 118/63 12/05/17 12:45 57 17 30 12/05/17 12:00 Mechanical Ventilator 12/05/17 12:00 30.0 12/05/17 12:00 98.1 60 19 118/63 (81) 100 98.1 12/05/17 11:06 62 19 100 Mechanical Ventilator 30 12/05/17 11:03 54 16 100 Mechanical Ventilator 30 12/05/17 11:03 55 22 30 12/05/17 09:00 71 12/05/17 08:58 57 110/60 12/05/17 08:42 60 18 30 12/05/17 08:00 99.8 60 21 110/60 (77) 97 99.8 12/05/17 08:00 30.0 12/05/17 08:00 Mechanical Ventilator 12/05/17 07:30 68 17 99 Mechanical Ventilator 30 12/05/17 07:25 67 16 30 12/05/17 07:24 60 16 100 Mechanical Ventilator 30 12/05/17 05:15 55 16 30 12/05/17 04:00 100.1 60 17 109/57 (74) 100 100.1 12/05/17 04:00 30.0 12/05/17 04:00 Mechanical Ventilator 12/05/17 03:53 70 12/05/17 02:59 61 20 100 Mechanical Ventilator 30 12/05/17 02:59 61 23 30 12/05/17 02:46 66 19 99 Mechanical Ventilator 30 12/05/17 00:59 64 18 30 12/05/17 00:00 30.0 12/05/17 00:00 99.2 71 21 139/60 (86) 99 99.2 12/05/17 00:00 Mechanical Ventilator 12/05/17 00:00 67 12/04/17 23:43 70 20 100 Mechanical Ventilator 30 12/04/17 23:20 69 19 99 Mechanical Ventilator 30 12/04/17 23:20 69 18 30 12/04/17 20:47 98.8 12/04/17 20:42 74 18 30 12/04/17 20:17 100.0 12/04/17 20:16 73 135/76 12/04/17 20:00 83 12/04/17 20:00 100.0 74 20 135/76 (95) 99 100.0 12/04/17 20:00 30.0 12/04/17 20:00 Mechanical Ventilator 12/04/17 19:35 85 20 100 Mechanical Ventilator 30 12/04/17 19:11 72 19 99 Mechanical Ventilator 30 12/04/17 19:09 72 18 30 12/04/17 16:46 73 18 30 12/04/17 16:00 99.0 119 18 145/71 (95) 99 99.0 12/04/17 16:00 Mechanical Ventilator 12/04/17 16:00 96 12/04/17 16:00 30.0 12/04/17 15:36 84 20 100 Mechanical Ventilator 30 12/04/17 15:28 88 19 99 Mechanical Ventilator 30 12/04/17 15:27 85 19 30 12/04/17 15:09 140/77 12/04/17 15:08 87 140/77 Height (Feet): 5 Height (Inches): 0.00 Weight (Pounds): 128 General Appearance: WD/WN, no acute distress HEENT: normocephalic, atraumatic, supple, no JVD, status post trach Respiratory/Chest: chest wall non-tender, no respiratory distress, no accessory muscle use, decreased breath sounds, crackles/rales Cardiovascular: normal peripheral pulses, normal rate, regular rhythm, no gallop/murmur, no JVD Abdomen: normal bowel sounds, soft, non tender, no organomegaly, non distended , no mass, no scars Extremities: no cyanosis, no clubbing Skin: no rash, no lesions, ulcers Neurologic/Psychiatric: unresponsiveness Lymphatic: no neck adenopathy, no groin adenopathy Musculoskeletal: normal muscle bulk, no effusion Laboratory Tests Test 12/05/17 03:55 12/05/17 08:12 White Blood Count 10.0 K/UL (4.8-10.8) Red Blood Count 3.05 M/UL (4.20-5.40) L Hemoglobin 8.9 G/DL (12.0-16.0) L Hematocrit 28.4 % (37.0-47.0) L Mean Corpuscular Volume 93 FL (80-99) Mean Corpuscular Hemoglobin 29.3 PG (27.0-31.0) Mean Corpuscular Hemoglobin Concent 31.5 G/DL (32.0-36.0) L Red Cell Distribution Width 16.5 % (11.6-14.8) H Platelet Count 154 K/UL (150-450) Mean Platelet Volume 11.4 FL (6.5-10.1) H Neutrophils (%) (Auto) 73.4 % (45.0-75.0) Lymphocytes (%) (Auto) 15.0 % (20.0-45.0) L Monocytes (%) (Auto) 5.4 % (1.0-10.0) Eosinophils (%) (Auto) 5.6 % (0.0-3.0) H Basophils (%) (Auto) 0.6 % (0.0-2.0) Sodium Level 145 MMOL/L (136-145) Potassium Level 3.5 MMOL/L (3.5-5.1) Chloride Level 110 MMOL/L (98-107) H Carbon Dioxide Level 27 MMOL/L (21-32) Anion Gap 8 mmol/L (5-15) Blood Urea Nitrogen 38 mg/dL (7-18) H Creatinine 1.0 MG/DL (0.55-1.30) Estimat Glomerular Filtration Rate mL/min (>60) Glucose Level 128 MG/DL (74-106) H Uric Acid 6.4 MG/DL (2.6-7.2) Calcium Level 8.5 MG/DL (8.5-10.1) Phosphorus Level 2.6 MG/DL (2.5-4.9) Magnesium Level 2.8 MG/DL (1.8-2.4) H Total Bilirubin 0.4 MG/DL (0.2-1.0) Aspartate Amino Transf (AST/SGOT) 45 U/L (15-37) H Alanine Aminotransferase (ALT/SGPT) 55 U/L (12-78) Alkaline Phosphatase 119 U/L (46-116) H C-Reactive Protein, Quantitative > 70.0 mg/dL (0.00-0.90) H Pro-B-Type Natriuretic Peptide 65530 pg/mL (0-125) H Total Protein 6.5 G/DL (6.4-8.2) Albumin 1.8 G/DL (3.4-5.0) L Globulin 4.7 g/dL Albumin/Globulin Ratio 0.4 (1.0-2.7) L Arterial Blood pH 7.462 (7.350-7.450) Arterial Blood Partial Pressure CO2 35.3 mmHg (35.0-45.0) Arterial Blood Partial Pressure O2 81.2 mmHg (75.0-100.0) Arterial Blood HCO3 24.7 mmol/L (22.0-26.0) Arterial Blood Oxygen Saturation 95.3 % (92.0-98.0) Arterial Blood Base Excess 1.0 Mandeep Test Positive Current Medications Medications (Trade) Dose Ordered Sig/Cirilo Route PRN Reason Start Time Stop Time Status Last Admin Dose Admin Acetaminophen (Tylenol) 650 mg Q6H PRN ORAL Fever/Headache/Mild Pain 12/04/17 14:00 12/24/17 13:46 12/04/17 20:17 Albuterol/ Ipratropium (Albuterol/ Ipratropium) 3 ml Q6H PRN HHN Shortness of Breath 12/05/17 08:00 12/08/17 07:59 Apixaban (Eliquis) 2.5 mg Q12HR GT 12/05/17 09:00 01/04/18 08:59 12/05/17 08:56 Carvedilol (Coreg) 3.125 mg EVERY 12 HOURS GT 12/05/17 21:00 01/04/18 20:59 Cefepime HCl 2 gm/ Dextrose 55 ml @ 110 mls/hr Q24H IVPB 12/04/17 21:00 12/10/17 22:00 12/04/17 20:17 Dextrose (Dextrose 50%) 25 ml PRN IV Hypoglycemia 12/04/17 12:45 12/24/17 13:59 Dextrose (Dextrose 50%) 50 ml PRN IV hypoglycemia 12/04/17 12:45 12/24/17 13:59 Famotidine (Pepcid) 20 mg BID GT 12/04/17 18:00 12/24/17 17:59 12/05/17 08:58 Hydralazine HCl (Apresoline) 10 mg Q6H PRN GT SBP above 140mmHg 12/04/17 14:00 12/30/17 13:47 Insulin Aspart (NovoLOG) EVERY 6 HOURS SUBQ 12/04/17 18:00 12/25/17 17:59 12/05/17 11:40 Iron Sucrose 100 mg/Sodium Chloride 60 ml @ 240 mls/hr BEDTIME IV 12/04/17 21:00 12/08/17 21:14 12/04/17 20:17 Levalbuterol HCl (Xopenex) 1.25 mg Q4HRT HHN 12/05/17 11:00 12/06/17 06:59 12/05/17 11:03 Lorazepam (Ativan 2mg/ml 1ml) 0.5 mg Q6H PRN IV agitation 12/04/17 14:45 12/07/17 08:40 Metoclopramide HCl (Reglan) 5 mg EVERY 8 HOURS GT 12/04/17 14:00 12/25/17 11:59 12/05/17 13:48 Nitroglycerin (Ntg) 1 patch Q24H TDERMAL 12/04/17 14:00 12/24/17 13:59 12/05/17 13:49 Potassium Chloride (K-Dur) 40 meq DAILY GT 12/06/17 09:00 01/05/18 08:59 Cole Rasmussen M.D. Dec 05, 2017 13:53
[2017-12-05 16:00] VITALS: BP 132/57
[2017-12-05 20:00] VITALS: BP 144/60
--- NOTE | 2017-12-05 20:30 | Consultation ---
DATE OF CONSULTATION: 12/05/2017 NOTE: POOR AUDIO GASTROENTEROLOGY CONSULTATION CONSULTING PHYSICIAN: Mack Jackson M.D. CHIEF COMPLAINT: I was asked to see this patient by Dr. Rafael Hurt, for evaluation of anemia and gastrostomy tube and heme-positive stools. HISTORY OF PRESENT ILLNESS: The patient is a debilitated, unfortunate, elderly 87-year-old woman, who was brought to the hospital due to a respiratory failure. The patient continues to be stable. She has recently undergone tracheostomy tube placement. The gastrostomy tube was fractured overnight and therefore this consultation was generated for placing it. There is also a concern about anemia and she was found to be heme-positive in her stools. The patient herself was unable to provide any history. Most of the information is only available from the chart. The patient has a gastrostomy tube for long-term enteral access and nutrition. PAST MEDICAL HISTORY: History of respiratory failure, dementia, hypertension, hypercholesterolemia, status post gastrostomy tube placement, respiratory failure, status post tracheostomy tube placement, anemia, diabetes with diabetic nephropathy, cerebrovascular disease, and pulmonary hypertension. FAMILY HISTORY: Noncontributory. SOCIAL HISTORY: The patient resides in a [facility] and has had no recent history of smoking or drinking. REVIEW OF SYSTEMS: Otherwise unobtainable. MEDICATIONS: See chart list for details. PHYSICAL EXAMINATION: GENERAL: Debilitated, elderly woman seen in her room with the nurse at bedside. HEENT: Normocephalic and atraumatic. Tracheostomy was in place. CHEST: Reveals coarse breath sounds. CARDIOVASCULAR: Reveals regular rate. ABDOMEN: Soft. Good bowel sounds. Gastrostomy tube has been removed and replaced with 20-Luxembourger balloon tip catheter exchanged. LABORATORY DATA: Noted. ASSESSMENT: This patient has heme-positive stools and anemia with iron deficiency, of unclear etiology. Differential diagnoses includes GI tract sources. However, due to her age and her review of poor health, the GI workup will have to be carefully evaluated. I will discuss the matter with her family. In the meantime, I will follow her CBC and transfuse as needed. Iron can be given to replace stores. The gastrostomy tube has been replaced and ready for use. Gastrostomy tube care will be discussed with the nursing staff. RECOMMENDATIONS: Per above discussion and per orders written in the chart. Thank you for asking me to participate in care this patient. Mack Jackson M.D. DR: CHRIST JOB#: [id number] CC: MARTIN
[2017-12-05] MEDS: Iron Sucrose 100 MG in NS 55 ML IV SCH (21:09)
[2017-12-05] MEDS: Cefepime HCl 2 GM in D5W 55 ML IVPB SCH (21:09)
--- NOTE | 2017-12-05 22:45 | Progress Note ---
DATE: 12/03/2017 CARDIOLOGY PROGRESS NOTE Late entry for 12/03/2017 SUBJECTIVE: The patient was seen and evaluated. Case was discussed with Dr. Hurt. The patient's pulmonary status is deteriorating and she has a borderline cardiac status at baseline. Tracheostomy is being considered at this time. The patient continues to have congestion and respiratory distress, requiring BiPAP support. OBJECTIVE: VITAL SIGNS: Blood pressure 134/77, pulse 116, respiratory rate 28, and afebrile. HEENT: Orally intubated and mechanically ventilated. LUNGS: Coarse breath sounds with scattered rhonchi. HEART: Regular rhythm and rate. Normal S1 and S2. ABDOMEN: Soft. EXTREMITIES: Trace edema. LABORATORY DATA: White count 10.6 and hemoglobin 9.4. Sodium 156, potassium 4.5, BUN 56, and creatinine 1. Albumin is 2.1. IMPRESSION: 1. Respiratory failure. 2. Healthcare-acquired pneumonia. 3. Acute on chronic diastolic congestive heart failure. 4. Severe dehydration. 5. Hyponatremia. 6. Acute kidney injury. 7. Sepsis, recovered shock. 8. Remains critical and guarded. PLAN: 1. Free water replacement. 2. Tracheostomy consideration per risk and insurance consultant. 3. Antimicrobials per Infectious Disease workforce consultant. 4. No diuretic therapy at this time. 5. Reassess volume status, once metabolic parameters have been corrected. 6. The patient remains at high risk. Jori Andujar M.D. DR: RUFINA JOB#: [id number] CC:
--- NOTE | 2017-12-05 23:00 | Progress Note ---
DATE: 12/03/2017 CARDIOLOGY PROGRESS NOTE Late entry for 12/03/2017 SUBJECTIVE: The patient was seen and evaluated. Case was discussed with Dr. Hurt. The patient's pulmonary status is deteriorating and she has a borderline cardiac status at baseline. Tracheostomy is being considered at this time. The patient continues to have congestion and respiratory distress, requiring BiPAP support. OBJECTIVE: VITAL SIGNS: Blood pressure 134/77, pulse 116, respiratory rate 28, and afebrile. HEENT: Orally intubated and mechanically ventilated. LUNGS: Coarse breath sounds with scattered rhonchi. HEART: Regular rhythm and rate. Normal S1 and S2. ABDOMEN: Soft. EXTREMITIES: Trace edema. LABORATORY DATA: White count 10.6 and hemoglobin 9.4. Sodium 156, potassium 4.5, BUN 56, and creatinine 1. Albumin is 2.1. IMPRESSION: 1. Respiratory failure. 2. Healthcare-acquired pneumonia. 3. Acute on chronic diastolic congestive heart failure. 4. Severe dehydration. 5. Hypernatremia. 6. Acute kidney injury. 7. Sepsis with recovered shock. 8. Remains critical and guarded. PLAN: 1. Free water replacement. 2. Tracheostomy consideration per side seam tender. 3. Antimicrobials per Infectious Disease risk and insurance consultant. 4. No diuretic therapy at this time. 5. Reassess volume status, once metabolic parameters have been corrected. 6. The patient remains at high risk. Jori Andujar M.D. DR: RUFINA JOB#: [id number] CC:
--- NOTE | 2017-12-05 23:00 | Progress Note ---
DATE: 12/04/2017 Cardiology Progress Note Late entry for 12/04/2017. SUBJECTIVE: The patient is status post tracheostomy. The procedure was completed without complications. The patient remains on ventilator support. OBJECTIVE: VITAL SIGNS: Blood pressure 135/76, pulse 74, temperature 100.0, and respiratory rate 20. GENERAL: Trach site with no bleeding. Thin secretions. LUNGS: Coarse breath sounds with rhonchi. HEART: Regular rhythm and rate. Normal S1 and S2 with a fourth heart sound. ABDOMEN: Soft and nontender. EXTREMITIES: With trace edema. LABORATORY DATA: ABG, 7.50, 32, 81. White count 10.8 and hemoglobin 9.1. Sodium 152, potassium 3.5, chloride 114, bicarbonate 28, BUN 44, creatinine 1, and albumin 1.9. Troponin is negative. IMPRESSION: 1. Respiratory failure. 2. Healthcare-acquired pneumonia, aspiration, status post tracheostomy. 3. Acute on chronic diastolic congestive heart failure. 4. Severe protein calorie malnutrition. 5. Dehydration. 6. Hyponatremia. 7. . 8. Prerenal azotemia. 9. Intravascular volume depletion and hypovolemia. 10. Type 2 diabetes mellitus with hyperglycemia. 11. Remains critical and guarded. 12. Status post acute myocardial infarction. 13. Paroxysmal atrial fibrillation. PLAN: 1. Antimicrobials. 2. Ventilator support. 3. Free water replacement. 4. Hold diuresis. 5. DVT prophylaxis. 6. Stress ulcer prophylaxis. 7. Nutritional support and protein supplement by feeding tube. 8. Continue beta-bouchra therapy and anti-platelet therapy with aspirin as well as full anticoagulation with apixaban for cardioembolic prophylaxis. Jori Andujar M.D. DR: JILL JOB#: [id number] CC:
--- NOTE | 2017-12-05 23:00 | Progress Note ---
DATE: 12/05/2017 CARDIOLOGY PROGRESS NOTE SUBJECTIVE: The patient is remaining on ventilator support via tracheostomy. Secretions are thick. No bleeding is noted from the trach site. She continues on hypotonic IV fluids. She was given Lasix today. OBJECTIVE: VITAL SIGNS: Blood pressure 109/57, pulse 60, respiratory rate 17, and temperature 100.1. LUNGS: Coarse breath sounds with scattered rhonchi. HEART: Irregularly irregular rhythm. Normal S1 and S2. ABDOMEN: Soft. EXTREMITIES: Trace edema. LABORATORY DATA: Sodium 145, potassium 3.5, bicarbonate 27, BUN 38, and creatinine 1. Albumin 1.8. Pro-natriuretic peptide over 14,000. White count is 10 and hemoglobin 8.9. IMPRESSION: 1. Free water deficit, dehydration, and hypernatremia are almost resolved completely now. 2. Acute on chronic diastolic congestive heart failure. 3. Acute myocardial infarction. 4. Paroxysmal atrial fibrillation. 5. Severe protein-calorie malnutrition. 6. Anemia. 7. Respiratory failure, status post tracheostomy. 8. Sepsis with recovered shock. 9. Healthcare-acquired pneumonia with aspiration. PLAN: 1. Agree with cautious diuresis. 2. Continue free water replacement. 3. Antimicrobials. 4. Ventilator support. 5. Respiratory hygiene. 6. Nutritional support and protein supplementation by feeding tube. 7. Antiplatelet therapy and beta-blockade without change. 8. DVT and stress ulcer prophylaxis. Jori Andujar M.D. DR: RUFINA JOB#: [id number] CC:
[2017-12-06] VITALS: BP 122/73
[2017-12-06] MEDS: NovoLOG Insulin Flexpen SUBQ SCH ×5 (00:20→23:17)
[2017-12-06] MEDS: Acetaminophen 650mg/20.3ml ORAL PRN (00:21)
[2017-12-06 04:00] VITALS: BP 143/85
[2017-12-06 04:46] LABS: BASOPHILS % (AUTO) 0.8 % (0.0-2.0); EOSINOPHILS % (AUTO) 5.4 % (0.0-3.0); HEMATOCRIT 27.9 % (37.0-47.0); HEMOGLOBIN 8.7 G/DL (12.0-16.0); LYMPHOCYTES % (AUTO) 14.7 % (20.0-45.0); MEAN CORPUSCULAR VOLUME 93 FL (80-99); MONOCYTES % (AUTO) 4.9 % (1.0-10.0); NEUTROPHILS % (AUTO) 74.2 % (45.0-75.0); PLATELET COUNT 164 K/UL (150-450); RED BLOOD COUNT 3.01 M/UL (4.20-5.40); RED CELL DISTRIBUTION WIDTH 16.2 % (11.6-14.8); WHITE BLOOD COUNT 8.1 K/UL (4.8-10.8)
[2017-12-06 05:26] LABS: ALANINE AMINOTRANSFERASE 45 U/L (12-78); ALBUMIN 1.7 G/DL (3.4-5.0); ALBUMIN/GLOBULIN RATIO 0.4 (1.0-2.7); ALKALINE PHOSPHATASE 112 U/L (46-116); ANION GAP 5 mmol/L (5-15); ASPARTATE AMINO TRANSFERASE 30 U/L (15-37); BILIRUBIN,TOTAL 0.2 MG/DL (0.2-1.0); BLOOD UREA NITROGEN 38 mg/dL (7-18); CALCIUM 8.5 MG/DL (8.5-10.1); CARBON DIOXIDE 29 MMOL/L (21-32); CHLORIDE 111 MMOL/L (98-107); GAMMA GLUTAMYL TRANSPEPTIDASE 92 U/L (5-85); POTASSIUM 3.8 MMOL/L (3.5-5.1); SODIUM 145 MMOL/L (136-145)
[2017-12-06] MEDS: Levalbuterol Inh UD 1.25mg/0.5ml HHN SCH (05:29)
[2017-12-06] MEDS: Metoclopramide 10mg/10ml Liq GT SCH ×3 (05:58→22:12)
[2017-12-06 08:00] VITALS: BP 158/82
--- NOTE | 2017-12-06 08:17 | Pulmonology Progress Note ---
Assessment/Plan Assessment/Plan ASSESSMENT Acute hypoxemic respiratory failure ( requiring BiPAP and then intubation) Failure to wean Status post tracheostomy 12/03 UTI with Proteus Aspiration pneumonia with Pseudomonas Right heel pressure ulcer un-stageable Acute on chronic diastolic congestive heart failure Bilateral pleural effusion s/p thoracentesis Paroxysmal atrial fibrillation Dehydration Diabetic nephropathy Hypernatremia Diabetes mellitus Cerebrovascular disease with dementia Dysphagia ,G-tube Moderate protein calorie malnutrition Iron deficiency anemia Severe pulmonary hypertension malfunctioning G tube, s/p change at the bedside 12/05 PLAN OF CARE PAZ Vent support, trach care pulmonary toilet ABG stable , optimize settings as needed antibiotics ID follows urine cx + Proteus, sputum cx +Pseudomonas, stool C dif negative, blood cx prior - negative recurrent fevers surgeon follows trach stable ( CXR post trach - trach in good position, no PNT) s/p thoracentesis earlier -0.9 L pleural fluid cx negative CXR 12/05 - Increasing opacity in bilateral lower lung zones. fup with CXR in am continue abx Right heel wound care anticoagulation for cardio-embolic prophylaxis s/p gentle diuresis , monitor cardio-renal parameters and volumes , creat stable correct lytes prn ECHO with pEF 65% and RVSP of 66 c/w severe pulmonary hypertension trend proBNP , trending down lipid panel stable venous duplex BLE - no acute DVT BP management with hydralazine and BB, GT burst this am, s/p change at the bedside by GI specialist strict aspiration precautions, G-tube feeding, monitor tolerance monitor HH with goal to keep Hgb above 7 anemia workup consistent with anemia of MARIPOSA IV Venofer BS management with SSI prn, HgA1c -7.5 bowel regimen pain management prn supportive care protein supplements DVT , GI prophylaxis case discussed and evaluated by supervising physician Subjective Allergies: Coded Allergies: ATORVASTATIN (Verified Allergy, Unknown, 11/24/17) CLONIDINE (Verified Allergy, Unknown, 11/24/17) LABETALOL (Verified Allergy, Unknown, 11/24/17) NIFEDIPINE (Verified Allergy, Unknown, 11/24/17) ROSUVASTATIN (Verified Allergy, Unknown, 11/24/17) Uncoded Allergies: IVELISSE INHIBITOR (Allergy, Unknown, 11/24/17) Subjective in PAZ s/p trach no resp distress ABG on current setting noted no leucocytosis, fevers at midnight CXR 12/05 Increasing opacity in bilateral lower lung zones. Objective Last 24 Hour Vital Signs Date Time Temp Pulse Resp B/P (MAP) Pulse Ox O2 Delivery O2 Flow Rate FiO2 12/06/17 07:30 Mechanical Ventilator 30 12/06/17 07:29 Mechanical Ventilator 30 12/06/17 07:27 63 20 30 12/06/17 05:30 66 26 30 12/06/17 04:00 98.4 63 18 143/85 (104) 98 98.4 12/06/17 04:00 30.0 12/06/17 04:00 Mechanical Ventilator 12/06/17 04:00 62 12/06/17 03:45 74 20 100 Mechanical Ventilator 30 12/06/17 03:30 63 28 97 Mechanical Ventilator 30 12/06/17 03:30 67 23 30 12/06/17 01:28 60 14 30 12/06/17 01:00 98.4 12/06/17 00:21 100.0 12/06/17 00:00 93 12/06/17 00:00 Mechanical Ventilator 12/06/17 00:00 30.0 12/06/17 00:00 100.0 63 21 122/73 (89) 98 100.0 12/05/17 23:27 71 21 100 Mechanical Ventilator 30 12/05/17 23:26 69 26 99 Mechanical Ventilator 30 12/05/17 23:25 63 16 30 12/05/17 21:29 58 20 30 12/05/17 21:08 75 144/60 12/05/17 20:00 64 20 99 Mechanical Ventilator 30 12/05/17 20:00 Mechanical Ventilator 12/05/17 20:00 30.0 12/05/17 20:00 67 12/05/17 20:00 99.1 75 28 144/60 (88) 99 99.1 12/05/17 19:30 61 24 99 Mechanical Ventilator 30 12/05/17 19:30 51 19 30 12/05/17 16:47 63 14 30 12/05/17 16:00 30.0 12/05/17 16:00 98.6 62 18 132/57 (82) 100 98.6 12/05/17 16:00 Mechanical Ventilator 12/05/17 16:00 62 12/05/17 15:02 66 17 99 Mechanical Ventilator 30 12/05/17 14:59 53 14 98 Mechanical Ventilator 30 12/05/17 14:56 54 15 30 12/05/17 13:49 118/63 12/05/17 12:45 57 17 30 12/05/17 12:00 Mechanical Ventilator 12/05/17 12:00 30.0 12/05/17 12:00 98.1 60 19 118/63 (81) 100 98.1 12/05/17 12:00 58 12/05/17 11:06 62 19 100 Mechanical Ventilator 30 12/05/17 11:03 54 16 100 Mechanical Ventilator 30 12/05/17 11:03 55 22 30 12/05/17 09:00 71 12/05/17 08:58 57 110/60 12/05/17 08:42 60 18 30 Intake and Output 12/05/17 12/06/17 19:00 07:00 Intake Total 1010 ml 665 ml Output Total 1250 ml 400 ml Balance -240 ml 265 ml IV Total 350 ml 115 ml Tube Feeding 600 ml 550 ml Other 60 ml Output Urine Total 850 ml 400 ml Stool Total 400 ml Objective General Appearance: no acute distress, bedbound angel AC AC 500-16-30% HEENT: normocephalic, atraumatic, VM 35% n Neck: trach Shiley #6, secretions scant amount, white color, thick consistency Respiratory/Chest: few isolated rhonchi , more audible on the right Cardiovascular: SR Abdomen: normal bowel sounds, soft, non tender, G tube Extremities: no edema Neurologic/Psychiatric: bedridden Musculoskeletal: atrophy - BLE Laboratory Tests 12/06/17 03:30: White Blood Count 8.1, Red Blood Count 3.01L, Hemoglobin 8.7L, Hematocrit 27.9L , Mean Corpuscular Volume 93, Mean Corpuscular Hemoglobin 28.8, Mean Corpuscular Hemoglobin Concent 31.1L, Red Cell Distribution Width 16.2H, Platelet Count 164, Mean Platelet Volume 11.5H, Neutrophils (%) (Auto) 74.2, Lymphocytes (%) (Auto) 14.7L, Monocytes (%) (Auto) 4.9, Eosinophils (%) (Auto) 5.4H, Basophils (%) (Auto) 0.8, Sodium Level 145, Potassium Level 3.8, Chloride Level 111H, Carbon Dioxide Level 29, Anion Gap 5, Blood Urea Nitrogen 38H, Creatinine 1.0, Estimat Glomerular Filtration Rate , Glucose Level 121H, Uric Acid 6.3, Calcium Level 8.5, Phosphorus Level 3.0, Magnesium Level 2.8H, Total Bilirubin 0.2, Gamma Glutamyl Transpeptidase 92H, Aspartate Amino Transf (AST/ SGOT) 30, Alanine Aminotransferase (ALT/SGPT) 45, Alkaline Phosphatase 112, C- Reactive Protein, Quantitative 22.9H, Pro-B-Type Natriuretic Peptide 31532Z, Total Protein 6.1L, Albumin 1.7L, Globulin 4.4, Albumin/Globulin Ratio 0.4L 12/06/17 04:00: Arterial Blood pH 7.482H, Arterial Blood Partial Pressure CO2 33.3L, Arterial Blood Partial Pressure O2 76.1, Arterial Blood HCO3 24.4, Arterial Blood Oxygen Saturation 94.8, Arterial Blood Base Excess 1.1, Mandeep Test Positive Current Medications Medications (Trade) Dose Ordered Sig/Cirilo Route PRN Reason Start Time Stop Time Status Last Admin Dose Admin Acetaminophen (Tylenol) 650 mg Q6H PRN ORAL Fever/Headache/Mild Pain 12/04/17 14:00 12/24/17 13:46 12/06/17 00:21 Albuterol/ Ipratropium (Albuterol/ Ipratropium) 3 ml Q6H PRN HHN Shortness of Breath 12/05/17 08:00 12/08/17 07:59 Apixaban (Eliquis) 2.5 mg Q12HR GT 12/05/17 09:00 01/04/18 08:59 12/05/17 21:09 Carvedilol (Coreg) 3.125 mg EVERY 12 HOURS GT 12/05/17 21:00 01/04/18 20:59 12/05/17 21:08 Cefepime HCl 2 gm/ Dextrose 55 ml @ 110 mls/hr Q24H IVPB 12/04/17 21:00 12/10/17 22:00 12/05/17 21:09 Dextrose (Dextrose 50%) 25 ml PRN IV Hypoglycemia 12/04/17 12:45 12/24/17 13:59 Dextrose (Dextrose 50%) 50 ml PRN IV hypoglycemia 12/04/17 12:45 12/24/17 13:59 Famotidine (Pepcid) 20 mg BID GT 12/04/17 18:00 12/24/17 17:59 12/05/17 18:01 Hydralazine HCl (Apresoline) 10 mg Q6H PRN GT SBP above 140mmHg 12/04/17 14:00 12/30/17 13:47 Insulin Aspart (NovoLOG) EVERY 6 HOURS SUBQ 12/04/17 18:00 12/25/17 17:59 12/06/17 06:15 Iron Sucrose 100 mg/Sodium Chloride 60 ml @ 240 mls/hr BEDTIME IV 12/04/17 21:00 12/08/17 21:14 12/05/17 21:09 Lorazepam (Ativan 2mg/ml 1ml) 0.5 mg Q6H PRN IV agitation 12/04/17 14:45 12/07/17 08:40 Metoclopramide HCl (Reglan) 5 mg EVERY 8 HOURS GT 12/04/17 14:00 12/25/17 11:59 12/06/17 05:58 Nitroglycerin (Ntg) 1 patch Q24H TDERMAL 12/04/17 14:00 12/24/17 13:59 12/05/17 13:49 Potassium Chloride (K-Dur) 40 meq DAILY GT 12/06/17 09:00 01/05/18 08:59 Ignacia Macias [employer] Dec 06, 2017 08:17
[2017-12-06] MEDS: Eliquis 2.5mg tablet GT SCH ×2 (09:20→20:17)
[2017-12-06] MEDS ORDERED: NS 275ml ONE (09:22)
[2017-12-06] MEDS ORDERED: Tubing IV Secondary IV ONE (09:25)
[2017-12-06] MEDS ORDERED: LORazepam Inj 2mg/ml 1ml IV PRN (10:30)
[2017-12-06] MEDS ORDERED: Albuterol/Ipratropium 3ml neb HHN PRN (10:30)
--- NOTE | 2017-12-06 11:22 | General Progress Note ---
Assessment/Plan Problem List: (1) Acute respiratory failure ICD Codes: J96.00 - Acute respiratory failure, unspecified whether with hypoxia or hypercapnia SNOMED: 14305878 Qualifiers: Qualified Codes: J96.01 - Acute respiratory failure with hypoxia (2) History of CVA (cerebrovascular accident) ICD Codes: Z86.73 - Personal history of transient ischemic attack (TIA), and cerebral infarction without residual deficits SNOMED: 683929778 (3) Pulmonary edema ICD Codes: J81.1 - Chronic pulmonary edema SNOMED: 90271096 Qualifiers: Qualified Codes: J81.0 - Acute pulmonary edema (4) Diabetic nephropathy ICD Codes: E11.21 - Type 2 diabetes mellitus with diabetic nephropathy SNOMED: 53291157, 120869788 (5) Pleural effusion, bilateral ICD Codes: J90 - Pleural effusion, not elsewhere classified SNOMED: 905711520 Status: stable Assessment/Plan stop Coreg hydralazine GT K supplement as needed trach 12/03 post trach care Currently on Cefepime til Dec 18 resume eliquis GT feeding Keep BP and BS in check optimize cardiac and pulm status- IV Iron PER Cardio and pulm addendum: 12/02/[address] james, based on boarderline pulmonary status and the need for bipap, and patient being full code, tracheostomy will be entertained after discussion with DPOA . Subjective ROS Limited/Unobtainable: Yes Allergies: Coded Allergies: ATORVASTATIN (Verified Allergy, Unknown, 11/24/17) CLONIDINE (Verified Allergy, Unknown, 11/24/17) LABETALOL (Verified Allergy, Unknown, 11/24/17) NIFEDIPINE (Verified Allergy, Unknown, 11/24/17) ROSUVASTATIN (Verified Allergy, Unknown, 11/24/17) Uncoded Allergies: IVELISSE INHIBITOR (Allergy, Unknown, 11/24/17) Objective Last 24 Hour Vital Signs Date Time Temp Pulse Resp B/P (MAP) Pulse Ox O2 Delivery O2 Flow Rate FiO2 12/06/17 11:05 50 14 30 12/06/17 09:30 58 15 30 12/06/17 09:20 73 158/82 12/06/17 08:00 30.0 12/06/17 08:00 98.4 73 24 158/82 (107) 99 98.4 12/06/17 08:00 Mechanical Ventilator 12/06/17 08:00 73 12/06/17 07:30 Mechanical Ventilator 30 12/06/17 07:29 Mechanical Ventilator 30 12/06/17 07:27 63 20 30 12/06/17 05:30 66 26 30 12/06/17 04:00 98.4 63 18 143/85 (104) 98 98.4 12/06/17 04:00 30.0 12/06/17 04:00 Mechanical Ventilator 12/06/17 04:00 62 12/06/17 03:45 74 20 100 Mechanical Ventilator 30 12/06/17 03:30 63 28 97 Mechanical Ventilator 30 12/06/17 03:30 67 23 30 12/06/17 01:28 60 14 30 12/06/17 01:00 98.4 12/06/17 00:21 100.0 12/06/17 00:00 93 12/06/17 00:00 Mechanical Ventilator 12/06/17 00:00 30.0 12/06/17 00:00 100.0 63 21 122/73 (89) 98 100.0 12/05/17 23:27 71 21 100 Mechanical Ventilator 30 12/05/17 23:26 69 26 99 Mechanical Ventilator 30 12/05/17 23:25 63 16 30 12/05/17 21:29 58 20 30 12/05/17 21:08 75 144/60 12/05/17 20:00 64 20 99 Mechanical Ventilator 30 12/05/17 20:00 Mechanical Ventilator 12/05/17 20:00 30.0 12/05/17 20:00 67 12/05/17 20:00 99.1 75 28 144/60 (88) 99 99.1 12/05/17 19:30 61 24 99 Mechanical Ventilator 30 12/05/17 19:30 51 19 30 12/05/17 16:47 63 14 30 12/05/17 16:00 30.0 12/05/17 16:00 98.6 62 18 132/57 (82) 100 98.6 12/05/17 16:00 Mechanical Ventilator 12/05/17 16:00 62 12/05/17 15:02 66 17 99 Mechanical Ventilator 30 12/05/17 14:59 53 14 98 Mechanical Ventilator 30 12/05/17 14:56 54 15 30 12/05/17 13:49 118/63 12/05/17 12:45 57 17 30 12/05/17 12:00 Mechanical Ventilator 12/05/17 12:00 30.0 12/05/17 12:00 98.1 60 19 118/63 (81) 100 98.1 12/05/17 12:00 58 Intake and Output 12/05/17 12/06/17 19:00 07:00 Intake Total 1010 ml 715 ml Output Total 1250 ml 400 ml Balance -240 ml 315 ml IV Total 350 ml 115 ml Tube Feeding 600 ml 600 ml Other 60 ml Output Urine Total 850 ml 400 ml Stool Total 400 ml Laboratory Tests 12/06/17 03:30: White Blood Count 8.1, Red Blood Count 3.01L, Hemoglobin 8.7L, Hematocrit 27.9L , Mean Corpuscular Volume 93, Mean Corpuscular Hemoglobin 28.8, Mean Corpuscular Hemoglobin Concent 31.1L, Red Cell Distribution Width 16.2H, Platelet Count 164, Mean Platelet Volume 11.5H, Neutrophils (%) (Auto) 74.2, Lymphocytes (%) (Auto) 14.7L, Monocytes (%) (Auto) 4.9, Eosinophils (%) (Auto) 5.4H, Basophils (%) (Auto) 0.8, Sodium Level 145, Potassium Level 3.8, Chloride Level 111H, Carbon Dioxide Level 29, Anion Gap 5, Blood Urea Nitrogen 38H, Creatinine 1.0, Estimat Glomerular Filtration Rate , Glucose Level 121H, Uric Acid 6.3, Calcium Level 8.5, Phosphorus Level 3.0, Magnesium Level 2.8H, Total Bilirubin 0.2, Gamma Glutamyl Transpeptidase 92H, Aspartate Amino Transf (AST/ SGOT) 30, Alanine Aminotransferase (ALT/SGPT) 45, Alkaline Phosphatase 112, C- Reactive Protein, Quantitative 22.9H, Pro-B-Type Natriuretic Peptide 75585O, Total Protein 6.1L, Albumin 1.7L, Globulin 4.4, Albumin/Globulin Ratio 0.4L 12/06/17 04:00: Arterial Blood pH 7.482H, Arterial Blood Partial Pressure CO2 33.3L, Arterial Blood Partial Pressure O2 76.1, Arterial Blood HCO3 24.4, Arterial Blood Oxygen Saturation 94.8, Arterial Blood Base Excess 1.1, Mandeep Test Positive Height (Feet): 5 Height (Inches): 0.00 Weight (Pounds): 128 General Appearance: no apparent distress EENT: other - trach site clean Cardiovascular: bradycardia Respiratory/Chest: decreased breath sounds Abdomen: soft Objective no change Rafael Hurt MD Dec 06, 2017 11:22
[2017-12-06] MEDS: HydrALAZINE 10mg Tab GT SCH ×3 (11:51→23:46)
[2017-12-06 12:00] VITALS: BP 122/65
--- NOTE | 2017-12-06 13:03 | General Progress Note ---
Assessment/Plan Assessment/Plan GIAssessment - GT torn -- replaced - Heme (+) stools - Anemia, Iron deficiency - Resp failure - s/p PEG and Trach - HTN - DM - Pulmonary HTN Recommendations - Continue TF - monitor CBC - Agree with IV Iron - Will d/w family Thank you Doreen Jackson MD Subjective Allergies: Coded Allergies: ATORVASTATIN (Verified Allergy, Unknown, 11/24/17) CLONIDINE (Verified Allergy, Unknown, 11/24/17) LABETALOL (Verified Allergy, Unknown, 11/24/17) NIFEDIPINE (Verified Allergy, Unknown, 11/24/17) ROSUVASTATIN (Verified Allergy, Unknown, 11/24/17) Uncoded Allergies: IVELISSE INHIBITOR (Allergy, Unknown, 11/24/17) Subjective Above noted tolerating TF awake, non communicative unable to contact family using all numbers on facesheet Objective Last 24 Hour Vital Signs Date Time Temp Pulse Resp B/P (MAP) Pulse Ox O2 Delivery O2 Flow Rate FiO2 12/06/17 12:00 98.4 54 14 122/65 (84) 100 98.4 12/06/17 12:00 Mechanical Ventilator 12/06/17 12:00 30.0 12/06/17 11:51 122/66 12/06/17 11:05 50 14 30 12/06/17 09:30 58 15 30 12/06/17 09:20 73 158/82 12/06/17 08:00 30.0 12/06/17 08:00 98.4 73 24 158/82 (107) 99 98.4 12/06/17 08:00 Mechanical Ventilator 12/06/17 08:00 73 12/06/17 07:30 Mechanical Ventilator 30 12/06/17 07:29 Mechanical Ventilator 30 12/06/17 07:27 63 20 30 12/06/17 05:30 66 26 30 12/06/17 04:00 98.4 63 18 143/85 (104) 98 98.4 12/06/17 04:00 30.0 12/06/17 04:00 Mechanical Ventilator 12/06/17 04:00 62 12/06/17 03:45 74 20 100 Mechanical Ventilator 30 12/06/17 03:30 63 28 97 Mechanical Ventilator 30 12/06/17 03:30 67 23 30 12/06/17 01:28 60 14 30 12/06/17 01:00 98.4 12/06/17 00:21 100.0 12/06/17 00:00 93 12/06/17 00:00 Mechanical Ventilator 12/06/17 00:00 30.0 12/06/17 00:00 100.0 63 21 122/73 (89) 98 100.0 12/05/17 23:27 71 21 100 Mechanical Ventilator 30 12/05/17 23:26 69 26 99 Mechanical Ventilator 30 12/05/17 23:25 63 16 30 12/05/17 21:29 58 20 30 12/05/17 21:08 75 144/60 12/05/17 20:00 64 20 99 Mechanical Ventilator 30 12/05/17 20:00 Mechanical Ventilator 12/05/17 20:00 30.0 12/05/17 20:00 67 12/05/17 20:00 99.1 75 28 144/60 (88) 99 99.1 12/05/17 19:30 61 24 99 Mechanical Ventilator 30 12/05/17 19:30 51 19 30 12/05/17 16:47 63 14 30 12/05/17 16:00 30.0 12/05/17 16:00 98.6 62 18 132/57 (82) 100 98.6 12/05/17 16:00 Mechanical Ventilator 12/05/17 16:00 62 12/05/17 15:02 66 17 99 Mechanical Ventilator 30 12/05/17 14:59 53 14 98 Mechanical Ventilator 30 12/05/17 14:56 54 15 30 12/05/17 13:49 118/63 Intake and Output 12/05/17 12/06/17 19:00 07:00 Intake Total 1010 ml 715 ml Output Total 1250 ml 400 ml Balance -240 ml 315 ml IV Total 350 ml 115 ml Tube Feeding 600 ml 600 ml Other 60 ml Output Urine Total 850 ml 400 ml Stool Total 400 ml Laboratory Tests 12/06/17 03:30: White Blood Count 8.1, Red Blood Count 3.01L, Hemoglobin 8.7L, Hematocrit 27.9L , Mean Corpuscular Volume 93, Mean Corpuscular Hemoglobin 28.8, Mean Corpuscular Hemoglobin Concent 31.1L, Red Cell Distribution Width 16.2H, Platelet Count 164, Mean Platelet Volume 11.5H, Neutrophils (%) (Auto) 74.2, Lymphocytes (%) (Auto) 14.7L, Monocytes (%) (Auto) 4.9, Eosinophils (%) (Auto) 5.4H, Basophils (%) (Auto) 0.8, Sodium Level 145, Potassium Level 3.8, Chloride Level 111H, Carbon Dioxide Level 29, Anion Gap 5, Blood Urea Nitrogen 38H, Creatinine 1.0, Estimat Glomerular Filtration Rate , Glucose Level 121H, Uric Acid 6.3, Calcium Level 8.5, Phosphorus Level 3.0, Magnesium Level 2.8H, Total Bilirubin 0.2, Gamma Glutamyl Transpeptidase 92H, Aspartate Amino Transf (AST/ SGOT) 30, Alanine Aminotransferase (ALT/SGPT) 45, Alkaline Phosphatase 112, C- Reactive Protein, Quantitative 22.9H, Pro-B-Type Natriuretic Peptide [id number], Total Protein 6.1L, Albumin 1.7L, Globulin 4.4, Albumin/Globulin Ratio 0.4L 12/06/17 04:00: Arterial Blood pH 7.482H, Arterial Blood Partial Pressure CO2 33.3L, Arterial Blood Partial Pressure O2 76.1, Arterial Blood HCO3 24.4, Arterial Blood Oxygen Saturation 94.8, Arterial Blood Base Excess 1.1, Mandeep Test Positive Height (Feet): 5 Height (Inches): 0.00 Weight (Pounds): 128 Objective Elderly woman , NAD NCAT supple CTA RR soft ND. (+) GT contracted OBS Mack Jackson MD Dec 06, 2017 13:03
--- NOTE | 2017-12-06 13:41 | Infectious Diseases Prog Note ---
Assessment/Plan Problems: (1) Aspiration pneumonia Assessment & Plan: with B/L basal infiltrates, due to pseudomonas pneumonia , continue cefepime to finish total of three weeks course of treatment . monitor CXR . aspiration precaution , keep HOB > 30 degree . EOT 12/18/17 (2) Pleural effusion, bilateral Assessment & Plan: S/P thoracentesis , exudative most likely due to pneumonia, adenosine deaminase on pleural fluids, fungal and cytology are pending . bacterial culture is negative which rule out empyema (3) Acute respiratory failure Assessment & Plan: due to the above, S/P tracheostomy , monitor CXR , continue local trach care , pulmonary is following (4) Sepsis Assessment & Plan: due to the above, with negative blood culture results so far , on cefepime to treat her pneumonia and UTI for total of three weeks. EOT 12/18/17 (5) Pressure ulcer, heel, right, unstageable Assessment & Plan: with an eschar, continue off loading and local wound care as per hospital protocol (6) Fever Assessment & Plan: suspect post OP, continue tylenol and monitor clinically Subjective ROS Limited/Unobtainable: Yes Allergies: Coded Allergies: ATORVASTATIN (Verified Allergy, Unknown, 11/24/17) CLONIDINE (Verified Allergy, Unknown, 11/24/17) LABETALOL (Verified Allergy, Unknown, 11/24/17) NIFEDIPINE (Verified Allergy, Unknown, 11/24/17) ROSUVASTATIN (Verified Allergy, Unknown, 11/24/17) Uncoded Allergies: IVELISSE INHIBITOR (Allergy, Unknown, 11/24/17) Subjective she was up in bed , comfortable, not responsive to verbal commands , low grade fever earlier today . no cough , no significant secretions Objective Vital Signs Last 24 Hour Vital Signs Date Time Temp Pulse Resp B/P (MAP) Pulse Ox O2 Delivery O2 Flow Rate FiO2 12/06/17 12:00 98.4 54 14 122/65 (84) 100 98.4 12/06/17 12:00 Mechanical Ventilator 12/06/17 12:00 56 12/06/17 12:00 30.0 12/06/17 11:51 122/66 12/06/17 11:05 50 14 30 12/06/17 09:30 58 15 30 12/06/17 09:20 73 158/82 12/06/17 08:00 30.0 12/06/17 08:00 98.4 73 24 158/82 (107) 99 98.4 12/06/17 08:00 Mechanical Ventilator 12/06/17 08:00 73 12/06/17 07:30 Mechanical Ventilator 30 12/06/17 07:29 Mechanical Ventilator 30 12/06/17 07:27 63 20 30 12/06/17 05:30 66 26 30 12/06/17 04:00 98.4 63 18 143/85 (104) 98 98.4 12/06/17 04:00 30.0 12/06/17 04:00 Mechanical Ventilator 12/06/17 04:00 62 12/06/17 03:45 74 20 100 Mechanical Ventilator 30 12/06/17 03:30 63 28 97 Mechanical Ventilator 30 12/06/17 03:30 67 23 30 12/06/17 01:28 60 14 30 12/06/17 01:00 98.4 12/06/17 00:21 100.0 12/06/17 00:00 93 12/06/17 00:00 Mechanical Ventilator 12/06/17 00:00 30.0 12/06/17 00:00 100.0 63 21 122/73 (89) 98 100.0 12/05/17 23:27 71 21 100 Mechanical Ventilator 30 12/05/17 23:26 69 26 99 Mechanical Ventilator 30 12/05/17 23:25 63 16 30 12/05/17 21:29 58 20 30 12/05/17 21:08 75 144/60 12/05/17 20:00 64 20 99 Mechanical Ventilator 30 12/05/17 20:00 Mechanical Ventilator 12/05/17 20:00 30.0 12/05/17 20:00 67 12/05/17 20:00 99.1 75 28 144/60 (88) 99 99.1 12/05/17 19:30 61 24 99 Mechanical Ventilator 30 12/05/17 19:30 51 19 30 12/05/17 16:47 63 14 30 12/05/17 16:00 30.0 12/05/17 16:00 98.6 62 18 132/57 (82) 100 98.6 12/05/17 16:00 Mechanical Ventilator 12/05/17 16:00 62 12/05/17 15:02 66 17 99 Mechanical Ventilator 30 9/8/18 14:59 53 14 98 Mechanical Ventilator 30 12/05/17 14:56 54 15 30 12/05/17 13:49 118/63 Height (Feet): 5 Height (Inches): 0.00 Weight (Pounds): 128 General Appearance: WD/WN, no acute distress HEENT: normocephalic, atraumatic, anicteric, mucous membranes moist, PERRL Respiratory/Chest: chest wall non-tender, lungs clear, normal breath sounds, no respiratory distress, no accessory muscle use Cardiovascular: normal peripheral pulses, normal rate, regular rhythm, no gallop/murmur, no JVD Abdomen: normal bowel sounds, soft, non tender, no organomegaly, non distended , no mass, no scars Extremities: no cyanosis, no clubbing Skin: no rash, no lesions, ulcers - right heel wound with an eschar Neurologic/Psychiatric: unresponsiveness Laboratory Tests Test 12/06/17 03:30 12/06/17 04:00 White Blood Count 8.1 K/UL (4.8-10.8) Red Blood Count 3.01 M/UL (4.20-5.40) L Hemoglobin 8.7 G/DL (12.0-16.0) L Hematocrit 27.9 % (37.0-47.0) L Mean Corpuscular Volume 93 FL (80-99) Mean Corpuscular Hemoglobin 28.8 PG (27.0-31.0) Mean Corpuscular Hemoglobin Concent 31.1 G/DL (32.0-36.0) L Red Cell Distribution Width 16.2 % (11.6-14.8) H Platelet Count 164 K/UL (150-450) Mean Platelet Volume 11.5 FL (6.5-10.1) H Neutrophils (%) (Auto) 74.2 % (45.0-75.0) Lymphocytes (%) (Auto) 14.7 % (20.0-45.0) L Monocytes (%) (Auto) 4.9 % (1.0-10.0) Eosinophils (%) (Auto) 5.4 % (0.0-3.0) H Basophils (%) (Auto) 0.8 % (0.0-2.0) Sodium Level 145 MMOL/L (136-145) Potassium Level 3.8 MMOL/L (3.5-5.1) Chloride Level 111 MMOL/L (98-107) H Carbon Dioxide Level 29 MMOL/L (21-32) Anion Gap 5 mmol/L (5-15) Blood Urea Nitrogen 38 mg/dL (7-18) H Creatinine 1.0 MG/DL (0.55-1.30) Estimat Glomerular Filtration Rate mL/min (>60) Glucose Level 121 MG/DL (74-106) H Uric Acid 6.3 MG/DL (2.6-7.2) Calcium Level 8.5 MG/DL (8.5-10.1) Phosphorus Level 3.0 MG/DL (2.5-4.9) Magnesium Level 2.8 MG/DL (1.8-2.4) H Total Bilirubin 0.2 MG/DL (0.2-1.0) Gamma Glutamyl Transpeptidase 92 U/L (5-85) H Aspartate Amino Transf (AST/SGOT) 30 U/L (15-37) Alanine Aminotransferase (ALT/SGPT) 45 U/L (12-78) Alkaline Phosphatase 112 U/L (46-116) C-Reactive Protein, Quantitative 22.9 mg/dL (0.00-0.90) H Pro-B-Type Natriuretic Peptide 23641 pg/mL (0-125) H Total Protein 6.1 G/DL (6.4-8.2) L Albumin 1.7 G/DL (3.4-5.0) L Globulin 4.4 g/dL Albumin/Globulin Ratio 0.4 (1.0-2.7) L Arterial Blood pH 7.482 (7.350-7.450) Arterial Blood Partial Pressure CO2 33.3 mmHg (35.0-45.0) L Arterial Blood Partial Pressure O2 76.1 mmHg (75.0-100.0) Arterial Blood HCO3 24.4 mmol/L (22.0-26.0) Arterial Blood Oxygen Saturation 94.8 % (92.0-98.0) Arterial Blood Base Excess 1.1 Mandeep Test Positive Current Medications Medications (Trade) Dose Ordered Sig/Cirilo Route PRN Reason Start Time Stop Time Status Last Admin Dose Admin Acetaminophen (Tylenol) 650 mg Q6H PRN ORAL Fever/Headache/Mild Pain 12/04/17 14:00 12/24/17 13:46 12/06/17 00:21 Albuterol/ Ipratropium (Albuterol/ Ipratropium) 3 ml Q6H PRN HHN Shortness of Breath 12/06/17 10:30 12/09/17 10:29 Apixaban (Eliquis) 2.5 mg Q12HR GT 12/05/17 09:00 01/04/18 08:59 12/06/17 09:20 Cefepime HCl 2 gm/ Dextrose 55 ml @ 110 mls/hr Q24H IVPB 12/04/17 21:00 12/10/17 22:00 12/05/17 21:09 Dextrose (Dextrose 50%) 25 ml PRN IV Hypoglycemia 12/04/17 12:45 12/24/17 13:59 Dextrose (Dextrose 50%) 50 ml PRN IV hypoglycemia 12/04/17 12:45 12/24/17 13:59 Famotidine (Pepcid) 20 mg BID GT 12/04/17 18:00 12/24/17 17:59 12/06/17 09:20 Hydralazine HCl (Apresoline) 10 mg Q6H PRN GT SBP above 140mmHg 12/04/17 14:00 12/30/17 13:47 Hydralazine HCl (Apresoline) 10 mg Q6HR GT 12/06/17 12:00 01/05/18 11:59 12/06/17 11:51 Insulin Aspart (NovoLOG) EVERY 6 HOURS SUBQ 12/04/17 18:00 12/25/17 17:59 12/06/17 11:42 Iron Sucrose 100 mg/Sodium Chloride 60 ml @ 240 mls/hr BEDTIME IV 12/04/17 21:00 12/08/17 21:14 12/05/17 21:09 Lorazepam (Ativan 2mg/ml 1ml) 0.5 mg Q6H PRN IV agitation 12/06/17 10:30 12/09/17 10:29 Metoclopramide HCl (Reglan) 5 mg EVERY 8 HOURS GT 12/04/17 14:00 12/25/17 11:59 12/06/17 05:58 Nitroglycerin (Ntg) 1 patch Q24H TDERMAL 12/04/17 14:00 12/24/17 13:59 12/05/17 13:49 Potassium Chloride (K-Dur) 40 meq DAILY GT 12/06/17 09:00 01/05/18 08:59 12/06/17 09:20 Cole Rasmussen M.D. Dec 06, 2017 13:41
[2017-12-06] MEDS: Nitroglycerin Patch 0.4mg TDERMAL SCH (14:57)
[2017-12-06 16:00] VITALS: BP 116/76
[2017-12-06 20:00] VITALS: BP 130/63
[2017-12-06] MEDS: Iron Sucrose 100 MG in NS 55 ML IV SCH (20:16)
[2017-12-06] MEDS: Cefepime HCl 2 GM in D5W 55 ML IVPB SCH (20:36)
[2017-12-07] VITALS: BP 137/72
[2017-12-07 04:00] VITALS: BP 123/65
[2017-12-07] MEDS: Metoclopramide 10mg/10ml Liq GT SCH ×3 (05:11→21:14)
[2017-12-07] MEDS: HydrALAZINE 10mg Tab GT SCH ×3 (05:11→18:14)
[2017-12-07 05:12] LABS: BASOPHILS % (AUTO) 0.8 % (0.0-2.0); EOSINOPHILS % (AUTO) 5.5 % (0.0-3.0); HEMATOCRIT 26.5 % (37.0-47.0); HEMOGLOBIN 8.3 G/DL (12.0-16.0); LYMPHOCYTES % (AUTO) 17.4 % (20.0-45.0); MEAN CORPUSCULAR VOLUME 94 FL (80-99); MONOCYTES % (AUTO) 5.6 % (1.0-10.0); NEUTROPHILS % (AUTO) 70.8 % (45.0-75.0); PLATELET COUNT 180 K/UL (150-450); RED BLOOD COUNT 2.82 M/UL (4.20-5.40); RED CELL DISTRIBUTION WIDTH 16.3 % (11.6-14.8); WHITE BLOOD COUNT 7.5 K/UL (4.8-10.8)
[2017-12-07] MEDS: NovoLOG Insulin Flexpen SUBQ SCH ×3 (05:12→18:18)
[2017-12-07 05:29] LABS: ALANINE AMINOTRANSFERASE 30 U/L (12-78); ALBUMIN 1.7 G/DL (3.4-5.0); ALBUMIN/GLOBULIN RATIO 0.4 (1.0-2.7); ALKALINE PHOSPHATASE 122 U/L (46-116); ANION GAP 1 mmol/L (5-15); ASPARTATE AMINO TRANSFERASE 23 U/L (15-37); BILIRUBIN,TOTAL 0.2 MG/DL (0.2-1.0); BLOOD UREA NITROGEN 38 mg/dL (7-18); CALCIUM 8.7 MG/DL (8.5-10.1); CARBON DIOXIDE 30 MMOL/L (21-32); CHLORIDE 114 MMOL/L (98-107); PHOSPHORUS 2.8 MG/DL (2.5-4.9); SODIUM 145 MMOL/L (136-145)
[2017-12-07 08:00] VITALS: BP 132/65
--- NOTE | 2017-12-07 08:26 | Diagnostic Imaging Report ---
. Indication: Shortness of breath Technique: One view of the chest Comparison: 12/05/2017 Findings: Interim improvement in previously demonstrated interstitial edema. Bilateral pleural effusions persist. Cardiomegaly, tracheostomy remain Impression: Improving bilateral interstitial edema, over one day. Persistent bilateral pleural effusions Other stable findings as described
[2017-12-07] MEDS: Eliquis 2.5mg tablet GT SCH ×2 (09:24→21:14)
--- NOTE | 2017-12-07 10:54 | Pulmonology Progress Note ---
Assessment/Plan Assessment/Plan ASSESSMENT Acute hypoxemic respiratory failure ( requiring BiPAP and then intubation) Failure to wean Status post tracheostomy 12/03 UTI with Proteus Aspiration pneumonia with Pseudomonas Right heel pressure ulcer un-stageable Acute on chronic diastolic congestive heart failure Bradycardia Bilateral pleural effusion s/p thoracentesis Paroxysmal atrial fibrillation Dehydration Diabetic nephropathy Hypernatremia Diabetes mellitus Cerebrovascular disease with dementia Dysphagia ,G-tube Moderate protein calorie malnutrition Iron deficiency anemia Severe pulmonary hypertension malfunctioning G tube, s/p change at the bedside 12/05 PLAN OF CARE PAZ Vent support, trach care pulmonary toilet ABG stable CXR 12/06 Improving bilateral interstitial edema fup with CXR antibiotics ID follows urine cx + Proteus, sputum cx +Pseudomonas, stool C dif negative, blood cx prior - negative surgeon follows trach stable ( CXR post trach - trach in good position, no PNT) s/p thoracentesis earlier -0.9 L pleural fluid cx negative CXR today 12/05 - Increasing opacity in bilateral lower lung zones. fup with CXR continue abx Right heel wound care anticoagulation for cardio-embolic prophylaxis s/p gentle diuresis , off BB, monitor HR monitor cardio-renal parameters and volumes , creat stable correct lytes prn ECHO with pEF 65% and RVSP of 66 c/w severe pulmonary hypertension trend proBNP , trending down lipid panel stable venous duplex BLE - no acute DVT BP management with hydralazine and BB, GT burst this am, s/p change at the bedside by GI specialist strict aspiration precautions, G-tube feeding, monitor tolerance monitor HH with goal to keep Hgb above 7 anemia workup consistent with anemia of MARIPOSA IV Venofer BS management with SSI prn, HgA1c -7.5 bowel regimen pain management prn supportive care protein supplements DVT , GI prophylaxis case discussed and evaluated by supervising physician Subjective Allergies: Coded Allergies: ATORVASTATIN (Verified Allergy, Unknown, 11/24/17) CLONIDINE (Verified Allergy, Unknown, 11/24/17) LABETALOL (Verified Allergy, Unknown, 11/24/17) NIFEDIPINE (Verified Allergy, Unknown, 11/24/17) ROSUVASTATIN (Verified Allergy, Unknown, 11/24/17) Uncoded Allergies: IVELISSE INHIBITOR (Allergy, Unknown, 11/24/17) Subjective in PAZ s/p trach no resp distress ABG on current setting noted no leucocytosis, fevers at midnight now lucas Objective Last 24 Hour Vital Signs Date Time Temp Pulse Resp B/P (MAP) Pulse Ox O2 Delivery O2 Flow Rate FiO2 12/07/17 09:28 45 14 30 12/07/17 08:00 49 12/07/17 06:50 49 15 30 12/07/17 05:11 123/65 12/07/17 05:09 53 15 30 12/07/17 04:00 30.0 12/07/17 04:00 49 12/07/17 04:00 Mechanical Ventilator 12/07/17 04:00 98.2 55 14 123/65 (84) 100 98.2 12/07/17 04:00 49 12/07/17 03:18 53 14 30 12/07/17 01:30 51 14 30 12/07/17 00:00 30.0 12/07/17 00:00 Mechanical Ventilator 12/07/17 00:00 62 12/07/17 00:00 98.1 58 20 137/72 (93) 100 98.1 12/06/17 23:46 137/72 12/06/17 23:27 58 18 30 12/06/17 21:14 54 17 30 12/06/17 20:00 30.0 12/06/17 20:00 51 12/06/17 20:00 Mechanical Ventilator 12/06/17 20:00 98.4 55 24 130/63 (85) 100 98.4 12/06/17 19:30 52 19 30 12/06/17 17:45 116/76 12/06/17 17:10 52 16 30 12/06/17 16:05 30.0 12/06/17 16:01 Mechanical Ventilator 12/06/17 16:00 98.7 53 16 116/76 (89) 98 98.7 12/06/17 16:00 54 12/06/17 15:00 51 15 30 12/06/17 14:57 122/65 12/06/17 13:25 49 14 30 12/06/17 12:00 98.4 54 14 122/65 (84) 100 98.4 12/06/17 12:00 Mechanical Ventilator 12/06/17 12:00 56 12/06/17 12:00 30.0 12/06/17 11:51 122/66 12/06/17 11:05 50 14 30 Intake and Output 12/06/17 12/07/17 19:00 07:00 Intake Total 1040 ml 1000 ml Output Total 800 ml 300 ml Balance 240 ml 700 ml Intake Free Water 200 ml 50 ml IV Total 350 ml Tube Feeding 600 ml 600 ml Other 240 ml Output Urine Total 800 ml 300 ml Objective General Appearance: no acute distress, bedbound angel AC AC 500-16-30% HEENT: normocephalic, atraumatic, VM 35% n Neck: trach Shiley #6, secretions scant amount, white color, thick consistency Respiratory/Chest: few isolated rhonchi , more audible on the right Cardiovascular: SB Abdomen: normal bowel sounds, soft, non tender, G tube Extremities: no edema Neurologic/Psychiatric: bedridden Musculoskeletal: atrophy - BLE Laboratory Tests 12/07/17 04:20: White Blood Count 7.5, Red Blood Count 2.82L, Hemoglobin 8.3L, Hematocrit 26.5L , Mean Corpuscular Volume 94, Mean Corpuscular Hemoglobin 29.5, Mean Corpuscular Hemoglobin Concent 31.3L, Red Cell Distribution Width 16.3H, Platelet Count 180, Mean Platelet Volume 11.4H, Neutrophils (%) (Auto) 70.8, Lymphocytes (%) (Auto) 17.4L, Monocytes (%) (Auto) 5.6, Eosinophils (%) (Auto) 5.5H, Basophils (%) (Auto) 0.8, Sodium Level 145, Potassium Level 5.0, Chloride Level 114H, Carbon Dioxide Level 30, Anion Gap 1L, Blood Urea Nitrogen 38H, Creatinine 1.0, Estimat Glomerular Filtration Rate , Glucose Level 160H, Calcium Level 8.7, Phosphorus Level 2.8, Magnesium Level 3.3H, Total Bilirubin 0.2, Aspartate Amino Transf (AST/SGOT) 23, Alanine Aminotransferase (ALT/SGPT) 30, Alkaline Phosphatase 122H, C-Reactive Protein, Quantitative 15.6H, Pro-B- Type Natriuretic Peptide 09671E, Total Protein 6.3L, Albumin 1.7L, Globulin 4.6 , Albumin/Globulin Ratio 0.4L Current Medications Medications (Trade) Dose Ordered Sig/Cirilo Route PRN Reason Start Time Stop Time Status Last Admin Dose Admin Acetaminophen (Tylenol) 650 mg Q6H PRN ORAL Fever/Headache/Mild Pain 12/04/17 14:00 12/24/17 13:46 12/06/17 00:21 Albuterol/ Ipratropium (Albuterol/ Ipratropium) 3 ml Q6H PRN HHN Shortness of Breath 12/06/17 10:30 12/09/17 10:29 Apixaban (Eliquis) 2.5 mg Q12HR GT 12/05/17 09:00 01/04/18 08:59 12/07/17 09:24 Cefepime HCl 2 gm/ Dextrose 55 ml @ 110 mls/hr Q24H IVPB 12/04/17 21:00 12/10/17 22:00 12/06/17 20:36 Dextrose (Dextrose 50%) 25 ml PRN IV Hypoglycemia 12/04/17 12:45 12/24/17 13:59 Dextrose (Dextrose 50%) 50 ml PRN IV hypoglycemia 12/04/17 12:45 12/24/17 13:59 Famotidine (Pepcid) 20 mg BID GT 12/04/17 18:00 12/24/17 17:59 12/07/17 09:24 Hydralazine HCl (Apresoline) 10 mg Q6H PRN GT SBP above 140mmHg 12/04/17 14:00 12/30/17 13:47 Hydralazine HCl (Apresoline) 10 mg Q6HR GT 12/06/17 12:00 01/05/18 11:59 12/07/17 05:11 Insulin Aspart (NovoLOG) EVERY 6 HOURS SUBQ 12/04/17 18:00 12/25/17 17:59 12/07/17 05:12 Iron Sucrose 100 mg/Sodium Chloride 60 ml @ 240 mls/hr BEDTIME IV 12/04/17 21:00 12/08/17 21:14 12/06/17 20:16 Lorazepam (Ativan 2mg/ml 1ml) 0.5 mg Q6H PRN IV agitation 12/06/17 10:30 12/09/17 10:29 Metoclopramide HCl (Reglan) 5 mg EVERY 8 HOURS GT 12/04/17 14:00 12/25/17 11:59 12/07/17 05:11 Nitroglycerin (Ntg) 1 patch Q24H TDERMAL 12/04/17 14:00 12/24/17 13:59 12/06/17 14:57 Potassium Chloride (K-Dur) 40 meq DAILY GT 12/06/17 09:00 01/05/18 08:59 12/06/17 09:20 Ignacia Macias NP Dec 07, 2017 10:54
--- NOTE | 2017-12-07 11:03 | Diagnostic Imaging Report ---
Indication: Shortness of breath Technique: One view of the chest Comparison: 12/06/2017 Findings: Bilateral pleural effusions and basilar atelectatic changes persist. Minimal interstitial edema persists, unchanged. The heart remains enlarged. Tracheostomy remains Impression: Unchanged, over one day, findings as above.
--- NOTE | 2017-12-07 11:51 | General Progress Note ---
Assessment/Plan Problem List: (1) Acute respiratory failure ICD Codes: J96.00 - Acute respiratory failure, unspecified whether with hypoxia or hypercapnia SNOMED: 63427322 Qualifiers: Qualified Codes: J96.01 - Acute respiratory failure with hypoxia (2) History of CVA (cerebrovascular accident) ICD Codes: Z86.73 - Personal history of transient ischemic attack (TIA), and cerebral infarction without residual deficits SNOMED: 766417280 (3) Pulmonary edema ICD Codes: J81.1 - Chronic pulmonary edema SNOMED: 17613408 Qualifiers: Qualified Codes: J81.0 - Acute pulmonary edema (4) Diabetic nephropathy ICD Codes: E11.21 - Type 2 diabetes mellitus with diabetic nephropathy SNOMED: 90191359, 327761194 (5) Pleural effusion, bilateral ICD Codes: J90 - Pleural effusion, not elsewhere classified SNOMED: 784244677 (6) Bradycardia with 41-50 beats per minute ICD Codes: R00.1 - Bradycardia, unspecified SNOMED: 52906004 Status: unchanged Status Narrative watch low HR- Cardiology comment? Assessment/Plan stop Coreg stop KCL hydralazine GT trach 12/03 post trach care Currently on Cefepime til Dec 18 resume eliquis GT feeding Keep BP and BS in check optimize cardiac and pulm status- IV Iron PER Cardio and pulm addendum: 12/02/[address] james, based on boarderline pulmonary status and the need for bipap, and patient being full code, tracheostomy will be entertained after discussion with DPOA . Subjective ROS Limited/Unobtainable: No Constitutional: Reports: malaise Allergies: Coded Allergies: ATORVASTATIN (Verified Allergy, Unknown, 11/24/17) CLONIDINE (Verified Allergy, Unknown, 11/24/17) LABETALOL (Verified Allergy, Unknown, 11/24/17) NIFEDIPINE (Verified Allergy, Unknown, 11/24/17) ROSUVASTATIN (Verified Allergy, Unknown, 11/24/17) Uncoded Allergies: IVELISSE INHIBITOR (Allergy, Unknown, 11/24/17) Objective Last 24 Hour Vital Signs Date Time Temp Pulse Resp B/P (MAP) Pulse Ox O2 Delivery O2 Flow Rate FiO2 12/07/17 09:28 45 14 30 12/07/17 08:00 49 12/07/17 06:50 49 15 30 12/07/17 05:11 123/65 12/07/17 05:09 53 15 30 12/07/17 04:00 30.0 12/07/17 04:00 49 12/07/17 04:00 Mechanical Ventilator 12/07/17 04:00 98.2 55 14 123/65 (84) 100 98.2 12/07/17 04:00 49 12/07/17 03:18 53 14 30 12/07/17 01:30 51 14 30 12/07/17 00:00 30.0 12/07/17 00:00 Mechanical Ventilator 12/07/17 00:00 62 12/07/17 00:00 98.1 58 20 137/72 (93) 100 98.1 12/06/17 23:46 137/72 12/06/17 23:27 58 18 30 12/06/17 21:14 54 17 30 12/06/17 20:00 30.0 12/06/17 20:00 51 12/06/17 20:00 Mechanical Ventilator 12/06/17 20:00 98.4 55 24 130/63 (85) 100 98.4 12/06/17 19:30 52 19 30 12/06/17 17:45 116/76 12/06/17 17:10 52 16 30 12/06/17 16:05 30.0 12/06/17 16:01 Mechanical Ventilator 12/06/17 16:00 98.7 53 16 116/76 (89) 98 98.7 12/06/17 16:00 54 12/06/17 15:00 51 15 30 12/06/17 14:57 122/65 12/06/17 13:25 49 14 30 12/06/17 12:00 98.4 54 14 122/65 (84) 100 98.4 12/06/17 12:00 Mechanical Ventilator 12/06/17 12:00 56 12/06/17 12:00 30.0 12/06/17 11:51 122/66 Intake and Output 12/06/17 12/07/17 19:00 07:00 Intake Total 1040 ml 1000 ml Output Total 800 ml 300 ml Balance 240 ml 700 ml Intake Free Water 200 ml 50 ml IV Total 350 ml Tube Feeding 600 ml 600 ml Other 240 ml Output Urine Total 800 ml 300 ml Laboratory Tests 12/07/17 04:20: White Blood Count 7.5, Red Blood Count 2.82L, Hemoglobin 8.3L, Hematocrit 26.5L , Mean Corpuscular Volume 94, Mean Corpuscular Hemoglobin 29.5, Mean Corpuscular Hemoglobin Concent 31.3L, Red Cell Distribution Width 16.3H, Platelet Count 180, Mean Platelet Volume 11.4H, Neutrophils (%) (Auto) 70.8, Lymphocytes (%) (Auto) 17.4L, Monocytes (%) (Auto) 5.6, Eosinophils (%) (Auto) 5.5H, Basophils (%) (Auto) 0.8, Sodium Level 145, Potassium Level 5.0, Chloride Level 114H, Carbon Dioxide Level 30, Anion Gap 1L, Blood Urea Nitrogen 38H, Creatinine 1.0, Estimat Glomerular Filtration Rate , Glucose Level 160H, Calcium Level 8.7, Phosphorus Level 2.8, Magnesium Level 3.3H, Total Bilirubin 0.2, Aspartate Amino Transf (AST/SGOT) 23, Alanine Aminotransferase (ALT/SGPT) 30, Alkaline Phosphatase 122H, C-Reactive Protein, Quantitative 15.6H, Pro-B- Type Natriuretic Peptide 25006C, Total Protein 6.3L, Albumin 1.7L, Globulin 4.6 , Albumin/Globulin Ratio 0.4L Height (Feet): 5 Height (Inches): 0.00 Weight (Pounds): 138 General Appearance: no apparent distress Cardiovascular: bradycardia Respiratory/Chest: decreased breath sounds Abdomen: soft Objective no change Rafael Hurt MD Dec 07, 2017 11:51
[2017-12-07 12:00] VITALS: BP 106/52
[2017-12-07] MEDS: Nitroglycerin Patch 0.4mg TDERMAL SCH (14:34)
--- NOTE | 2017-12-07 15:23 | Infectious Diseases Prog Note ---
Assessment/Plan Problems: (1) Aspiration pneumonia Assessment & Plan: with B/L basal infiltrates, due to pseudomonas pneumonia , continue cefepime to finish total of three weeks course of treatment . monitor CXR . aspiration precaution , keep HOB > 30 degree . EOT 12/18/17 (2) Pleural effusion, bilateral Assessment & Plan: S/P thoracentesis , exudative most likely due to pneumonia, adenosine deaminase on pleural fluids, fungal and cytology are pending . bacterial culture is negative which rule out empyema (3) Acute respiratory failure Assessment & Plan: due to the above, S/P tracheostomy , monitor CXR , continue local trach care , pulmonary is following (4) Sepsis Assessment & Plan: due to the above, with negative blood culture results so far , on cefepime to treat her pneumonia and UTI for total of three weeks. EOT 12/18/17 (5) Pressure ulcer, heel, right, unstageable Assessment & Plan: with an eschar, continue off loading and local wound care as per hospital protocol (6) Fever Assessment & Plan: suspect post OP, continue tylenol and monitor clinically Subjective ROS Limited/Unobtainable: Yes Allergies: Coded Allergies: ATORVASTATIN (Verified Allergy, Unknown, 11/24/17) CLONIDINE (Verified Allergy, Unknown, 11/24/17) LABETALOL (Verified Allergy, Unknown, 11/24/17) NIFEDIPINE (Verified Allergy, Unknown, 11/24/17) ROSUVASTATIN (Verified Allergy, Unknown, 11/24/17) Uncoded Allergies: IVELISSE INHIBITOR (Allergy, Unknown, 11/24/17) Subjective she was up in bed , comfortable, not responsive to verbal commands , low grade fever earlier today . no cough , no significant secretions Objective Vital Signs Last 24 Hour Vital Signs Date Time Temp Pulse Resp B/P (MAP) Pulse Ox O2 Delivery O2 Flow Rate FiO2 12/07/17 14:34 106/52 12/07/17 12:48 45 14 30 12/07/17 12:00 106/52 12/07/17 12:00 44 12/07/17 11:21 45 14 30 12/07/17 09:28 45 14 30 12/07/17 08:00 49 12/07/17 06:50 49 15 30 12/07/17 05:11 123/65 12/07/17 05:09 53 15 30 12/07/17 04:00 30.0 12/07/17 04:00 49 12/07/17 04:00 Mechanical Ventilator 12/07/17 04:00 98.2 55 14 123/65 (84) 100 98.2 12/07/17 04:00 49 12/07/17 03:18 53 14 30 12/07/17 01:30 51 14 30 12/07/17 00:00 30.0 12/07/17 00:00 Mechanical Ventilator 12/07/17 00:00 62 12/07/17 00:00 98.1 58 20 137/72 (93) 100 98.1 12/06/17 23:46 137/72 12/06/17 23:27 58 18 30 12/06/17 21:14 54 17 30 12/06/17 20:00 30.0 12/06/17 20:00 51 12/06/17 20:00 Mechanical Ventilator 12/06/17 20:00 98.4 55 24 130/63 (85) 100 98.4 12/06/17 19:30 52 19 30 12/06/17 17:45 116/76 12/06/17 17:10 52 16 30 12/06/17 16:05 30.0 12/06/17 16:01 Mechanical Ventilator 12/06/17 16:00 98.7 53 16 116/76 (89) 98 98.7 12/06/17 16:00 54 Height (Feet): 5 Height (Inches): 0.00 Weight (Pounds): 138 General Appearance: WD/WN, no acute distress HEENT: normocephalic, atraumatic, anicteric, supple, no JVD, status post trach Respiratory/Chest: chest wall non-tender, no respiratory distress, no accessory muscle use, decreased breath sounds, crackles/rales Cardiovascular: normal peripheral pulses, normal rate, regular rhythm, no gallop/murmur, no JVD Abdomen: normal bowel sounds, soft, non tender, no organomegaly, non distended , no mass, no scars Extremities: no cyanosis, no clubbing Skin: no rash, no lesions, ulcers Neurologic/Psychiatric: alert, oriented x 3, responsive Lymphatic: no neck adenopathy, no groin adenopathy Musculoskeletal: normal muscle bulk Laboratory Tests Test 12/07/17 04:20 12/07/17 12:00 White Blood Count 7.5 K/UL (4.8-10.8) Red Blood Count 2.82 M/UL (4.20-5.40) L Hemoglobin 8.3 G/DL (12.0-16.0) L Hematocrit 26.5 % (37.0-47.0) L Mean Corpuscular Volume 94 FL (80-99) Mean Corpuscular Hemoglobin 29.5 PG (27.0-31.0) Mean Corpuscular Hemoglobin Concent 31.3 G/DL (32.0-36.0) L Red Cell Distribution Width 16.3 % (11.6-14.8) H Platelet Count 180 K/UL (150-450) Mean Platelet Volume 11.4 FL (6.5-10.1) H Neutrophils (%) (Auto) 70.8 % (45.0-75.0) Lymphocytes (%) (Auto) 17.4 % (20.0-45.0) L Monocytes (%) (Auto) 5.6 % (1.0-10.0) Eosinophils (%) (Auto) 5.5 % (0.0-3.0) H Basophils (%) (Auto) 0.8 % (0.0-2.0) Sodium Level 145 MMOL/L (136-145) Potassium Level 5.0 MMOL/L (3.5-5.1) Chloride Level 114 MMOL/L (98-107) H Carbon Dioxide Level 30 MMOL/L (21-32) Anion Gap 1 mmol/L (5-15) L Blood Urea Nitrogen 38 mg/dL (7-18) H Creatinine 1.0 MG/DL (0.55-1.30) Estimat Glomerular Filtration Rate mL/min (>60) Glucose Level 160 MG/DL (74-106) H Calcium Level 8.7 MG/DL (8.5-10.1) Phosphorus Level 2.8 MG/DL (2.5-4.9) Magnesium Level 3.3 MG/DL (1.8-2.4) H Total Bilirubin 0.2 MG/DL (0.2-1.0) Aspartate Amino Transf (AST/SGOT) 23 U/L (15-37) Alanine Aminotransferase (ALT/SGPT) 30 U/L (12-78) Alkaline Phosphatase 122 U/L (46-116) H C-Reactive Protein, Quantitative 15.6 mg/dL (0.00-0.90) H 13.6 mg/dL (0.00-0.90) H Pro-B-Type Natriuretic Peptide 95073 pg/mL (0-125) H Total Protein 6.3 G/DL (6.4-8.2) L Albumin 1.7 G/DL (3.4-5.0) L Globulin 4.6 g/dL Albumin/Globulin Ratio 0.4 (1.0-2.7) L Current Medications Medications (Trade) Dose Ordered Sig/Cirilo Route PRN Reason Start Time Stop Time Status Last Admin Dose Admin Acetaminophen (Tylenol) 650 mg Q6H PRN ORAL Fever/Headache/Mild Pain 12/04/17 14:00 12/24/17 13:46 12/06/17 00:21 Albuterol/ Ipratropium (Albuterol/ Ipratropium) 3 ml Q6H PRN HHN Shortness of Breath 12/06/17 10:30 12/09/17 10:29 Apixaban (Eliquis) 2.5 mg Q12HR GT 12/05/17 09:00 01/04/18 08:59 12/07/17 09:24 Cefepime HCl 2 gm/ Dextrose 55 ml @ 110 mls/hr Q24H IVPB 12/04/17 21:00 12/10/17 22:00 12/06/17 20:36 Dextrose (Dextrose 50%) 25 ml PRN IV Hypoglycemia 12/04/17 12:45 12/24/17 13:59 Dextrose (Dextrose 50%) 50 ml PRN IV hypoglycemia 12/04/17 12:45 12/24/17 13:59 Famotidine (Pepcid) 20 mg BID GT 12/04/17 18:00 12/24/17 17:59 12/07/17 09:24 Hydralazine HCl (Apresoline) 10 mg Q6H PRN GT SBP above 140mmHg 12/04/17 14:00 12/30/17 13:47 Hydralazine HCl (Apresoline) 20 mg Q6HR GT 12/07/17 12:00 01/05/18 11:59 Insulin Aspart (NovoLOG) EVERY 6 HOURS SUBQ 12/04/17 18:00 12/25/17 17:59 12/07/17 12:35 Iron Sucrose 100 mg/Sodium Chloride 60 ml @ 240 mls/hr BEDTIME IV 12/04/17 21:00 12/08/17 21:14 12/06/17 20:16 Lorazepam (Ativan 2mg/ml 1ml) 0.5 mg Q6H PRN IV agitation 12/06/17 10:30 12/09/17 10:29 Metoclopramide HCl (Reglan) 5 mg EVERY 8 HOURS GT 12/04/17 14:00 12/25/17 11:59 12/07/17 14:35 Nitroglycerin (Ntg) 1 patch Q24H TDERMAL 12/04/17 14:00 12/24/17 13:59 12/07/17 14:34 Cole Rasmussen M.D. Dec 07, 2017 15:23
[2017-12-07 16:00] VITALS: BP 139/74
[2017-12-07 20:00] VITALS: BP 136/57
[2017-12-07] MEDS: Iron Sucrose 100 MG in NS 55 ML IV SCH (21:15)
[2017-12-07] MEDS: Cefepime HCl 2 GM in D5W 55 ML IVPB SCH (21:15)
--- NOTE | 2017-12-07 23:12 | General Progress Note ---
Assessment/Plan Assessment/Plan GIAssessment - GT torn -- replaced - Heme (+) stools - Anemia, Iron deficiency - Resp failure - s/p PEG and Trach - HTN - DM - Pulmonary HTN Recommendations - Continue TF - monitor CBC - Agree with IV Iron - await family decision re GI w/u Subjective Allergies: Coded Allergies: ATORVASTATIN (Verified Allergy, Unknown, 11/24/17) CLONIDINE (Verified Allergy, Unknown, 11/24/17) LABETALOL (Verified Allergy, Unknown, 11/24/17) NIFEDIPINE (Verified Allergy, Unknown, 11/24/17) ROSUVASTATIN (Verified Allergy, Unknown, 11/24/17) Uncoded Allergies: IVELISSE INHIBITOR (Allergy, Unknown, 11/24/17) Subjective Above noted tolerating TF d/w son , Elle Rosa, re OB (+) stool Son wants time to decide if GI w/u should be done will call me back with decision Objective Last 24 Hour Vital Signs Date Time Temp Pulse Resp B/P (MAP) Pulse Ox O2 Delivery O2 Flow Rate FiO2 12/07/17 21:24 48 15 30 12/07/17 20:00 Mechanical Ventilator 12/07/17 20:00 30.0 12/07/17 20:00 98.2 49 16 136/57 (83) 98.2 12/07/17 19:14 50 14 30 12/07/17 19:06 50 12/07/17 18:14 139/74 12/07/17 17:02 48 14 30 12/07/17 16:00 98.7 49 16 139/74 (95) 98.7 12/07/17 16:00 Mechanical Ventilator 12/07/17 16:00 30.0 12/07/17 16:00 45 12/07/17 15:22 50 14 30 12/07/17 14:34 106/52 12/07/17 12:48 45 14 30 12/07/17 12:00 30.0 12/07/17 12:00 Mechanical Ventilator 12/07/17 12:00 106/52 12/07/17 12:00 44 12/07/17 12:00 99.0 45 14 106/52 (70) 100 99.0 12/07/17 11:21 45 14 30 12/07/17 09:28 45 14 30 12/07/17 08:00 Mechanical Ventilator 12/07/17 08:00 30.0 12/07/17 08:00 49 12/07/17 08:00 98.0 52 15 132/65 (87) 98 98.0 12/07/17 06:50 49 15 30 12/07/17 05:11 123/65 12/07/17 05:09 53 15 30 12/07/17 04:00 30.0 12/07/17 04:00 49 12/07/17 04:00 Mechanical Ventilator 12/07/17 04:00 98.2 55 14 123/65 (84) 100 98.2 12/07/17 04:00 49 12/07/17 03:18 53 14 30 12/07/17 01:30 51 14 30 12/07/17 00:00 30.0 12/07/17 00:00 Mechanical Ventilator 12/07/17 00:00 62 12/07/17 00:00 98.1 58 20 137/72 (93) 100 98.1 12/06/17 23:46 137/72 12/06/17 23:27 58 18 30 Intake and Output 12/06/17 12/07/17 19:00 07:00 Intake Total 1040 ml 1000 ml Output Total 800 ml 300 ml Balance 240 ml 700 ml Intake Free Water 200 ml 50 ml IV Total 350 ml Tube Feeding 600 ml 600 ml Other 240 ml Output Urine Total 800 ml 300 ml Laboratory Tests 12/07/17 04:20: White Blood Count 7.5, Red Blood Count 2.82L, Hemoglobin 8.3L, Hematocrit 26.5L , Mean Corpuscular Volume 94, Mean Corpuscular Hemoglobin 29.5, Mean Corpuscular Hemoglobin Concent 31.3L, Red Cell Distribution Width 16.3H, Platelet Count 180, Mean Platelet Volume 11.4H, Neutrophils (%) (Auto) 70.8, Lymphocytes (%) (Auto) 17.4L, Monocytes (%) (Auto) 5.6, Eosinophils (%) (Auto) 5.5H, Basophils (%) (Auto) 0.8, Sodium Level 145, Potassium Level 5.0, Chloride Level 114H, Carbon Dioxide Level 30, Anion Gap 1L, Blood Urea Nitrogen 38H, Creatinine 1.0, Estimat Glomerular Filtration Rate , Glucose Level 160H, Calcium Level 8.7, Phosphorus Level 2.8, Magnesium Level 3.3H, Total Bilirubin 0.2, Aspartate Amino Transf (AST/SGOT) 23, Alanine Aminotransferase (ALT/SGPT) 30, Alkaline Phosphatase 122H, C-Reactive Protein, Quantitative 15.6H, Pro-B- Type Natriuretic Peptide 26634F, Total Protein 6.3L, Albumin 1.7L, Globulin 4.6 , Albumin/Globulin Ratio 0.4L 12/07/17 12:00: C-Reactive Protein, Quantitative 13.6H Height (Feet): 5 Height (Inches): 0.00 Weight (Pounds): 138 Objective Elderly woman , NAD NCAT supple CTA RR soft ND. (+) GT contracted OBS Mack Jackson MD Dec 07, 2017 23:12
[2017-12-08] VITALS: BP 142/60
[2017-12-08] MEDS: HydrALAZINE 10mg Tab GT SCH ×2 (00:31→06:08)
--- NOTE | 2017-12-08 01:15 | Progress Note ---
DATE: 12/06/2017 CARDIOLOGY PROGRESS NOTE Late entry for 12/06/2017. SUBJECTIVE: The patient was seen and evaluated. The patient remains with congestion and shortness of breath. She is on ventilator support status post tracheostomy. Her G-tube was replaced as it was . She is status post thoracentesis with almost a liter of fluid removed. PHYSICAL EXAMINATION: VITAL SIGNS: Afebrile, blood pressure 158/82, heart rate 58 to 73, and respiratory rate 14 to 24. T-max was 100. LUNGS: Coarse breath sounds. Scattered rhonchi. HEART: Irregularly irregular rhythm. Normal S1 and S2. ABDOMEN: Soft. EXTREMITIES: Trace edema. LABORATORY DATA: White count 8.1 and hemoglobin 8.7 . Sodium 145, potassium 5, bicarb 30, BUN 38, and creatinine 1. Pro-natriuretic peptide 10,000. ABG, pH 7.48, pCO2 33, and pO2 76. IMPRESSION: 1. Respiratory failure status post trach. 2. Acute on chronic diastolic congestive heart failure, improved. 3. Paroxysmal atrial fibrillation. 4. Healthcare-acquired pneumonia. 5. Pleural effusion status post thoracentesis. 6. Sepsis with shock, recovered. 7. Bradyarrhythmia. 8. History of deep venous thrombosis. PLAN: 1. Antimicrobials. 2. Ventilator support. 3. Full anticoagulation. 4. Observe for secondary bleeding complications. 5. Off beta-blockade. 6. Titrate hydralazine. 7. Cautious diuresis. 8. Monitor respiratory parameters and acid-base parameters. 9. Remains critical and guarded. Jori Andujar M.D. DR: MAE JOB#: [id number] CC:
--- NOTE | 2017-12-08 03:30 | Progress Note ---
DATE: 12/07/2017 CARDIOLOGY PROGRESS NOTE SUBJECTIVE: The patient remains on ventilatory support via tracheostomy. She continues to have monitored rhythm revealing episodes of atrial fibrillation with low rate. The patient remains on broad-spectrum antibiotics. Chest x-ray reveals persistent effusions and edema. OBJECTIVE: VITAL SIGNS: Blood pressure 123/65, pulse 49, respiratory rate 15. LUNGS: Bilateral breath sounds. HEART: Regular rhythm and rate. Normal S1, S2. ABDOMEN: Soft. EXTREMITIES: No edema. IMPRESSION: 1. Respiratory failure with tracheostomy. 2. Bradycardia. 3. Paroxysmal atrial fibrillation. 4. History of DVT. 5. Pleural effusions. 6. Cerebrovascular disease with prior cerebrovascular accident. 7. Acute on chronic diastolic congestive heart failure. PLAN: 1. Check troponin. 2. Avoid beta-bouchra. 3. Monitor acid-base parameters. 4. Additional diuresis. 5. Agree with hydralazine titration. 6. Iron replacement intravenously. 7. Nutrition by feeding tube. 8. Remains high risk with guarded prognosis. Jori Andujar M.D. DR: Rafia JOB#: [id number] CC:
[2017-12-08 04:00] VITALS: BP 152/69
[2017-12-08 04:51] LABS: BASOPHILS % (AUTO) 0.8 % (0.0-2.0); EOSINOPHILS % (AUTO) 4.9 % (0.0-3.0); HEMATOCRIT 28.5 % (37.0-47.0); HEMOGLOBIN 8.8 G/DL (12.0-16.0); LYMPHOCYTES % (AUTO) 16.9 % (20.0-45.0); MEAN CORPUSCULAR VOLUME 94 FL (80-99); MONOCYTES % (AUTO) 3.3 % (1.0-10.0); NEUTROPHILS % (AUTO) 74.1 % (45.0-75.0); PLATELET COUNT 191 K/UL (150-450); RED BLOOD COUNT 3.02 M/UL (4.20-5.40); RED CELL DISTRIBUTION WIDTH 16.2 % (11.6-14.8); WHITE BLOOD COUNT 7.2 K/UL (4.8-10.8)
[2017-12-08 05:12] LABS: ALANINE AMINOTRANSFERASE 36 U/L (12-78); ALBUMIN 1.9 G/DL (3.4-5.0); ALBUMIN/GLOBULIN RATIO 0.4 (1.0-2.7); ALKALINE PHOSPHATASE 125 U/L (46-116); ANION GAP 3 mmol/L (5-15); ASPARTATE AMINO TRANSFERASE 22 U/L (15-37); BILIRUBIN,TOTAL 0.2 MG/DL (0.2-1.0); BLOOD UREA NITROGEN 38 mg/dL (7-18); CALCIUM 9.1 MG/DL (8.5-10.1); CARBON DIOXIDE 31 MMOL/L (21-32); CHLORIDE 111 MMOL/L (98-107); CREATINE KINASE 26 U/L (26-308); CREATININE 0.9 MG/DL (0.55-1.30); PHOSPHORUS 3.2 MG/DL (2.5-4.9); POTASSIUM 4.6 MMOL/L (3.5-5.1); SODIUM 145 MMOL/L (136-145)
[2017-12-08] MEDS: Metoclopramide 10mg/10ml Liq GT SCH (06:08)
[2017-12-08] MEDS: NovoLOG Insulin Flexpen SUBQ SCH ×4 (06:34→17:16)
[2017-12-08 08:00] VITALS: BP 137/52
--- NOTE | 2017-12-08 09:14 | Pulmonolgy Critical Care Note ---
Critical Care - Asmt/Plan Problems: (1) Acute respiratory failure Assessment & Plan: s/p trach (2) Pulmonary edema (3) Pleural effusion, bilateral Assessment & Plan: s/p thoracentesis (4) Atrial fibrillation (5) Diabetes mellitus (6) Advanced dementia (7) History of CVA (cerebrovascular accident) (8) Feeding by G-tube Respiratory: monitor respiratory rate, adjust FIO2, CXR Cardiac: continue to monitor HR/BP Renal: F/U I&O, keep IV fluid Infectious Disease: check cultures Gastrointestinal: continue feedings/current rate Endocrine: monitor blood sugar, continue sliding scale insulin Hematologic: monitor H/H, transfuse if hgb<8.5 Neurologic: PRN Ativan, keep patient comfortable Affect: PRN ativan Disposition: keep in ICU Notes Reviewed: cardio, renal Discussed with: nurses, consultants, case sealermanager field services - Objective Last 24 Hour Vital Signs Date Time Temp Pulse Resp B/P (MAP) Pulse Ox O2 Delivery O2 Flow Rate FiO2 12/08/17 08:02 56 12/08/17 08:00 Mechanical Ventilator 12/08/17 08:00 97.0 56 16 137/52 (80) 99 97.0 12/08/17 08:00 30.0 12/08/17 06:46 53 18 30 12/08/17 06:08 152/69 12/08/17 05:26 46 14 30 12/08/17 04:00 30.0 12/08/17 04:00 Mechanical Ventilator 12/08/17 04:00 97.7 54 16 152/69 (96) 97.7 12/08/17 03:54 51 12/08/17 03:29 47 16 30 12/08/17 00:49 49 16 30 12/08/17 00:31 142/60 12/08/17 00:00 97.7 51 16 142/60 (87) 97.7 12/08/17 00:00 Mechanical Ventilator 12/07/17 23:43 48 12/07/17 23:21 50 16 30 12/07/17 21:24 48 15 30 12/07/17 20:00 Mechanical Ventilator 12/07/17 20:00 30.0 12/07/17 20:00 98.2 49 16 136/57 (83) 98.2 12/07/17 19:14 50 14 30 12/07/17 19:06 50 12/07/17 18:14 139/74 12/07/17 17:02 48 14 30 12/07/17 16:00 98.7 49 16 139/74 (95) 98.7 12/07/17 16:00 Mechanical Ventilator 12/07/17 16:00 30.0 12/07/17 16:00 45 12/07/17 15:22 50 14 30 12/07/17 14:34 106/52 12/07/17 12:48 45 14 30 12/07/17 12:00 30.0 12/07/17 12:00 Mechanical Ventilator 12/07/17 12:00 106/52 12/07/17 12:00 44 12/07/17 12:00 99.0 45 14 106/52 (70) 100 99.0 12/07/17 11:21 45 14 30 12/07/17 09:28 45 14 30 Status: awake Condition: critical HEENT: atraumatic Neck: full ROM Lungs: clear Heart: HR/BP stable Abdomen: soft, non-tender Extremities: no C/C/E, edema Accucheck: 137 Critical Care - Subjective ROS Limited/Unobtainable: Yes Interval Events: comfortable, s/p trach Condition: critical FI02: 30 Vent Support Breath Rate: 14 Vent Support Mode: AC Vent Tidal Volume: 500 Sputum Amount: Small PEEP: 5.0 PIP: 26 Tube Feeding Amount: 50 I&O: Intake and Output 12/07/17 12/08/17 19:00 07:00 Intake Total 890 ml 975 ml Output Total 700 ml 1200 ml Balance 190 ml -225 ml Intake Free Water 100 ml 200 ml IV Total 115 ml Tube Feeding 550 ml 600 ml Other 240 ml 60 ml Output Urine Total 650 ml 1100 ml Stool Total 50 ml 100 ml CXR: trach in place ET-Tube: 8.0 ET Position: 20 Labs: Laboratory Tests Test 12/07/17 12:00 12/08/17 04:00 C-Reactive Protein, Quantitative 13.6 mg/dL (0.00-0.90) H White Blood Count 7.2 K/UL (4.8-10.8) Red Blood Count 3.02 M/UL (4.20-5.40) L Hemoglobin 8.8 G/DL (12.0-16.0) L Hematocrit 28.5 % (37.0-47.0) L Mean Corpuscular Volume 94 FL (80-99) Mean Corpuscular Hemoglobin 29.3 PG (27.0-31.0) Mean Corpuscular Hemoglobin Concent 31.0 G/DL (32.0-36.0) L Red Cell Distribution Width 16.2 % (11.6-14.8) H Platelet Count 191 K/UL (150-450) Mean Platelet Volume 11.3 FL (6.5-10.1) H Neutrophils (%) (Auto) 74.1 % (45.0-75.0) Lymphocytes (%) (Auto) 16.9 % (20.0-45.0) L Monocytes (%) (Auto) 3.3 % (1.0-10.0) Eosinophils (%) (Auto) 4.9 % (0.0-3.0) H Basophils (%) (Auto) 0.8 % (0.0-2.0) Sodium Level 145 MMOL/L (136-145) Potassium Level 4.6 MMOL/L (3.5-5.1) Chloride Level 111 MMOL/L (98-107) H Carbon Dioxide Level 31 MMOL/L (21-32) Anion Gap 3 mmol/L (5-15) L Blood Urea Nitrogen 38 mg/dL (7-18) H Creatinine 0.9 MG/DL (0.55-1.30) Estimat Glomerular Filtration Rate mL/min (>60) Glucose Level 142 MG/DL (74-106) H Calcium Level 9.1 MG/DL (8.5-10.1) Phosphorus Level 3.2 MG/DL (2.5-4.9) Magnesium Level 3.1 MG/DL (1.8-2.4) H Total Bilirubin 0.2 MG/DL (0.2-1.0) Aspartate Amino Transf (AST/SGOT) 22 U/L (15-37) Alanine Aminotransferase (ALT/SGPT) 36 U/L (12-78) Alkaline Phosphatase 125 U/L (46-116) H Total Creatine Kinase 26 U/L (26-308) Troponin I 0.023 ng/mL (0.000-0.056) Pro-B-Type Natriuretic Peptide 7726 pg/mL (0-125) H Total Protein 6.7 G/DL (6.4-8.2) Albumin 1.9 G/DL (3.4-5.0) L Globulin 4.8 g/dL Albumin/Globulin Ratio 0.4 (1.0-2.7) L Henry Gomez MD Dec 08, 2017 09:14
[2017-12-08] MEDS: Eliquis 2.5mg tablet GT SCH (09:28)
[2017-12-08] MEDS: Theophylline 80mg/15ml GT SCH ×2 (11:19→17:14)
[2017-12-08 12:00] VITALS: BP 140/75
--- NOTE | 2017-12-08 12:05 | General Progress Note ---
Assessment/Plan Problem List: (1) Acute respiratory failure ICD Codes: J96.00 - Acute respiratory failure, unspecified whether with hypoxia or hypercapnia SNOMED: 30678000 Qualifiers: Qualified Codes: J96.01 - Acute respiratory failure with hypoxia (2) History of CVA (cerebrovascular accident) ICD Codes: Z86.73 - Personal history of transient ischemic attack (TIA), and cerebral infarction without residual deficits SNOMED: 183420538 (3) Pulmonary edema ICD Codes: J81.1 - Chronic pulmonary edema SNOMED: 14961765 Qualifiers: Qualified Codes: J81.0 - Acute pulmonary edema (4) Diabetic nephropathy ICD Codes: E11.21 - Type 2 diabetes mellitus with diabetic nephropathy SNOMED: 13307720, 049019818 (5) Pleural effusion, bilateral ICD Codes: J90 - Pleural effusion, not elsewhere classified SNOMED: 857482395 (6) Bradycardia with 41-50 beats per minute ICD Codes: R00.1 - Bradycardia, unspecified SNOMED: 52291797 Status: stable Status Narrative bradycardia persists off beta blockers Assessment/Plan Start Theophylin Off Coreg stop KCL hydralazine GT trach 12/03 post trach care Currently on Cefepime til Dec 18 resume eliquis GT feeding Keep BP and BS in check optimize cardiac and pulm status- IV Iron PER Cardio and pulm Dc planning in 1-2 days addendum: 12/02/[address] james, based on boarderline pulmonary status and the need for bipap, and patient being full code, tracheostomy will be entertained after discussion with DPOA . Subjective ROS Limited/Unobtainable: Yes Allergies: Coded Allergies: ATORVASTATIN (Verified Allergy, Unknown, 11/24/17) CLONIDINE (Verified Allergy, Unknown, 11/24/17) LABETALOL (Verified Allergy, Unknown, 11/24/17) NIFEDIPINE (Verified Allergy, Unknown, 11/24/17) ROSUVASTATIN (Verified Allergy, Unknown, 11/24/17) Uncoded Allergies: IVELISSE INHIBITOR (Allergy, Unknown, 11/24/17) Objective Last 24 Hour Vital Signs Date Time Temp Pulse Resp B/P (MAP) Pulse Ox O2 Delivery O2 Flow Rate FiO2 12/08/17 11:13 51 16 30 12/08/17 09:05 51 16 30 12/08/17 08:02 56 12/08/17 08:00 Mechanical Ventilator 12/08/17 08:00 97.0 56 16 137/52 (80) 99 97.0 12/08/17 08:00 30.0 12/08/17 06:46 53 18 30 12/08/17 06:08 152/69 12/08/17 05:26 46 14 30 12/08/17 04:00 30.0 12/08/17 04:00 Mechanical Ventilator 12/08/17 04:00 97.7 54 16 152/69 (96) 97.7 12/08/17 03:54 51 12/08/17 03:29 47 16 30 12/08/17 00:49 49 16 30 12/08/17 00:31 142/60 12/08/17 00:00 97.7 51 16 142/60 (87) 97.7 12/08/17 00:00 Mechanical Ventilator 12/07/17 23:43 48 12/07/17 23:21 50 16 30 12/07/17 21:24 48 15 30 12/07/17 20:00 Mechanical Ventilator 12/07/17 20:00 30.0 12/07/17 20:00 98.2 49 16 136/57 (83) 98.2 12/07/17 19:14 50 14 30 12/07/17 19:06 50 12/07/17 18:14 139/74 12/07/17 17:02 48 14 30 12/07/17 16:00 98.7 49 16 139/74 (95) 98.7 12/07/17 16:00 Mechanical Ventilator 12/07/17 16:00 30.0 12/07/17 16:00 45 12/07/17 15:22 50 14 30 12/07/17 14:34 106/52 12/07/17 12:48 45 14 30 Intake and Output 12/07/17 12/08/17 19:00 07:00 Intake Total 890 ml 975 ml Output Total 700 ml 1200 ml Balance 190 ml -225 ml Intake Free Water 100 ml 200 ml IV Total 115 ml Tube Feeding 550 ml 600 ml Other 240 ml 60 ml Output Urine Total 650 ml 1100 ml Stool Total 50 ml 100 ml Laboratory Tests 12/08/17 04:00: White Blood Count 7.2, Red Blood Count 3.02L, Hemoglobin 8.8L, Hematocrit 28.5L , Mean Corpuscular Volume 94, Mean Corpuscular Hemoglobin 29.3, Mean Corpuscular Hemoglobin Concent 31.0L, Red Cell Distribution Width 16.2H, Platelet Count 191, Mean Platelet Volume 11.3H, Neutrophils (%) (Auto) 74.1, Lymphocytes (%) (Auto) 16.9L, Monocytes (%) (Auto) 3.3, Eosinophils (%) (Auto) 4.9H, Basophils (%) (Auto) 0.8, Sodium Level 145, Potassium Level 4.6, Chloride Level 111H, Carbon Dioxide Level 31, Anion Gap 3L, Blood Urea Nitrogen 38H, Creatinine 0.9, Estimat Glomerular Filtration Rate , Glucose Level 142H, Calcium Level 9.1, Phosphorus Level 3.2, Magnesium Level 3.1H, Total Bilirubin 0.2, Aspartate Amino Transf (AST/SGOT) 22, Alanine Aminotransferase (ALT/SGPT) 36, Alkaline Phosphatase 125H, Total Creatine Kinase 26, Troponin I 0.023, Pro-B -Type Natriuretic Peptide 7726H, Total Protein 6.7, Albumin 1.9L, Globulin 4.8, Albumin/Globulin Ratio 0.4L Height (Feet): 5 Height (Inches): 0.00 Weight (Pounds): 126 General Appearance: no apparent distress EENT: other - trach Cardiovascular: bradycardia Respiratory/Chest: decreased breath sounds Abdomen: soft Objective no change Rafael Hurt MD Dec 08, 2017 12:05
[2017-12-08] MEDS: HydrALAZINE 25mg tab GT SCH ×2 (12:17→17:14)
--- NOTE | 2017-12-08 15:22 | Infectious Diseases Prog Note ---
Assessment/Plan Problems: (1) Aspiration pneumonia Assessment & Plan: with B/L basal infiltrates, due to pseudomonas pneumonia , continue cefepime to finish total of three weeks course of treatment . monitor CXR . aspiration precaution , keep HOB > 30 degree . EOT 12/18/17 (2) Pleural effusion, bilateral Assessment & Plan: S/P thoracentesis , exudative most likely due to pneumonia, adenosine deaminase on pleural fluids, fungal and cytology were not done . bacterial culture is negative which rule out empyema (3) Acute respiratory failure Assessment & Plan: due to the above, S/P tracheostomy , monitor CXR , continue local trach care , pulmonary is following (4) Sepsis Assessment & Plan: due to the above, with negative blood culture results so far , on cefepime to treat her pneumonia and UTI for total of three weeks. EOT 12/18/17 (5) Pressure ulcer, heel, right, unstageable Assessment & Plan: with an eschar, continue off loading and local wound care as per hospital protocol (6) Fever Assessment & Plan: resolved, suspect post OP, continue tylenol and monitor clinically Subjective ROS Limited/Unobtainable: Yes Allergies: Coded Allergies: ATORVASTATIN (Verified Allergy, Unknown, 11/24/17) CLONIDINE (Verified Allergy, Unknown, 11/24/17) LABETALOL (Verified Allergy, Unknown, 11/24/17) NIFEDIPINE (Verified Allergy, Unknown, 11/24/17) ROSUVASTATIN (Verified Allergy, Unknown, 11/24/17) Uncoded Allergies: IVELISSE INHIBITOR (Allergy, Unknown, 11/24/17) Subjective she was up in bed , comfortable, not responsive to verbal commands , low grade fever earlier today . no cough , no significant secretions Objective Vital Signs Last 24 Hour Vital Signs Date Time Temp Pulse Resp B/P (MAP) Pulse Ox O2 Delivery O2 Flow Rate FiO2 12/08/17 15:00 48 14 30 12/08/17 12:50 54 18 30 12/08/17 12:17 140/75 12/08/17 12:00 30 12/08/17 12:00 Mechanical Ventilator 12/08/17 12:00 98.2 55 18 140/75 (96) 100 98.2 12/08/17 11:38 44 12/08/17 11:13 51 16 30 12/08/17 09:05 51 16 30 12/08/17 08:02 56 12/08/17 08:00 Mechanical Ventilator 12/08/17 08:00 97.0 56 16 137/52 (80) 99 97.0 12/08/17 08:00 30 12/08/17 06:46 53 18 30 12/08/17 06:08 152/69 12/08/17 05:26 46 14 30 12/08/17 04:00 30.0 12/08/17 04:00 Mechanical Ventilator 12/08/17 04:00 97.7 54 16 152/69 (96) 97.7 12/08/17 03:54 51 12/08/17 03:29 47 16 30 12/08/17 00:49 49 16 30 12/08/17 00:31 142/60 12/08/17 00:00 97.7 51 16 142/60 (87) 97.7 12/08/17 00:00 Mechanical Ventilator 12/07/17 23:43 48 12/07/17 23:21 50 16 30 12/07/17 21:24 48 15 30 12/07/17 20:00 Mechanical Ventilator 12/07/17 20:00 30.0 12/07/17 20:00 98.2 49 16 136/57 (83) 98.2 12/07/17 19:14 50 14 30 12/07/17 19:06 50 12/07/17 18:14 139/74 12/07/17 17:02 48 14 30 12/07/17 16:00 98.7 49 16 139/74 (95) 98.7 12/07/17 16:00 Mechanical Ventilator 12/07/17 16:00 30.0 12/07/17 16:00 45 12/07/17 15:22 50 14 30 Height (Feet): 5 Height (Inches): 0.00 Weight (Pounds): 126 General Appearance: WD/WN, no acute distress HEENT: normocephalic, atraumatic, anicteric, mucous membranes moist, supple, no JVD, status post trach Respiratory/Chest: chest wall non-tender, no respiratory distress, no accessory muscle use, decreased breath sounds, crackles/rales Cardiovascular: normal peripheral pulses, normal rate, regular rhythm, no gallop/murmur, no JVD Abdomen: normal bowel sounds, soft, non tender, no organomegaly, non distended , no mass, no scars Extremities: no cyanosis, no clubbing Skin: no rash, no lesions, no ulcers Neurologic/Psychiatric: alert, unresponsiveness Lymphatic: no neck adenopathy, no groin adenopathy Musculoskeletal: normal muscle bulk, no effusion Laboratory Tests Test 12/08/17 04:00 White Blood Count 7.2 K/UL (4.8-10.8) Red Blood Count 3.02 M/UL (4.20-5.40) L Hemoglobin 8.8 G/DL (12.0-16.0) L Hematocrit 28.5 % (37.0-47.0) L Mean Corpuscular Volume 94 FL (80-99) Mean Corpuscular Hemoglobin 29.3 PG (27.0-31.0) Mean Corpuscular Hemoglobin Concent 31.0 G/DL (32.0-36.0) L Red Cell Distribution Width 16.2 % (11.6-14.8) H Platelet Count 191 K/UL (150-450) Mean Platelet Volume 11.3 FL (6.5-10.1) H Neutrophils (%) (Auto) 74.1 % (45.0-75.0) Lymphocytes (%) (Auto) 16.9 % (20.0-45.0) L Monocytes (%) (Auto) 3.3 % (1.0-10.0) Eosinophils (%) (Auto) 4.9 % (0.0-3.0) H Basophils (%) (Auto) 0.8 % (0.0-2.0) Sodium Level 145 MMOL/L (136-145) Potassium Level 4.6 MMOL/L (3.5-5.1) Chloride Level 111 MMOL/L (98-107) H Carbon Dioxide Level 31 MMOL/L (21-32) Anion Gap 3 mmol/L (5-15) L Blood Urea Nitrogen 38 mg/dL (7-18) H Creatinine 0.9 MG/DL (0.55-1.30) Estimat Glomerular Filtration Rate mL/min (>60) Glucose Level 142 MG/DL (74-106) H Calcium Level 9.1 MG/DL (8.5-10.1) Phosphorus Level 3.2 MG/DL (2.5-4.9) Magnesium Level 3.1 MG/DL (1.8-2.4) H Total Bilirubin 0.2 MG/DL (0.2-1.0) Aspartate Amino Transf (AST/SGOT) 22 U/L (15-37) Alanine Aminotransferase (ALT/SGPT) 36 U/L (12-78) Alkaline Phosphatase 125 U/L (46-116) H Total Creatine Kinase 26 U/L (26-308) Troponin I 0.023 ng/mL (0.000-0.056) Pro-B-Type Natriuretic Peptide 7726 pg/mL (0-125) H Total Protein 6.7 G/DL (6.4-8.2) Albumin 1.9 G/DL (3.4-5.0) L Globulin 4.8 g/dL Albumin/Globulin Ratio 0.4 (1.0-2.7) L Current Medications Medications (Trade) Dose Ordered Sig/Cirilo Route PRN Reason Start Time Stop Time Status Last Admin Dose Admin Acetaminophen (Tylenol) 650 mg Q6H PRN ORAL Fever/Headache/Mild Pain 12/04/17 14:00 12/24/17 13:46 12/06/17 00:21 Albuterol/ Ipratropium (Albuterol/ Ipratropium) 3 ml Q6H PRN HHN Shortness of Breath 12/06/17 10:30 12/09/17 10:29 Apixaban (Eliquis) 2.5 mg Q12HR GT 12/05/17 09:00 01/04/18 08:59 12/08/17 09:28 Cefepime HCl 2 gm/ Dextrose 55 ml @ 110 mls/hr Q24H IVPB 12/04/17 21:00 12/18/17 20:59 12/07/17 21:15 Dextrose (Dextrose 50%) 25 ml PRN IV Hypoglycemia 12/04/17 12:45 12/24/17 13:59 Dextrose (Dextrose 50%) 50 ml PRN IV hypoglycemia 12/04/17 12:45 12/24/17 13:59 Famotidine (Pepcid) 20 mg BID GT 12/04/17 18:00 12/24/17 17:59 12/08/17 09:28 Hydralazine HCl (Apresoline) 10 mg Q6H PRN GT SBP above 140mmHg 12/04/17 14:00 12/30/17 13:47 Hydralazine HCl (Apresoline) 25 mg Q6HR GT 12/08/17 12:00 01/07/18 11:59 12/08/17 12:17 Insulin Aspart (NovoLOG) EVERY 6 HOURS SUBQ 12/04/17 18:00 12/25/17 17:59 12/08/17 12:16 Iron Sucrose 100 mg/Sodium Chloride 60 ml @ 240 mls/hr BEDTIME IV 12/04/17 21:00 12/08/17 21:14 12/07/17 21:15 Lorazepam (Ativan 2mg/ml 1ml) 0.5 mg Q6H PRN IV agitation 12/06/17 10:30 12/09/17 10:29 Nitroglycerin (Ntg) 1 patch Q24H TDERMAL 12/04/17 14:00 12/24/17 13:59 12/07/17 14:34 Theophylline (Theophylline) 80 mg Q6HR GT 12/08/17 12:00 01/07/18 11:59 12/08/17 11:19 Cole Rasmussen M.D. Dec 08, 2017 15:22
[2017-12-08] MEDS: Nitroglycerin Patch 0.4mg TDERMAL SCH (15:26)
[2017-12-08 16:00] VITALS: BP 147/65
--- NOTE | 2017-12-08 19:16 | General Progress Note ---
Assessment/Plan Assessment/Plan GIAssessment - GT torn -- replaced - Heme (+) stools - Anemia, Iron deficiency - Resp failure - s/p PEG and Trach - HTN - DM - Pulmonary HTN Recommendations - Continue TF - monitor CBC - Agree with IV Iron - Endoscopy Subjective Allergies: Coded Allergies: ATORVASTATIN (Verified Allergy, Unknown, 11/24/17) CLONIDINE (Verified Allergy, Unknown, 11/24/17) LABETALOL (Verified Allergy, Unknown, 11/24/17) NIFEDIPINE (Verified Allergy, Unknown, 11/24/17) ROSUVASTATIN (Verified Allergy, Unknown, 11/24/17) Uncoded Allergies: IVELISSE INHIBITOR (Allergy, Unknown, 11/24/17) Subjective Above noted tolerating TF d/w son , Elle Rosa, again re OB (+) stool He gave OK to schedule EGD only for now he will think about colonoscopy Objective Last 24 Hour Vital Signs Date Time Temp Pulse Resp B/P (MAP) Pulse Ox O2 Delivery O2 Flow Rate FiO2 12/08/17 17:14 147/65 12/08/17 16:30 45 14 30 12/08/17 16:00 30 12/08/17 16:00 98.0 46 14 147/65 (92) 100 98.0 12/08/17 16:00 Mechanical Ventilator 12/08/17 15:37 46 12/08/17 15:26 140/75 12/08/17 15:00 48 14 30 12/08/17 12:50 54 18 30 12/08/17 12:17 140/75 12/08/17 12:00 30 12/08/17 12:00 Mechanical Ventilator 12/08/17 12:00 98.2 55 18 140/75 (96) 100 98.2 12/08/17 11:38 44 12/08/17 11:13 51 16 30 12/08/17 09:05 51 16 30 12/08/17 08:02 56 12/08/17 08:00 Mechanical Ventilator 12/08/17 08:00 97.0 56 16 137/52 (80) 99 97.0 12/08/17 08:00 30 12/08/17 06:46 53 18 30 12/08/17 06:08 152/69 12/08/17 05:26 46 14 30 12/08/17 04:00 30.0 12/08/17 04:00 Mechanical Ventilator 12/08/17 04:00 97.7 54 16 152/69 (96) 97.7 12/08/17 03:54 51 12/08/17 03:29 47 16 30 12/08/17 00:49 49 16 30 12/08/17 00:31 142/60 12/08/17 00:00 97.7 51 16 142/60 (87) 97.7 12/08/17 00:00 Mechanical Ventilator 12/07/17 23:43 48 12/07/17 23:21 50 16 30 12/07/17 21:24 48 15 30 12/07/17 20:00 Mechanical Ventilator 12/07/17 20:00 30.0 12/07/17 20:00 98.2 49 16 136/57 (83) 98.2 Intake and Output 12/07/17 12/08/17 19:00 07:00 Intake Total 890 ml 975 ml Output Total 700 ml 1200 ml Balance 190 ml -225 ml Intake Free Water 100 ml 200 ml IV Total 115 ml Tube Feeding 550 ml 600 ml Other 240 ml 60 ml Output Urine Total 650 ml 1100 ml Stool Total 50 ml 100 ml Laboratory Tests 12/08/17 04:00: White Blood Count 7.2, Red Blood Count 3.02L, Hemoglobin 8.8L, Hematocrit 28.5L , Mean Corpuscular Volume 94, Mean Corpuscular Hemoglobin 29.3, Mean Corpuscular Hemoglobin Concent 31.0L, Red Cell Distribution Width 16.2H, Platelet Count 191, Mean Platelet Volume 11.3H, Neutrophils (%) (Auto) 74.1, Lymphocytes (%) (Auto) 16.9L, Monocytes (%) (Auto) 3.3, Eosinophils (%) (Auto) 4.9H, Basophils (%) (Auto) 0.8, Sodium Level 145, Potassium Level 4.6, Chloride Level 111H, Carbon Dioxide Level 31, Anion Gap 3L, Blood Urea Nitrogen 38H, Creatinine 0.9, Estimat Glomerular Filtration Rate , Glucose Level 142H, Calcium Level 9.1, Phosphorus Level 3.2, Magnesium Level 3.1H, Total Bilirubin 0.2, Aspartate Amino Transf (AST/SGOT) 22, Alanine Aminotransferase (ALT/SGPT) 36, Alkaline Phosphatase 125H, Total Creatine Kinase 26, Troponin I 0.023, Pro-B -Type Natriuretic Peptide 7726H, Total Protein 6.7, Albumin 1.9L, Globulin 4.8, Albumin/Globulin Ratio 0.4L Height (Feet): 5 Height (Inches): 0.00 Weight (Pounds): 126 Objective Elderly woman , NAD NCAT supple CTA RR soft ND. (+) GT contracted OBS Mack Jackson MD Dec 08, 2017 19:16
[2017-12-08 20:00] VITALS: BP 136/80
[2017-12-08] MEDS: Iron Sucrose 100 MG in NS 55 ML IV SCH (20:05)
[2017-12-08] MEDS: Cefepime HCl 2 GM in D5W 55 ML IVPB SCH (20:42)
[2017-12-09] VITALS: BP 162/73
[2017-12-09] MEDS: Theophylline 80mg/15ml GT SCH ×5 (00:21→23:58)
[2017-12-09] MEDS: HydrALAZINE 25mg tab GT SCH ×2 (00:21→05:42)
[2017-12-09 04:00] VITALS: BP 159/72
[2017-12-09] MEDS: NovoLOG Insulin Flexpen SUBQ SCH ×5 (05:55→23:59)
[2017-12-09 08:00] VITALS: BP 153/67
--- NOTE | 2017-12-09 09:55 | Pulmonolgy Critical Care Note ---
Critical Care - Asmt/Plan Problems: (1) Acute respiratory failure Assessment & Plan: s/p trach (2) Pulmonary edema (3) Pleural effusion, bilateral Assessment & Plan: s/p thoracentesis (4) Atrial fibrillation (5) Diabetes mellitus (6) Advanced dementia (7) History of CVA (cerebrovascular accident) (8) Feeding by G-tube Respiratory: monitor respiratory rate, adjust FIO2, CXR Cardiac: continue to monitor HR/BP Renal: F/U I&O, check electrolytes Infectious Disease: check cultures Gastrointestinal: continue feedings/current rate Endocrine: monitor blood sugar Hematologic: monitor H/H, transfuse if hgb<8.5 Neurologic: PRN Ativan, keep patient comfortable Notes Reviewed: clarity developer, cardio Discussed with: nurses, consultants, manager rn casehourly shift manager - Objective Last 24 Hour Vital Signs Date Time Temp Pulse Resp B/P (MAP) Pulse Ox O2 Delivery O2 Flow Rate FiO2 12/09/17 08:32 49 14 30 12/09/17 08:00 97.7 52 16 153/67 (95) 99 97.7 12/09/17 08:00 30 12/09/17 07:12 53 14 30 12/09/17 05:42 159/72 12/09/17 04:49 49 14 30 12/09/17 04:00 97.9 49 14 159/72 (101) 99 97.9 12/09/17 04:00 48 12/09/17 03:55 Mechanical Ventilator 12/09/17 03:55 30 12/09/17 02:55 49 14 30 12/09/17 01:30 46 14 30 12/09/17 00:21 162/73 12/09/17 00:00 49 12/09/17 00:00 Mechanical Ventilator 12/09/17 00:00 30 12/09/17 00:00 97.9 48 17 162/73 (102) 99 97.9 12/08/17 22:53 49 14 30 12/08/17 21:51 52 15 30 12/08/17 20:00 30 12/08/17 20:00 Mechanical Ventilator 12/08/17 20:00 98.1 52 14 136/80 (98) 100 98.1 12/08/17 20:00 53 12/08/17 19:51 51 14 30 12/08/17 17:14 147/65 12/08/17 16:30 45 14 30 12/08/17 16:00 30 12/08/17 16:00 98.0 46 14 147/65 (92) 100 98.0 12/08/17 16:00 Mechanical Ventilator 12/08/17 15:37 46 12/08/17 15:26 140/75 12/08/17 15:00 48 14 30 12/08/17 12:50 54 18 30 12/08/17 12:17 140/75 12/08/17 12:00 30 12/08/17 12:00 Mechanical Ventilator 12/08/17 12:00 98.2 55 18 140/75 (96) 100 98.2 12/08/17 11:38 44 12/08/17 11:13 51 16 30 Status: sedated Condition: improving HEENT: atraumatic Neck: full ROM Lungs: rales Heart: HR/BP stable Abdomen: soft, active bowel sounds Extremities: no C/C/E Decubiti: location Accucheck: 96 Critical Care - Subjective Condition: critical EKG Rhythm: Sinus Rhythm FI02: 30 Vent Support Breath Rate: 14 Vent Support Mode: AC Vent Tidal Volume: 500 Sputum Amount: Scant PEEP: 5.0 PIP: 24 I&O: Intake and Output 12/08/17 12/09/17 19:00 07:00 Intake Total 760 ml 600 ml Output Total 1050 ml 500 ml Balance -290 ml 100 ml Intake Free Water 100 ml IV Total 350 ml Tube Feeding 600 ml 250 ml Other 60 ml Output Urine Total 1000 ml 450 ml Stool Total 50 ml 50 ml CXR: no change ET-Tube: 8.0 ET Position: 20 Henry Gomez MD Dec 09, 2017 09:55
[2017-12-09 12:00] VITALS: BP 172/85
--- NOTE | 2017-12-09 12:06 | General Progress Note ---
Assessment/Plan Problem List: (1) Acute respiratory failure ICD Codes: J96.00 - Acute respiratory failure, unspecified whether with hypoxia or hypercapnia SNOMED: 35972606 Qualifiers: Qualified Codes: J96.01 - Acute respiratory failure with hypoxia (2) History of CVA (cerebrovascular accident) ICD Codes: Z86.73 - Personal history of transient ischemic attack (TIA), and cerebral infarction without residual deficits SNOMED: 754099708 (3) Pulmonary edema ICD Codes: J81.1 - Chronic pulmonary edema SNOMED: 56794739 Qualifiers: Qualified Codes: J81.0 - Acute pulmonary edema (4) Diabetic nephropathy ICD Codes: E11.21 - Type 2 diabetes mellitus with diabetic nephropathy SNOMED: 60403733, 131906871 (5) Pleural effusion, bilateral ICD Codes: J90 - Pleural effusion, not elsewhere classified SNOMED: 612253722 (6) Bradycardia with 41-50 beats per minute ICD Codes: R00.1 - Bradycardia, unspecified SNOMED: 50866785 Status: unchanged Assessment/Plan Start Theophylin Off Coreg stop KCL hydralazine GT trach 12/03 post trach care Currently on Cefepime til Dec 18 resume eliquis GT feeding Keep BP and BS in check optimize cardiac and pulm status- IV Iron PER Cardio and pulm Dc planning in 1-2 days addendum: 12/02/[address] james, based on boarderline pulmonary status and the need for bipap, and patient being full code, tracheostomy will be entertained after discussion with DPOA . Subjective ROS Limited/Unobtainable: Yes Allergies: Coded Allergies: ATORVASTATIN (Verified Allergy, Unknown, 11/24/17) CLONIDINE (Verified Allergy, Unknown, 11/24/17) LABETALOL (Verified Allergy, Unknown, 11/24/17) NIFEDIPINE (Verified Allergy, Unknown, 11/24/17) ROSUVASTATIN (Verified Allergy, Unknown, 11/24/17) Uncoded Allergies: IVELISSE INHIBITOR (Allergy, Unknown, 11/24/17) Objective Last 24 Hour Vital Signs Date Time Temp Pulse Resp B/P (MAP) Pulse Ox O2 Delivery O2 Flow Rate FiO2 12/09/17 11:28 56 15 30 12/09/17 10:25 53 14 Mechanical Ventilator 30 12/09/17 09:00 45 9/12/18 08:32 49 14 30 12/09/17 08:00 97.7 52 16 153/67 (95) 99 97.7 12/09/17 08:00 30 12/09/17 08:00 Mechanical Ventilator 12/09/17 07:12 53 14 30 12/09/17 05:42 159/72 12/09/17 04:49 49 14 30 12/09/17 04:00 97.9 49 14 159/72 (101) 99 97.9 12/09/17 04:00 48 12/09/17 03:55 Mechanical Ventilator 12/09/17 03:55 30 12/09/17 02:55 49 14 30 12/09/17 01:30 46 14 30 12/09/17 00:21 162/73 12/09/17 00:00 49 12/09/17 00:00 Mechanical Ventilator 12/09/17 00:00 30 12/09/17 00:00 97.9 48 17 162/73 (102) 99 97.9 12/08/17 22:53 49 14 30 12/08/17 21:51 52 15 30 12/08/17 20:00 30 12/08/17 20:00 Mechanical Ventilator 12/08/17 20:00 98.1 52 14 136/80 (98) 100 98.1 12/08/17 20:00 53 12/08/17 19:51 51 14 30 12/08/17 17:14 147/65 12/08/17 16:30 45 14 30 12/08/17 16:00 30 12/08/17 16:00 98.0 46 14 147/65 (92) 100 98.0 12/08/17 16:00 Mechanical Ventilator 12/08/17 15:37 46 12/08/17 15:26 140/75 12/08/17 15:00 48 14 30 12/08/17 12:50 54 18 30 12/08/17 12:17 140/75 Intake and Output 12/08/17 12/09/17 19:00 07:00 Intake Total 760 ml 600 ml Output Total 1050 ml 500 ml Balance -290 ml 100 ml Intake Free Water 100 ml IV Total 350 ml Tube Feeding 600 ml 250 ml Other 60 ml Output Urine Total 1000 ml 450 ml Stool Total 50 ml 50 ml Height (Feet): 5 Height (Inches): 0.00 Weight (Pounds): 127 General Appearance: no apparent distress Cardiovascular: bradycardia Respiratory/Chest: decreased breath sounds Abdomen: soft Objective no change Rafael Hurt MD Dec 09, 2017 12:06
[2017-12-09] MEDS: Nitroglycerin Patch 0.4mg TDERMAL SCH (14:19)
--- NOTE | 2017-12-09 15:08 | Infectious Diseases Prog Note ---
Assessment/Plan Problems: (1) Aspiration pneumonia Assessment & Plan: with B/L basal infiltrates, due to pseudomonas aeruginosa , continue cefepime to finish total of three weeks course of treatment . monitor CXR . aspiration precaution , keep HOB > 30 degree . EOT 12/18/17 (2) Pleural effusion, bilateral Assessment & Plan: S/P thoracentesis , exudative most likely due to pneumonia, adenosine deaminase on pleural fluids, fungal and cytology were not done . bacterial culture is negative which rule out empyema (3) Acute respiratory failure Assessment & Plan: due to the above, S/P tracheostomy , monitor CXR , continue local trach care , pulmonary is following (4) Sepsis Assessment & Plan: due to the above, with negative blood culture results so far , on cefepime to treat her pneumonia and UTI for total of three weeks. EOT 12/18/17 (5) Pressure ulcer, heel, right, unstageable Assessment & Plan: with an eschar, continue off loading and local wound care as per hospital protocol (6) Fever Assessment & Plan: resolved, suspect post OP, continue tylenol and monitor clinically Subjective ROS Limited/Unobtainable: Yes Allergies: Coded Allergies: ATORVASTATIN (Verified Allergy, Unknown, 11/24/17) CLONIDINE (Verified Allergy, Unknown, 11/24/17) LABETALOL (Verified Allergy, Unknown, 11/24/17) NIFEDIPINE (Verified Allergy, Unknown, 11/24/17) ROSUVASTATIN (Verified Allergy, Unknown, 11/24/17) Uncoded Allergies: IVELISSE INHIBITOR (Allergy, Unknown, 11/24/17) Subjective she was up in bed , comfortable, not responsive to verbal commands , low grade fever earlier today . no cough , no significant secretions Objective Vital Signs Last 24 Hour Vital Signs Date Time Temp Pulse Resp B/P (MAP) Pulse Ox O2 Delivery O2 Flow Rate FiO2 12/09/17 14:19 172/85 12/09/17 13:00 62 15 30 12/09/17 12:41 172/85 12/09/17 12:00 58 12/09/17 12:00 97.7 55 14 172/85 (114) 100 97.7 12/09/17 12:00 30 12/09/17 12:00 Mechanical Ventilator Mechanical Ventilator 12/09/17 11:28 56 15 30 12/09/17 10:25 53 14 Mechanical Ventilator 30 12/09/17 09:00 45 12/09/17 08:32 49 14 30 12/09/17 08:00 97.7 52 16 153/67 (95) 99 97.7 12/09/17 08:00 30 12/09/17 08:00 Mechanical Ventilator 12/09/17 07:12 53 14 30 12/09/17 05:42 159/72 12/09/17 04:49 49 14 30 12/09/17 04:00 97.9 49 14 159/72 (101) 99 97.9 12/09/17 04:00 48 12/09/17 03:55 Mechanical Ventilator 12/09/17 03:55 30 12/09/17 02:55 49 14 30 12/09/17 01:30 46 14 30 12/09/17 00:21 162/73 12/09/17 00:00 49 12/09/17 00:00 Mechanical Ventilator 12/09/17 00:00 30 12/09/17 00:00 97.9 48 17 162/73 (102) 99 97.9 12/08/17 22:53 49 14 30 12/08/17 21:51 52 15 30 12/08/17 20:00 30 12/08/17 20:00 Mechanical Ventilator 12/08/17 20:00 98.1 52 14 136/80 (98) 100 98.1 12/08/17 20:00 53 12/08/17 19:51 51 14 30 12/08/17 17:14 147/65 12/08/17 16:30 45 14 30 12/08/17 16:00 30 12/08/17 16:00 98.0 46 14 147/65 (92) 100 98.0 12/08/17 16:00 Mechanical Ventilator 12/08/17 15:37 46 12/08/17 15:26 140/75 Height (Feet): 5 Height (Inches): 0.00 Weight (Pounds): 127 General Appearance: WD/WN, no acute distress HEENT: normocephalic, atraumatic, anicteric, mucous membranes moist, supple, no JVD, status post trach Respiratory/Chest: chest wall non-tender, lungs clear, normal breath sounds, no respiratory distress, no accessory muscle use Cardiovascular: normal peripheral pulses, normal rate, regular rhythm, no gallop/murmur, no JVD Abdomen: normal bowel sounds, soft, non tender, no organomegaly, non distended , no mass Extremities: no cyanosis, no clubbing Skin: no rash, no lesions, no ulcers Neurologic/Psychiatric: alert, oriented x 3, responsive Lymphatic: no neck adenopathy, no groin adenopathy Musculoskeletal: normal muscle bulk, no effusion Current Medications Medications (Trade) Dose Ordered Sig/Cirilo Route PRN Reason Start Time Stop Time Status Last Admin Dose Admin Acetaminophen (Tylenol) 650 mg Q6H PRN ORAL Fever/Headache/Mild Pain 12/04/17 14:00 12/24/17 13:46 12/06/17 00:21 Cefepime HCl 2 gm/ Dextrose 55 ml @ 110 mls/hr Q24H IVPB 12/04/17 21:00 12/18/17 20:59 12/08/17 20:42 Dextrose (Dextrose 50%) 25 ml PRN IV Hypoglycemia 12/04/17 12:45 12/24/17 13:59 Dextrose (Dextrose 50%) 50 ml PRN IV hypoglycemia 12/04/17 12:45 12/24/17 13:59 Famotidine (Pepcid) 20 mg BID GT 12/04/17 18:00 12/24/17 17:59 12/09/17 09:34 Hydralazine HCl (Apresoline) 10 mg Q6H PRN GT SBP above 140mmHg 12/04/17 14:00 12/30/17 13:47 12/09/17 12:41 Hydralazine HCl (Apresoline) 50 mg Q6HR GT 12/09/17 18:00 01/08/18 17:59 Insulin Aspart (NovoLOG) EVERY 6 HOURS SUBQ 12/04/17 18:00 12/25/17 17:59 12/08/17 17:16 Nitroglycerin (Ntg) 1 patch Q24H TDERMAL 12/04/17 14:00 12/24/17 13:59 12/09/17 14:19 Theophylline (Theophylline) 80 mg Q6HR GT 12/08/17 12:00 01/07/18 11:59 12/09/17 12:41 Cole Rasmussen M.D. Dec 09, 2017 15:08
[2017-12-09 16:00] VITALS: BP 160/81
[2017-12-09] MEDS: HydrALAZINE 50mg tab GT SCH ×2 (17:49→23:58)
[2017-12-09] MEDS ORDERED: HydrALAZINE 25mg tab GT SCH (18:00)
--- NOTE | 2017-12-09 19:51 | General Progress Note ---
Assessment/Plan Assessment/Plan GIAssessment - GT torn -- replaced - Heme (+) stools - Anemia, Iron deficiency - PNA, Pulm edema, Resp failure - LVEF % 65-70 - s/p PEG and Trach - HTN - DM - Pulmonary HTN - abnormal LFT Recommendations - Continue TF - monitor CBC - check hep serologies - Agree with IV Iron - vent care - Endoscopy am Subjective Allergies: Coded Allergies: ATORVASTATIN (Verified Allergy, Unknown, 11/24/17) CLONIDINE (Verified Allergy, Unknown, 11/24/17) LABETALOL (Verified Allergy, Unknown, 11/24/17) NIFEDIPINE (Verified Allergy, Unknown, 11/24/17) ROSUVASTATIN (Verified Allergy, Unknown, 11/24/17) Uncoded Allergies: IVELISSE INHIBITOR (Allergy, Unknown, 11/24/17) Subjective Above noted tolerating TF No significant events overnight Objective Last 24 Hour Vital Signs Date Time Temp Pulse Resp B/P (MAP) Pulse Ox O2 Delivery O2 Flow Rate FiO2 12/09/17 17:49 160/81 12/09/17 16:50 62 16 30 12/09/17 16:00 73 12/09/17 16:00 Mechanical Ventilator Mechanical Ventilator 12/09/17 16:00 98.1 64 19 160/81 (107) 99 98.1 12/09/17 16:00 30 12/09/17 15:22 67 18 30 12/09/17 14:19 172/85 12/09/17 13:00 62 15 30 12/09/17 12:41 172/85 12/09/17 12:00 58 12/09/17 12:00 97.7 55 14 172/85 (114) 100 97.7 12/09/17 12:00 30 12/09/17 12:00 Mechanical Ventilator Mechanical Ventilator 12/09/17 11:28 56 15 30 12/09/17 10:25 53 14 Mechanical Ventilator 30 12/09/17 09:00 45 12/09/17 08:32 49 14 30 12/09/17 08:00 97.7 52 16 153/67 (95) 99 97.7 12/09/17 08:00 30 12/09/17 08:00 Mechanical Ventilator 12/09/17 07:12 53 14 30 12/09/17 05:42 159/72 12/09/17 04:49 49 14 30 12/09/17 04:00 97.9 49 14 159/72 (101) 99 97.9 12/09/17 04:00 48 12/09/17 03:55 Mechanical Ventilator 12/09/17 03:55 30 12/09/17 02:55 49 14 30 12/09/17 01:30 46 14 30 12/09/17 00:21 162/73 12/09/17 00:00 49 12/09/17 00:00 Mechanical Ventilator 12/09/17 00:00 30 12/09/17 00:00 97.9 48 17 162/73 (102) 99 97.9 12/08/17 22:53 49 14 30 12/08/17 21:51 52 15 30 12/08/17 20:00 30 12/08/17 20:00 Mechanical Ventilator 12/08/17 20:00 98.1 52 14 136/80 (98) 100 98.1 12/08/17 20:00 53 12/08/17 19:51 51 14 30 Intake and Output 12/08/17 12/09/17 19:00 07:00 Intake Total 760 ml 650 ml Output Total 1050 ml 500 ml Balance -290 ml 150 ml Intake Free Water 100 ml IV Total 350 ml Tube Feeding 600 ml 300 ml Other 60 ml Output Urine Total 1000 ml 450 ml Stool Total 50 ml 50 ml Height (Feet): 5 Height (Inches): 0.00 Weight (Pounds): 127 Objective Elderly woman , NAD NCAT supple Coarse BS RR soft ND. (+) GT contracted OBS Mack Jackson MD Dec 09, 2017 19:51
[2017-12-09 20:00] VITALS: BP 166/72
[2017-12-09] MEDS: Cefepime HCl 2 GM in D5W 55 ML IVPB SCH (20:35)
[2017-12-10] VITALS: BP 155/71
--- NOTE | 2017-12-10 02:30 | Progress Note ---
DATE: 12/09/2017 CARDIOLOGY PROGRESS NOTE SUBJECTIVE: The patient remains on ventilator support with tracheostomy. The patient is on G-tube feeding. Apparently, the patient is on anticoagulation for cardioembolic prophylaxis. The patient continues to have anemia and signs of GI blood loss. OBJECTIVE: VITAL SIGNS: Blood pressure 153/67, pulse 49-76, respiratory rate 14 to 16 and afebrile. LUNGS: Diminished breath sounds. Scattered rhonchi. HEART: Regular rhythm. Slow rate. Normal S1 and S2. ABDOMEN: Soft. No edema. G-tube intact. LABORATORY AND DIAGNOSTIC DATA: The monitored rhythm is sinus bradycardia, frequent ventricular ectopy. No new laboratories today. IMPRESSION: 1. Respiratory failure. 2. Gastrointestinal bleeding. 3. Paroxysmal atrial fibrillation. 4. Anemia. 5. Acute on chronic diastolic congestive heart failure, improved. 6. Severe protein-calorie malnutrition. 7. Sinus node disease with asymptomatic bradycardia. 8. Prerenal azotemia. 9. Dehydration. 10. Hypernatremia, improved. PLAN: Stable for endoscopy. We will continue ICU care and atropine at bedside. We will not continue theophylline to stimulate heart rate. No current indication for permanent pacemaker in a bedridden patient with asymptomatic sinus bradycardia. Cardiovascular regimen adjusted with respect to diuretic therapy, anti-failure and antihypertensive drugs. Jori Andujar M.D. DR: MARCO JOB#: [id number] CC:
[2017-12-10 04:00] VITALS: BP 144/71
[2017-12-10 05:22] LABS: BASOPHILS % (AUTO) 0.5 % (0.0-2.0); EOSINOPHILS % (AUTO) 3.6 % (0.0-3.0); HEMATOCRIT 30.5 % (37.0-47.0); HEMOGLOBIN 9.7 G/DL (12.0-16.0); LYMPHOCYTES % (AUTO) 17.1 % (20.0-45.0); MEAN CORPUSCULAR VOLUME 94 FL (80-99); NEUTROPHILS % (AUTO) 75.8 % (45.0-75.0); PLATELET COUNT 235 K/UL (150-450); RED BLOOD COUNT 3.25 M/UL (4.20-5.40); WHITE BLOOD COUNT 8.1 K/UL (4.8-10.8)
[2017-12-10 05:59] LABS: ALANINE AMINOTRANSFERASE 29 U/L (12-78); ALBUMIN 1.9 G/DL (3.4-5.0); ALBUMIN/GLOBULIN RATIO 0.4 (1.0-2.7); ALKALINE PHOSPHATASE 119 U/L (46-116); ANION GAP 7 mmol/L (5-15); ASPARTATE AMINO TRANSFERASE 25 U/L (15-37); BILIRUBIN,TOTAL 0.2 MG/DL (0.2-1.0); BLOOD UREA NITROGEN 30 mg/dL (7-18); CALCIUM 9.1 MG/DL (8.5-10.1); CARBON DIOXIDE 27 MMOL/L (21-32); CHLORIDE 110 MMOL/L (98-107); CREATININE 0.8 MG/DL (0.55-1.30); POTASSIUM 4.8 MMOL/L (3.5-5.1); SODIUM 144 MMOL/L (136-145)
[2017-12-10] MEDS: NovoLOG Insulin Flexpen SUBQ SCH ×4 (06:00→23:37)
[2017-12-10] MEDS: Theophylline 80mg/15ml GT SCH ×4 (06:04→23:31)
[2017-12-10] MEDS: HydrALAZINE 50mg tab GT SCH ×4 (06:04→23:32)
[2017-12-10 08:00] VITALS: BP 153/96
--- NOTE | 2017-12-10 08:53 | Diagnostic Imaging Report ---
Indication: Dyspnea Technique: One view of the chest Comparison: 12/07/2017 Findings: Again demonstrated are bilateral pleural effusions, left greater than right, essentially unchanged. No definite infiltrates or congestion. The heart is mildly enlarged. Tracheostomy remains. Findings are overall unchanged Impression: Unchanged, over 3 days, findings as above.
[2017-12-10] MEDS ORDERED: Eliquis 2.5mg tablet GT SCH (09:45)
--- NOTE | 2017-12-10 09:48 | General Progress Note ---
Assessment/Plan Assessment/Plan GIAssessment - GT torn -- replaced - Heme (+) stools - Anemia, Iron deficiency - on anticoagulation for cardioembolic issues - significant bradycardia - PNA, Pulm edema, Resp failure - LVEF % 65-70 - s/p PEG and Trach - HTN - DM - Pulmonary HTN - abnormal LFT Recommendations - Will hold off on endoscopy today due to worsening bradycardia - Resume TF - Resume anticoagulation - monitor CBC - check hep serologies - Agree with IV Iron - vent care Subjective Allergies: Coded Allergies: ATORVASTATIN (Verified Allergy, Unknown, 11/24/17) CLONIDINE (Verified Allergy, Unknown, 11/24/17) LABETALOL (Verified Allergy, Unknown, 11/24/17) NIFEDIPINE (Verified Allergy, Unknown, 11/24/17) ROSUVASTATIN (Verified Allergy, Unknown, 11/24/17) Uncoded Allergies: IVELISSE INHIBITOR (Allergy, Unknown, 11/24/17) Subjective Above noted NPO for planned EGD but HR lower overnight - in the 40's d/w anesthesia services Endoscopy cancelled Objective Last 24 Hour Vital Signs Date Time Temp Pulse Resp B/P (MAP) Pulse Ox O2 Delivery O2 Flow Rate FiO2 12/10/17 09:32 58 12/10/17 08:00 30 12/10/17 08:00 98.1 44 16 153/96 (115) 100 98.1 12/10/17 08:00 Mechanical Ventilator Mechanical Ventilator 12/10/17 07:36 43 14 30 12/10/17 06:04 144/71 12/10/17 05:29 51 19 30 12/10/17 04:00 97.8 48 16 144/71 (95) 100 97.8 12/10/17 04:00 Mechanical Ventilator Mechanical Ventilator 12/10/17 04:00 46 12/10/17 04:00 30 12/10/17 03:30 47 15 30 12/10/17 00:51 53 16 30 12/10/17 00:00 98.1 50 16 155/71 (99) 100 98.1 12/10/17 00:00 54 12/10/17 00:00 Mechanical Ventilator Mechanical Ventilator 12/09/17 23:58 166/72 12/09/17 22:54 69 20 30 12/09/17 21:00 58 20 30 12/09/17 20:00 Mechanical Ventilator Mechanical Ventilator 12/09/17 20:00 54 12/09/17 20:00 30 12/09/17 20:00 97.8 62 18 166/72 (103) 100 97.8 12/09/17 19:30 58 19 30 12/09/17 17:49 160/81 12/09/17 16:50 62 16 30 12/09/17 16:00 73 12/09/17 16:00 Mechanical Ventilator Mechanical Ventilator 12/09/17 16:00 98.1 64 19 160/81 (107) 99 98.1 12/09/17 16:00 30 12/09/17 15:22 67 18 30 12/09/17 14:19 172/85 12/09/17 13:00 62 15 30 12/09/17 12:41 172/85 12/09/17 12:00 58 12/09/17 12:00 97.7 55 14 172/85 (114) 100 97.7 12/09/17 12:00 30 12/09/17 12:00 Mechanical Ventilator Mechanical Ventilator 12/09/17 11:28 56 15 30 12/09/17 10:25 53 14 Mechanical Ventilator 30 Intake and Output 12/09/17 12/10/17 19:00 07:00 Intake Total 750 ml 305 ml Output Total 880 ml 795 ml Balance -130 ml -490 ml Intake Free Water 150 ml 50 ml IV Total 55 ml Tube Feeding 600 ml 200 ml Output Urine Total 850 ml 750 ml Stool Total 30 ml 45 ml Laboratory Tests 12/10/17 04:44: White Blood Count 8.1, Red Blood Count 3.25L, Hemoglobin 9.7L, Hematocrit 30.5L , Mean Corpuscular Volume 94, Mean Corpuscular Hemoglobin 29.8, Mean Corpuscular Hemoglobin Concent 31.7L, Red Cell Distribution Width 17.0H, Platelet Count 235, Mean Platelet Volume 10.8H, Neutrophils (%) (Auto) 75.8H, Lymphocytes (%) (Auto) 17.1L, Monocytes (%) (Auto) 3.0, Eosinophils (%) (Auto) 3.6H, Basophils (%) (Auto) 0.5, Sodium Level 144, Potassium Level 4.8, Chloride Level 110H, Carbon Dioxide Level 27, Anion Gap 7, Blood Urea Nitrogen 30H, Creatinine 0.8, Estimat Glomerular Filtration Rate , Glucose Level 81, Calcium Level 9.1, Total Bilirubin 0.2, Aspartate Amino Transf (AST/SGOT) 25, Alanine Aminotransferase (ALT/SGPT) 29, Alkaline Phosphatase 119H, Pro-B-Type Natriuretic Peptide 95248D, Total Protein 7.0, Albumin 1.9L, Globulin 5.1, Albumin/Globulin Ratio 0.4L, Hepatitis A IgM Antibody [Pending], Hepatitis B Surface Antigen [Pending], Hepatitis B Core IgM Antibody [Pending], Hepatitis C Antibody [Pending] Height (Feet): 5 Height (Inches): 0.00 Weight (Pounds): 131 Objective Elderly woman , NAD NCAT supple, (+) trach Coarse BS RR soft ND. (+) GT contracted OBS Mack Jackson MD Dec 10, 2017 09:48
--- NOTE | 2017-12-10 10:11 | Pulmonolgy Critical Care Note ---
Critical Care - Asmt/Plan Problems: (1) Acute respiratory failure Assessment & Plan: s/p trach (2) Pulmonary edema (3) Pleural effusion, bilateral Assessment & Plan: s/p thoracentesis (4) Atrial fibrillation (5) Diabetes mellitus (6) Advanced dementia (7) History of CVA (cerebrovascular accident) (8) Feeding by G-tube Respiratory: monitor respiratory rate, adjust FIO2, CXR Cardiac: continue to monitor HR/BP Renal: F/U I&O, keep IV fluid Infectious Disease: check cultures Gastrointestinal: continue feedings/current rate Endocrine: monitor blood sugar, check TSH, check HgA1C, continue sliding scale insulin Hematologic: monitor H/H, transfuse if hgb<8.5 Neurologic: PRN Morphine, keep patient comfortable Affect: PRN ativan Notes Reviewed: cardio, renal Discussed with: nurses, consultants, 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 - Objective Last 24 Hour Vital Signs Date Time Temp Pulse Resp B/P (MAP) Pulse Ox O2 Delivery O2 Flow Rate FiO2 12/10/17 09:32 58 12/10/17 09:22 56 17 30 12/10/17 08:00 30 12/10/17 08:00 98.1 44 16 153/96 (115) 100 98.1 12/10/17 08:00 Mechanical Ventilator Mechanical Ventilator 12/10/17 07:36 43 14 30 12/10/17 06:04 144/71 12/10/17 05:29 51 19 30 12/10/17 04:00 97.8 48 16 144/71 (95) 100 97.8 12/10/17 04:00 Mechanical Ventilator Mechanical Ventilator 12/10/17 04:00 46 12/10/17 04:00 30 12/10/17 03:30 47 15 30 12/10/17 00:51 53 16 30 12/10/17 00:00 98.1 50 16 155/71 (99) 100 98.1 12/10/17 00:00 54 12/10/17 00:00 Mechanical Ventilator Mechanical Ventilator 12/09/17 23:58 166/72 12/09/17 22:54 69 20 30 12/09/17 21:00 58 20 30 12/09/17 20:00 Mechanical Ventilator Mechanical Ventilator 12/09/17 20:00 54 12/09/17 20:00 30 12/09/17 20:00 97.8 62 18 166/72 (103) 100 97.8 12/09/17 19:30 58 19 30 12/09/17 17:49 160/81 12/09/17 16:50 62 16 30 12/09/17 16:00 73 12/09/17 16:00 Mechanical Ventilator Mechanical Ventilator 12/09/17 16:00 98.1 64 19 160/81 (107) 99 98.1 12/09/17 16:00 30 12/09/17 15:22 67 18 30 12/09/17 14:19 172/85 12/09/17 13:00 62 15 30 12/09/17 12:41 172/85 12/09/17 12:00 58 12/09/17 12:00 97.7 55 14 172/85 (114) 100 97.7 12/09/17 12:00 30 12/09/17 12:00 Mechanical Ventilator Mechanical Ventilator 12/09/17 11:28 56 15 30 12/09/17 10:25 53 14 Mechanical Ventilator 30 Status: awake Condition: grave HEENT: atraumatic Neck: full ROM Lungs: clear Heart: HR/BP stable, regular Abdomen: non-tender, active bowel sounds Extremities: no C/C/E, edema Accucheck: 70 Critical Care - Subjective ROS Limited/Unobtainable: Yes Condition: critical, improving EKG Rhythm: Sinus Rhythm FI02: 30 Vent Support Breath Rate: 14 Vent Support Mode: AC Vent Tidal Volume: 500 Sputum Amount: Small PEEP: 5.0 PIP: 28 Tube Feeding Amount: 50 I&O: Intake and Output 12/09/17 12/10/17 19:00 07:00 Intake Total 750 ml 305 ml Output Total 880 ml 795 ml Balance -130 ml -490 ml Intake Free Water 150 ml 50 ml IV Total 55 ml Tube Feeding 600 ml 200 ml Output Urine Total 850 ml 750 ml Stool Total 30 ml 45 ml CXR: no change ET-Tube: 8.0 ET Position: 20 Labs: Laboratory Tests Test 12/10/17 04:44 White Blood Count 8.1 K/UL (4.8-10.8) Red Blood Count 3.25 M/UL (4.20-5.40) L Hemoglobin 9.7 G/DL (12.0-16.0) L Hematocrit 30.5 % (37.0-47.0) L Mean Corpuscular Volume 94 FL (80-99) Mean Corpuscular Hemoglobin 29.8 PG (27.0-31.0) Mean Corpuscular Hemoglobin Concent 31.7 G/DL (32.0-36.0) L Red Cell Distribution Width 17.0 % (11.6-14.8) H Platelet Count 235 K/UL (150-450) Mean Platelet Volume 10.8 FL (6.5-10.1) H Neutrophils (%) (Auto) 75.8 % (45.0-75.0) H Lymphocytes (%) (Auto) 17.1 % (20.0-45.0) L Monocytes (%) (Auto) 3.0 % (1.0-10.0) Eosinophils (%) (Auto) 3.6 % (0.0-3.0) H Basophils (%) (Auto) 0.5 % (0.0-2.0) Sodium Level 144 MMOL/L (136-145) Potassium Level 4.8 MMOL/L (3.5-5.1) Chloride Level 110 MMOL/L (98-107) H Carbon Dioxide Level 27 MMOL/L (21-32) Anion Gap 7 mmol/L (5-15) Blood Urea Nitrogen 30 mg/dL (7-18) H Creatinine 0.8 MG/DL (0.55-1.30) Estimat Glomerular Filtration Rate mL/min (>60) Glucose Level 81 MG/DL (74-106) Calcium Level 9.1 MG/DL (8.5-10.1) Total Bilirubin 0.2 MG/DL (0.2-1.0) Aspartate Amino Transf (AST/SGOT) 25 U/L (15-37) Alanine Aminotransferase (ALT/SGPT) 29 U/L (12-78) Alkaline Phosphatase 119 U/L (46-116) H Pro-B-Type Natriuretic Peptide 50914 pg/mL (0-125) H Total Protein 7.0 G/DL (6.4-8.2) Albumin 1.9 G/DL (3.4-5.0) L Globulin 5.1 g/dL Albumin/Globulin Ratio 0.4 (1.0-2.7) L Hepatitis A IgM Antibody Pending Hepatitis B Surface Antigen Pending Hepatitis B Core IgM Antibody Pending Hepatitis C Antibody Pending Henry Gomez MD Dec 10, 2017 10:11
--- NOTE | 2017-12-10 11:56 | General Surgery Progress Note ---
General Surgery-Progress Note Subjective Procedure Performed Tracheostomy Additional Comments no acute events. improving Objective Last 24 Hour Vital Signs Date Time Temp Pulse Resp B/P (MAP) Pulse Ox O2 Delivery O2 Flow Rate FiO2 12/10/17 11:01 61 16 30 12/10/17 09:32 58 12/10/17 09:22 56 17 30 12/10/17 08:00 30 12/10/17 08:00 98.1 44 16 153/96 (115) 100 98.1 12/10/17 08:00 Mechanical Ventilator Mechanical Ventilator 12/10/17 07:36 43 14 30 12/10/17 06:04 144/71 12/10/17 05:29 51 19 30 12/10/17 04:00 97.8 48 16 144/71 (95) 100 97.8 12/10/17 04:00 Mechanical Ventilator Mechanical Ventilator 12/10/17 04:00 46 12/10/17 04:00 30 12/10/17 03:30 47 15 30 12/10/17 00:51 53 16 30 12/10/17 00:00 98.1 50 16 155/71 (99) 100 98.1 12/10/17 00:00 54 12/10/17 00:00 Mechanical Ventilator Mechanical Ventilator 12/09/17 23:58 166/72 12/09/17 22:54 69 20 30 12/09/17 21:00 58 20 30 12/09/17 20:00 Mechanical Ventilator Mechanical Ventilator 12/09/17 20:00 54 12/09/17 20:00 30 12/09/17 20:00 97.8 62 18 166/72 (103) 100 97.8 12/09/17 19:30 58 19 30 12/09/17 17:49 160/81 12/09/17 16:50 62 16 30 12/09/17 16:00 73 12/09/17 16:00 Mechanical Ventilator Mechanical Ventilator 12/09/17 16:00 98.1 64 19 160/81 (107) 99 98.1 12/09/17 16:00 30 12/09/17 15:22 67 18 30 12/09/17 14:19 172/85 12/09/17 13:00 62 15 30 12/09/17 12:41 172/85 12/09/17 12:00 58 12/09/17 12:00 97.7 55 14 172/85 (114) 100 97.7 12/09/17 12:00 30 12/09/17 12:00 Mechanical Ventilator Mechanical Ventilator I&O Intake and Output 12/09/17 12/10/17 19:00 07:00 Intake Total 750 ml 305 ml Output Total 880 ml 795 ml Balance -130 ml -490 ml Intake Free Water 150 ml 50 ml IV Total 55 ml Tube Feeding 600 ml 200 ml Output Urine Total 850 ml 750 ml Stool Total 30 ml 45 ml Dressing: dry Wound: clean Drains: other Cardiovascular: RSR Respiratory: clear Abdomen: soft, distended, present bowel sounds Extremities: other Laboratory Tests Test 12/10/17 04:44 White Blood Count 8.1 K/UL (4.8-10.8) Red Blood Count 3.25 M/UL (4.20-5.40) L Hemoglobin 9.7 G/DL (12.0-16.0) L Hematocrit 30.5 % (37.0-47.0) L Mean Corpuscular Volume 94 FL (80-99) Mean Corpuscular Hemoglobin 29.8 PG (27.0-31.0) Mean Corpuscular Hemoglobin Concent 31.7 G/DL (32.0-36.0) L Red Cell Distribution Width 17.0 % (11.6-14.8) H Platelet Count 235 K/UL (150-450) Mean Platelet Volume 10.8 FL (6.5-10.1) H Neutrophils (%) (Auto) 75.8 % (45.0-75.0) H Lymphocytes (%) (Auto) 17.1 % (20.0-45.0) L Monocytes (%) (Auto) 3.0 % (1.0-10.0) Eosinophils (%) (Auto) 3.6 % (0.0-3.0) H Basophils (%) (Auto) 0.5 % (0.0-2.0) Sodium Level 144 MMOL/L (136-145) Potassium Level 4.8 MMOL/L (3.5-5.1) Chloride Level 110 MMOL/L (98-107) H Carbon Dioxide Level 27 MMOL/L (21-32) Anion Gap 7 mmol/L (5-15) Blood Urea Nitrogen 30 mg/dL (7-18) H Creatinine 0.8 MG/DL (0.55-1.30) Estimat Glomerular Filtration Rate mL/min (>60) Glucose Level 81 MG/DL (74-106) Calcium Level 9.1 MG/DL (8.5-10.1) Total Bilirubin 0.2 MG/DL (0.2-1.0) Aspartate Amino Transf (AST/SGOT) 25 U/L (15-37) Alanine Aminotransferase (ALT/SGPT) 29 U/L (12-78) Alkaline Phosphatase 119 U/L (46-116) H Pro-B-Type Natriuretic Peptide 35342 pg/mL (0-125) H Total Protein 7.0 G/DL (6.4-8.2) Albumin 1.9 G/DL (3.4-5.0) L Globulin 5.1 g/dL Albumin/Globulin Ratio 0.4 (1.0-2.7) L Hepatitis A IgM Antibody Pending Hepatitis B Surface Antigen Pending Hepatitis B Core IgM Antibody Pending Hepatitis C Antibody Pending Plan Problems: (1) Respiratory distress Assessment & Plan: s/p trach. stable (2) Acute respiratory failure Assessment & Plan: (3) Pressure ulcer, heel, right, unstageable Assessment & Plan: Pt 's sacral area and buttocks without evidence of skin breakdown. Protective foam drsg in place for protection secondary to immobility and risks for skin breakdown. R heel pressure injury previously noted as DTPI evolving with necrosis centrally with unstable borders with slough and erythema,Mild odor noted. Cavilon Barrier wipe applied and covered with Biatain drsg .Heel protector in place and pt's heel off-loaded with pillow. DTPi noted to R hallux(L)1.5cm x (W)1.3cm purplpe /red discolored wound bed with intact borders without erythema or induration.Bluish discoloration noted to L 1st metatarsal .R heel soft but blanchable. Tx Plan :Will Continue current wound care orders. Luke Cuevas Dec 10, 2017 11:56
[2017-12-10 12:00] VITALS: BP 157/83
--- NOTE | 2017-12-10 12:37 | General Progress Note ---
Assessment/Plan Problem List: (1) Acute respiratory failure ICD Codes: J96.00 - Acute respiratory failure, unspecified whether with hypoxia or hypercapnia SNOMED: 44570156 Qualifiers: Qualified Codes: J96.01 - Acute respiratory failure with hypoxia (2) History of CVA (cerebrovascular accident) ICD Codes: Z86.73 - Personal history of transient ischemic attack (TIA), and cerebral infarction without residual deficits SNOMED: 843030173 (3) Pulmonary edema ICD Codes: J81.1 - Chronic pulmonary edema SNOMED: 99537610 Qualifiers: Qualified Codes: J81.0 - Acute pulmonary edema (4) Diabetic nephropathy ICD Codes: E11.21 - Type 2 diabetes mellitus with diabetic nephropathy SNOMED: 13889656, 520895308 (5) Pleural effusion, bilateral ICD Codes: J90 - Pleural effusion, not elsewhere classified SNOMED: 561004838 (6) Bradycardia with 41-50 beats per minute ICD Codes: R00.1 - Bradycardia, unspecified SNOMED: 95670713 Status: stable Status Narrative HR going up as patient and her room warmed up ! Assessment/Plan Upper endoscopy unsuccessful - Anesthsia cited low HR On Theophylin Off Coreg hydralazine GT trach 12/03 post trach care Currently on Cefepime til Dec 18 resume eliquis GT feeding Keep BP and BS in check optimize cardiac and pulm status- IV Iron PER Cardio and pulm Dc planning in AM Endoscopy as OP if needed - Monitor H&H as OP addendum: 12/02/[address] james, based on boarderline pulmonary status and the need for bipap, and patient being full code, tracheostomy will be entertained after discussion with DPOA . Subjective ROS Limited/Unobtainable: Yes Allergies: Coded Allergies: ATORVASTATIN (Verified Allergy, Unknown, 11/24/17) CLONIDINE (Verified Allergy, Unknown, 11/24/17) LABETALOL (Verified Allergy, Unknown, 11/24/17) NIFEDIPINE (Verified Allergy, Unknown, 11/24/17) ROSUVASTATIN (Verified Allergy, Unknown, 11/24/17) Uncoded Allergies: IVELISSE INHIBITOR (Allergy, Unknown, 11/24/17) Objective Last 24 Hour Vital Signs Date Time Temp Pulse Resp B/P (MAP) Pulse Ox O2 Delivery O2 Flow Rate FiO2 12/10/17 11:01 61 16 30 12/10/17 09:32 58 12/10/17 09:22 56 17 30 12/10/17 08:00 30 12/10/17 08:00 98.1 44 16 153/96 (115) 100 98.1 12/10/17 08:00 Mechanical Ventilator Mechanical Ventilator 12/10/17 07:36 43 14 30 12/10/17 06:04 144/71 12/10/17 05:29 51 19 30 12/10/17 04:00 97.8 48 16 144/71 (95) 100 97.8 12/10/17 04:00 Mechanical Ventilator Mechanical Ventilator 12/10/17 04:00 46 12/10/17 04:00 30 12/10/17 03:30 47 15 30 12/10/17 00:51 53 16 30 12/10/17 00:00 98.1 50 16 155/71 (99) 100 98.1 12/10/17 00:00 54 12/10/17 00:00 Mechanical Ventilator Mechanical Ventilator 12/09/17 23:58 166/72 12/09/17 22:54 69 20 30 12/09/17 21:00 58 20 30 12/09/17 20:00 Mechanical Ventilator Mechanical Ventilator 12/09/17 20:00 54 12/09/17 20:00 30 12/09/17 20:00 97.8 62 18 166/72 (103) 100 97.8 12/09/17 19:30 58 19 30 12/09/17 17:49 160/81 12/09/17 16:50 62 16 30 12/09/17 16:00 73 12/09/17 16:00 Mechanical Ventilator Mechanical Ventilator 12/09/17 16:00 98.1 64 19 160/81 (107) 99 98.1 12/09/17 16:00 30 12/09/17 15:22 67 18 30 12/09/17 14:19 172/85 12/09/17 13:00 62 15 30 12/09/17 12:41 172/85 Intake and Output 12/09/17 12/10/17 19:00 07:00 Intake Total 750 ml 305 ml Output Total 880 ml 795 ml Balance -130 ml -490 ml Intake Free Water 150 ml 50 ml IV Total 55 ml Tube Feeding 600 ml 200 ml Output Urine Total 850 ml 750 ml Stool Total 30 ml 45 ml Laboratory Tests 12/10/17 04:44: White Blood Count 8.1, Red Blood Count 3.25L, Hemoglobin 9.7L, Hematocrit 30.5L , Mean Corpuscular Volume 94, Mean Corpuscular Hemoglobin 29.8, Mean Corpuscular Hemoglobin Concent 31.7L, Red Cell Distribution Width 17.0H, Platelet Count 235, Mean Platelet Volume 10.8H, Neutrophils (%) (Auto) 75.8H, Lymphocytes (%) (Auto) 17.1L, Monocytes (%) (Auto) 3.0, Eosinophils (%) (Auto) 3.6H, Basophils (%) (Auto) 0.5, Sodium Level 144, Potassium Level 4.8, Chloride Level 110H, Carbon Dioxide Level 27, Anion Gap 7, Blood Urea Nitrogen 30H, Creatinine 0.8, Estimat Glomerular Filtration Rate , Glucose Level 81, Calcium Level 9.1, Total Bilirubin 0.2, Aspartate Amino Transf (AST/SGOT) 25, Alanine Aminotransferase (ALT/SGPT) 29, Alkaline Phosphatase 119H, Pro-B-Type Natriuretic Peptide 69405G, Total Protein 7.0, Albumin 1.9L, Globulin 5.1, Albumin/Globulin Ratio 0.4L, Hepatitis A IgM Antibody [Pending], Hepatitis B Surface Antigen [Pending], Hepatitis B Core IgM Antibody [Pending], Hepatitis C Antibody [Pending] Height (Feet): 5 Height (Inches): 0.00 Weight (Pounds): 131 General Appearance: no apparent distress Neck: limited range of motion Cardiovascular: other - variable Respiratory/Chest: decreased breath sounds Abdomen: distended Objective no change Rafael Hurt MD Dec 10, 2017 12:37
[2017-12-10] MEDS: Nitroglycerin Patch 0.4mg TDERMAL SCH (14:28)
[2017-12-10 16:00] VITALS: BP 153/74
[2017-12-10] MEDS ORDERED: NS 275ml ONE (16:37)
[2017-12-10] MEDS ORDERED: Tubing IV Secondary IV ONE (16:37)
[2017-12-10] MEDS: Eliquis 2.5mg tablet GT SCH (17:44)
[2017-12-10 20:00] VITALS: BP 155/76
[2017-12-10] MEDS: Cefepime HCl 2 GM in D5W 55 ML IVPB SCH (20:45)
--- NOTE | 2017-12-10 21:54 | Infectious Diseases Prog Note ---
Assessment/Plan Problems: (1) Aspiration pneumonia Assessment & Plan: with B/L basal infiltrates, due to pseudomonas aeruginosa , continue cefepime to finish total of three weeks course of treatment . monitor CXR . aspiration precaution , keep HOB > 30 degree . EOT 12/18/17 (2) Pleural effusion, bilateral Assessment & Plan: S/P thoracentesis , exudative most likely due to pneumonia, adenosine deaminase on pleural fluids, fungal and cytology were not done . bacterial culture is negative which rule out empyema (3) Acute respiratory failure Assessment & Plan: due to the above, S/P tracheostomy , monitor CXR , continue local trach care , pulmonary is following (4) Sepsis Assessment & Plan: due to the above, with negative blood culture results so far , on cefepime to treat her pneumonia and UTI for total of three weeks. EOT 12/18/17 (5) Pressure ulcer, heel, right, unstageable Assessment & Plan: with an eschar, continue off loading and local wound care as per hospital protocol (6) Fever Assessment & Plan: resolved, suspect post OP, continue tylenol and monitor clinically Subjective ROS Limited/Unobtainable: Yes Allergies: Coded Allergies: ATORVASTATIN (Verified Allergy, Unknown, 11/24/17) CLONIDINE (Verified Allergy, Unknown, 11/24/17) LABETALOL (Verified Allergy, Unknown, 11/24/17) NIFEDIPINE (Verified Allergy, Unknown, 11/24/17) ROSUVASTATIN (Verified Allergy, Unknown, 11/24/17) Uncoded Allergies: IVELISSE INHIBITOR (Allergy, Unknown, 11/24/17) Subjective she was lying in bed, comfortable, open eyes spontaneously , not responsive to verbal commands , no fever or cough , no significant secretions Objective Vital Signs Last 24 Hour Vital Signs Date Time Temp Pulse Resp B/P (MAP) Pulse Ox O2 Delivery O2 Flow Rate FiO2 12/10/17 21:14 59 16 30 12/10/17 20:00 30 12/10/17 20:00 98.8 55 18 155/76 (102) 98 98.8 12/10/17 19:05 60 21 30 12/10/17 17:43 153/74 12/10/17 17:12 50 14 30 12/10/17 16:00 30 12/10/17 16:00 98.4 50 14 153/74 (100) 99 98.4 12/10/17 16:00 55 12/10/17 16:00 Mechanical Ventilator Mechanical Ventilator 12/10/17 15:03 50 14 30 12/10/17 14:28 157/83 12/10/17 13:11 55 15 30 12/10/17 13:00 68 12/10/17 12:46 157/83 12/10/17 12:00 97.2 67 17 157/83 (107) 98 97.2 12/10/17 12:00 Mechanical Ventilator Mechanical Ventilator 12/10/17 12:00 30 12/10/17 11:01 61 16 30 12/10/17 09:32 58 12/10/17 09:22 56 17 30 12/10/17 08:00 30 12/10/17 08:00 98.1 44 16 153/96 (115) 100 98.1 12/10/17 08:00 Mechanical Ventilator Mechanical Ventilator 12/10/17 07:36 43 14 30 12/10/17 06:04 144/71 12/10/17 05:29 51 19 30 12/10/17 04:00 97.8 48 16 144/71 (95) 100 97.8 12/10/17 04:00 Mechanical Ventilator Mechanical Ventilator 12/10/17 04:00 46 12/10/17 04:00 30 12/10/17 03:30 47 15 30 12/10/17 00:51 53 16 30 12/10/17 00:00 98.1 50 16 155/71 (99) 100 98.1 12/10/17 00:00 54 12/10/17 00:00 Mechanical Ventilator Mechanical Ventilator 12/09/17 23:58 166/72 12/09/17 22:54 69 20 30 Height (Feet): 5 Height (Inches): 0.00 Weight (Pounds): 131 General Appearance: WD/WN, no acute distress HEENT: normocephalic, atraumatic, anicteric, mucous membranes moist, PERRL, pharynx normal, supple, no JVD, status post trach Respiratory/Chest: chest wall non-tender, no respiratory distress, no accessory muscle use, decreased breath sounds, crackles/rales Cardiovascular: normal peripheral pulses, normal rate, regular rhythm, no gallop/murmur, no JVD Abdomen: normal bowel sounds, soft, non tender, no organomegaly, non distended , no mass, no scars Genitourinary: normal external genitalia Extremities: no cyanosis, no clubbing, other - pressure wound Skin: no rash, no lesions, ulcers - on the heel with eschar Neurologic/Psychiatric: alert, unresponsiveness Lymphatic: no neck adenopathy, no groin adenopathy Musculoskeletal: normal muscle bulk Laboratory Tests Test 12/10/17 04:44 White Blood Count 8.1 K/UL (4.8-10.8) Red Blood Count 3.25 M/UL (4.20-5.40) L Hemoglobin 9.7 G/DL (12.0-16.0) L Hematocrit 30.5 % (37.0-47.0) L Mean Corpuscular Volume 94 FL (80-99) Mean Corpuscular Hemoglobin 29.8 PG (27.0-31.0) Mean Corpuscular Hemoglobin Concent 31.7 G/DL (32.0-36.0) L Red Cell Distribution Width 17.0 % (11.6-14.8) H Platelet Count 235 K/UL (150-450) Mean Platelet Volume 10.8 FL (6.5-10.1) H Neutrophils (%) (Auto) 75.8 % (45.0-75.0) H Lymphocytes (%) (Auto) 17.1 % (20.0-45.0) L Monocytes (%) (Auto) 3.0 % (1.0-10.0) Eosinophils (%) (Auto) 3.6 % (0.0-3.0) H Basophils (%) (Auto) 0.5 % (0.0-2.0) Sodium Level 144 MMOL/L (136-145) Potassium Level 4.8 MMOL/L (3.5-5.1) Chloride Level 110 MMOL/L (98-107) H Carbon Dioxide Level 27 MMOL/L (21-32) Anion Gap 7 mmol/L (5-15) Blood Urea Nitrogen 30 mg/dL (7-18) H Creatinine 0.8 MG/DL (0.55-1.30) Estimat Glomerular Filtration Rate mL/min (>60) Glucose Level 81 MG/DL (74-106) Calcium Level 9.1 MG/DL (8.5-10.1) Total Bilirubin 0.2 MG/DL (0.2-1.0) Aspartate Amino Transf (AST/SGOT) 25 U/L (15-37) Alanine Aminotransferase (ALT/SGPT) 29 U/L (12-78) Alkaline Phosphatase 119 U/L (46-116) H Pro-B-Type Natriuretic Peptide 26013 pg/mL (0-125) H Total Protein 7.0 G/DL (6.4-8.2) Albumin 1.9 G/DL (3.4-5.0) L Globulin 5.1 g/dL Albumin/Globulin Ratio 0.4 (1.0-2.7) L Theophylline Level 7.0 ug/mL (10-20) L Hepatitis A IgM Antibody Pending Hepatitis B Surface Antigen Pending Hepatitis B Core IgM Antibody Pending Hepatitis C Antibody Pending Current Medications Medications (Trade) Dose Ordered Sig/Cirilo Route PRN Reason Start Time Stop Time Status Last Admin Dose Admin Acetaminophen (Tylenol) 650 mg Q6H PRN ORAL Fever/Headache/Mild Pain 12/04/17 14:00 12/24/17 13:46 12/06/17 00:21 Apixaban (Eliquis) 2.5 mg BID GT 12/10/17 18:00 01/09/18 17:59 12/10/17 17:44 Cefepime HCl 2 gm/ Dextrose 55 ml @ 110 mls/hr Q24H IVPB 12/04/17 21:00 12/18/17 20:59 12/10/17 20:45 Dextrose (Dextrose 50%) 25 ml PRN IV Hypoglycemia 12/04/17 12:45 12/24/17 13:59 Dextrose (Dextrose 50%) 50 ml PRN IV hypoglycemia 12/04/17 12:45 12/24/17 13:59 Famotidine (Pepcid) 20 mg BID GT 12/04/17 18:00 12/24/17 17:59 12/10/17 17:43 Hydralazine HCl (Apresoline) 10 mg Q6H PRN GT SBP above 140mmHg 12/04/17 14:00 12/30/17 13:47 12/09/17 12:41 Hydralazine HCl (Apresoline) 50 mg Q6HR GT 12/09/17 18:00 01/08/18 17:59 12/10/17 17:43 Insulin Aspart (NovoLOG) EVERY 6 HOURS SUBQ 12/04/17 18:00 12/25/17 17:59 12/10/17 17:45 Nitroglycerin (Ntg) 1 patch Q24H TDERMAL 12/04/17 14:00 12/24/17 13:59 12/10/17 14:28 Povidone Iodine (Betadine Claribel) 1 applic Q24H TOPIC 12/11/17 06:00 01/10/18 05:59 Theophylline (Theophylline) 80 mg Q6HR GT 12/08/17 12:00 01/07/18 11:59 12/10/17 17:44 Cole Rasmussen M.D. Dec 10, 2017 21:54
[2017-12-11] VITALS: BP 149/57
--- NOTE | 2017-12-11 03:45 | Progress Note ---
DATE: 12/10/2017 CARDIOLOGY PROGRESS NOTE SUBJECTIVE: The patient's endoscopy was canceled due to concern over her slow heart rate. The patient's case was discussed with Dr. Jackson. The patient has had stable sinus rhythm and sinus bradycardia with nonsustained ventricular ectopics. She remains on ventilator support following tracheostomy. OBJECTIVE: VITAL SIGNS: Blood pressure 153/96 and earlier 144/71, heart rate 43 to 61, respiratory 14 to 19, she is afebrile. NECK: Trach site with thin secretions. LUNGS: With diminished breath sounds and few rhonchi. CARDIAC: Regular rhythm. Slow rate. Normal S1, S2 with no murmur. ABDOMEN: Soft. G-tube intact. EXTREMITIES: There is trace dependent edema. LABORATORY DATA: White count 8.1, hemoglobin 9.7. Sodium 144, potassium 4.8, bicarbonate 27, BUN 30, creatinine 0.8. Pro-natriuretic peptide is 10,000. Albumin 1.9. IMPRESSION: 1. Respiratory failure, status post tracheostomy 2. Healthcare-acquired pneumonia. 3. Severe protein-calorie malnutrition. 4. 5. History of DVT. 6. Paroxysmal atrial fibrillation. 7. Hemoccult-positive stools with associated anemia. PLAN: 1. Stable for endoscopy. 2. The patient is on stable safe airway and is on ventilator support. 3. Atropine can be placed at bedside should there be any sustained bradyarrhythmias. 4. No role for pacemaker at this time in this clinical setting. 5. Medication regimen reviewed. 6. Further recommendations to follow. 7. We will need to titrate diuretic dosing long-term and maintain full anticoagulation once GI tract is cleared from active bleeding. Maxi Trujillo JOB#: [id number] CC:
[2017-12-11 04:00] VITALS: BP 151/75
[2017-12-11] MEDS: Betadine 4oz Bottle TOPIC SCH (05:29)
[2017-12-11] MEDS: Theophylline 80mg/15ml GT SCH ×4 (05:30→23:33)
[2017-12-11] MEDS: HydrALAZINE 50mg tab GT SCH ×4 (05:31→23:33)
[2017-12-11] MEDS: NovoLOG Insulin Flexpen SUBQ SCH ×4 (05:35→23:35)
[2017-12-11 06:01] LABS: BASOPHILS % (AUTO) 0.5 % (0.0-2.0); EOSINOPHILS % (AUTO) 3.8 % (0.0-3.0); HEMOGLOBIN 8.9 G/DL (12.0-16.0); MEAN CORPUSCULAR VOLUME 95 FL (80-99); MONOCYTES % (AUTO) 3.9 % (1.0-10.0); NEUTROPHILS % (AUTO) 72.9 % (45.0-75.0); PLATELET COUNT 260 K/UL (150-450); RED BLOOD COUNT 3.06 M/UL (4.20-5.40); RED CELL DISTRIBUTION WIDTH 17.2 % (11.6-14.8); WHITE BLOOD COUNT 8.1 K/UL (4.8-10.8)
[2017-12-11 06:41] LABS: ALANINE AMINOTRANSFERASE 27 U/L (12-78); ALBUMIN 1.9 G/DL (3.4-5.0); ALBUMIN/GLOBULIN RATIO 0.4 (1.0-2.7); ALKALINE PHOSPHATASE 111 U/L (46-116); ANION GAP 7 mmol/L (5-15); ASPARTATE AMINO TRANSFERASE 19 U/L (15-37); BILIRUBIN,TOTAL 0.3 MG/DL (0.2-1.0); BLOOD UREA NITROGEN 30 mg/dL (7-18); CALCIUM 9.5 MG/DL (8.5-10.1); CARBON DIOXIDE 28 MMOL/L (21-32); CHLORIDE 112 MMOL/L (98-107); CREATININE 0.9 MG/DL (0.55-1.30); PHOSPHORUS 2.8 MG/DL (2.5-4.9); POTASSIUM 4.7 MMOL/L (3.5-5.1); SODIUM 147 MMOL/L (136-145)
[2017-12-11 08:00] VITALS: BP 155/70
[2017-12-11] MEDS: Eliquis 2.5mg tablet GT SCH ×2 (08:20→17:41)
--- NOTE | 2017-12-11 09:44 | Pulmonolgy Critical Care Note ---
Critical Care - Asmt/Plan Problems: (1) Acute respiratory failure Assessment & Plan: s/p trach (2) Pulmonary edema (3) Pleural effusion, bilateral Assessment & Plan: s/p thoracentesis (4) Atrial fibrillation (5) Diabetes mellitus (6) Advanced dementia (7) History of CVA (cerebrovascular accident) (8) Feeding by G-tube Respiratory: monitor respiratory rate, adjust FIO2 Cardiac: continue to monitor HR/BP Infectious Disease: check cultures Gastrointestinal: continue feedings/current rate Endocrine: monitor blood sugar, check HgA1C Hematologic: monitor H/H Neurologic: PRN Ativan, keep patient comfortable Affect: PRN ativan Time Spent (Minutes): 40 Notes Reviewed: gas well drilling manager, cardio Discussed with: nurses, disease case managermanager of corporate communications - Objective Last 24 Hour Vital Signs Date Time Temp Pulse Resp B/P (MAP) Pulse Ox O2 Delivery O2 Flow Rate FiO2 12/11/17 08:00 48 12/11/17 08:00 30 12/11/17 08:00 98.4 73 24 155/70 (98) 98 98.4 12/11/17 07:19 64 20 30 12/11/17 05:31 151/75 12/11/17 05:20 53 14 30 12/11/17 04:00 Mechanical Ventilator Mechanical Ventilator 12/11/17 04:00 30 12/11/17 04:00 61 12/11/17 04:00 98.0 57 14 151/75 (100) 99 98.0 12/11/17 03:19 56 15 30 12/11/17 01:00 57 17 30 12/11/17 00:00 71 12/11/17 00:00 99.2 57 23 149/57 (87) 98 99.2 12/11/17 00:00 Mechanical Ventilator Mechanical Ventilator 12/10/17 23:32 155/76 12/10/17 23:00 61 16 30 12/10/17 21:14 59 16 30 12/10/17 21:00 Mechanical Ventilator Mechanical Ventilator 12/10/17 20:00 72 12/10/17 20:00 30 12/10/17 20:00 98.8 55 18 155/76 (102) 98 98.8 12/10/17 19:05 60 21 30 12/10/17 17:43 153/74 12/10/17 17:12 50 14 30 12/10/17 16:00 30 12/10/17 16:00 98.4 50 14 153/74 (100) 99 98.4 12/10/17 16:00 55 12/10/17 16:00 Mechanical Ventilator Mechanical Ventilator 12/10/17 15:03 50 14 30 12/10/17 14:28 157/83 12/10/17 13:11 55 15 30 12/10/17 13:00 68 12/10/17 12:46 157/83 12/10/17 12:00 97.2 67 17 157/83 (107) 98 97.2 12/10/17 12:00 Mechanical Ventilator Mechanical Ventilator 12/10/17 12:00 30 12/10/17 11:01 61 16 30 Status: sedated Condition: improving HEENT: atraumatic Neck: full ROM Heart: HR/BP stable Abdomen: soft, non-tender, feeding tube Extremities: edema Decubiti: location Accucheck: 180 Critical Care - Subjective ROS Limited/Unobtainable: Yes EKG Rhythm: Sinus Rhythm FI02: 30 Vent Support Breath Rate: 14 Vent Support Mode: AC Vent Tidal Volume: 500 Sputum Amount: Small PEEP: 5.0 PIP: 31 Tube Feeding Amount: 50 I&O: Intake and Output 12/10/17 12/11/17 19:00 07:00 Intake Total 550 ml 650 ml Output Total 520 ml 550 ml Balance 30 ml 100 ml Intake Free Water 50 ml 100 ml Tube Feeding 500 ml 550 ml Output Urine Total 500 ml 550 ml Stool Total 20 ml # Bowel Movements 1 ET-Tube: 8.0 ET Position: 20 Labs: Laboratory Tests Test 12/11/17 04:00 White Blood Count 8.1 K/UL (4.8-10.8) Red Blood Count 3.06 M/UL (4.20-5.40) L Hemoglobin 8.9 G/DL (12.0-16.0) L Hematocrit 29.0 % (37.0-47.0) L Mean Corpuscular Volume 95 FL (80-99) Mean Corpuscular Hemoglobin 29.1 PG (27.0-31.0) Mean Corpuscular Hemoglobin Concent 30.7 G/DL (32.0-36.0) L Red Cell Distribution Width 17.2 % (11.6-14.8) H Platelet Count 260 K/UL (150-450) Mean Platelet Volume 10.1 FL (6.5-10.1) Neutrophils (%) (Auto) 72.9 % (45.0-75.0) Lymphocytes (%) (Auto) 19.0 % (20.0-45.0) L Monocytes (%) (Auto) 3.9 % (1.0-10.0) Eosinophils (%) (Auto) 3.8 % (0.0-3.0) H Basophils (%) (Auto) 0.5 % (0.0-2.0) Sodium Level 147 MMOL/L (136-145) H Potassium Level 4.7 MMOL/L (3.5-5.1) Chloride Level 112 MMOL/L (98-107) H Carbon Dioxide Level 28 MMOL/L (21-32) Anion Gap 7 mmol/L (5-15) Blood Urea Nitrogen 30 mg/dL (7-18) H Creatinine 0.9 MG/DL (0.55-1.30) Estimat Glomerular Filtration Rate mL/min (>60) Glucose Level 121 MG/DL (74-106) H Calcium Level 9.5 MG/DL (8.5-10.1) Phosphorus Level 2.8 MG/DL (2.5-4.9) Magnesium Level 2.4 MG/DL (1.8-2.4) Total Bilirubin 0.3 MG/DL (0.2-1.0) Aspartate Amino Transf (AST/SGOT) 19 U/L (15-37) Alanine Aminotransferase (ALT/SGPT) 27 U/L (12-78) Alkaline Phosphatase 111 U/L (46-116) Total Protein 6.7 G/DL (6.4-8.2) Albumin 1.9 G/DL (3.4-5.0) L Globulin 4.8 g/dL Albumin/Globulin Ratio 0.4 (1.0-2.7) L Henry Gomez MD Dec 11, 2017 09:44
[2017-12-11 12:00] VITALS: BP 145/66
--- NOTE | 2017-12-11 12:15 | General Progress Note ---
Assessment/Plan Problem List: (1) Acute respiratory failure ICD Codes: J96.00 - Acute respiratory failure, unspecified whether with hypoxia or hypercapnia SNOMED: 86783880 Qualifiers: Qualified Codes: J96.01 - Acute respiratory failure with hypoxia (2) History of CVA (cerebrovascular accident) ICD Codes: Z86.73 - Personal history of transient ischemic attack (TIA), and cerebral infarction without residual deficits SNOMED: 780847671 (3) Pulmonary edema ICD Codes: J81.1 - Chronic pulmonary edema SNOMED: 15443809 Qualifiers: Qualified Codes: J81.0 - Acute pulmonary edema (4) Diabetic nephropathy ICD Codes: E11.21 - Type 2 diabetes mellitus with diabetic nephropathy SNOMED: 18158279, 533271798 (5) Pleural effusion, bilateral ICD Codes: J90 - Pleural effusion, not elsewhere classified SNOMED: 485343090 (6) Bradycardia with 41-50 beats per minute ICD Codes: R00.1 - Bradycardia, unspecified SNOMED: 58382501 Status: stable Assessment/Plan Upper endoscopy unsuccessful - Anesthsia cited low HR On Theophylin Off Coreg hydralazine GT trach 12/03 post trach care Currently on Cefepime til Dec 18 resume eliquis GT feeding Keep BP and BS in check optimize cardiac and pulm status- IV Iron PER Cardio and pulm Dc planning in AM Endoscopy as OP if needed - Monitor H&H as OP addendum: 12/02/[address] james, based on boarderline pulmonary status and the need for bipap, and patient being full code, tracheostomy will be entertained after discussion with DPOA . Subjective ROS Limited/Unobtainable: Yes Allergies: Coded Allergies: ATORVASTATIN (Verified Allergy, Unknown, 11/24/17) CLONIDINE (Verified Allergy, Unknown, 11/24/17) LABETALOL (Verified Allergy, Unknown, 11/24/17) NIFEDIPINE (Verified Allergy, Unknown, 11/24/17) ROSUVASTATIN (Verified Allergy, Unknown, 11/24/17) Uncoded Allergies: IVELISSE INHIBITOR (Allergy, Unknown, 11/24/17) Objective Last 24 Hour Vital Signs Date Time Temp Pulse Resp B/P (MAP) Pulse Ox O2 Delivery O2 Flow Rate FiO2 12/11/17 11:22 59 17 30 12/11/17 09:18 84 25 30 12/11/17 08:00 48 12/11/17 08:00 Mechanical Ventilator Mechanical Ventilator 12/11/17 08:00 30 12/11/17 08:00 98.4 73 24 155/70 (98) 98 98.4 12/11/17 07:19 64 20 30 12/11/17 05:31 151/75 12/11/17 05:20 53 14 30 12/11/17 04:00 Mechanical Ventilator Mechanical Ventilator 12/11/17 04:00 30 12/11/17 04:00 61 12/11/17 04:00 98.0 57 14 151/75 (100) 99 98.0 12/11/17 03:19 56 15 30 12/11/17 01:00 57 17 30 12/11/17 00:00 71 12/11/17 00:00 99.2 57 23 149/57 (87) 98 99.2 12/11/17 00:00 Mechanical Ventilator Mechanical Ventilator 12/10/17 23:32 155/76 12/10/17 23:00 61 16 30 12/10/17 21:14 59 16 30 12/10/17 21:00 Mechanical Ventilator Mechanical Ventilator 12/10/17 20:00 72 12/10/17 20:00 30 12/10/17 20:00 98.8 55 18 155/76 (102) 98 98.8 12/10/17 19:05 60 21 30 12/10/17 17:43 153/74 12/10/17 17:12 50 14 30 12/10/17 16:00 30 12/10/17 16:00 98.4 50 14 153/74 (100) 99 98.4 12/10/17 16:00 55 12/10/17 16:00 Mechanical Ventilator Mechanical Ventilator 12/10/17 15:03 50 14 30 12/10/17 14:28 157/83 12/10/17 13:11 55 15 30 12/10/17 13:00 68 12/10/17 12:46 157/83 Intake and Output 12/10/17 12/11/17 19:00 07:00 Intake Total 550 ml 650 ml Output Total 520 ml 550 ml Balance 30 ml 100 ml Intake Free Water 50 ml 100 ml Tube Feeding 500 ml 550 ml Output Urine Total 500 ml 550 ml Stool Total 20 ml # Bowel Movements 1 Current Medications Medications (Trade) Dose Ordered Sig/Cirilo Route PRN Reason Start Time Stop Time Status Last Admin Dose Admin Acetaminophen (Tylenol) 650 mg Q6H PRN ORAL Fever/Headache/Mild Pain 12/04/17 14:00 12/24/17 13:46 12/06/17 00:21 Apixaban (Eliquis) 2.5 mg BID GT 12/10/17 18:00 01/09/18 17:59 12/11/17 08:20 Cefepime HCl 2 gm/ Dextrose 55 ml @ 110 mls/hr Q24H IVPB 12/04/17 21:00 12/18/17 20:59 12/10/17 20:45 Dextrose (Dextrose 50%) 25 ml PRN IV Hypoglycemia 12/04/17 12:45 12/24/17 13:59 Dextrose (Dextrose 50%) 50 ml PRN IV hypoglycemia 12/04/17 12:45 12/24/17 13:59 Famotidine (Pepcid) 20 mg BID GT 12/04/17 18:00 12/24/17 17:59 12/11/17 08:20 Hydralazine HCl (Apresoline) 10 mg Q6H PRN GT SBP above 140mmHg 12/04/17 14:00 12/30/17 13:47 12/09/17 12:41 Hydralazine HCl (Apresoline) 50 mg Q6HR GT 12/09/17 18:00 01/08/18 17:59 12/11/17 05:31 Insulin Aspart (NovoLOG) EVERY 6 HOURS SUBQ 12/04/17 18:00 12/25/17 17:59 12/11/17 05:35 Nitroglycerin (Ntg) 1 patch Q24H TDERMAL 12/04/17 14:00 12/24/17 13:59 12/10/17 14:28 Povidone Iodine (Betadine Claribel) 1 applic Q24H TOPIC 12/11/17 06:00 01/10/18 05:59 12/11/17 05:29 Theophylline (Theophylline) 80 mg Q6HR GT 12/08/17 12:00 01/07/18 11:59 12/11/17 05:30 Laboratory Tests 12/11/17 04:00: White Blood Count 8.1, Red Blood Count 3.06L, Hemoglobin 8.9L, Hematocrit 29.0L , Mean Corpuscular Volume 95, Mean Corpuscular Hemoglobin 29.1, Mean Corpuscular Hemoglobin Concent 30.7L, Red Cell Distribution Width 17.2H, Platelet Count 260, Mean Platelet Volume 10.1, Neutrophils (%) (Auto) 72.9, Lymphocytes (%) (Auto) 19.0L, Monocytes (%) (Auto) 3.9, Eosinophils (%) (Auto) 3.8H, Basophils (%) (Auto) 0.5, Sodium Level 147H, Potassium Level 4.7, Chloride Level 112H, Carbon Dioxide Level 28, Anion Gap 7, Blood Urea Nitrogen 30H, Creatinine 0.9, Estimat Glomerular Filtration Rate , Glucose Level 121H, Calcium Level 9.5, Phosphorus Level 2.8, Magnesium Level 2.4, Total Bilirubin 0.3, Aspartate Amino Transf (AST/SGOT) 19, Alanine Aminotransferase (ALT/SGPT) 27, Alkaline Phosphatase 111, Total Protein 6.7, Albumin 1.9L, Globulin 4.8, Albumin/Globulin Ratio 0.4L Height (Feet): 5 Height (Inches): 0.00 Weight (Pounds): 129 General Appearance: no apparent distress EENT: other - trach Cardiovascular: other - variable Respiratory/Chest: decreased breath sounds Abdomen: soft Objective no change Rafael Hurt MD Dec 11, 2017 12:15
[2017-12-11] MEDS ORDERED: CEFEPIME-D2 GM/50 ML IVPB (12:16)
[2017-12-11] MEDS: Nitroglycerin Patch 0.4mg TDERMAL SCH (13:12)
--- NOTE | 2017-12-11 14:31 | Infectious Diseases Prog Note ---
Assessment/Plan Problems: (1) Aspiration pneumonia Assessment & Plan: with B/L basal infiltrates, due to pseudomonas aeruginosa , continue cefepime to finish total of three weeks course of treatment . monitor CXR . aspiration precaution , keep HOB > 30 degree . EOT 12/18/17 (2) Pleural effusion, bilateral Assessment & Plan: S/P thoracentesis , exudative most likely due to pneumonia, adenosine deaminase on pleural fluids, fungal and cytology were not done . bacterial culture is negative which rule out empyema (3) Acute respiratory failure Assessment & Plan: due to the above, S/P tracheostomy , monitor CXR , continue local trach care , pulmonary is following (4) Sepsis Assessment & Plan: due to the above, with negative blood culture results so far , on cefepime to treat her pneumonia and UTI for total of three weeks. EOT 12/18/17 (5) Pressure ulcer, heel, right, unstageable Assessment & Plan: with an eschar, continue off loading and local wound care as per hospital protocol (6) Fever Assessment & Plan: resolved, suspect post OP, continue tylenol and monitor clinically Subjective ROS Limited/Unobtainable: Yes Allergies: Coded Allergies: ATORVASTATIN (Verified Allergy, Unknown, 11/24/17) CLONIDINE (Verified Allergy, Unknown, 11/24/17) LABETALOL (Verified Allergy, Unknown, 11/24/17) NIFEDIPINE (Verified Allergy, Unknown, 11/24/17) ROSUVASTATIN (Verified Allergy, Unknown, 11/24/17) Uncoded Allergies: IVELISSE INHIBITOR (Allergy, Unknown, 11/24/17) Subjective she was lying in bed, comfortable, open eyes spontaneously , not responsive to verbal commands , no fever or cough , no significant secretions Objective Vital Signs Last 24 Hour Vital Signs Date Time Temp Pulse Resp B/P (MAP) Pulse Ox O2 Delivery O2 Flow Rate FiO2 12/11/17 13:19 61 16 30 12/11/17 13:13 145/66 12/11/17 13:12 145/66 12/11/17 12:00 Mechanical Ventilator Mechanical Ventilator 12/11/17 12:00 75 12/11/17 12:00 30 12/11/17 12:00 98.7 60 16 145/66 (92) 100 98.7 12/11/17 11:22 59 17 30 12/11/17 09:18 84 25 30 12/11/17 08:00 48 12/11/17 08:00 Mechanical Ventilator Mechanical Ventilator 12/11/17 08:00 30 12/11/17 08:00 98.4 73 24 155/70 (98) 98 98.4 12/11/17 07:19 64 20 30 12/11/17 05:31 151/75 12/11/17 05:20 53 14 30 12/11/17 04:00 Mechanical Ventilator Mechanical Ventilator 12/11/17 04:00 30 12/11/17 04:00 61 12/11/17 04:00 98.0 57 14 151/75 (100) 99 98.0 12/11/17 03:19 56 15 30 12/11/17 01:00 57 17 30 12/11/17 00:00 71 12/11/17 00:00 99.2 57 23 149/57 (87) 98 99.2 12/11/17 00:00 Mechanical Ventilator Mechanical Ventilator 12/10/17 23:32 155/76 12/10/17 23:00 61 16 30 12/10/17 21:14 59 16 30 12/10/17 21:00 Mechanical Ventilator Mechanical Ventilator 12/10/17 20:00 72 12/10/17 20:00 30 12/10/17 20:00 98.8 55 18 155/76 (102) 98 98.8 12/10/17 19:05 60 21 30 12/10/17 17:43 153/74 12/10/17 17:12 50 14 30 12/10/17 16:00 30 12/10/17 16:00 98.4 50 14 153/74 (100) 99 98.4 12/10/17 16:00 55 12/10/17 16:00 Mechanical Ventilator Mechanical Ventilator 12/10/17 15:03 50 14 30 Height (Feet): 5 Height (Inches): 0.00 Weight (Pounds): 129 General Appearance: WD/WN, no acute distress HEENT: normocephalic, atraumatic, anicteric, PERRL, supple, no JVD Respiratory/Chest: chest wall non-tender, no respiratory distress, no accessory muscle use, decreased breath sounds, crackles/rales Cardiovascular: normal peripheral pulses, normal rate, regular rhythm, no gallop/murmur, no JVD Abdomen: normal bowel sounds, soft, non tender, no organomegaly, non distended , no mass, no scars, other Extremities: no cyanosis, no clubbing Skin: no rash, no lesions, no ulcers Neurologic/Psychiatric: alert, unresponsiveness Lymphatic: no neck adenopathy, no groin adenopathy Laboratory Tests Test 12/11/17 04:00 White Blood Count 8.1 K/UL (4.8-10.8) Red Blood Count 3.06 M/UL (4.20-5.40) L Hemoglobin 8.9 G/DL (12.0-16.0) L Hematocrit 29.0 % (37.0-47.0) L Mean Corpuscular Volume 95 FL (80-99) Mean Corpuscular Hemoglobin 29.1 PG (27.0-31.0) Mean Corpuscular Hemoglobin Concent 30.7 G/DL (32.0-36.0) L Red Cell Distribution Width 17.2 % (11.6-14.8) H Platelet Count 260 K/UL (150-450) Mean Platelet Volume 10.1 FL (6.5-10.1) Neutrophils (%) (Auto) 72.9 % (45.0-75.0) Lymphocytes (%) (Auto) 19.0 % (20.0-45.0) L Monocytes (%) (Auto) 3.9 % (1.0-10.0) Eosinophils (%) (Auto) 3.8 % (0.0-3.0) H Basophils (%) (Auto) 0.5 % (0.0-2.0) Sodium Level 147 MMOL/L (136-145) H Potassium Level 4.7 MMOL/L (3.5-5.1) Chloride Level 112 MMOL/L (98-107) H Carbon Dioxide Level 28 MMOL/L (21-32) Anion Gap 7 mmol/L (5-15) Blood Urea Nitrogen 30 mg/dL (7-18) H Creatinine 0.9 MG/DL (0.55-1.30) Estimat Glomerular Filtration Rate mL/min (>60) Glucose Level 121 MG/DL (74-106) H Calcium Level 9.5 MG/DL (8.5-10.1) Phosphorus Level 2.8 MG/DL (2.5-4.9) Magnesium Level 2.4 MG/DL (1.8-2.4) Total Bilirubin 0.3 MG/DL (0.2-1.0) Aspartate Amino Transf (AST/SGOT) 19 U/L (15-37) Alanine Aminotransferase (ALT/SGPT) 27 U/L (12-78) Alkaline Phosphatase 111 U/L (46-116) Total Protein 6.7 G/DL (6.4-8.2) Albumin 1.9 G/DL (3.4-5.0) L Globulin 4.8 g/dL Albumin/Globulin Ratio 0.4 (1.0-2.7) L Current Medications Medications (Trade) Dose Ordered Sig/Cirilo Route PRN Reason Start Time Stop Time Status Last Admin Dose Admin Acetaminophen (Tylenol) 650 mg Q6H PRN ORAL Fever/Headache/Mild Pain 12/04/17 14:00 12/24/17 13:46 12/06/17 00:21 Apixaban (Eliquis) 2.5 mg BID GT 12/10/17 18:00 01/09/18 17:59 12/11/17 08:20 Cefepime HCl 2 gm/ Dextrose 55 ml @ 110 mls/hr Q24H IVPB 12/04/17 21:00 12/18/17 20:59 12/10/17 20:45 Dextrose (Dextrose 50%) 25 ml PRN IV Hypoglycemia 12/04/17 12:45 12/24/17 13:59 Dextrose (Dextrose 50%) 50 ml PRN IV hypoglycemia 12/04/17 12:45 12/24/17 13:59 Hydralazine HCl (Apresoline) 10 mg Q6H PRN GT SBP above 140mmHg 12/04/17 14:00 12/30/17 13:47 12/09/17 12:41 Hydralazine HCl (Apresoline) 50 mg Q6HR GT 12/09/17 18:00 01/08/18 17:59 12/11/17 13:13 Insulin Aspart (NovoLOG) EVERY 6 HOURS SUBQ 12/04/17 18:00 12/25/17 17:59 12/11/17 05:35 Lansoprazole (Prevacid) 30 mg DAILY GT 12/11/17 12:15 01/10/18 12:14 12/11/17 13:13 Nitroglycerin (Ntg) 1 patch Q24H TDERMAL 12/04/17 14:00 12/24/17 13:59 12/11/17 13:12 Povidone Iodine (Betadine Claribel) 1 applic Q24H TOPIC 12/11/17 06:00 01/10/18 05:59 12/11/17 05:29 Theophylline (Theophylline) 80 mg Q6HR GT 12/08/17 12:00 01/07/18 11:59 12/11/17 13:12 Cole Rasmussen M.D. Dec 11, 2017 14:31
[2017-12-11 16:00] VITALS: BP 149/70
[2017-12-11 20:00] VITALS: BP 153/67
[2017-12-11] MEDS: Cefepime HCl 2 GM in D5W 55 ML IVPB SCH (20:28)
--- NOTE | 2017-12-11 20:53 | General Progress Note ---
Assessment/Plan Assessment/Plan GIAssessment - GT torn -- replaced - Heme (+) stools - Anemia, Iron deficiency - on anticoagulation for cardioembolic issues - significant bradycardia - PNA, Pulm edema, Resp failure - LVEF % 65-70 - s/p PEG and Trach - HTN - DM - Pulmonary HTN - abnormal LFT Recommendations - anticoagulation - monitor CBC - check hep serologies - Agree with IV Iron - vent care - would monitor CBC 2x/week as outpatient - can re-admit at a later date for EGD once stable or if H&H drops Subjective Allergies: Coded Allergies: ATORVASTATIN (Verified Allergy, Unknown, 11/24/17) CLONIDINE (Verified Allergy, Unknown, 11/24/17) LABETALOL (Verified Allergy, Unknown, 11/24/17) NIFEDIPINE (Verified Allergy, Unknown, 11/24/17) ROSUVASTATIN (Verified Allergy, Unknown, 11/24/17) Uncoded Allergies: IVELISSE INHIBITOR (Allergy, Unknown, 11/24/17) Subjective Above noted back on TF d/c planning noted Objective Last 24 Hour Vital Signs Date Time Temp Pulse Resp B/P (MAP) Pulse Ox O2 Delivery O2 Flow Rate FiO2 12/11/17 20:00 30 12/11/17 20:00 Mechanical Ventilator Mechanical Ventilator 12/11/17 19:33 70 12/11/17 19:10 65 15 30 12/11/17 17:42 149/70 12/11/17 17:01 57 14 30 12/11/17 16:00 98.6 50 16 149/70 (96) 100 98.6 12/11/17 16:00 57 12/11/17 16:00 Mechanical Ventilator Mechanical Ventilator 12/11/17 16:00 30 12/11/17 14:35 56 14 30 12/11/17 13:19 61 16 30 12/11/17 13:13 145/66 12/11/17 13:12 145/66 12/11/17 12:00 Mechanical Ventilator Mechanical Ventilator 12/11/17 12:00 63 12/11/17 12:00 30 12/11/17 12:00 98.7 60 16 145/66 (92) 100 98.7 12/11/17 11:22 59 17 30 12/11/17 09:18 84 25 30 12/11/17 08:00 48 12/11/17 08:00 Mechanical Ventilator Mechanical Ventilator 12/11/17 08:00 30 12/11/17 08:00 98.4 73 24 155/70 (98) 98 98.4 12/11/17 08:00 75 12/11/17 07:19 64 20 30 12/11/17 05:31 151/75 12/11/17 05:20 53 14 30 12/11/17 04:00 Mechanical Ventilator Mechanical Ventilator 12/11/17 04:00 30 12/11/17 04:00 61 12/11/17 04:00 98.0 57 14 151/75 (100) 99 98.0 12/11/17 03:19 56 15 30 12/11/17 01:00 57 17 30 12/11/17 00:00 71 12/11/17 00:00 99.2 57 23 149/57 (87) 98 99.2 12/11/17 00:00 Mechanical Ventilator Mechanical Ventilator 12/10/17 23:32 155/76 12/10/17 23:00 61 16 30 12/10/17 21:14 59 16 30 12/10/17 21:00 Mechanical Ventilator Mechanical Ventilator Intake and Output 12/10/17 12/11/17 19:00 07:00 Intake Total 550 ml 700 ml Output Total 520 ml 550 ml Balance 30 ml 150 ml Intake Free Water 50 ml 100 ml Tube Feeding 500 ml 600 ml Output Urine Total 500 ml 550 ml Stool Total 20 ml # Bowel Movements 1 Laboratory Tests 12/11/17 04:00: White Blood Count 8.1, Red Blood Count 3.06L, Hemoglobin 8.9L, Hematocrit 29.0L , Mean Corpuscular Volume 95, Mean Corpuscular Hemoglobin 29.1, Mean Corpuscular Hemoglobin Concent 30.7L, Red Cell Distribution Width 17.2H, Platelet Count 260, Mean Platelet Volume 10.1, Neutrophils (%) (Auto) 72.9, Lymphocytes (%) (Auto) 19.0L, Monocytes (%) (Auto) 3.9, Eosinophils (%) (Auto) 3.8H, Basophils (%) (Auto) 0.5, Sodium Level 147H, Potassium Level 4.7, Chloride Level 112H, Carbon Dioxide Level 28, Anion Gap 7, Blood Urea Nitrogen 30H, Creatinine 0.9, Estimat Glomerular Filtration Rate , Glucose Level 121H, Calcium Level 9.5, Phosphorus Level 2.8, Magnesium Level 2.4, Total Bilirubin 0.3, Aspartate Amino Transf (AST/SGOT) 19, Alanine Aminotransferase (ALT/SGPT) 27, Alkaline Phosphatase 111, Total Protein 6.7, Albumin 1.9L, Globulin 4.8, Albumin/Globulin Ratio 0.4L Height (Feet): 5 Height (Inches): 0.00 Weight (Pounds): 129 Objective Elderly woman , NAD NCAT supple, (+) trach Coarse BS RR soft ND. (+) GT contracted OBS Mack Jackson MD Dec 11, 2017 20:53
--- NOTE | 2017-12-11 23:00 | Progress Note ---
DATE: 12/11/2017 Cardiology Progress Note SUBJECTIVE: The patient is tolerating tube feedings. She is remaining on anticoagulation. No active bleeding is noted. OBJECTIVE: VITAL SIGNS: Blood pressure 149/70, pulse 57, respiratory rate 14, and afebrile. HEART: Monitored rhythm sinus and sinus bradycardia. Heart rate 55 to 70. Regular rhythm and rate. Normal S1 and S2. LUNGS: Coarse breath sounds. Thin trach secretions. ABDOMEN: Soft. No edema. IMPRESSION: 1. Respiratory failure, tracheostomy. 2. Acute on chronic diastolic congestive heart failure. 3. Sinus node disease with asymptomatic bradycardia. 4. Healthcare acquired pneumonia. 5. Sepsis, recovered. 6. Shock. 7. Acute myocardial ischemia, resolved. 8. Anemia of chronic disease. 9. Dehydration. 10. Hyponatremia. 11. Severe protein-calorie malnutrition. PLAN: 1. Free water replacement. 2. Antimicrobials per Infectious Disease. 3. No beta-bouchra therapy. 4. Trach care. 5. Discontinue topical nitrates. 6. Continue full anticoagulation with apixaban ____ G-tube. Jori Andujar M.D. DR: JILL JOB#: [id number] CC:
[2017-12-12] VITALS: BP 155/60
[2017-12-12 04:00] VITALS: BP 137/56
[2017-12-12] MEDS: HydrALAZINE 50mg tab GT SCH ×4 (05:51→23:27)
[2017-12-12] MEDS: Theophylline 80mg/15ml GT SCH ×4 (05:52→23:27)
[2017-12-12] MEDS: NovoLOG Insulin Flexpen SUBQ SCH ×4 (05:55→23:30)
[2017-12-12] MEDS: Betadine 4oz Bottle TOPIC SCH (05:55)
--- NOTE | 2017-12-12 07:02 | General Progress Note ---
Assessment/Plan Assessment/Plan GIAssessment - GT torn -- replaced - Heme (+) stools - Anemia, Iron deficiency - on anticoagulation for cardioembolic issues - significant bradycardia - PNA, Pulm edema, Resp failure - LVEF % 65-70 - s/p PEG and Trach - HTN - DM - Pulmonary HTN - abnormal LFT Recommendations - anticoagulation - monitor CBC - check hep serologies - Agree with IV Iron - [facility] care - would monitor CBC 2x/week as outpatient - can re-admit at a later date for EGD once stable or if H&H drops Subjective ROS Limited/Unobtainable: No Allergies: Coded Allergies: ATORVASTATIN (Verified Allergy, Unknown, 11/24/17) CLONIDINE (Verified Allergy, Unknown, 11/24/17) LABETALOL (Verified Allergy, Unknown, 11/24/17) NIFEDIPINE (Verified Allergy, Unknown, 11/24/17) ROSUVASTATIN (Verified Allergy, Unknown, 11/24/17) Uncoded Allergies: IVELISSE INHIBITOR (Allergy, Unknown, 11/24/17) Objective Last 24 Hour Vital Signs Date Time Temp Pulse Resp B/P (MAP) Pulse Ox O2 Delivery O2 Flow Rate FiO2 12/12/17 05:51 137/56 12/12/17 05:20 51 14 30 12/12/17 04:00 Mechanical Ventilator Mechanical Ventilator 12/12/17 04:00 49 12/12/17 04:00 30 12/12/17 04:00 97.5 54 20 137/56 (83) 97 97.5 12/12/17 03:13 48 14 30 12/12/17 01:02 51 16 30 12/12/17 00:00 97.5 53 20 155/60 (91) 97 97.5 12/12/17 00:00 Mechanical Ventilator Mechanical Ventilator 12/11/17 23:37 65 12/11/17 23:33 155/60 12/11/17 22:52 54 14 30 12/11/17 21:20 61 17 30 12/11/17 20:00 30 12/11/17 20:00 97.0 53 20 153/67 (95) 100 97.0 12/11/17 20:00 Mechanical Ventilator Mechanical Ventilator 12/11/17 19:33 70 12/11/17 19:10 65 15 30 12/11/17 17:42 149/70 12/11/17 17:01 57 14 30 9/14/18 16:00 98.6 50 16 149/70 (96) 100 98.6 12/11/17 16:00 57 12/11/17 16:00 Mechanical Ventilator Mechanical Ventilator 12/11/17 16:00 30 12/11/17 14:35 56 14 30 12/11/17 13:19 61 16 30 12/11/17 13:13 145/66 12/11/17 13:12 145/66 12/11/17 12:00 Mechanical Ventilator Mechanical Ventilator 12/11/17 12:00 63 12/11/17 12:00 30 12/11/17 12:00 98.7 60 16 145/66 (92) 100 98.7 12/11/17 11:22 59 17 30 12/11/17 09:18 84 25 30 12/11/17 08:00 48 12/11/17 08:00 Mechanical Ventilator Mechanical Ventilator 12/11/17 08:00 30 12/11/17 08:00 98.4 73 24 155/70 (98) 98 98.4 12/11/17 08:00 75 12/11/17 07:19 64 20 30 Intake and Output 12/11/17 12/12/17 19:00 07:00 Intake Total 875 ml 1000 ml Output Total 1050 ml 550 ml Balance -175 ml 450 ml Intake Free Water 300 ml 450 ml IV Total 55 ml Tube Feeding 575 ml 495 ml Output Urine Total 1000 ml 550 ml Stool Total 50 ml # Bowel Movements 50 Height (Feet): 5 Height (Inches): 0.00 Weight (Pounds): 129 General Appearance: no apparent distress EENT: normal ENT inspection Neck: supple Cardiovascular: normal rate Respiratory/Chest: decreased breath sounds Abdomen: normal bowel sounds, non tender, soft Extremities: non-tender Jose Guadalupe Carmona MD Dec 12, 2017 07:02
[2017-12-12 08:00] VITALS: BP 158/64
[2017-12-12] MEDS: Eliquis 2.5mg tablet GT SCH ×2 (09:16→17:56)
--- NOTE | 2017-12-12 09:44 | Pulmonolgy Critical Care Note ---
Critical Care - Asmt/Plan Problems: (1) Acute respiratory failure Assessment & Plan: s/p trach (2) Pulmonary edema (3) Pleural effusion, bilateral Assessment & Plan: s/p thoracentesis (4) Atrial fibrillation (5) Diabetes mellitus (6) Advanced dementia (7) History of CVA (cerebrovascular accident) (8) Feeding by G-tube Respiratory: monitor respiratory rate, adjust FIO2, CXR Cardiac: continue to monitor HR/BP Renal: F/U I&O, keep IV fluid Infectious Disease: check cultures Gastrointestinal: continue feedings/current rate Endocrine: monitor blood sugar, check TSH, check HgA1C, continue sliding scale insulin Hematologic: transfuse if hgb<8.5 Neurologic: PRN Ativan, keep patient comfortable Affect: PRN ativan Time Spent (Minutes): 40 Notes Reviewed: cardio, renal Discussed with: nurses, consultants, case management directorassistant production manager - Objective Last 24 Hour Vital Signs Date Time Temp Pulse Resp B/P (MAP) Pulse Ox O2 Delivery O2 Flow Rate FiO2 12/12/17 09:16 158/64 12/12/17 08:45 68 16 30 12/12/17 08:00 30 12/12/17 08:00 99.2 63 19 158/64 (95) 97 99.2 12/12/17 07:08 60 21 30 12/12/17 05:51 137/56 12/12/17 05:20 51 14 30 12/12/17 04:00 Mechanical Ventilator Mechanical Ventilator 12/12/17 04:00 49 12/12/17 04:00 30 12/12/17 04:00 97.5 54 20 137/56 (83) 97 97.5 12/12/17 03:13 48 14 30 12/12/17 01:02 51 16 30 12/12/17 00:00 97.5 53 20 155/60 (91) 97 97.5 12/12/17 00:00 Mechanical Ventilator Mechanical Ventilator 12/11/17 23:37 65 12/11/17 23:33 155/60 12/11/17 22:52 54 14 30 12/11/17 21:20 61 17 30 12/11/17 20:00 30 12/11/17 20:00 97.0 53 20 153/67 (95) 100 97.0 12/11/17 20:00 Mechanical Ventilator Mechanical Ventilator 12/11/17 19:33 70 12/11/17 19:10 65 15 30 12/11/17 17:42 149/70 12/11/17 17:01 57 14 30 12/11/17 16:00 98.6 50 16 149/70 (96) 100 98.6 12/11/17 16:00 57 12/11/17 16:00 Mechanical Ventilator Mechanical Ventilator 12/11/17 16:00 30 12/11/17 14:35 56 14 30 12/11/17 13:19 61 16 30 12/11/17 13:13 145/66 12/11/17 13:12 145/66 12/11/17 12:00 Mechanical Ventilator Mechanical Ventilator 12/11/17 12:00 63 12/11/17 12:00 30 12/11/17 12:00 98.7 60 16 145/66 (92) 100 98.7 12/11/17 11:22 59 17 30 Status: somnolent Condition: critical, improving HEENT: atraumatic Neck: full ROM Lungs: clear Heart: HR/BP stable Abdomen: soft, non-tender, feeding tube Extremities: no C/C/E, edema Decubiti: location Accucheck: 137 Critical Care - Subjective ROS Limited/Unobtainable: Yes Condition: critical EKG Rhythm: Sinus Rhythm FI02: 30 Vent Support Breath Rate: 14 Vent Support Mode: AC Vent Tidal Volume: 500 Sputum Amount: Small PEEP: 5.0 PIP: 25 Tube Feeding Amount: 45 I&O: Intake and Output 12/11/17 12/12/17 19:00 07:00 Intake Total 875 ml 1045 ml Output Total 1050 ml 550 ml Balance -175 ml 495 ml Intake Free Water 300 ml 450 ml IV Total 55 ml Tube Feeding 575 ml 540 ml Output Urine Total 1000 ml 550 ml Stool Total 50 ml # Bowel Movements 50 ET-Tube: 8.0 ET Position: 20 Henry Gomez MD Dec 12, 2017 09:44
[2017-12-12 12:00] VITALS: BP 152/77
--- NOTE | 2017-12-12 12:12 | General Progress Note ---
Assessment/Plan Problem List: (1) Acute respiratory failure ICD Codes: J96.00 - Acute respiratory failure, unspecified whether with hypoxia or hypercapnia SNOMED: 89503552 Qualifiers: Qualified Codes: J96.01 - Acute respiratory failure with hypoxia (2) History of CVA (cerebrovascular accident) ICD Codes: Z86.73 - Personal history of transient ischemic attack (TIA), and cerebral infarction without residual deficits SNOMED: 879788399 (3) Pulmonary edema ICD Codes: J81.1 - Chronic pulmonary edema SNOMED: 49002523 Qualifiers: Qualified Codes: J81.0 - Acute pulmonary edema (4) Diabetic nephropathy ICD Codes: E11.21 - Type 2 diabetes mellitus with diabetic nephropathy SNOMED: 76042556, 982641022 (5) Pleural effusion, bilateral ICD Codes: J90 - Pleural effusion, not elsewhere classified SNOMED: 011901144 (6) Bradycardia with 41-50 beats per minute ICD Codes: R00.1 - Bradycardia, unspecified SNOMED: 37063570 Assessment/Plan DC planning Upper endoscopy unsuccessful - Anesthsia cited low HR On Theophylin Off Coreg hydralazine GT trach 12/03 post trach care Currently on Cefepime til Dec 18 resume eliquis GT feeding Keep BP and BS in check optimize cardiac and pulm status- IV Iron PER Cardio and pulm Dc planning in AM Endoscopy as OP if needed - Monitor H&H as OP addendum: 12/02/[address] james, based on boarderline pulmonary status and the need for bipap, and patient being full code, tracheostomy will be entertained after discussion with DPOA . Subjective ROS Limited/Unobtainable: Yes Allergies: Coded Allergies: ATORVASTATIN (Verified Allergy, Unknown, 11/24/17) CLONIDINE (Verified Allergy, Unknown, 11/24/17) LABETALOL (Verified Allergy, Unknown, 11/24/17) NIFEDIPINE (Verified Allergy, Unknown, 11/24/17) ROSUVASTATIN (Verified Allergy, Unknown, 11/24/17) Uncoded Allergies: IVELISSE INHIBITOR (Allergy, Unknown, 11/24/17) Objective Last 24 Hour Vital Signs Date Time Temp Pulse Resp B/P (MAP) Pulse Ox O2 Delivery O2 Flow Rate FiO2 12/12/17 11:14 71 16 30 12/12/17 09:16 158/64 12/12/17 08:45 68 16 30 12/12/17 08:00 Mechanical Ventilator 12/12/17 08:00 30 12/12/17 08:00 99.2 63 19 158/64 (95) 97 99.2 12/12/17 08:00 76 12/12/17 07:08 60 21 30 12/12/17 05:51 137/56 12/12/17 05:20 51 14 30 12/12/17 04:00 Mechanical Ventilator Mechanical Ventilator 12/12/17 04:00 49 12/12/17 04:00 30 12/12/17 04:00 97.5 54 20 137/56 (83) 97 97.5 12/12/17 03:13 48 14 30 12/12/17 01:02 51 16 30 12/12/17 00:00 97.5 53 20 155/60 (91) 97 97.5 12/12/17 00:00 Mechanical Ventilator Mechanical Ventilator 12/11/17 23:37 65 12/11/17 23:33 155/60 12/11/17 22:52 54 14 30 12/11/17 21:20 61 17 30 12/11/17 20:00 30 12/11/17 20:00 97.0 53 20 153/67 (95) 100 97.0 12/11/17 20:00 Mechanical Ventilator Mechanical Ventilator 12/11/17 19:33 70 12/11/17 19:10 65 15 30 12/11/17 17:42 149/70 12/11/17 17:01 57 14 30 12/11/17 16:00 98.6 50 16 149/70 (96) 100 98.6 12/11/17 16:00 57 12/11/17 16:00 Mechanical Ventilator Mechanical Ventilator 12/11/17 16:00 30 12/11/17 14:35 56 14 30 12/11/17 13:19 61 16 30 12/11/17 13:13 145/66 12/11/17 13:12 145/66 Intake and Output 12/11/17 12/12/17 19:00 07:00 Intake Total 875 ml 1045 ml Output Total 1050 ml 550 ml Balance -175 ml 495 ml Intake Free Water 300 ml 450 ml IV Total 55 ml Tube Feeding 575 ml 540 ml Output Urine Total 1000 ml 550 ml Stool Total 50 ml # Bowel Movements 50 Current Medications Medications (Trade) Dose Ordered Sig/Cirilo Route PRN Reason Start Time Stop Time Status Last Admin Dose Admin Acetaminophen (Tylenol) 650 mg Q6H PRN ORAL Fever/Headache/Mild Pain 12/04/17 14:00 12/24/17 13:46 12/06/17 00:21 Apixaban (Eliquis) 2.5 mg BID GT 12/10/17 18:00 01/09/18 17:59 12/12/17 09:16 Cefepime HCl 2 gm/ Dextrose 55 ml @ 110 mls/hr Q24H IVPB 12/04/17 21:00 12/18/17 20:59 12/11/17 20:28 Dextrose (Dextrose 50%) 25 ml PRN IV Hypoglycemia 12/04/17 12:45 12/24/17 13:59 Dextrose (Dextrose 50%) 50 ml PRN IV hypoglycemia 12/04/17 12:45 12/24/17 13:59 Hydralazine HCl (Apresoline) 10 mg Q6H PRN GT SBP above 140mmHg 12/04/17 14:00 12/30/17 13:47 12/09/17 12:41 Hydralazine HCl (Apresoline) 50 mg Q6HR GT 12/09/17 18:00 01/08/18 17:59 12/12/17 05:51 Insulin Aspart (NovoLOG) EVERY 6 HOURS SUBQ 12/04/17 18:00 12/25/17 17:59 12/12/17 05:55 Isosorbide Dinitrate (Isordil) 10 mg THREE TIMES A DAY GT 12/12/17 09:00 01/11/18 08:59 12/12/17 09:16 Lansoprazole (Prevacid) 30 mg DAILY GT 12/11/17 12:15 01/10/18 12:14 12/11/17 17:40 Povidone Iodine (Betadine Claribel) 1 applic Q24H TOPIC 12/11/17 06:00 01/10/18 05:59 12/12/17 05:55 Theophylline (Theophylline) 80 mg Q6HR GT 12/08/17 12:00 01/07/18 11:59 12/12/17 05:52 Height (Feet): 5 Height (Inches): 0.00 Weight (Pounds): 129 General Appearance: no apparent distress Cardiovascular: normal rate Respiratory/Chest: decreased breath sounds Abdomen: soft Objective no change Rafael Hurt MD Dec 12, 2017 12:12
--- NOTE | 2017-12-12 13:37 | Infectious Diseases Prog Note ---
Assessment/Plan Problems: (1) Aspiration pneumonia Assessment & Plan: with B/L basal infiltrates, due to pseudomonas aeruginosa , continue cefepime to finish total of three weeks course of treatment . monitor CXR . aspiration precaution , keep HOB > 30 degree . EOT 12/18/17 (2) Pleural effusion, bilateral Assessment & Plan: S/P thoracentesis , exudative most likely due to pneumonia, adenosine deaminase on pleural fluids, fungal and cytology were not done . bacterial culture is negative which rule out empyema (3) Acute respiratory failure Assessment & Plan: due to the above, S/P tracheostomy , monitor CXR , continue local trach care , pulmonary is following (4) Sepsis Assessment & Plan: due to the above, with negative blood culture results so far , on cefepime to treat her pneumonia and UTI for total of three weeks. EOT 12/18/17 (5) Pressure ulcer, heel, right, unstageable Assessment & Plan: with an eschar, continue off loading and local wound care as per hospital protocol (6) Fever Assessment & Plan: resolved, suspect post OP, continue tylenol and monitor clinically Subjective ROS Limited/Unobtainable: Yes Allergies: Coded Allergies: ATORVASTATIN (Verified Allergy, Unknown, 11/24/17) CLONIDINE (Verified Allergy, Unknown, 11/24/17) LABETALOL (Verified Allergy, Unknown, 11/24/17) NIFEDIPINE (Verified Allergy, Unknown, 11/24/17) ROSUVASTATIN (Verified Allergy, Unknown, 11/24/17) Uncoded Allergies: IVELISSE INHIBITOR (Allergy, Unknown, 11/24/17) Subjective she was lying in bed, comfortable, open eyes spontaneously , awake and alert, no fever or cough , no significant secretions Objective Vital Signs Last 24 Hour Vital Signs Date Time Temp Pulse Resp B/P (MAP) Pulse Ox O2 Delivery O2 Flow Rate FiO2 12/12/17 13:13 154/79 12/12/17 12:38 60 15 30 12/12/17 12:11 152/77 12/12/17 11:14 71 16 30 12/12/17 09:16 158/64 12/12/17 08:45 68 16 30 12/12/17 08:00 Mechanical Ventilator 12/12/17 08:00 30 12/12/17 08:00 99.2 63 19 158/64 (95) 97 99.2 12/12/17 08:00 76 12/12/17 07:08 60 21 30 12/12/17 05:51 137/56 12/12/17 05:20 51 14 30 12/12/17 04:00 Mechanical Ventilator Mechanical Ventilator 12/12/17 04:00 49 12/12/17 04:00 30 12/12/17 04:00 97.5 54 20 137/56 (83) 97 97.5 12/12/17 03:13 48 14 30 12/12/17 01:02 51 16 30 12/12/17 00:00 97.5 53 20 155/60 (91) 97 97.5 12/12/17 00:00 Mechanical Ventilator Mechanical Ventilator 12/11/17 23:37 65 12/11/17 23:33 155/60 12/11/17 22:52 54 14 30 12/11/17 21:20 61 17 30 12/11/17 20:00 30 12/11/17 20:00 97.0 53 20 153/67 (95) 100 97.0 12/11/17 20:00 Mechanical Ventilator Mechanical Ventilator 12/11/17 19:33 70 12/11/17 19:10 65 15 30 12/11/17 17:42 149/70 12/11/17 17:01 57 14 30 12/11/17 16:00 98.6 50 16 149/70 (96) 100 98.6 12/11/17 16:00 57 12/11/17 16:00 Mechanical Ventilator Mechanical Ventilator 12/11/17 16:00 30 12/11/17 14:35 56 14 30 Height (Feet): 5 Height (Inches): 0.00 Weight (Pounds): 129 General Appearance: WD/WN, no acute distress HEENT: normocephalic, atraumatic, anicteric, mucous membranes moist, PERRL, supple, no JVD Respiratory/Chest: chest wall non-tender, no respiratory distress, no accessory muscle use, decreased breath sounds Cardiovascular: normal peripheral pulses, normal rate, regular rhythm, no gallop/murmur, no JVD Abdomen: normal bowel sounds, soft, non tender, no organomegaly, non distended , no mass, no scars Genitourinary: normal external genitalia Extremities: no cyanosis, no clubbing Skin: no rash, no lesions, ulcers - right heel pressure wound with an eschar , sacral pressure wound Neurologic/Psychiatric: alert, unresponsiveness Lymphatic: no neck adenopathy, no groin adenopathy Musculoskeletal: no effusion, atrophy Current Medications Medications (Trade) Dose Ordered Sig/Cirilo Route PRN Reason Start Time Stop Time Status Last Admin Dose Admin Acetaminophen (Tylenol) 650 mg Q6H PRN ORAL Fever/Headache/Mild Pain 12/04/17 14:00 12/24/17 13:46 12/06/17 00:21 Apixaban (Eliquis) 2.5 mg BID GT 12/10/17 18:00 01/09/18 17:59 12/12/17 09:16 Cefepime HCl 2 gm/ Dextrose 55 ml @ 110 mls/hr Q24H IVPB 12/04/17 21:00 12/18/17 20:59 12/11/17 20:28 Dextrose (Dextrose 50%) 25 ml PRN IV Hypoglycemia 12/04/17 12:45 12/24/17 13:59 Dextrose (Dextrose 50%) 50 ml PRN IV hypoglycemia 12/04/17 12:45 12/24/17 13:59 Hydralazine HCl (Apresoline) 10 mg Q6H PRN GT SBP above 140mmHg 12/04/17 14:00 12/30/17 13:47 12/09/17 12:41 Hydralazine HCl (Apresoline) 50 mg Q6HR GT 12/09/17 18:00 01/08/18 17:59 12/12/17 12:11 Insulin Aspart (NovoLOG) EVERY 6 HOURS SUBQ 12/04/17 18:00 12/25/17 17:59 12/12/17 12:12 Isosorbide Dinitrate (Isordil) 10 mg THREE TIMES A DAY GT 12/12/17 09:00 01/11/18 08:59 12/12/17 13:13 Lansoprazole (Prevacid) 30 mg DAILY GT 12/11/17 12:15 01/10/18 12:14 12/11/17 17:40 Povidone Iodine (Betadine Claribel) 1 applic Q24H TOPIC 12/11/17 06:00 01/10/18 05:59 12/12/17 05:55 Theophylline (Theophylline) 80 mg Q6HR GT 12/08/17 12:00 01/07/18 11:59 12/12/17 12:11 Cole Rasmussen M.D. Dec 12, 2017 13:37
[2017-12-12 16:00] VITALS: BP 158/72
[2017-12-12] MEDS ORDERED: Tubing IV Secondary IV ONE (16:35)
[2017-12-12] MEDS ORDERED: NS 500ML ONE (16:35)
[2017-12-12 20:00] VITALS: BP 152/76
[2017-12-12] MEDS: Cefepime HCl 2 GM in D5W 55 ML IVPB SCH (20:15)
--- NOTE | 2017-12-12 20:15 | Progress Note ---
DATE: 12/12/2017 CARDIOLOGY CONSULTATION SUBJECTIVE: The patient remains on ventilator support via tracheostomy. The patient remains poorly responsive. OBJECTIVE: VITAL SIGNS: Blood pressure remains stable 158/64, heart rate 49 to 71, respiratory rate 16 to 21, and the patient afebrile. LUNGS: Bilateral breath sounds. CARDIAC: Regular rhythm and rate. Normal S1 and S2. ABDOMEN: Soft. EXTREMITIES: Trace edema. LABORATORY AND DIAGNOSTIC DATA: No new laboratories. IMPRESSION: The patient is stable from a cardiovascular standpoint. Her sinus bradycardia is asymptomatic. Currently, there is no urgent indication for permanent pacemaker. RECOMMEND: 1. Follow up laboratory studies to assess electrolytes. 2. Continue current cardiovascular regimen without change. 3. Long-term ventilator support with weaning at the subacute facility. 4. Monitor hemoglobin and consider panendoscopy in the future if condition warrants. Jori Andujar M.D. DR: MARCO JOB#: [id number] CC:
[2017-12-13] VITALS: BP 163/73
[2017-12-13 04:00] VITALS: BP 123/64
[2017-12-13 06:22] LABS: BASOPHILS % (AUTO) 0.8 % (0.0-2.0); EOSINOPHILS % (AUTO) 5.2 % (0.0-3.0); HEMATOCRIT 30.3 % (37.0-47.0); HEMOGLOBIN 9.2 G/DL (12.0-16.0); LYMPHOCYTES % (AUTO) 17.6 % (20.0-45.0); MEAN CORPUSCULAR VOLUME 94 FL (80-99); NEUTROPHILS % (AUTO) 70.5 % (45.0-75.0); PLATELET COUNT 264 K/UL (150-450); RED BLOOD COUNT 3.21 M/UL (4.20-5.40); RED CELL DISTRIBUTION WIDTH 17.2 % (11.6-14.8); WHITE BLOOD COUNT 6.8 K/UL (4.8-10.8)
[2017-12-13] MEDS: HydrALAZINE 50mg tab GT SCH ×3 (06:24→17:42)
[2017-12-13] MEDS: Betadine 4oz Bottle TOPIC SCH (06:24)
[2017-12-13] MEDS: Theophylline 80mg/15ml GT SCH ×3 (06:25→17:42)
[2017-12-13] MEDS: NovoLOG Insulin Flexpen SUBQ SCH ×3 (06:26→17:45)
[2017-12-13 06:43] LABS: ALANINE AMINOTRANSFERASE 22 U/L (12-78); ALBUMIN 1.9 G/DL (3.4-5.0); ALBUMIN/GLOBULIN RATIO 0.4 (1.0-2.7); ALKALINE PHOSPHATASE 99 U/L (46-116); ANION GAP 6 mmol/L (5-15); ASPARTATE AMINO TRANSFERASE 20 U/L (15-37); BILIRUBIN,TOTAL 0.2 MG/DL (0.2-1.0); BLOOD UREA NITROGEN 29 mg/dL (7-18); CALCIUM 9.3 MG/DL (8.5-10.1); CARBON DIOXIDE 28 MMOL/L (21-32); CHLORIDE 109 MMOL/L (98-107); CREATININE 0.8 MG/DL (0.55-1.30); PHOSPHORUS 2.9 MG/DL (2.5-4.9); POTASSIUM 4.2 MMOL/L (3.5-5.1); SODIUM 143 MMOL/L (136-145)
--- NOTE | 2017-12-13 07:28 | General Progress Note ---
Assessment/Plan Assessment/Plan GIAssessment - GT torn -- replaced - Heme (+) stools - Anemia, Iron deficiency - on anticoagulation for cardioembolic issues - significant bradycardia - PNA, Pulm edema, Resp failure - LVEF % 65-70 - s/p PEG and Trach - HTN - DM - Pulmonary HTN - abnormal LFT Recommendations - anticoagulation - monitor CBC - check hep serologies - Agree with IV Iron - vent care - would monitor CBC 2x/week as outpatient - can re-admit at a later date for EGD once stable or if H&H drops Subjective ROS Limited/Unobtainable: No Allergies: Coded Allergies: ATORVASTATIN (Verified Allergy, Unknown, 11/24/17) CLONIDINE (Verified Allergy, Unknown, 11/24/17) LABETALOL (Verified Allergy, Unknown, 11/24/17) NIFEDIPINE (Verified Allergy, Unknown, 11/24/17) ROSUVASTATIN (Verified Allergy, Unknown, 11/24/17) Uncoded Allergies: IVELISSE INHIBITOR (Allergy, Unknown, 11/24/17) Objective Last 24 Hour Vital Signs Date Time Temp Pulse Resp B/P (MAP) Pulse Ox O2 Delivery O2 Flow Rate FiO2 12/13/17 06:45 62 17 30 12/13/17 06:24 123/64 12/13/17 05:01 58 15 30 12/13/17 04:00 Mechanical Ventilator 12/13/17 04:00 30 12/13/17 04:00 49 12/13/17 04:00 98.6 62 16 123/64 (83) 99 98.6 12/13/17 03:37 58 14 30 12/13/17 01:08 54 15 30 12/13/17 00:00 Mechanical Ventilator 12/13/17 00:00 98.2 56 24 163/73 (103) 100 98.2 12/12/17 23:34 60 12/12/17 23:27 163/73 12/12/17 23:01 55 14 30 12/12/17 21:38 63 16 30 12/12/17 20:24 57 15 30 12/12/17 20:20 60 14 30 12/12/17 20:00 30 12/12/17 20:00 98.2 61 22 152/76 (101) 100 98.2 12/12/17 20:00 Mechanical Ventilator 12/12/17 19:21 100 12/12/17 17:57 150/88 12/12/17 17:56 150/88 12/12/17 16:49 56 15 30 12/12/17 16:00 66 12/12/17 16:00 30 12/12/17 16:00 Mechanical Ventilator 12/12/17 16:00 98.3 64 16 158/72 (100) 98 98.3 12/12/17 15:33 63 14 30 12/12/17 13:13 154/79 12/12/17 12:38 60 15 30 12/12/17 12:11 152/77 12/12/17 12:00 74 12/12/17 12:00 30 12/12/17 12:00 Mechanical Ventilator 12/12/17 12:00 99.3 64 15 152/77 (102) 98 99.3 12/12/17 11:14 71 16 30 12/12/17 09:16 158/64 12/12/17 08:45 68 16 30 12/12/17 08:00 Mechanical Ventilator 12/12/17 08:00 30 12/12/17 08:00 99.2 63 19 158/64 (95) 97 99.2 12/12/17 08:00 76 Intake and Output 12/12/17 12/13/17 19:00 07:00 Intake Total 990 ml 1055 ml Output Total 550 ml 700 ml Balance 440 ml 355 ml Intake Free Water 400 ml 400 ml IV Total 55 ml Tube Feeding 540 ml 540 ml Other 50 ml 60 ml Output Urine Total 450 ml 500 ml Stool Total 100 ml 200 ml Laboratory Tests 12/13/17 06:06: White Blood Count 6.8, Red Blood Count 3.21L, Hemoglobin 9.2L, Hematocrit 30.3L , Mean Corpuscular Volume 94, Mean Corpuscular Hemoglobin 28.5, Mean Corpuscular Hemoglobin Concent 30.3L, Red Cell Distribution Width 17.2H, Platelet Count 264, Mean Platelet Volume 9.0, Neutrophils (%) (Auto) 70.5, Lymphocytes (%) (Auto) 17.6L, Monocytes (%) (Auto) 6.0, Eosinophils (%) (Auto) 5.2H, Basophils (%) (Auto) 0.8, Sodium Level 143, Potassium Level 4.2, Chloride Level 109H, Carbon Dioxide Level 28, Anion Gap 6, Blood Urea Nitrogen 29H, Creatinine 0.8, Estimat Glomerular Filtration Rate , Glucose Level 138H, Calcium Level 9.3, Phosphorus Level 2.9, Magnesium Level 2.3, Total Bilirubin 0.2, Aspartate Amino Transf (AST/SGOT) 20, Alanine Aminotransferase (ALT/SGPT) 22, Alkaline Phosphatase 99, Pro-B-Type Natriuretic Peptide 5787H, Total Protein 6.6, Albumin 1.9L, Globulin 4.7, Albumin/Globulin Ratio 0.4L Height (Feet): 5 Height (Inches): 0.00 Weight (Pounds): 130 General Appearance: no apparent distress EENT: normal ENT inspection Neck: supple Cardiovascular: normal rate Respiratory/Chest: decreased breath sounds Abdomen: normal bowel sounds, non tender, soft Extremities: non-tender Jose Guadalupe Carmona MD Dec 13, 2017 07:28
[2017-12-13 08:00] VITALS: BP 143/66
[2017-12-13] MEDS: Eliquis 2.5mg tablet GT SCH ×2 (08:50→17:42)
--- NOTE | 2017-12-13 10:29 | General Progress Note ---
Assessment/Plan Problem List: (1) Acute respiratory failure ICD Codes: J96.00 - Acute respiratory failure, unspecified whether with hypoxia or hypercapnia SNOMED: 01038586 Qualifiers: Qualified Codes: J96.01 - Acute respiratory failure with hypoxia (2) History of CVA (cerebrovascular accident) ICD Codes: Z86.73 - Personal history of transient ischemic attack (TIA), and cerebral infarction without residual deficits SNOMED: 279709646 (3) Pulmonary edema ICD Codes: J81.1 - Chronic pulmonary edema SNOMED: 50483935 Qualifiers: Qualified Codes: J81.0 - Acute pulmonary edema (4) Diabetic nephropathy ICD Codes: E11.21 - Type 2 diabetes mellitus with diabetic nephropathy SNOMED: 67824999, 864274568 (5) Pleural effusion, bilateral ICD Codes: J90 - Pleural effusion, not elsewhere classified SNOMED: 968628769 (6) Bradycardia with 41-50 beats per minute ICD Codes: R00.1 - Bradycardia, unspecified SNOMED: 68437961 Assessment/Plan DC planning Upper endoscopy unsuccessful - Anesthsia cited low HR On Theophylin Off Coreg hydralazine GT trach 12/03 post trach care Currently on Cefepime til Dec 18 resume eliquis GT feeding Keep BP and BS in check optimize cardiac and pulm status- IV Iron PER Cardio and pulm Dc planning in AM Endoscopy as OP if needed - Monitor H&H as OP addendum: 12/02/[address] james, based on boarderline pulmonary status and the need for bipap, and patient being full code, tracheostomy will be entertained after discussion with DPOA . Subjective ROS Limited/Unobtainable: No Allergies: Coded Allergies: ATORVASTATIN (Verified Allergy, Unknown, 11/24/17) CLONIDINE (Verified Allergy, Unknown, 11/24/17) LABETALOL (Verified Allergy, Unknown, 11/24/17) NIFEDIPINE (Verified Allergy, Unknown, 11/24/17) ROSUVASTATIN (Verified Allergy, Unknown, 11/24/17) Uncoded Allergies: IVELISSE INHIBITOR (Allergy, Unknown, 11/24/17) Objective Last 24 Hour Vital Signs Date Time Temp Pulse Resp B/P (MAP) Pulse Ox O2 Delivery O2 Flow Rate FiO2 12/13/17 09:23 52 12/13/17 08:50 143/66 12/13/17 08:31 65 18 30 12/13/17 08:00 98.4 56 14 143/66 (91) 98 98.4 12/13/17 08:00 30 12/13/17 08:00 Mechanical Ventilator 12/13/17 06:45 62 17 30 12/13/17 06:24 123/64 12/13/17 05:01 58 15 30 12/13/17 04:00 Mechanical Ventilator 12/13/17 04:00 30 12/13/17 04:00 49 12/13/17 04:00 98.6 62 16 123/64 (83) 99 98.6 12/13/17 03:37 58 14 30 12/13/17 01:08 54 15 30 12/13/17 00:00 Mechanical Ventilator 12/13/17 00:00 98.2 56 24 163/73 (103) 100 98.2 12/12/17 23:34 60 12/12/17 23:27 163/73 12/12/17 23:01 55 14 30 12/12/17 21:38 63 16 30 12/12/17 20:24 57 15 30 12/12/17 20:20 60 14 30 12/12/17 20:00 30 12/12/17 20:00 98.2 61 22 152/76 (101) 100 98.2 12/12/17 20:00 Mechanical Ventilator 12/12/17 19:21 100 12/12/17 17:57 150/88 12/12/17 17:56 150/88 12/12/17 16:49 56 15 30 12/12/17 16:00 66 12/12/17 16:00 30 12/12/17 16:00 Mechanical Ventilator 12/12/17 16:00 98.3 64 16 158/72 (100) 98 98.3 12/12/17 15:33 63 14 30 12/12/17 13:13 154/79 12/12/17 12:38 60 15 30 12/12/17 12:11 152/77 12/12/17 12:00 74 12/12/17 12:00 30 12/12/17 12:00 Mechanical Ventilator 12/12/17 12:00 99.3 64 15 152/77 (102) 98 99.3 12/12/17 11:14 71 16 30 Intake and Output 12/12/17 12/13/17 19:00 07:00 Intake Total 990 ml 1055 ml Output Total 550 ml 700 ml Balance 440 ml 355 ml Intake Free Water 400 ml 400 ml IV Total 55 ml Tube Feeding 540 ml 540 ml Other 50 ml 60 ml Output Urine Total 450 ml 500 ml Stool Total 100 ml 200 ml Current Medications Medications (Trade) Dose Ordered Sig/Cirilo Route PRN Reason Start Time Stop Time Status Last Admin Dose Admin Acetaminophen (Tylenol) 650 mg Q6H PRN ORAL Fever/Headache/Mild Pain 12/04/17 14:00 12/24/17 13:46 12/06/17 00:21 Apixaban (Eliquis) 2.5 mg BID GT 12/10/17 18:00 01/09/18 17:59 12/13/17 08:50 Cefepime HCl 2 gm/ Dextrose 55 ml @ 110 mls/hr Q24H IVPB 12/04/17 21:00 12/18/17 20:59 12/12/17 20:15 Dextrose (Dextrose 50%) 25 ml PRN IV Hypoglycemia 12/04/17 12:45 12/24/17 13:59 Dextrose (Dextrose 50%) 50 ml PRN IV hypoglycemia 12/04/17 12:45 12/24/17 13:59 Hydralazine HCl (Apresoline) 10 mg Q6H PRN GT SBP above 140mmHg 12/04/17 14:00 12/30/17 13:47 12/09/17 12:41 Hydralazine HCl (Apresoline) 50 mg Q6HR GT 12/09/17 18:00 01/08/18 17:59 12/13/17 06:24 Insulin Aspart (NovoLOG) EVERY 6 HOURS SUBQ 12/04/17 18:00 12/25/17 17:59 12/13/17 06:26 Isosorbide Dinitrate (Isordil) 10 mg THREE TIMES A DAY GT 12/12/17 09:00 01/11/18 08:59 12/13/17 08:50 Lansoprazole (Prevacid) 30 mg DAILY GT 12/11/17 12:15 01/10/18 12:14 12/13/17 08:50 Povidone Iodine (Betadine Claribel) 1 applic Q24H TOPIC 12/11/17 06:00 01/10/18 05:59 12/13/17 06:24 Theophylline (Theophylline) 80 mg Q6HR GT 12/08/17 12:00 01/07/18 11:59 12/13/17 06:25 Laboratory Tests 12/13/17 06:06: White Blood Count 6.8, Red Blood Count 3.21L, Hemoglobin 9.2L, Hematocrit 30.3L , Mean Corpuscular Volume 94, Mean Corpuscular Hemoglobin 28.5, Mean Corpuscular Hemoglobin Concent 30.3L, Red Cell Distribution Width 17.2H, Platelet Count 264, Mean Platelet Volume 9.0, Neutrophils (%) (Auto) 70.5, Lymphocytes (%) (Auto) 17.6L, Monocytes (%) (Auto) 6.0, Eosinophils (%) (Auto) 5.2H, Basophils (%) (Auto) 0.8, Sodium Level 143, Potassium Level 4.2, Chloride Level 109H, Carbon Dioxide Level 28, Anion Gap 6, Blood Urea Nitrogen 29H, Creatinine 0.8, Estimat Glomerular Filtration Rate , Glucose Level 138H, Calcium Level 9.3, Phosphorus Level 2.9, Magnesium Level 2.3, Total Bilirubin 0.2, Aspartate Amino Transf (AST/SGOT) 20, Alanine Aminotransferase (ALT/SGPT) 22, Alkaline Phosphatase 99, Pro-B-Type Natriuretic Peptide 5787H, Total Protein 6.6, Albumin 1.9L, Globulin 4.7, Albumin/Globulin Ratio 0.4L Height (Feet): 5 Height (Inches): 0.00 Weight (Pounds): 130 General Appearance: no apparent distress Objective no change Rafael Hurt MD Dec 13, 2017 10:29
[2017-12-13 12:00] VITALS: BP 147/71
--- NOTE | 2017-12-13 13:31 | Pulmonolgy Critical Care Note ---
Critical Care - Asmt/Plan Problems: (1) Acute respiratory failure Assessment & Plan: s/p trach (2) Pulmonary edema (3) Pleural effusion, bilateral Assessment & Plan: s/p thoracentesis (4) Atrial fibrillation (5) Diabetes mellitus (6) Advanced dementia (7) History of CVA (cerebrovascular accident) (8) Feeding by G-tube Respiratory: monitor respiratory rate, adjust FIO2 Cardiac: continue to monitor HR/BP, d/c laboratory monitor Infectious Disease: check cultures Gastrointestinal: hold feedings Endocrine: monitor blood sugar, check HgA1C Neurologic: PRN Ativan, keep patient comfortable Affect: PRN ativan Disposition: transfer to Time Spent (Minutes): 40 Notes Reviewed: cardio, renal Critical Care - Objective Last 24 Hour Vital Signs Date Time Temp Pulse Resp B/P (MAP) Pulse Ox O2 Delivery O2 Flow Rate FiO2 12/13/17 12:35 61 18 30 12/13/17 12:00 Mechanical Ventilator 12/13/17 12:00 30 12/13/17 12:00 68 12/13/17 12:00 99.2 60 17 147/71 (96) 98 99.2 12/13/17 11:57 147/71 12/13/17 10:33 59 18 30 12/13/17 09:23 52 12/13/17 08:50 143/66 12/13/17 08:31 65 18 30 12/13/17 08:00 98.4 56 14 143/66 (91) 98 98.4 12/13/17 08:00 30 12/13/17 08:00 Mechanical Ventilator 12/13/17 06:45 62 17 30 12/13/17 06:24 123/64 12/13/17 05:01 58 15 30 12/13/17 04:00 Mechanical Ventilator 12/13/17 04:00 30 12/13/17 04:00 49 12/13/17 04:00 98.6 62 16 123/64 (83) 99 98.6 12/13/17 03:37 58 14 30 12/13/17 01:08 54 15 30 12/13/17 00:00 Mechanical Ventilator 12/13/17 00:00 98.2 56 24 163/73 (103) 100 98.2 12/12/17 23:34 60 12/12/17 23:27 163/73 12/12/17 23:01 55 14 30 9/15/18 21:38 63 16 30 12/12/17 20:24 57 15 30 12/12/17 20:20 60 14 30 12/12/17 20:00 30 12/12/17 20:00 98.2 61 22 152/76 (101) 100 98.2 12/12/17 20:00 Mechanical Ventilator 12/12/17 19:21 100 12/12/17 17:57 150/88 12/12/17 17:56 150/88 12/12/17 16:49 56 15 30 12/12/17 16:00 66 12/12/17 16:00 30 12/12/17 16:00 Mechanical Ventilator 12/12/17 16:00 98.3 64 16 158/72 (100) 98 98.3 12/12/17 15:33 63 14 30 Status: awake Condition: critical HEENT: atraumatic Lungs: clear, chest wall tender Heart: HR/BP unstable Abdomen: soft, active bowel sounds Extremities: edema Decubiti: location Accucheck: 150 Critical Care - Subjective ROS Limited/Unobtainable: No Condition: critical EKG Rhythm: Sinus Rhythm FI02: 30 Vent Support Breath Rate: 14 Vent Support Mode: AC Vent Tidal Volume: 500 Sputum Amount: Scant PEEP: 5.0 PIP: 23 Tube Feeding Amount: 45 I&O: Intake and Output 12/12/17 12/13/17 19:00 07:00 Intake Total 990 ml 1055 ml Output Total 550 ml 700 ml Balance 440 ml 355 ml Intake Free Water 400 ml 400 ml IV Total 55 ml Tube Feeding 540 ml 540 ml Other 50 ml 60 ml Output Urine Total 450 ml 500 ml Stool Total 100 ml 200 ml ET-Tube: 8.0 ET Position: 20 Labs: Laboratory Tests Test 12/13/17 06:06 White Blood Count 6.8 K/UL (4.8-10.8) Red Blood Count 3.21 M/UL (4.20-5.40) L Hemoglobin 9.2 G/DL (12.0-16.0) L Hematocrit 30.3 % (37.0-47.0) L Mean Corpuscular Volume 94 FL (80-99) Mean Corpuscular Hemoglobin 28.5 PG (27.0-31.0) Mean Corpuscular Hemoglobin Concent 30.3 G/DL (32.0-36.0) L Red Cell Distribution Width 17.2 % (11.6-14.8) H Platelet Count 264 K/UL (150-450) Mean Platelet Volume 9.0 FL (6.5-10.1) Neutrophils (%) (Auto) 70.5 % (45.0-75.0) Lymphocytes (%) (Auto) 17.6 % (20.0-45.0) L Monocytes (%) (Auto) 6.0 % (1.0-10.0) Eosinophils (%) (Auto) 5.2 % (0.0-3.0) H Basophils (%) (Auto) 0.8 % (0.0-2.0) Sodium Level 143 MMOL/L (136-145) Potassium Level 4.2 MMOL/L (3.5-5.1) Chloride Level 109 MMOL/L (98-107) H Carbon Dioxide Level 28 MMOL/L (21-32) Anion Gap 6 mmol/L (5-15) Blood Urea Nitrogen 29 mg/dL (7-18) H Creatinine 0.8 MG/DL (0.55-1.30) Estimat Glomerular Filtration Rate mL/min (>60) Glucose Level 138 MG/DL (74-106) H Calcium Level 9.3 MG/DL (8.5-10.1) Phosphorus Level 2.9 MG/DL (2.5-4.9) Magnesium Level 2.3 MG/DL (1.8-2.4) Total Bilirubin 0.2 MG/DL (0.2-1.0) Aspartate Amino Transf (AST/SGOT) 20 U/L (15-37) Alanine Aminotransferase (ALT/SGPT) 22 U/L (12-78) Alkaline Phosphatase 99 U/L (46-116) Pro-B-Type Natriuretic Peptide 5787 pg/mL (0-125) H Total Protein 6.6 G/DL (6.4-8.2) Albumin 1.9 G/DL (3.4-5.0) L Globulin 4.7 g/dL Albumin/Globulin Ratio 0.4 (1.0-2.7) L Henry Gomez MD Dec 13, 2017 13:31
--- NOTE | 2017-12-13 14:17 | Infectious Diseases Prog Note ---
Assessment/Plan Problems: (1) Aspiration pneumonia Assessment & Plan: with B/L basal infiltrates, due to pseudomonas aeruginosa , continue cefepime to finish total of three weeks course of treatment . monitor CXR . aspiration precaution , keep HOB > 30 degree . EOT 12/18/17 (2) Pleural effusion, bilateral Assessment & Plan: S/P thoracentesis , exudative most likely due to pneumonia, adenosine deaminase on pleural fluids, fungal and cytology were not done . bacterial culture is negative which rule out empyema (3) Acute respiratory failure Assessment & Plan: due to the above, S/P tracheostomy , monitor CXR , continue local trach care , pulmonary is following (4) Sepsis Assessment & Plan: due to the above, with negative blood culture results so far , on cefepime to treat her pneumonia and UTI for total of three weeks. EOT 12/18/17 (5) Pressure ulcer, heel, right, unstageable Assessment & Plan: with an eschar, continue off loading and local wound care as per hospital protocol (6) Fever Assessment & Plan: resolved, suspect post OP, continue tylenol and monitor clinically Subjective ROS Limited/Unobtainable: Yes Allergies: Coded Allergies: ATORVASTATIN (Verified Allergy, Unknown, 11/24/17) CLONIDINE (Verified Allergy, Unknown, 11/24/17) LABETALOL (Verified Allergy, Unknown, 11/24/17) NIFEDIPINE (Verified Allergy, Unknown, 11/24/17) ROSUVASTATIN (Verified Allergy, Unknown, 11/24/17) Uncoded Allergies: IVELISSE INHIBITOR (Allergy, Unknown, 11/24/17) Subjective she was lying in bed, comfortable, open eyes spontaneously , awake and alert, no fever or cough , no significant secretions Objective Vital Signs Last 24 Hour Vital Signs Date Time Temp Pulse Resp B/P (MAP) Pulse Ox O2 Delivery O2 Flow Rate FiO2 12/13/17 13:30 132/68 12/13/17 12:35 61 18 30 12/13/17 12:00 Mechanical Ventilator 12/13/17 12:00 30 12/13/17 12:00 68 12/13/17 12:00 99.2 60 17 147/71 (96) 98 99.2 12/13/17 11:57 147/71 12/13/17 10:33 59 18 30 12/13/17 09:23 52 12/13/17 08:50 143/66 12/13/17 08:31 65 18 30 12/13/17 08:00 98.4 56 14 143/66 (91) 98 98.4 12/13/17 08:00 30 12/13/17 08:00 Mechanical Ventilator 12/13/17 06:45 62 17 30 12/13/17 06:24 123/64 12/13/17 05:01 58 15 30 12/13/17 04:00 Mechanical Ventilator 12/13/17 04:00 30 12/13/17 04:00 49 12/13/17 04:00 98.6 62 16 123/64 (83) 99 98.6 12/13/17 03:37 58 14 30 12/13/17 01:08 54 15 30 12/13/17 00:00 Mechanical Ventilator 12/13/17 00:00 98.2 56 24 163/73 (103) 100 98.2 12/12/17 23:34 60 12/12/17 23:27 163/73 12/12/17 23:01 55 14 30 12/12/17 21:38 63 16 30 12/12/17 20:24 57 15 30 12/12/17 20:20 60 14 30 12/12/17 20:00 30 12/12/17 20:00 98.2 61 22 152/76 (101) 100 98.2 12/12/17 20:00 Mechanical Ventilator 12/12/17 19:21 100 12/12/17 17:57 150/88 12/12/17 17:56 150/88 12/12/17 16:49 56 15 30 12/12/17 16:00 66 12/12/17 16:00 30 12/12/17 16:00 Mechanical Ventilator 12/12/17 16:00 98.3 64 16 158/72 (100) 98 98.3 12/12/17 15:33 63 14 30 Height (Feet): 5 Height (Inches): 0.00 Weight (Pounds): 130 General Appearance: WD/WN, no acute distress HEENT: normocephalic, atraumatic, anicteric, mucous membranes moist, PERRL, supple, no JVD Respiratory/Chest: chest wall non-tender, lungs clear, normal breath sounds, no respiratory distress, no accessory muscle use Cardiovascular: normal peripheral pulses, normal rate, regular rhythm, no gallop/murmur, no JVD, JVD Abdomen: normal bowel sounds, soft, non tender, no organomegaly, non distended , no mass, no scars Extremities: no cyanosis, no clubbing Skin: no rash, no lesions, ulcers Neurologic/Psychiatric: alert, unresponsiveness Lymphatic: no neck adenopathy, no groin adenopathy Musculoskeletal: normal muscle bulk Laboratory Tests Test 12/13/17 06:06 White Blood Count 6.8 K/UL (4.8-10.8) Red Blood Count 3.21 M/UL (4.20-5.40) L Hemoglobin 9.2 G/DL (12.0-16.0) L Hematocrit 30.3 % (37.0-47.0) L Mean Corpuscular Volume 94 FL (80-99) Mean Corpuscular Hemoglobin 28.5 PG (27.0-31.0) Mean Corpuscular Hemoglobin Concent 30.3 G/DL (32.0-36.0) L Red Cell Distribution Width 17.2 % (11.6-14.8) H Platelet Count 264 K/UL (150-450) Mean Platelet Volume 9.0 FL (6.5-10.1) Neutrophils (%) (Auto) 70.5 % (45.0-75.0) Lymphocytes (%) (Auto) 17.6 % (20.0-45.0) L Monocytes (%) (Auto) 6.0 % (1.0-10.0) Eosinophils (%) (Auto) 5.2 % (0.0-3.0) H Basophils (%) (Auto) 0.8 % (0.0-2.0) Sodium Level 143 MMOL/L (136-145) Potassium Level 4.2 MMOL/L (3.5-5.1) Chloride Level 109 MMOL/L (98-107) H Carbon Dioxide Level 28 MMOL/L (21-32) Anion Gap 6 mmol/L (5-15) Blood Urea Nitrogen 29 mg/dL (7-18) H Creatinine 0.8 MG/DL (0.55-1.30) Estimat Glomerular Filtration Rate mL/min (>60) Glucose Level 138 MG/DL (74-106) H Calcium Level 9.3 MG/DL (8.5-10.1) Phosphorus Level 2.9 MG/DL (2.5-4.9) Magnesium Level 2.3 MG/DL (1.8-2.4) Total Bilirubin 0.2 MG/DL (0.2-1.0) Aspartate Amino Transf (AST/SGOT) 20 U/L (15-37) Alanine Aminotransferase (ALT/SGPT) 22 U/L (12-78) Alkaline Phosphatase 99 U/L (46-116) Pro-B-Type Natriuretic Peptide 5787 pg/mL (0-125) H Total Protein 6.6 G/DL (6.4-8.2) Albumin 1.9 G/DL (3.4-5.0) L Globulin 4.7 g/dL Albumin/Globulin Ratio 0.4 (1.0-2.7) L Current Medications Medications (Trade) Dose Ordered Sig/Cirilo Route PRN Reason Start Time Stop Time Status Last Admin Dose Admin Acetaminophen (Tylenol) 650 mg Q6H PRN ORAL Fever/Headache/Mild Pain 12/04/17 14:00 12/24/17 13:46 12/06/17 00:21 Apixaban (Eliquis) 2.5 mg BID GT 12/10/17 18:00 01/09/18 17:59 12/13/17 08:50 Cefepime HCl 2 gm/ Dextrose 55 ml @ 110 mls/hr Q24H IVPB 12/04/17 21:00 12/18/17 20:59 12/12/17 20:15 Dextrose (Dextrose 50%) 25 ml PRN IV Hypoglycemia 12/04/17 12:45 12/24/17 13:59 Dextrose (Dextrose 50%) 50 ml PRN IV hypoglycemia 12/04/17 12:45 12/24/17 13:59 Hydralazine HCl (Apresoline) 10 mg Q6H PRN GT SBP above 140mmHg 12/04/17 14:00 12/30/17 13:47 12/09/17 12:41 Hydralazine HCl (Apresoline) 50 mg Q6HR GT 12/09/17 18:00 01/08/18 17:59 12/13/17 11:57 Insulin Aspart (NovoLOG) EVERY 6 HOURS SUBQ 12/04/17 18:00 12/25/17 17:59 12/13/17 11:59 Isosorbide Dinitrate (Isordil) 10 mg THREE TIMES A DAY GT 12/12/17 09:00 01/11/18 08:59 12/13/17 13:30 Lansoprazole (Prevacid) 30 mg DAILY GT 12/11/17 12:15 01/10/18 12:14 12/13/17 08:50 Povidone Iodine (Betadine Claribel) 1 applic Q24H TOPIC 12/11/17 06:00 01/10/18 05:59 12/13/17 06:24 Theophylline (Theophylline) 80 mg Q6HR GT 12/08/17 12:00 01/07/18 11:59 12/13/17 11:58 Cole Rasmussen M.D. Dec 13, 2017 14:17
[2017-12-13 16:00] VITALS: BP 157/75
[2017-12-13 20:00] VITALS: BP 162/82
[2017-12-13] MEDS: Cefepime HCl 2 GM in D5W 55 ML IVPB SCH (20:21)
--- NOTE | 2017-12-13 21:45 | Progress Note ---
DATE: 12/13/2017 CARDIOLOGY PROGRESS NOTE SUBJECTIVE: The patient remains on ventilator support via tracheostomy. She appears to be responsive opening her eyes and in no distress. OBJECTIVE: VITAL SIGNS: Blood pressure 132/68, pulse 61, and respiratory rate 18. HEENT: Thin trach secretions. LUNGS: Bilateral breath sounds. CARDIOVASCULAR: Regular rhythm and rate. Normal S1, S2. ABDOMEN: Soft. G-tube site intact. EXTREMITIES: No edema. LABORATORY DATA: White count 6.8 and hemoglobin 9.2. Potassium 4.2, BUN 29, and creatinine 0.8. Pro-natriuretic peptide decreased to 5700. Albumin 1.9. IMPRESSION: 1. Respiratory failure, status post tracheostomy. 2. Healthcare-acquired pneumonia with parapneumonic effusion, status post thoracentesis. 3. Acute on chronic diastolic congestive heart failure, now mostly compensated clinically. 4. Sinus bradycardia, asymptomatic and recovering. 5. Paroxysmal atrial fibrillation. PLAN: 1. Ventilator support. 2. Antimicrobials. 3. No indication for pacemaker. 4. Maintain current cardiovascular regimen. 5. Outpatient endoscopy. 6. Continue anticoagulation. Jori Andujar M.D. ARVIND ACOSTA JOB#: [id number] CC:
[2017-12-14] VITALS (7 sets, daily range): BP systolic 127–158; BP diastolic 60–90
[2017-12-14] MEDS: Theophylline 80mg/15ml GT SCH ×4 (00:23→18:23)
[2017-12-14] MEDS: HydrALAZINE 50mg tab GT SCH ×4 (00:23→18:26)
[2017-12-14] MEDS: NovoLOG Insulin Flexpen SUBQ SCH ×4 (00:25→18:26)
[2017-12-14] MEDS: Betadine 4oz Bottle TOPIC SCH (05:57)
[2017-12-14] MEDS: Eliquis 2.5mg tablet GT SCH ×2 (08:24→18:00)
--- NOTE | 2017-12-14 11:02 | General Progress Note ---
Assessment/Plan Problem List: (1) Acute respiratory failure ICD Codes: J96.00 - Acute respiratory failure, unspecified whether with hypoxia or hypercapnia SNOMED: 51723571 Qualifiers: Qualified Codes: J96.01 - Acute respiratory failure with hypoxia (2) History of CVA (cerebrovascular accident) ICD Codes: Z86.73 - Personal history of transient ischemic attack (TIA), and cerebral infarction without residual deficits SNOMED: 025667484 (3) Pulmonary edema ICD Codes: J81.1 - Chronic pulmonary edema SNOMED: 42573324 Qualifiers: Qualified Codes: J81.0 - Acute pulmonary edema (4) Diabetic nephropathy ICD Codes: E11.21 - Type 2 diabetes mellitus with diabetic nephropathy SNOMED: 25780307, 802889756 (5) Pleural effusion, bilateral ICD Codes: J90 - Pleural effusion, not elsewhere classified SNOMED: 613643540 (6) Bradycardia with 41-50 beats per minute ICD Codes: R00.1 - Bradycardia, unspecified SNOMED: 18818554 Status: stable Assessment/Plan DC planning Upper endoscopy unsuccessful - Anesthsia cited low HR On Theophylin Off Coreg hydralazine GT trach 12/03 post trach care Currently on Cefepime til Dec 18 resume eliquis GT feeding Keep BP and BS in check optimize cardiac and pulm status- IV Iron PER Cardio and pulm Dc planning in AM Endoscopy as OP if needed - Monitor H&H as OP addendum: 12/02/[address] james, based on boarderline pulmonary status and the need for bipap, and patient being full code, tracheostomy will be entertained after discussion with DPOA . Subjective ROS Limited/Unobtainable: Yes Allergies: Coded Allergies: ATORVASTATIN (Verified Allergy, Unknown, 11/24/17) CLONIDINE (Verified Allergy, Unknown, 11/24/17) LABETALOL (Verified Allergy, Unknown, 11/24/17) NIFEDIPINE (Verified Allergy, Unknown, 11/24/17) ROSUVASTATIN (Verified Allergy, Unknown, 11/24/17) Uncoded Allergies: IVELISSE INHIBITOR (Allergy, Unknown, 11/24/17) Objective Last 24 Hour Vital Signs Date Time Temp Pulse Resp B/P (MAP) Pulse Ox O2 Delivery O2 Flow Rate FiO2 12/14/17 10:52 49 14 Mechanical Ventilator 30 12/14/17 10:51 48 14 30 18 09:10 50 14 30 18 08:24 158/60 18 08:00 71 18 08:00 Mechanical Ventilator 12/14/17 08:00 30 12/14/17 08:00 98.2 56 14 158/60 (92) 99 98.2 18 06:34 58 14 30 18 05:55 127/70 18 04:54 73 18 30 18 04:02 74 18 04:00 30 18 04:00 Mechanical Ventilator 12/14/17 04:00 98.8 71 14 127/70 (89) 99 98.8 12/14/17 03:15 74 14 30 18 00:40 74 19 30 18 00:23 145/78 12/14/17 00:14 89 12/14/17 00:00 Mechanical Ventilator 12/14/17 00:00 98.8 68 16 145/78 (100) 100 98.8 12/13/17 23:16 72 17 30 18 20:51 69 17 30 18 20:00 30 12/13/17 20:00 Mechanical Ventilator 12/13/17 20:00 97.7 72 25 162/82 (108) 99 97.7 18 19:39 78 18 19:24 72 19 30 1618 17:42 157/75 18 17:42 157/75 18 17:18 76 23 30 18 16:00 98.6 70 18 157/75 (102) 99 98.6 18 16:00 84 18 16:00 Mechanical Ventilator 12/13/17 16:00 30 18 15:10 90 23 30 18 13:30 132/68 18 12:35 61 18 30 18 12:00 Mechanical Ventilator 12/13/17 12:00 30 18 12:00 68 18 12:00 99.2 60 17 147/71 (96) 98 99.2 12/13/17 11:57 147/71 Intake and Output 12/13/17 12/14/17 19:00 07:00 Intake Total 1140 ml 995 ml Output Total 750 ml 800 ml Balance 390 ml 195 ml Intake Free Water 500 ml 400 ml IV Total 55 ml Tube Feeding 540 ml 540 ml Other 100 ml Output Urine Total 550 ml 600 ml Stool Total 200 ml 200 ml Current Medications Medications (Trade) Dose Ordered Sig/Criilo Route PRN Reason Start Time Stop Time Status Last Admin Dose Admin Acetaminophen (Tylenol) 650 mg Q6H PRN ORAL Fever/Headache/Mild Pain 12/04/17 14:00 12/24/17 13:46 12/06/17 00:21 Apixaban (Eliquis) 2.5 mg BID GT 12/10/17 18:00 01/09/18 17:59 12/13/17 17:42 Cefepime HCl 2 gm/ Dextrose 55 ml @ 110 mls/hr Q24H IVPB 12/04/17 21:00 12/18/17 20:59 12/13/17 20:21 Dextrose (Dextrose 50%) 25 ml PRN IV Hypoglycemia 12/04/17 12:45 12/24/17 13:59 Dextrose (Dextrose 50%) 50 ml PRN IV hypoglycemia 12/04/17 12:45 12/24/17 13:59 Hydralazine HCl (Apresoline) 10 mg Q6H PRN GT SBP above 140mmHg 12/04/17 14:00 12/30/17 13:47 12/09/17 12:41 Hydralazine HCl (Apresoline) 50 mg Q6HR GT 12/09/17 18:00 01/08/18 17:59 12/14/17 05:55 Insulin Aspart (NovoLOG) EVERY 6 HOURS SUBQ 12/04/17 18:00 12/25/17 17:59 12/14/17 05:56 Isosorbide Dinitrate (Isordil) 10 mg THREE TIMES A DAY GT 12/12/17 09:00 01/11/18 08:59 12/14/17 08:24 Lansoprazole (Prevacid) 30 mg DAILY GT 12/11/17 12:15 01/10/18 12:14 12/14/17 08:23 Povidone Iodine (Betadine Claribel) 1 applic Q24H TOPIC 12/11/17 06:00 01/10/18 05:59 12/14/17 05:57 Theophylline (Theophylline) 80 mg Q6HR GT 12/08/17 12:00 01/07/18 11:59 12/14/17 05:55 Height (Feet): 5 Height (Inches): 0.00 Weight (Pounds): 130 General Appearance: no apparent distress Objective no change Rafael Hurt MD Dec 14, 2017 11:02
--- NOTE | 2017-12-14 11:30 | Pulmonolgy Critical Care Note ---
Critical Care - Asmt/Plan Problems: (1) Acute respiratory failure Assessment & Plan: s/p trach (2) Pulmonary edema (3) Pleural effusion, bilateral Assessment & Plan: s/p thoracentesis (4) Atrial fibrillation (5) Diabetes mellitus (6) Advanced dementia (7) History of CVA (cerebrovascular accident) (8) Feeding by G-tube Respiratory: monitor respiratory rate, adjust FIO2, CXR Cardiac: continue pressors, continue to monitor HR/BP Renal: F/U I&O Infectious Disease: check cultures Gastrointestinal: hold feedings Endocrine: check TSH Hematologic: monitor H/H, transfuse if hgb<8.5 Neurologic: PRN Morphine, keep patient comfortable Affect: PRN ativan Time Spent (Minutes): 40 Notes Reviewed: renal Discussed with: nurses, consultants, case management coordinatorwind energy project manager - Objective Last 24 Hour Vital Signs Date Time Temp Pulse Resp B/P (MAP) Pulse Ox O2 Delivery O2 Flow Rate FiO2 12/14/17 10:52 49 14 Mechanical Ventilator 30 12/14/17 10:51 48 14 30 12/14/17 09:10 50 14 30 12/14/17 08:24 158/60 12/14/17 08:00 71 12/14/17 08:00 Mechanical Ventilator 12/14/17 08:00 30 12/14/17 08:00 98.2 56 14 158/60 (92) 99 98.2 12/14/17 06:34 58 14 30 12/14/17 05:55 127/70 12/14/17 04:54 73 18 30 12/14/17 04:02 74 12/14/17 04:00 30 12/14/17 04:00 Mechanical Ventilator 12/14/17 04:00 98.8 71 14 127/70 (89) 99 98.8 12/14/17 03:15 74 14 30 12/14/17 00:40 74 19 30 12/14/17 00:23 145/78 12/14/17 00:14 89 12/14/17 00:00 Mechanical Ventilator 12/14/17 00:00 98.8 68 16 145/78 (100) 100 98.8 12/13/17 23:16 72 17 30 12/13/17 20:51 69 17 30 12/13/17 20:00 30 12/13/17 20:00 Mechanical Ventilator 12/13/17 20:00 97.7 72 25 162/82 (108) 99 97.7 12/13/17 19:39 78 12/13/17 19:24 72 19 30 12/13/17 17:42 157/75 12/13/17 17:42 157/75 12/13/17 17:18 76 23 30 12/13/17 16:00 98.6 70 18 157/75 (102) 99 98.6 12/13/17 16:00 84 12/13/17 16:00 Mechanical Ventilator 12/13/17 16:00 30 12/13/17 15:10 90 23 30 12/13/17 13:30 132/68 12/13/17 12:35 61 18 30 12/13/17 12:00 Mechanical Ventilator 12/13/17 12:00 30 12/13/17 12:00 68 12/13/17 12:00 99.2 60 17 147/71 (96) 98 99.2 12/13/17 11:57 147/71 Status: awake Condition: critical, improving HEENT: atraumatic Neck: full ROM Lungs: clear Heart: HR/BP stable, HR/BP unstable Abdomen: non-tender, feeding tube Extremities: no C/C/E Decubiti: stage Accucheck: 124 Critical Care - Subjective ROS Limited/Unobtainable: No Condition: critical EKG Rhythm: Sinus Rhythm FI02: 30 Vent Support Breath Rate: 14 Vent Support Mode: AC Vent Tidal Volume: 500 Sputum Amount: Small PEEP: 5.0 PIP: 27 Tube Feeding Amount: 45 I&O: Intake and Output 12/13/17 12/14/17 19:00 07:00 Intake Total 1140 ml 995 ml Output Total 750 ml 800 ml Balance 390 ml 195 ml Intake Free Water 500 ml 400 ml IV Total 55 ml Tube Feeding 540 ml 540 ml Other 100 ml Output Urine Total 550 ml 600 ml Stool Total 200 ml 200 ml CXR: no change ET-Tube: 8.0 ET Position: 20 Henry Gomez MD Dec 14, 2017 11:30
--- NOTE | 2017-12-14 14:44 | Infectious Diseases Prog Note ---
Assessment/Plan Problems: (1) Aspiration pneumonia Assessment & Plan: with B/L basal infiltrates, due to pseudomonas aeruginosa , continue cefepime for three weeks course of treatment . monitor CXR . aspiration precaution , keep HOB > 30 degree . EOT 12/18/17 (2) Pleural effusion, bilateral Assessment & Plan: S/P thoracentesis , exudative most likely due to pneumonia, adenosine deaminase on pleural fluids, fungal and cytology were not done . bacterial culture is negative which rule out empyema (3) Acute respiratory failure Assessment & Plan: due to the above, S/P tracheostomy , monitor CXR , continue local trach care , pulmonary is following (4) Sepsis Assessment & Plan: due to the above, with negative blood culture results so far , on cefepime to treat her pneumonia and UTI for total of three weeks. EOT 12/18/17 (5) Pressure ulcer, heel, right, unstageable Assessment & Plan: with an eschar, continue off loading and local wound care as per hospital protocol (6) Fever Assessment & Plan: resolved, suspect post OP, continue tylenol and monitor clinically Subjective ROS Limited/Unobtainable: Yes Allergies: Coded Allergies: ATORVASTATIN (Verified Allergy, Unknown, 11/24/17) CLONIDINE (Verified Allergy, Unknown, 11/24/17) LABETALOL (Verified Allergy, Unknown, 11/24/17) NIFEDIPINE (Verified Allergy, Unknown, 11/24/17) ROSUVASTATIN (Verified Allergy, Unknown, 11/24/17) Uncoded Allergies: IVELISSE INHIBITOR (Allergy, Unknown, 11/24/17) Subjective she was lying in bed, comfortable, open eyes spontaneously , awake and alert, no fever or cough , no significant secretions Objective Vital Signs Last 24 Hour Vital Signs Date Time Temp Pulse Resp B/P (MAP) Pulse Ox O2 Delivery O2 Flow Rate FiO2 12/14/17 13:12 130/78 12/14/17 13:12 130/78 12/14/17 12:45 58 15 30 12/14/17 12:00 Mechanical Ventilator 12/14/17 12:00 51 12/14/17 12:00 30 12/14/17 12:00 98.4 59 20 130/78 (95) 97 98.4 12/14/17 10:52 49 14 Mechanical Ventilator 30 12/14/17 10:51 48 14 30 9/17/18 09:10 50 14 30 12/14/17 08:24 158/60 12/14/17 08:00 71 12/14/17 08:00 Mechanical Ventilator 12/14/17 08:00 30 12/14/17 08:00 98.2 56 14 158/60 (92) 99 98.2 12/14/17 06:34 58 14 30 12/14/17 05:55 127/70 12/14/17 04:54 73 18 30 12/14/17 04:02 74 12/14/17 04:00 30 12/14/17 04:00 Mechanical Ventilator 12/14/17 04:00 98.8 71 14 127/70 (89) 99 98.8 12/14/17 03:15 74 14 30 12/14/17 00:40 74 19 30 12/14/17 00:23 145/78 12/14/17 00:14 89 12/14/17 00:00 Mechanical Ventilator 12/14/17 00:00 98.8 68 16 145/78 (100) 100 98.8 12/13/17 23:16 72 17 30 12/13/17 20:51 69 17 30 12/13/17 20:00 30 12/13/17 20:00 Mechanical Ventilator 12/13/17 20:00 97.7 72 25 162/82 (108) 99 97.7 12/13/17 19:39 78 12/13/17 19:24 72 19 30 18 17:42 157/75 18 17:42 157/75 12/13/17 17:18 76 23 30 12/13/17 16:00 98.6 70 18 157/75 (102) 99 98.6 12/13/17 16:00 84 12/13/17 16:00 Mechanical Ventilator 12/13/17 16:00 30 12/13/17 15:10 90 23 30 Height (Feet): 5 Height (Inches): 0.00 Weight (Pounds): 130 General Appearance: WD/WN, no acute distress HEENT: normocephalic, atraumatic, anicteric, supple, no JVD, status post trach Respiratory/Chest: chest wall non-tender, no respiratory distress, no accessory muscle use, decreased breath sounds, crackles/rales Cardiovascular: normal peripheral pulses, normal rate, regular rhythm, no gallop/murmur, no JVD Abdomen: normal bowel sounds, soft, non tender, no organomegaly, non distended , no mass, no scars Genitourinary: normal external genitalia Extremities: no cyanosis, no clubbing Skin: no rash, no lesions, no ulcers Neurologic/Psychiatric: alert, oriented x 3, responsive Lymphatic: no neck adenopathy, no groin adenopathy Musculoskeletal: normal muscle bulk, no effusion Current Medications Medications (Trade) Dose Ordered Sig/Cirilo Route PRN Reason Start Time Stop Time Status Last Admin Dose Admin Acetaminophen (Tylenol) 650 mg Q6H PRN ORAL Fever/Headache/Mild Pain 12/04/17 14:00 12/24/17 13:46 12/06/17 00:21 Apixaban (Eliquis) 2.5 mg BID GT 12/10/17 18:00 01/09/18 17:59 12/13/17 17:42 Cefepime HCl 2 gm/ Dextrose 55 ml @ 110 mls/hr Q24H IVPB 12/04/17 21:00 12/18/17 20:59 12/13/17 20:21 Dextrose (Dextrose 50%) 25 ml PRN IV Hypoglycemia 12/04/17 12:45 12/24/17 13:59 Dextrose (Dextrose 50%) 50 ml PRN IV hypoglycemia 12/04/17 12:45 12/24/17 13:59 Hydralazine HCl (Apresoline) 10 mg Q6H PRN GT SBP above 140mmHg 12/04/17 14:00 12/30/17 13:47 12/09/17 12:41 Hydralazine HCl (Apresoline) 50 mg Q6HR GT 12/09/17 18:00 01/08/18 17:59 12/14/17 13:12 Insulin Aspart (NovoLOG) EVERY 6 HOURS SUBQ 12/04/17 18:00 12/25/17 17:59 12/14/17 13:14 Isosorbide Dinitrate (Isordil) 10 mg THREE TIMES A DAY GT 12/12/17 09:00 01/11/18 08:59 12/14/17 13:12 Lansoprazole (Prevacid) 30 mg DAILY GT 12/11/17 12:15 01/10/18 12:14 12/14/17 08:23 Povidone Iodine (Betadine Claribel) 1 applic Q24H TOPIC 12/11/17 06:00 01/10/18 05:59 12/14/17 05:57 Theophylline (Theophylline) 80 mg Q6HR GT 12/08/17 12:00 01/07/18 11:59 12/14/17 13:11 Cole Rasmussen M.D. Dec 14, 2017 14:44
--- NOTE | 2017-12-14 20:30 | Progress Note ---
DATE: 12/14/2017 CARDIOLOGY PROGRESS NOTE SUBJECTIVE: The patient remains afebrile. She is on ventilator support via tracheostomy. Secretions have decreased. OBJECTIVE: VITAL SIGNS: Blood pressure 130/78, heart rate range 48 to 59, respiratory rate of 14 to 20, and afebrile. Monitored rhythm is sinus bradycardia. Exam reveals thin trach secretions. LUNGS: Bilateral breath sounds with rhonchi. HEART: Regular rhythm. Slow rate. Normal S1 and S2. ABDOMEN: Soft. EXTREMITIES: Trace edema. LABORATORY STUDIES: No new laboratory studies. IMPRESSION: 1. Respiratory failure, ventilator dependent, tracheostomy. 2. Acute on chronic diastolic congestive heart failure, improved. 3. Severe protein-calorie malnutrition, on gastrostomy tube feedings. 4. Sinus node disease with bradycardia, asymptomatic. 5. Paroxysmal atrial fibrillation. DISCUSSION AND PLAN: Do not think theophylline is helpful at this time and does not need to be continued. The patient may continue on hydralazine, which may stimulate her heart rates. She is on anticoagulation for cardioembolic prophylaxis. Should her heart rate become symptomatic with regard to the bradycardia, then a pacemaker should be indicated, but at this time she is bedridden, ventilator dependent and unlikely to require such a device. Jori Andujar M.D. ARVIND ACOSTA JOB#: [id number] CC:
[2017-12-14] MEDS: Cefepime HCl 2 GM in D5W 55 ML IVPB SCH (20:57)
--- NOTE | 2017-12-14 22:52 | General Progress Note ---
Assessment/Plan Assessment/Plan Assessment - GT torn -- replaced - Heme (+) stools - Anemia, Iron deficiency - on anticoagulation for cardioembolic issues - significant bradycardia - PNA, Pulm edema, Resp failure - LVEF % 65-70 - s/p PEG and Trach - HTN - DM - Pulmonary HTN - abnormal LFT Recommendations - If patient still inpatient, then can arrange for EGD - anticoagulation placed on hold today, for possible Endoscopy later this week - If discharged over the next few days, can restart anticoagulation - monitor CBC - Agree with IV Iron - vent care Subjective Allergies: Coded Allergies: ATORVASTATIN (Verified Allergy, Unknown, 11/24/17) CLONIDINE (Verified Allergy, Unknown, 11/24/17) LABETALOL (Verified Allergy, Unknown, 11/24/17) NIFEDIPINE (Verified Allergy, Unknown, 11/24/17) ROSUVASTATIN (Verified Allergy, Unknown, 11/24/17) Uncoded Allergies: IVELISSE INHIBITOR (Allergy, Unknown, 11/24/17) Subjective Above noted tolerating TF D/c delayed, pending placement Objective Last 24 Hour Vital Signs Date Time Temp Pulse Resp B/P (MAP) Pulse Ox O2 Delivery O2 Flow Rate FiO2 12/14/17 20:54 68 15 30 12/14/17 20:00 97.0 67 17 154/83 (106) 100 97.0 12/14/17 20:00 30 12/14/17 20:00 Mechanical Ventilator 12/14/17 20:00 74 12/14/17 19:30 52 15 30 12/14/17 18:26 158/90 12/14/17 18:26 158/9 12/14/17 17:03 58 14 30 12/14/17 16:00 98.8 73 17 158/90 (112) 98 98.8 12/14/17 16:00 30 12/14/17 16:00 58 12/14/17 16:00 Mechanical Ventilator 12/14/17 15:00 59 14 30 12/14/17 13:12 130/78 12/14/17 13:12 130/78 12/14/17 12:45 58 15 30 12/14/17 12:00 Mechanical Ventilator 12/14/17 12:00 51 12/14/17 12:00 30 12/14/17 12:00 98.4 59 20 130/78 (95) 97 98.4 12/14/17 10:52 49 14 Mechanical Ventilator 30 12/14/17 10:51 48 14 30 12/14/17 09:10 50 14 30 12/14/17 08:24 158/60 12/14/17 08:00 71 12/14/17 08:00 Mechanical Ventilator 12/14/17 08:00 30 12/14/17 08:00 98.2 56 14 158/60 (92) 99 98.2 12/14/17 06:34 58 14 30 12/14/17 05:55 127/70 12/14/17 04:54 73 18 30 12/14/17 04:02 74 12/14/17 04:00 30 12/14/17 04:00 Mechanical Ventilator 12/14/17 04:00 98.8 71 14 127/70 (89) 99 98.8 12/14/17 03:15 74 14 30 12/14/17 00:40 74 19 30 12/14/17 00:23 145/78 12/14/17 00:14 89 12/14/17 00:00 Mechanical Ventilator 12/14/17 00:00 98.8 68 16 145/78 (100) 100 98.8 12/13/17 23:16 72 17 30 Intake and Output 12/13/17 12/14/17 19:00 07:00 Intake Total 1140 ml 995 ml Output Total 750 ml 800 ml Balance 390 ml 195 ml Intake Free Water 500 ml 400 ml IV Total 55 ml Tube Feeding 540 ml 540 ml Other 100 ml Output Urine Total 550 ml 600 ml Stool Total 200 ml 200 ml Height (Feet): 5 Height (Inches): 0.00 Weight (Pounds): 130 Objective Elderly woman , NAD NCAT supple, (+) trach Coarse BS RR soft ND. (+) GT contracted OBS Mack Jackson MD Dec 14, 2017 22:52
[2017-12-15] VITALS: BP 126/68
[2017-12-15] MEDS: Theophylline 80mg/15ml GT SCH ×4 (00:19→17:22)
[2017-12-15] MEDS: HydrALAZINE 50mg tab GT SCH ×4 (00:19→17:25)
[2017-12-15] MEDS: NovoLOG Insulin Flexpen SUBQ SCH ×4 (00:22→17:25)
[2017-12-15 04:00] VITALS: BP 113/67
[2017-12-15 06:04] LABS: BASOPHILS % (AUTO) 0.8 % (0.0-2.0); EOSINOPHILS % (AUTO) 6.3 % (0.0-3.0); HEMATOCRIT 31.6 % (37.0-47.0); HEMOGLOBIN 9.9 G/DL (12.0-16.0); LYMPHOCYTES % (AUTO) 19.6 % (20.0-45.0); MEAN CORPUSCULAR VOLUME 95 FL (80-99); MONOCYTES % (AUTO) 5.2 % (1.0-10.0); NEUTROPHILS % (AUTO) 68.1 % (45.0-75.0); PLATELET COUNT 269 K/UL (150-450); RED BLOOD COUNT 3.34 M/UL (4.20-5.40); RED CELL DISTRIBUTION WIDTH 17.4 % (11.6-14.8); WHITE BLOOD COUNT 5.9 K/UL (4.8-10.8)
[2017-12-15] MEDS: Betadine 4oz Bottle TOPIC SCH (06:20)
[2017-12-15 06:49] LABS: ALANINE AMINOTRANSFERASE 21 U/L (12-78); ALBUMIN 2.1 G/DL (3.4-5.0); ALBUMIN/GLOBULIN RATIO 0.4 (1.0-2.7); ALKALINE PHOSPHATASE 97 U/L (46-116); ANION GAP 5 mmol/L (5-15); ASPARTATE AMINO TRANSFERASE 18 U/L (15-37); BILIRUBIN,TOTAL 0.3 MG/DL (0.2-1.0); BLOOD UREA NITROGEN 28 mg/dL (7-18); CALCIUM 9.6 MG/DL (8.5-10.1); CARBON DIOXIDE 29 MMOL/L (21-32); CHLORIDE 106 MMOL/L (98-107); CREATININE 0.8 MG/DL (0.55-1.30); POTASSIUM 4.3 MMOL/L (3.5-5.1); SODIUM 140 MMOL/L (136-145)
[2017-12-15 08:00] VITALS: BP 124/65
[2017-12-15] MEDS: Eliquis 2.5mg tablet GT SCH ×3 (09:00→22:47)
--- NOTE | 2017-12-15 10:07 | General Progress Note ---
Assessment/Plan Problem List: (1) Acute respiratory failure ICD Codes: J96.00 - Acute respiratory failure, unspecified whether with hypoxia or hypercapnia SNOMED: 09129974 Qualifiers: Qualified Codes: J96.01 - Acute respiratory failure with hypoxia (2) History of CVA (cerebrovascular accident) ICD Codes: Z86.73 - Personal history of transient ischemic attack (TIA), and cerebral infarction without residual deficits SNOMED: 802138254 (3) Pulmonary edema ICD Codes: J81.1 - Chronic pulmonary edema SNOMED: 92666819 Qualifiers: Qualified Codes: J81.0 - Acute pulmonary edema (4) Diabetic nephropathy ICD Codes: E11.21 - Type 2 diabetes mellitus with diabetic nephropathy SNOMED: 02231153, 536081050 (5) Pleural effusion, bilateral ICD Codes: J90 - Pleural effusion, not elsewhere classified SNOMED: 521259950 (6) Bradycardia with 41-50 beats per minute ICD Codes: R00.1 - Bradycardia, unspecified SNOMED: 19209333 Assessment/Plan DC planning Upper endoscopy unsuccessful - Anesthsia cited low HR On Theophylin Off Coreg hydralazine GT trach 12/03 post trach care Currently on Cefepime til Dec 18 resume eliquis GT feeding Keep BP and BS in check optimize cardiac and pulm status- IV Iron PER Cardio and pulm Dc planning in AM Endoscopy as OP if needed - Monitor H&H as OP addendum: 12/02/[address] james, based on boarderline pulmonary status and the need for bipap, and patient being full code, tracheostomy will be entertained after discussion with DPOA . Subjective ROS Limited/Unobtainable: Yes Allergies: Coded Allergies: ATORVASTATIN (Verified Allergy, Unknown, 11/24/17) CLONIDINE (Verified Allergy, Unknown, 11/24/17) LABETALOL (Verified Allergy, Unknown, 11/24/17) NIFEDIPINE (Verified Allergy, Unknown, 11/24/17) ROSUVASTATIN (Verified Allergy, Unknown, 11/24/17) Uncoded Allergies: IVELISSE INHIBITOR (Allergy, Unknown, 11/24/17) Objective Last 24 Hour Vital Signs Date Time Temp Pulse Resp B/P (MAP) Pulse Ox O2 Delivery O2 Flow Rate FiO2 12/15/17 09:16 55 14 30 12/15/17 09:14 73 12/15/17 08:00 Mechanical Ventilator 12/15/17 08:00 97.5 62 14 124/65 (84) 98 97.5 18 08:00 30 18 07:58 150/68 1818 07:13 58 14 30 18 06:20 150/68 18 05:18 66 19 30 18 04:00 30 18 04:00 79 12/15/17 04:00 97.7 64 18 113/67 (82) 100 97.7 12/15/17 04:00 Mechanical Ventilator 12/15/17 03:30 74 20 30 12/15/17 01:30 76 18 30 12/15/17 00:19 126/68 12/15/17 00:00 Mechanical Ventilator 12/15/17 00:00 97.9 92 18 126/68 (87) 100 97.9 12/15/17 00:00 72 12/15/17 00:00 30 12/14/17 23:11 65 16 30 12/14/17 20:54 68 15 30 12/14/17 20:00 97.0 67 17 154/83 (106) 100 97.0 12/14/17 20:00 30 12/14/17 20:00 Mechanical Ventilator 12/14/17 20:00 74 12/14/17 19:30 52 15 30 18 18:26 158/90 18 18:26 158/9 18 17:03 58 14 30 18 16:00 98.8 73 17 158/90 (112) 98 98.8 18 16:00 30 18 16:00 58 12/14/17 16:00 Mechanical Ventilator 12/14/17 15:00 59 14 30 18 13:12 130/78 18 13:12 130/78 18 12:45 58 15 30 18 12:00 Mechanical Ventilator 12/14/17 12:00 51 18 12:00 30 18 12:00 98.4 59 20 130/78 (95) 97 98.4 12/14/17 10:52 49 14 Mechanical Ventilator 30 12/14/17 10:51 48 14 30 Intake and Output 12/14/17 12/15/17 19:00 07:00 Intake Total 970 ml 950 ml Output Total 1050 ml 850 ml Balance -80 ml 100 ml Intake Free Water 430 ml 400 ml IV Total 55 ml Tube Feeding 540 ml 495 ml Output Urine Total 1000 ml 800 ml Stool Total 50 ml 50 ml Current Medications Medications (Trade) Dose Ordered Sig/Cirilo Route PRN Reason Start Time Stop Time Status Last Admin Dose Admin Acetaminophen (Tylenol) 650 mg Q6H PRN ORAL Fever/Headache/Mild Pain 12/04/17 14:00 12/24/17 13:46 12/06/17 00:21 Apixaban (Eliquis) 2.5 mg BID GT 12/10/17 18:00 01/09/18 17:59 12/13/17 17:42 Cefepime HCl 2 gm/ Dextrose 55 ml @ 110 mls/hr Q24H IVPB 12/04/17 21:00 12/18/17 20:59 12/14/17 20:57 Dextrose (Dextrose 50%) 25 ml PRN IV Hypoglycemia 12/04/17 12:45 12/24/17 13:59 Dextrose (Dextrose 50%) 50 ml PRN IV hypoglycemia 12/04/17 12:45 12/24/17 13:59 Hydralazine HCl (Apresoline) 10 mg Q6H PRN GT SBP above 140mmHg 12/04/17 14:00 12/30/17 13:47 12/09/17 12:41 Hydralazine HCl (Apresoline) 50 mg Q6HR GT 12/09/17 18:00 01/08/18 17:59 12/15/17 06:20 Insulin Aspart (NovoLOG) EVERY 6 HOURS SUBQ 12/04/17 18:00 12/25/17 17:59 12/15/17 06:23 Isosorbide Dinitrate (Isordil) 10 mg THREE TIMES A DAY GT 12/12/17 09:00 01/11/18 08:59 12/15/17 07:58 Lansoprazole (Prevacid) 30 mg DAILY GT 12/11/17 12:15 01/10/18 12:14 12/15/17 07:58 Povidone Iodine (Betadine Claribel) 1 applic Q24H TOPIC 12/11/17 06:00 01/10/18 05:59 12/15/17 06:20 Theophylline (Theophylline) 80 mg Q6HR GT 12/08/17 12:00 01/07/18 11:59 12/15/17 06:20 Laboratory Tests 12/15/17 04:19: White Blood Count 5.9, Red Blood Count 3.34L, Hemoglobin 9.9L, Hematocrit 31.6L , Mean Corpuscular Volume 95, Mean Corpuscular Hemoglobin 29.7, Mean Corpuscular Hemoglobin Concent 31.3L, Red Cell Distribution Width 17.4H, Platelet Count 269, Mean Platelet Volume 8.7, Neutrophils (%) (Auto) 68.1, Lymphocytes (%) (Auto) 19.6L, Monocytes (%) (Auto) 5.2, Eosinophils (%) (Auto) 6.3H, Basophils (%) (Auto) 0.8, Sodium Level 140, Potassium Level 4.3, Chloride Level 106, Carbon Dioxide Level 29, Anion Gap 5, Blood Urea Nitrogen 28H, Creatinine 0.8, Estimat Glomerular Filtration Rate , Glucose Level 105, Calcium Level 9.6, Total Bilirubin 0.3, Aspartate Amino Transf (AST/SGOT) 18, Alanine Aminotransferase (ALT/SGPT) 21, Alkaline Phosphatase 97, Pro-B-Type Natriuretic Peptide 4781H, Total Protein 7.1, Albumin 2.1L, Globulin 5.0, Albumin/Globulin Ratio 0.4L, Theophylline Level 6.8L Height (Feet): 5 Height (Inches): 0.00 Weight (Pounds): 132 General Appearance: no apparent distress Objective no change Rafael Hurt MD Dec 15, 2017 10:07
--- NOTE | 2017-12-15 11:18 | Pulmonolgy Critical Care Note ---
Critical Care - Asmt/Plan Problems: (1) Acute respiratory failure Assessment & Plan: s/p trach (2) Pulmonary edema (3) Pleural effusion, bilateral Assessment & Plan: s/p thoracentesis (4) Atrial fibrillation (5) Diabetes mellitus (6) Advanced dementia (7) History of CVA (cerebrovascular accident) (8) Feeding by G-tube Respiratory: monitor respiratory rate, adjust FIO2, CXR Cardiac: continue to monitor HR/BP Renal: F/U I&O Infectious Disease: check cultures Gastrointestinal: continue feedings/current rate Endocrine: monitor blood sugar, continue sliding scale insulin Hematologic: transfuse if hgb<8.5 Neurologic: PRN Ativan, keep patient comfortable Affect: PRN ativan Notes Reviewed: cardio Discussed with: nurses, consultants, 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 - Objective Last 24 Hour Vital Signs Date Time Temp Pulse Resp B/P (MAP) Pulse Ox O2 Delivery O2 Flow Rate FiO2 12/15/17 10:39 57 14 30 12/15/17 09:16 55 14 30 12/15/17 09:14 73 12/15/17 08:00 Mechanical Ventilator 12/15/17 08:00 97.5 62 14 124/65 (84) 98 97.5 12/15/17 08:00 30 12/15/17 07:58 150/68 12/15/17 07:13 58 14 30 12/15/17 06:20 150/68 12/15/17 05:18 66 19 30 12/15/17 04:00 30 12/15/17 04:00 79 12/15/17 04:00 97.7 64 18 113/67 (82) 100 97.7 12/15/17 04:00 Mechanical Ventilator 12/15/17 03:30 74 20 30 12/15/17 01:30 76 18 30 12/15/17 00:19 126/68 12/15/17 00:00 Mechanical Ventilator 12/15/17 00:00 97.9 92 18 126/68 (87) 100 97.9 12/15/17 00:00 72 12/15/17 00:00 30 12/14/17 23:11 65 16 30 12/14/17 20:54 68 15 30 12/14/17 20:00 97.0 67 17 154/83 (106) 100 97.0 9/17/18 20:00 30 12/14/17 20:00 Mechanical Ventilator 12/14/17 20:00 74 12/14/17 19:30 52 15 30 12/14/17 18:26 158/90 12/14/17 18:26 158/9 12/14/17 17:03 58 14 30 12/14/17 16:00 98.8 73 17 158/90 (112) 98 98.8 12/14/17 16:00 30 12/14/17 16:00 58 12/14/17 16:00 Mechanical Ventilator 12/14/17 15:00 59 14 30 12/14/17 13:12 130/78 12/14/17 13:12 130/78 12/14/17 12:45 58 15 30 12/14/17 12:00 Mechanical Ventilator 12/14/17 12:00 51 12/14/17 12:00 30 12/14/17 12:00 98.4 59 20 130/78 (95) 97 98.4 Status: awake Condition: improving HEENT: atraumatic Lungs: clear Heart: HR/BP stable Abdomen: soft, active bowel sounds Extremities: edema Decubiti: location Accucheck: 119 Critical Care - Subjective ROS Limited/Unobtainable: No Condition: critical EKG Rhythm: Sinus Rhythm FI02: 30 Vent Support Breath Rate: 14 Vent Support Mode: AC Vent Tidal Volume: 500 Sputum Amount: Small PEEP: 5.0 PIP: 27 Tube Feeding Amount: 45 I&O: Intake and Output 12/14/17 12/15/17 19:00 07:00 Intake Total 970 ml 950 ml Output Total 1050 ml 850 ml Balance -80 ml 100 ml Intake Free Water 430 ml 400 ml IV Total 55 ml Tube Feeding 540 ml 495 ml Output Urine Total 1000 ml 800 ml Stool Total 50 ml 50 ml ET-Tube: 8.0 ET Position: 20 Labs: Laboratory Tests Test 12/15/17 04:19 White Blood Count 5.9 K/UL (4.8-10.8) Red Blood Count 3.34 M/UL (4.20-5.40) L Hemoglobin 9.9 G/DL (12.0-16.0) L Hematocrit 31.6 % (37.0-47.0) L Mean Corpuscular Volume 95 FL (80-99) Mean Corpuscular Hemoglobin 29.7 PG (27.0-31.0) Mean Corpuscular Hemoglobin Concent 31.3 G/DL (32.0-36.0) L Red Cell Distribution Width 17.4 % (11.6-14.8) H Platelet Count 269 K/UL (150-450) Mean Platelet Volume 8.7 FL (6.5-10.1) Neutrophils (%) (Auto) 68.1 % (45.0-75.0) Lymphocytes (%) (Auto) 19.6 % (20.0-45.0) L Monocytes (%) (Auto) 5.2 % (1.0-10.0) Eosinophils (%) (Auto) 6.3 % (0.0-3.0) H Basophils (%) (Auto) 0.8 % (0.0-2.0) Sodium Level 140 MMOL/L (136-145) Potassium Level 4.3 MMOL/L (3.5-5.1) Chloride Level 106 MMOL/L (98-107) Carbon Dioxide Level 29 MMOL/L (21-32) Anion Gap 5 mmol/L (5-15) Blood Urea Nitrogen 28 mg/dL (7-18) H Creatinine 0.8 MG/DL (0.55-1.30) Estimat Glomerular Filtration Rate mL/min (>60) Glucose Level 105 MG/DL (74-106) Calcium Level 9.6 MG/DL (8.5-10.1) Total Bilirubin 0.3 MG/DL (0.2-1.0) Aspartate Amino Transf (AST/SGOT) 18 U/L (15-37) Alanine Aminotransferase (ALT/SGPT) 21 U/L (12-78) Alkaline Phosphatase 97 U/L (46-116) Pro-B-Type Natriuretic Peptide 4781 pg/mL (0-125) H Total Protein 7.1 G/DL (6.4-8.2) Albumin 2.1 G/DL (3.4-5.0) L Globulin 5.0 g/dL Albumin/Globulin Ratio 0.4 (1.0-2.7) L Theophylline Level 6.8 ug/mL (10-20) L Henry Gomez MD Dec 15, 2017 11:18
[2017-12-15 11:56] VITALS: BP 136/80
--- NOTE | 2017-12-15 13:58 | General Progress Note ---
Assessment/Plan Assessment/Plan Assessment - GT torn -- replaced - Heme (+) stools - Anemia, Iron deficiency - on anticoagulation for cardioembolic issues - significant bradycardia - PNA, Pulm edema, Resp failure - LVEF % 65-70 - s/p PEG and Trach - HTN - DM - Pulmonary HTN - abnormal LFT - resolved Recommendations - If patient still inpatient, then can arrange for EGD - anticoagulation placed on hold since Thursday, for possible Endoscopy - If discharged over the next two days, can restart anticoagulation and re- evaluate as outpatient - monitor CBC - Agree with IV Iron - vent care Subjective Allergies: Coded Allergies: ATORVASTATIN (Verified Allergy, Unknown, 11/24/17) CLONIDINE (Verified Allergy, Unknown, 11/24/17) LABETALOL (Verified Allergy, Unknown, 11/24/17) NIFEDIPINE (Verified Allergy, Unknown, 11/24/17) ROSUVASTATIN (Verified Allergy, Unknown, 11/24/17) Uncoded Allergies: IVELISSE INHIBITOR (Allergy, Unknown, 11/24/17) Subjective Above noted tolerating TF D/c plans in progress Objective Last 24 Hour Vital Signs Date Time Temp Pulse Resp B/P (MAP) Pulse Ox O2 Delivery O2 Flow Rate FiO2 12/15/17 12:04 136/80 12/15/17 12:00 30 12/15/17 12:00 59 12/15/17 12:00 Mechanical Ventilator 12/15/17 11:59 136/80 12/15/17 11:56 97.7 58 14 136/80 (98) 100 97.7 12/15/17 10:39 57 14 30 12/15/17 09:16 55 14 30 12/15/17 09:14 73 12/15/17 08:00 Mechanical Ventilator 12/15/17 08:00 97.5 62 14 124/65 (84) 98 97.5 12/15/17 08:00 30 12/15/17 07:58 150/68 12/15/17 07:13 58 14 30 12/15/17 06:20 150/68 12/15/17 05:18 66 19 30 12/15/17 04:00 30 12/15/17 04:00 79 12/15/17 04:00 97.7 64 18 113/67 (82) 100 97.7 12/15/17 04:00 Mechanical Ventilator 12/15/17 03:30 74 20 30 12/15/17 01:30 76 18 30 12/15/17 00:19 126/68 12/15/17 00:00 Mechanical Ventilator 12/15/17 00:00 97.9 92 18 126/68 (87) 100 97.9 12/15/17 00:00 72 12/15/17 00:00 30 12/14/17 23:11 65 16 30 12/14/17 20:54 68 15 30 12/14/17 20:00 97.0 67 17 154/83 (106) 100 97.0 12/14/17 20:00 30 12/14/17 20:00 Mechanical Ventilator 12/14/17 20:00 74 12/14/17 19:30 52 15 30 12/14/17 18:26 158/90 12/14/17 18:26 158/9 12/14/17 17:03 58 14 30 12/14/17 16:00 98.8 73 17 158/90 (112) 98 98.8 12/14/17 16:00 30 12/14/17 16:00 58 12/14/17 16:00 Mechanical Ventilator 12/14/17 15:00 59 14 30 Intake and Output 12/14/17 12/15/17 19:00 07:00 Intake Total 970 ml 950 ml Output Total 1050 ml 850 ml Balance -80 ml 100 ml Intake Free Water 430 ml 400 ml IV Total 55 ml Tube Feeding 540 ml 495 ml Output Urine Total 1000 ml 800 ml Stool Total 50 ml 50 ml Laboratory Tests 12/15/17 04:19: White Blood Count 5.9, Red Blood Count 3.34L, Hemoglobin 9.9L, Hematocrit 31.6L , Mean Corpuscular Volume 95, Mean Corpuscular Hemoglobin 29.7, Mean Corpuscular Hemoglobin Concent 31.3L, Red Cell Distribution Width 17.4H, Platelet Count 269, Mean Platelet Volume 8.7, Neutrophils (%) (Auto) 68.1, Lymphocytes (%) (Auto) 19.6L, Monocytes (%) (Auto) 5.2, Eosinophils (%) (Auto) 6.3H, Basophils (%) (Auto) 0.8, Sodium Level 140, Potassium Level 4.3, Chloride Level 106, Carbon Dioxide Level 29, Anion Gap 5, Blood Urea Nitrogen 28H, Creatinine 0.8, Estimat Glomerular Filtration Rate , Glucose Level 105, Calcium Level 9.6, Total Bilirubin 0.3, Aspartate Amino Transf (AST/SGOT) 18, Alanine Aminotransferase (ALT/SGPT) 21, Alkaline Phosphatase 97, Pro-B-Type Natriuretic Peptide 4781H, Total Protein 7.1, Albumin 2.1L, Globulin 5.0, Albumin/Globulin Ratio 0.4L, Theophylline Level 6.8L Height (Feet): 5 Height (Inches): 0.00 Weight (Pounds): 132 Objective Elderly woman , NAD NCAT supple, (+) trach Coarse BS RR soft ND. (+) GT contracted OBS Mack Jackson MD Dec 15, 2017 13:58
[2017-12-15 15:42] VITALS: BP 153/73
--- NOTE | 2017-12-15 16:45 | Infectious Diseases Prog Note ---
Assessment/Plan Problems: (1) Aspiration pneumonia Assessment & Plan: with B/L basal infiltrates, due to pseudomonas aeruginosa , continue cefepime for three weeks course of treatment . monitor CXR . aspiration precaution , keep HOB > 30 degree . EOT 12/18/17 (2) Pleural effusion, bilateral Assessment & Plan: S/P thoracentesis , exudative most likely due to pneumonia, adenosine deaminase on pleural fluids, fungal and cytology were not done . bacterial culture is negative which rule out empyema (3) Acute respiratory failure Assessment & Plan: due to the above, S/P tracheostomy , monitor CXR , continue local trach care , pulmonary is following (4) Sepsis Assessment & Plan: due to the above, with negative blood culture results so far , on cefepime to treat her pneumonia and UTI for total of three weeks. EOT 12/18/17 (5) Pressure ulcer, heel, right, unstageable Assessment & Plan: with an eschar, continue off loading and local wound care as per hospital protocol (6) Fever Assessment & Plan: resolved, continue tylenol and monitor clinically Subjective ROS Limited/Unobtainable: Yes Allergies: Coded Allergies: ATORVASTATIN (Verified Allergy, Unknown, 11/24/17) CLONIDINE (Verified Allergy, Unknown, 11/24/17) LABETALOL (Verified Allergy, Unknown, 11/24/17) NIFEDIPINE (Verified Allergy, Unknown, 11/24/17) ROSUVASTATIN (Verified Allergy, Unknown, 11/24/17) Uncoded Allergies: IVELISSE INHIBITOR (Allergy, Unknown, 11/24/17) Subjective she was lying in bed, comfortable, open eyes spontaneously , no fever or cough , no significant secretions Objective Vital Signs Last 24 Hour Vital Signs Date Time Temp Pulse Resp B/P (MAP) Pulse Ox O2 Delivery O2 Flow Rate FiO2 12/15/17 16:07 70 12/15/17 15:42 97.9 68 14 153/73 (99) 97 97.9 12/15/17 15:15 58 14 30 12/15/17 12:04 136/80 12/15/17 12:00 30 12/15/17 12:00 59 12/15/17 12:00 Mechanical Ventilator 12/15/17 11:59 136/80 12/15/17 11:56 97.7 58 14 136/80 (98) 100 97.7 9/18/18 10:39 57 14 30 12/15/17 09:16 55 14 30 12/15/17 09:14 73 12/15/17 08:00 Mechanical Ventilator 12/15/17 08:00 97.5 62 14 124/65 (84) 98 97.5 12/15/17 08:00 30 12/15/17 07:58 150/68 12/15/17 07:13 58 14 30 12/15/17 06:20 150/68 12/15/17 05:18 66 19 30 12/15/17 04:00 30 12/15/17 04:00 79 12/15/17 04:00 97.7 64 18 113/67 (82) 100 97.7 12/15/17 04:00 Mechanical Ventilator 12/15/17 03:30 74 20 30 12/15/17 01:30 76 18 30 12/15/17 00:19 126/68 12/15/17 00:00 Mechanical Ventilator 12/15/17 00:00 97.9 92 18 126/68 (87) 100 97.9 12/15/17 00:00 72 12/15/17 00:00 30 12/14/17 23:11 65 16 30 12/14/17 20:54 68 15 30 12/14/17 20:00 97.0 67 17 154/83 (106) 100 97.0 12/14/17 20:00 30 12/14/17 20:00 Mechanical Ventilator 12/14/17 20:00 74 12/14/17 19:30 52 15 30 12/14/17 18:26 158/90 12/14/17 18:26 158/9 12/14/17 17:03 58 14 30 Height (Feet): 5 Height (Inches): 0.00 Weight (Pounds): 132 General Appearance: WD/WN, no acute distress HEENT: normocephalic, atraumatic, anicteric, mucous membranes moist, PERRL Respiratory/Chest: chest wall non-tender, no respiratory distress, no accessory muscle use, respiratory distress, decreased breath sounds, crackles/ rales Cardiovascular: normal peripheral pulses, normal rate, regular rhythm, no gallop/murmur, no JVD Abdomen: normal bowel sounds, soft, non tender, no organomegaly, non distended , no mass, no scars Extremities: no cyanosis, no clubbing Skin: no rash, no lesions, ulcers Neurologic/Psychiatric: alert, unresponsiveness Lymphatic: no groin adenopathy Musculoskeletal: normal muscle bulk, no effusion Laboratory Tests Test 12/15/17 04:19 White Blood Count 5.9 K/UL (4.8-10.8) Red Blood Count 3.34 M/UL (4.20-5.40) L Hemoglobin 9.9 G/DL (12.0-16.0) L Hematocrit 31.6 % (37.0-47.0) L Mean Corpuscular Volume 95 FL (80-99) Mean Corpuscular Hemoglobin 29.7 PG (27.0-31.0) Mean Corpuscular Hemoglobin Concent 31.3 G/DL (32.0-36.0) L Red Cell Distribution Width 17.4 % (11.6-14.8) H Platelet Count 269 K/UL (150-450) Mean Platelet Volume 8.7 FL (6.5-10.1) Neutrophils (%) (Auto) 68.1 % (45.0-75.0) Lymphocytes (%) (Auto) 19.6 % (20.0-45.0) L Monocytes (%) (Auto) 5.2 % (1.0-10.0) Eosinophils (%) (Auto) 6.3 % (0.0-3.0) H Basophils (%) (Auto) 0.8 % (0.0-2.0) Sodium Level 140 MMOL/L (136-145) Potassium Level 4.3 MMOL/L (3.5-5.1) Chloride Level 106 MMOL/L (98-107) Carbon Dioxide Level 29 MMOL/L (21-32) Anion Gap 5 mmol/L (5-15) Blood Urea Nitrogen 28 mg/dL (7-18) H Creatinine 0.8 MG/DL (0.55-1.30) Estimat Glomerular Filtration Rate mL/min (>60) Glucose Level 105 MG/DL (74-106) Calcium Level 9.6 MG/DL (8.5-10.1) Total Bilirubin 0.3 MG/DL (0.2-1.0) Aspartate Amino Transf (AST/SGOT) 18 U/L (15-37) Alanine Aminotransferase (ALT/SGPT) 21 U/L (12-78) Alkaline Phosphatase 97 U/L (46-116) Pro-B-Type Natriuretic Peptide 4781 pg/mL (0-125) H Total Protein 7.1 G/DL (6.4-8.2) Albumin 2.1 G/DL (3.4-5.0) L Globulin 5.0 g/dL Albumin/Globulin Ratio 0.4 (1.0-2.7) L Theophylline Level 6.8 ug/mL (10-20) L Current Medications Medications (Trade) Dose Ordered Sig/Cirilo Route PRN Reason Start Time Stop Time Status Last Admin Dose Admin Acetaminophen (Tylenol) 650 mg Q6H PRN ORAL Fever/Headache/Mild Pain 12/04/17 14:00 12/24/17 13:46 12/06/17 00:21 Apixaban (Eliquis) 2.5 mg BID GT 12/10/17 18:00 01/09/18 17:59 12/13/17 17:42 Cefepime HCl 2 gm/ Dextrose 55 ml @ 110 mls/hr Q24H IVPB 12/04/17 21:00 12/18/17 20:59 12/14/17 20:57 Dextrose (Dextrose 50%) 25 ml PRN IV Hypoglycemia 12/04/17 12:45 12/24/17 13:59 Dextrose (Dextrose 50%) 50 ml PRN IV hypoglycemia 12/04/17 12:45 12/24/17 13:59 Hydralazine HCl (Apresoline) 10 mg Q6H PRN GT SBP above 140mmHg 12/04/17 14:00 12/30/17 13:47 12/09/17 12:41 Hydralazine HCl (Apresoline) 50 mg Q6HR GT 12/09/17 18:00 01/08/18 17:59 12/15/17 11:59 Insulin Aspart (NovoLOG) EVERY 6 HOURS SUBQ 12/04/17 18:00 12/25/17 17:59 12/15/17 12:00 Isosorbide Dinitrate (Isordil) 10 mg THREE TIMES A DAY GT 12/12/17 09:00 01/11/18 08:59 12/15/17 12:04 Lansoprazole (Prevacid) 30 mg DAILY GT 12/11/17 12:15 01/10/18 12:14 12/15/17 07:58 Povidone Iodine (Betadine Claribel) 1 applic Q24H TOPIC 12/11/17 06:00 01/10/18 05:59 12/15/17 06:20 Theophylline (Theophylline) 80 mg Q6HR GT 12/08/17 12:00 01/07/18 11:59 12/15/17 11:58 Cole Rasmussen M.D. Dec 15, 2017 16:45
[2017-12-15 20:00] VITALS: BP 154/79
[2017-12-15] MEDS: Cefepime HCl 2 GM in D5W 55 ML IVPB SCH (20:35)
[2017-12-15] MEDS: Acetaminophen 650mg/20.3ml ORAL PRN (20:36)
--- NOTE | 2017-12-15 21:15 | Progress Note ---
DATE: 12/15/2017 CARDIOLOGY PROGRESS NOTE SUBJECTIVE: The patient is likely to be discharged to a subacute facility today. The patient remains on ventilator support via tracheostomy. Monitor reveals sinus with paroxysms of atrial fibrillation. PHYSICAL EXAMINATION: LUNGS: Thin trach secretions. Bilateral breath sounds. HEART: Regular rhythm and rate. Normal S1 and S2 with no new murmur. ABDOMEN: Soft. G-tube intact. EXTREMITIES: No edema. LABORATORY DATA: White count 5.9 and hemoglobin 9.9. Potassium 4.2, BUN 28, and creatinine 0.8. Albumin 2.1. Pro-natriuretic peptide continues to decrease, now 4781. Heart rate is between 56 and 70. IMPRESSION: 1. No evidence of clinically significant bradyarrhythmias. 2. Respiratory failure, on ventilator support following tracheostomy. 3. Acute on chronic diastolic congestive heart failure, improved. 4. Paroxysmal atrial fibrillation. PLAN: 1. Stable for transfer to subacute facility. 2. We would continue current cardiovascular regimen. 3. We would not continue theophylline. 4. No indication for pacemaker either. Jori Andujar M.D. DR: MAE JOB#: [id number] CC:
--- NOTE | 2017-12-18 09:01 | Discharge Summary ---
Discharge Summary Discharge Summary _ DATE OF ADMISSION: 11/24/2017 DATE OF DISCHARGE: 12/15/2017 REASON FOR ADMISSION: 87 years old female with past medical history for diabetes mellitus, hypertension, CVA with left-sided weakness, dementia, dysphagia, G-tube, congestive heart failure, encephalopathy, was [facility] from the [facility] for evaluation due to dyspnea and hypoxia. Per paramedics initial pulse oximetry was 75%. Patient was placed on oxygen via 100% nonrebreathing mas and pulse oximetry went up to 94%. In emergency department patient was afebrile, blood pressure was severely elevated 198/87. Laboratory workup revealed no leukocytosis, hemoglobin 9.8 ,hematocrit 32.8. Sodium 146. BUN 36 creatinine 0.6 Lactic acid 0.5. Troponin 0.026, pro BNP 71422. Chest x-ray revealed bilateral pleural effusion and bilateral interstitial edema with cardiomegaly. EKG revealed normal sinus rhythm. Urinalysis revealed no evidence of UTI , but showed +3 protein. Patient admitted with diagnoses of acute respiratory failure, pulmonary edema, decompensated congestive heart failure, diabetes mellitus, proteinuria, hypertension, advanced dementia, history of CVA. CONSULTANTS: clinical biostatistician pulmonary Dr. Gomez ID specialist Dr. Rasmussen GI specialist [facility] COURSE: Patient admitted to [facility]. Patient initially was on nonrebreathing mask and then subsequently was placed on BiPAP . [employer] closely followed. Settings titrated as needed. Patient was follow ed up with ABG and chest x-ray. Pulmonary toilet provided as needed. Unable to wean from the BiPAP. Patient initially kept nothing by mouth and started on diuretic. Volumes and cardiorenal parameters were closely monitored. Echocardiogram revealed preserved ejection fraction of 65-70%, mild left ventricular hypertrophy, no evidence of wall motion abnormality. Right ventricular systolic pressure of 66 consistent of severe pulmonary hypertension. [id number] tricuspid regurgitation. Large pleural effusion. Venous duplex bilateral lower extremity revealed no evidence of acute DVT. Follow-up chest x-ray revealed worsening bilateral pleural effusion. Patient subsequently undergone thoracentesis of right pleural effusion, yielding 0.9 L of fluid. Pleural fluid culture was negative. Pathology of pleural fluid revealed no malignant cells. Pleural effusion was likely due to decompensated congestive heart failure. Barge Worker closely followed. Serial troponin were negative, no acute ischemic changes on ECG, Initially diuresis provided and close monitoring of volumes and cardiorenal parameters. Blood pressure initially was managed with hydralazine. and blood bouchra. Patient developed bradycardia , and beta bouchra subsequently discontinued. Pro BNP was trending down. Lipid panel was stable. Anticoagulation with Eliquis provided for cardioembolic prophylaxis. Patient status post gentle diuresis. Creatinine remained stable. Patient spiked fever and developed leukocytosis after thoracentesis. Patient started on empiric antibiotic. ID consult was requested. Blood culture were negative. Sputum culture grew Pseudomonas aeruginosa. Urine culture demonstrated Proteus. Stool for C. difficile was negative. Antibiotic regimen optimized as per ID specialist recommendations. Patient was minimally tolerated BiPAP. He developed gastric distention and was at higher risk for aspiration, given G tube feeding, Patient was unable to be weaned from BiPAP. Surgery consult was requested Patient was transferred to ICU and subsequently intubated on 12/02/17. Ventilator support provided. Pulmonary toilet provided as needed. [employer] and surgeon closely followed. Patient subsequently underwent on placement of tracheostomy. Tracheostomy was stable. Chest x-ray post tracheostomy indicated correct position of tracheostomy. No pneumothorax. Last ABG was stable on current ventilator settings. Follow-up chest x-ray still demonstrated bilateral pleural effusion/infiltrates ,now left greater than right . Renal parameters and electrolytes were closely monitored ,and electrolytes corrected as needed. Strict aspiration/reflux precautions maintained. G tube site care provided. G-tube feeding was continued , and patient was able to tolerate G-tube feeding . Hemoglobin and hematocrit were closely monitored with goal to keep hemoglobin above 7.. Anemia workup was consistent with anemia of iron deficiency anemia. Patient was on IV Venofer. GI specialist closely followed. G tube was torn and subsequently was replaced by GI specialist at the bedside. G tube functioning, No further leak or tear. patient tolerated tube feeding with strict aspiration/reflux precautions. Bowel regimen instituted. GI prophylaxis provided. Stool for occult blood was positive. Unable to do EGD due to bradycardia ( no anesthesia with bradycardia) . EGD as outpatient when heart rate stabilized,. Hemoglobin and hematocrit remained stable , and prior to discharge hemoglobin 9.9 and hematocrit 31.6. Blood sugar was managed with sliding scale of insulin on as needed basis. Hemoglobin A1c near at goal 7.5. Pain management addressed as needed. Protein supplements provided as per Guide Escort's recommendation. Wound care provided per surgeon's recommendations for un-stageable right heel decubitus ulcer present on admission. Infectious disease specialist recommended continue antibiotic treatment and complete at the [facility]. Estimated end of treatment on 12/18/2017. Per clinical biostatistician congestive heart failure improved. ProBNP down to 4781. Continue spot diuresis as needed. with close monitoring of cardiorenal parameters wars at the facility. No evidence of clinically significant bradyarrhythmia. No indication for pacemaker Barge Worker cleared patient for transfer to subacute facility and continue current cardiovascular regimen. FINAL DIAGNOSES: Acute hypoxemic respiratory failure ( requiring BiPAP and then oral intubation ) Status post tracheostomy 12/03 Sepsis UTI with Proteus Aspiration pneumonia with Pseudomonas Acute on chronic diastolic congestive heart failure Bilateral pleural effusion Status post thoracentesis Paroxysmal atrial fibrillation Diabetes mellitus Diabetic nephropathy Bradycardia ( HR 41-50) Cerebrovascular disease with history of CVA Advanced dementia Dysphagia, G-tube Moderate protein calorie malnutrition Iron deficiency anemia Severe pulmonary hypertension Malfunctioning G-tube, status post change at the bedside 98 Right heel pressure ulcer un-stageable DISCHARGE MEDICATIONS: See Medication Reconciliation list. DISCHARGE INSTRUCTIONS: Patient was discharged to [facility]. Follow up with medical doctor and senior software engineering manager at the facility. I have been assigned to dictate discharge summary for this account. I was not involved in the patient's management. Ignacia Macias NP Dec 18, 2017 09:01
== END 2017-12-15 23:10 | DRG 4 ==
LOC: EDBD 10:17 → EMR 10:39 → 2W 10:57 → EDBEDREQSVC 11:32 → EDBEDREQ 13:09 → ICU 12-02 13:35 → 2W 12-04 12:22
PROC: 5A09357 Assistance with Respiratory Ventilation, Less than 24 Consecutive Hours, Continuous Positive Airway Pressure (ICD-10-PCS; 2017-11-24)
PROC: 0W993ZZ Drainage of Right Pleural Cavity, Percutaneous Approach (ICD-10-PCS; 2017-11-26)
PROC: 30233N1 Transfusion of Nonautologous Red Blood Cells into Peripheral Vein, Percutaneous Approach (ICD-10-PCS; principal; 2017-12-02)
PROC: 5A1955Z Respiratory Ventilation, Greater than 96 Consecutive Hours (ICD-10-PCS; principal; 2017-12-02)
PROC: 0B110F4 Bypass Trachea to Cutaneous with Tracheostomy Device, Open Approach (ICD-10-PCS; 2017-12-03)
PROC: 0D20XUZ Change Feeding Device in Upper Intestinal Tract, External Approach (ICD-10-PCS; 2017-12-05)
DX: A41.9 Sepsis, unspecified organism (principal); I50.33 Acute on chronic diastolic (congestive) heart failure; J69.0 Pneumonitis due to inhalation of food and vomit; E43 Unspecified severe protein-calorie malnutrition; J15.1 Pneumonia due to Pseudomonas; R65.21 Severe sepsis with septic shock; J96.01 Acute respiratory failure with hypoxia; I69.354 Hemiplegia and hemiparesis following cerebral infarction affecting left non-dominant side; Z43.1 Encounter for attention to gastrostomy; E87.0 Hyperosmolality and hypernatremia; E44.0 Moderate protein-calorie malnutrition; J90 Pleural effusion, not elsewhere classified; N39.0 Urinary tract infection, site not specified; N17.9 Acute kidney failure, unspecified; I13.0 Hypertensive heart and chronic kidney disease with heart failure and stage 1 through stage 4 chronic kidney disease, or unspecified chronic kidney disease; I73.9 Peripheral vascular disease, unspecified; Z88.8 Allergy status to other drugs, medicaments and biological substances; I48.0 Paroxysmal atrial fibrillation; R13.10 Dysphagia, unspecified; E78.5 Hyperlipidemia, unspecified; I27.20 Pulmonary hypertension, unspecified; I51.3 Intracardiac thrombosis, not elsewhere classified; L89.610 Pressure ulcer of right heel, unstageable; B96.4 Proteus (mirabilis) (morganii) as the cause of diseases classified elsewhere; E11.21 Type 2 diabetes mellitus with diabetic nephropathy; I48.91 Unspecified atrial fibrillation; E86.0 Dehydration; F01.50 Vascular dementia, unspecified severity, without behavioral disturbance, psychotic disturbance, mood disturbance, and anxiety; D50.9 Iron deficiency anemia, unspecified; E11.65 Type 2 diabetes mellitus with hyperglycemia; E87.6 Hypokalemia; E11.22 Type 2 diabetes mellitus with diabetic chronic kidney disease; N18.9 Chronic kidney disease, unspecified; Z86.718 Personal history of other venous thrombosis and embolism; R00.1 Bradycardia, unspecified
CPT/HCPCS: 36415; 36600; 71045; 76942; 80048; 80053; 80061; 80076; 80198; 81003; 82270; 82378; 82550; 82607; 82728; 82746; 82803; 82962; 82977; 83036; 83540; 83550; 83605; 83615; 83735; 83880; 84100; 84311; 84443; 84478; 84484; 84550; 85007; 85025; 85044; 85060; 85610; 85651; 85730; 86140; 86705; 86709; 86803; 86850; 86900; 86901; 86920; 87040; 87070; 87081; 87086; 87181; 87205; 87324; 87340; 88104; 89051; 93005; 93306; 93970; 94002; 94003; 94150; 94640; 94660; 94664; 94760; 99291; A4246; J1815; J8499